=== PATIENT | female | born 1945 | race Caucasian/White ===

== ENCOUNTER 2018-03-20 18:34 | Inpatient (IN) | payer MEDICARE, MEDICAID ==
[~2018-03-20 18:34] MED LIST: ISOVUE-370 76%-LOCM 1 ML ONE
[2018-03-20] MEDS ORDERED: hydrALAZINE 20 MG/ML VIAL ONE (19:24)
[2018-03-20 19:49] LABS: #Basophils 0.1 thou/uL (0.0-0.2); #Eosinphils 1.7 thou/uL (0.0-0.7); #Lymphocytes 2.1 thou/uL (1.20-3.40); #Monocytes 0.8 thou/uL (0.11-0.59); #Neutrophils 5.9 thou/uL (1.40-6.50); %Basophils 0.6 % (0.0-1.0); %Eosinophils 15.9 % (0.0-10.0); %Monocytes 7.3 % (0.0-10.0); %Neutrophils 56.2 % (42.0-75.0); Hemoglobin 11.3 g/dL (12.0-16.0); Mean Corpuscular Hemoglobin 28.3 pg (27.0-31.0); Mean Corpuscular Volume 88.5 fL (78.0-98.0); Mean Platelet Volume 7.5 fL (7.4-10.4); Platelet Count 210 thou/uL (130-400); RBC Distribution Width 12.5 % (11.5-14.5); Red Blood Cell (RBC) Count 3.98 mill/uL (4.20-5.40); White Blood Cell (WBC) Count 10.4 thou/uL (4.8-10.8)
[2018-03-20 19:54] LABS: Platelet Count 210 thou/uL (130-400)
[2018-03-20 19:56] LABS: Fibrinogen 541 mg/dL (253-463)
[2018-03-20] MEDS ORDERED: Ondansetron HCl/PF 4 MG/2 ML Vial ONE (19:56)
[2018-03-20 19:57] LABS: PTT 29.4 SEC (22.9-36.1); Prothrombin Time 13.3 SEC (12.0-14.7)
[2018-03-20 19:58] LABS: D-Dimer Test 2.62 *mcg/mL (0.27-0.43)
[2018-03-20 20:10] LABS: FSP-Qualitative ABNORMAL (Normal); FSP-Semiquantitative >=5 & <20 mcg/mL (Less than 5)
[2018-03-20 20:10] LABS: ALT (SGPT) Less than 7 U/L (8-55); AST (SGOT) 13 U/L (5-34); Albumin 3.7 g/dL (3.4-4.8); Alkaline Phosphatase 80 U/L (40-150); Anion Gap 16 mmol/L (10-20); BUN (Urea Nitrogen) 22 mg/dL (9.8-20.1); Bilirubin, Total 0.3 mg/dL (0.2-1.2); CK (CPK) 126 U/L (29-168); Calc. Creatinine Clearance 0 mL/min (70-130); Calcium 8.7 mg/dL (7.8-10.44); Carbon Dioxide 22 mmol/L (23-31); Chloride 110 mmol/L (98-107); Estimated GFR-MDRD 48; Globulin 2.4 g/dL (2.4-3.5); Glucose 61 mg/dL (83-110); Lipase 26 U/L (8-78); Potassium 3.6 mmol/L (3.5-5.1); Protein, Total 6.1 g/dL (6.0-8.3); Sodium 144 mmol/L (136-145)
[2018-03-20 20:14] LABS: CKMB 0.9 ng/mL (0-6.6); Troponin I Less than 0.010 ng/mL (< 0.028)
[2018-03-20] MEDS ORDERED: Dexamethasone 4 mg/ml Vial ONE (21:12)
[2018-03-20] MEDS ORDERED: Promethazine HCl 25 MG/ML VIAL ONE (21:17)
[2018-03-20] MEDS ORDERED: Promethazine HCl 25 MG in Sodium Chloride 0.9% 100 ML IVPB SCH (21:45)
--- NOTE | 2018-03-20 22:27 | CT ---
CT ANGIOGRAM THORAX WITH IV CONTRAST AND 3D RECONSTRUCTIONS: 03/20/18 HISTORY: Elevated D-dimer. COMPARISON: None available. FINDINGS: No filling defects are seen in the pulmonary arteries to suggest a pulmonary embolus. Vascular calcifications are seen in the coronary arteries and involving the thoracic and visualized u pper abdominal aorta. The thoracic aorta is normal in caliber without evidence of an aortic dissectio n. There are scattered areas of irregular atherosclerotic plaque within the descending thoracic aorta . There is no evidence of lymphadenopathy. There is suggestion of a low density nodule in the left lobe of the thyroid gland although there is a rtifact secondary to dense contrast in the SVC limiting adequate evaluation. This suggested nodular m easures approximately 1.2 cm. There is no evidence of lymphadenopathy. Small hiatal hernia is present. There is approximately 5 mm pleural based nodular density in the right middle lobe adjacent to the mi nor fissure. There is a nodular area of ground glass attenuation seen within the left lower lobe (image 71, series 3). This could be related to focal inflammatory focus. However, given that this is a ground glass no dular density, followup CT scan examination in four months is recommended. Upper abdomen demonstrates prominent vascular calcifications in visualized arterial vessels. Degenerative changes are seen in the spine. IMPRESSION: 1. Ground glass nodular density left lower lobe. This could be related to small focal inflammato ry or infectious focus, but followup CT thorax is recommended in four months. 2. Small subcentimeter pleural based nodular density in the right middle lobe which may be relat ed to focal area of nodular pleural thickening. 3. Prominent atherosclerotic vascular calcifications in the coronary arteries as well as the tho racic aorta and involving the proximal left subclavian artery. 4. No CT evidence of a pulmonary embolus. 5. Small hiatal hernia. 6. Hypodense nodule left lobe of the thyroid gland. Nonemergent thyroid ultrasound is recommende d. POS: [facility]
[2018-03-21] MEDS ORDERED: Dextrose 5% in Water 1,000 ML IV PRN (00:09)
[2018-03-21] MEDS ORDERED: Dextrose 50% Abboject 50 ML SYRINGE SLOW IVP PRN (00:09)
[2018-03-21] MEDS ORDERED: Acetaminophen 325 MG TAB PO PRN (00:10)
[2018-03-21] MEDS ORDERED: Ondansetron HCl/PF 4 MG/2 ML Vial IVP PRN (00:10)
[2018-03-21] MEDS ORDERED: Vancomycin HCl 1 GM in Premix Bag 1 BAG IVPB SCH (00:15)
[2018-03-21] MEDS ORDERED: VANCOMYCIN IVPB PRN (00:31)
[2018-03-21] MEDS ORDERED: hydrALAZINE 20 MG/ML VIAL SLOW IVP PRN (01:18)
[2018-03-21] MEDS: Labetalol HCl 100 MG/20 ML VIAL SLOW IVP PRN ×2 (01:56→16:27)
[2018-03-21] MEDS ORDERED: Sodium Chloride 0.9% 10 ML ONE (01:58)
[2018-03-21 06:11] LABS: #Lymphocytes 0.7 thou/uL (1.20-3.40); #Monocytes 0.2 thou/uL (0.11-0.59); #Neutrophils 8.3 thou/uL (1.40-6.50); %Basophils 0.1 % (0.0-1.0); %Eosinophils 0.4 % (0.0-10.0); %Lymphocytes 7.8 % (21.0-51.0); %Monocytes 1.7 % (0.0-10.0); Hemoglobin 11.6 g/dL (12.0-16.0); Mean Corpuscular HGB CONC 30.8 g/dL (32.0-36.0); Mean Corpuscular Hemoglobin 27.4 pg (27.0-31.0); Mean Corpuscular Volume 88.9 fL (78.0-98.0); Mean Platelet Volume 7.7 fL (7.4-10.4); Platelet Count 215 thou/uL (130-400); RBC Distribution Width 12.6 % (11.5-14.5); Red Blood Cell (RBC) Count 4.22 mill/uL (4.20-5.40); White Blood Cell (WBC) Count 9.3 thou/uL (4.8-10.8)
[2018-03-21 06:31] LABS: Anion Gap 17 mmol/L (10-20); BUN (Urea Nitrogen) 23 mg/dL (9.8-20.1); Calc. Creatinine Clearance 40 mL/min (70-130); Carbon Dioxide 19 mmol/L (23-31); Chloride 108 mmol/L (98-107); Estimated GFR-MDRD 37; Glucose 292 mg/dL (83-110); Potassium 4.2 mmol/L (3.5-5.1); Sodium 140 mmol/L (136-145)
--- NOTE | 2018-03-21 09:18 | HP ---
CODE STATUS: FULL CODE. TIME OF EVALUATION: 10:40 p.m. CHIEF COMPLAINT: Rash and itching with blisters. HISTORY OF PRESENT ILLNESS: This is a 72-year-old female patient with past medical history of lópez ry artery disease, diabetes type 2, hyperlipidemia, high cholesterol, hypertension, came to the [facility] after having the rash and has a distribution that is universal, including all of her body, worsen in the hands, she reported that rash started like with itching, and she believed that she started sc ratching herself and it got over infected. The patient has multiple blisters in the hands area, with some dark petechia in the fingers. There is no involvement of mucosa, symptoms are severe. No manfred r triggers. No alleviating factors. REVIEW OF SYSTEMS: Constitutional: No fever, no chills or generalized weakness. Respiratory: No c ough, no sputum production, no shortness of breath. Cardiovascular: No chest pain, palpitations, sh ortness of breath. Gastrointestinal: No nausea, no vomiting, diarrhea or abdominal pain. [employer]ARD [employer]: No dizziness, headache, or fever, lightheaded. Genitourinary: No burning on urination. Extremities: No leg swelling. Skin: The patient has recently disseminated rash, associated with multiple blister s mostly on the hands, with some dark ecchymosis that she reports has been itching. All other system s were negative except for the one mentioned above. PAST MEDICAL HISTORY: The patient has a history of type 2 diabetes, hyperlipidemia, hypertension. PAST SURGICAL HISTORY: The patient has previous stents x5, right knee surgery, right arm surgery, bi lateral posterior feet surgery. 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 PSYCHIATRIC HISTORY: No previous psychiatric history. SOCIAL HISTORY: No alcohol use, no drug use. No smoking history. The patient lives at [facility]. FAMILY HISTORY: Reviewed and noncontributory to current presentation. DRUG ALLERGIES: MORPHINE and TRAMADOL. MEDICATIONS: Aspirin, amlodipine, Zoloft, Lipitor, Reglan, triamcinolone, Prilosec, Levemir, Colace and Remeron. PHYSICAL EXAMINATION: VITAL SIGNS: On presentation, temperature 98.3, blood pressure 204/75 with heart rate of 59, respira tory rate 18, temperature 98.4. GENERAL APPEARANCE: Patient is alert, oriented, not in acute distress. EYES: Normal conjuctivae. Moist oral mucosa. Anicteric. NECK: No JVD. RESPIRATORY: Bilateral air entry. No rales, no wheezing. Symmetric expansion. CARDIOVASCULAR: Normal rate, regular rhythm, no murmurs, no gallop, no edema. ABDOMEN: Soft, normal bowel sounds. MUSCULOSKELETAL: Baseline range of motion and strength. No tenderness. SKIN: Patient has universally distributed rash, associated with ecchymotic lesions and also blisters . Blisters are located mostly on the hands. NEUROLOGIC: Baseline sensorium. No evidence of any new focal weakness. Baseline speech. Cranial n erves seem to be intact. PSYCHIATRIC: Good mood. No anxiety. Oriented. Optimal judgment. LABORATORY DATA: Reviewed. White count 10.4, hemoglobin 11.3, platelet count 210. Coagulation: PT 13.3, INR 1, PTT 39. Fibrinogen is 541 and D-dimer 2.2. Chemistry: Sodium 144, potassium 3.6, chl oride 110, carbon dioxide 32, anion gap 16, BUN 22, creatinine 1.12, previous admission creatinine wa s 1.3, GFR of 48, glucose 61, calcium 9.7, total bilirubin 0.3, AST 13, ALT less than 7, alkaline jake sphatase 80. CK 136. Lipase is normal. EKG sinus bradycardia, rate of 58, NE 200, no evidence of any acute ischemic events. Chest CT was do ne to rule out PE. Patient has no PE calcification, ground glass opacity, possible infection versus mass was reported. ASSESSMENT AND PLAN: The patient will be placed in the hospital with following medical problems. 1. Universally distributed rash, associated with ecchymotic lesions, also with blisters mostly in bi lateral hands, clear etiology, there is not any specific medication that had been found that could be related with Maldonado-John syndrome or similar drug-related reactions, even possibility of neurolo gical disorder has been present , and other etiology could be infectious and also the patient ma y have so over infected lesions and we will have consulted Dr. Mclain to help us with this case. We w ill follow recommendations. There is no oral mucosal involvement. Lesions are not painful. Culture s to be followed. Some small ecchymotic lesions in fingers reminds lesions that are seen on endocard itis, also this could be more rare diagnosis. Patient already covered with antibiotics. 2. Possible fevers, might need evaluation by [facility] to assist us with this case. 3. Hypertensive urgency, will reconcile home medications. Adjust treatment as needed. 4. Uncontrolled diabetes. The patient presented with hypoglycemia, reconcile home medications. We will adjust treatment as needed. 5. Hyperlipidemia, reconcile home meds, adjust treatment as needed. 6. Deep venous thrombosis prophylaxis.
[2018-03-21] MEDS: CEFAZOLIN 1 GM in Sodium Chloride 0.9% 100 ML IVPB SCH ×2 (09:48→14:49)
[2018-03-21] MEDS: Enoxaparin Sodium 40 MG/0.4 ML SYRINGE SC SCH (09:52)
--- NOTE | 2018-03-21 14:02 | PDOC.PN ---
- Subjective Encounter Start Date: 03/21/18 Encounter Start Time: 09:30 Subjective: c/o itching at multiple sites over hands/forearm and thigs -: no trouble breathing -: is from [facility], no other patients have similar issue - Objective Resuscitation Status: Resuscitation Status FULL:Full Resuscitation MAR Reviewed: Yes Vital Signs & Weight: Vital Signs (12 hours) Temp Pulse Resp BP Pulse Ox 03/21/18 12:50 99.1 F 86 18 173/78 H 93 L 03/21/18 09:50 99.3 F 88 20 178/79 H 93 L 03/21/18 03:38 98.1 F 87 20 133/63 93 L Weight Admit Weight 153 lb 12.8 oz Weight 153 lb 12.8 oz I&O: 03/20/18 03/21/18 03/22/18 06:59 06:59 06:59 Intake Total 250 Balance 250 Result Diagrams: 03/21/18 05:38 03/21/18 05:38 Additional Labs: Accuchecks 03/21/18 03/21/18 10:34 05:50 POC Glucose 175 H 278 H Phys Exam - Physical Examination HEENT: PERRLA, sclera anicteric Neck: no JVD, supple Respiratory: no wheezing, no rales Cardiovascular: RRR, no significant murmur Gastrointestinal: soft, no distention, positive bowel sounds Musculoskeletal: pulses present Neurological: non-focal, moves all 4 limbs Psychiatric: normal affect, A&O x 3 -: multiple excoriations, blistering over hands, forearm, thighs Dx/Plan (1) Vasculitis Code(s): I77.6 - ARTERITIS, UNSPECIFIED Status: Suspected (2) CAD (coronary artery disease) Code(s): I25.10 - ATHSCL HEART DISEASE OF [place] CORONARY ARTERY W/O ANG PCTRS Status: Chronic Qualifiers: Coronary Disease-Associated Artery/Lesion type: [place] artery [place] vs. transplanted heart: [place] heart Associated angina: without angina Qualified Code(s): I25.10 - Atherosclerotic heart disease of [place] coronary artery without angina pectoris (3) DM type 2 (diabetes mellitus, type 2) Status: Chronic Qualifiers: Diabetes mellitus fpc insulin use: with fpc use Diabetes mellitus complication status: with unspecified complications Qualified Code(s) : E11.8 - Type 2 diabetes mellitus with unspecified complications; Z79.4 - [facility] (current) use of insulin (4) Dyslipidemia Code(s): E78.5 - HYPERLIPIDEMIA, UNSPECIFIED Status: Chronic (5) HTN (hypertension) Code(s): I10 - ESSENTIAL (PRIMARY) HYPERTENSION Status: Chronic Qualifiers: Hypertension type: essential hypertension Qualified Code(s): I10 - Essential (primary) hypertension - Plan d/w , likely vasculitis -: is on steroids, ancef and vanc -: gentle iv hydration, hco3 is 19, creatinine is 1.3 -: oob to chair as tolerated -: ?skin biopsy * . Review of Systems - Medications/Allergies Allergies/Adverse Reactions: Allergies Allergy/AdvReac Type Severity Reaction Status Date / Time morphine Allergy Verified 03/21/18 00:55 tramadol Allergy Verified 03/21/18 00:55 Medications: Current Medications Acetaminophen (Tylenol) 650 mg PO Q4H PRN PRN Reason: Headache/Fever or Pain Dextrose/Water (Dextrose 50%) 25 gm SLOW IVP PRN PRN PRN Reason: Hypoglycemia Enoxaparin Sodium (Lovenox) 40 mg SC 0900 [facility] Last Admin: 03/21/18 09:52 Dose: 40 mg Glucagon (Glucagon) 1 mg IM PRN PRN PRN Reason: Hypoglycemia Dextrose/Water (D5w) 1,000 mls @ 0 mls/hr IV .Q0M PRN; As Directed PRN Reason: Hypoglycemia Cefazolin Sodium 1 gm/ Sodium (Chloride) 100 mls @ 200 mls/hr IVPB Q8HR [facility] Last Admin: 03/21/18 09:48 Dose: Not Given Vancomycin HCl 1 gm/ Device 200 mls @ 200 mls/hr IVPB 0100 JERRY Insulin Human Regular (Humulin R) 0 units SC .MILD SLIDING SCALE PRN PRN Reason: Mild Correctional Scale Labetalol HCl (Normodyne) 10 mg SLOW IVP Q4H PRN PRN Reason: SBP Greater Than 180 Last Admin: 03/21/18 01:56 Dose: 10 mg Methylprednisolone Sodium Succinate (Solu-Medrol) 40 mg IVP Q6HR [facility] Last Admin: 03/21/18 12:50 Dose: 40 mg Miscellaneous Medication (Pharmacy To Dose) 1 each IVPB PRN PRN PRN Reason: SSSI Ondansetron HCl (Zofran) 4 mg IVP Q6H PRN PRN Reason: Nausea/Vomiting Last Admin: 03/21/18 02:03 Dose: 4 mg Sodium Chloride (Flush - Normal Saline) 10 ml IVF Q12HR JERRY Last Admin: 03/21/18 09:53 Dose: 10 ml Sodium Chloride (Flush - Normal Saline) 10 ml IVF PRN PRN PRN Reason: Saline Flush
[2018-03-21 16:30] LABS: HBSAg Index 0.16 S/CO (0-0.99); Hep B Surf Ag Non-Reactive S/CO (NonReactive); Hep C IgG Ab Non-Reactive (NonReactive); Hep C Index 0.15 S/CO (0-0.79)
[2018-03-21] MEDS ORDERED: Amlodipine 10 MG TAB PO SCH (18:00)
[2018-03-21] MEDS ORDERED: Metoprolol Tartrate 50 MG TAB PO SCH (18:00)
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
[2018-03-21] MEDS ORDERED: Insulin Glargine 20 UNITS in Pre-Filled Syringe 1 EACH SC SCH (22:45)
[2018-03-21] MEDS: Insulin Regular 300 UNITS/3 ML VIAL SC PRN (23:03)
[2018-03-22] MEDS ORDERED: Vancomycin HCl 1 GM in Premix Bag 1 BAG IVPB SCH (01:00)
[2018-03-22] MEDS: Insulin Regular 300 UNITS/3 ML VIAL SC PRN ×3 (06:24→17:44)
[2018-03-22] MEDS: Insulin Glargine 20 UNITS in Pre-Filled Syringe 1 EACH SC SCH ×2 (09:01→20:38)
[2018-03-22] MEDS: Enoxaparin Sodium 40 MG/0.4 ML SYRINGE SC SCH (09:02)
[2018-03-22] MEDS: Labetalol HCl 100 MG/20 ML VIAL SLOW IVP PRN (09:04)
--- NOTE | 2018-03-22 12:20 | PDOC.PN ---
- Subjective Encounter Start Date: 03/22/18 Encounter Start Time: 09:15 Subjective: no new lesions or blisters -: no sob or abd pain - Objective Resuscitation Status: Resuscitation Status FULL:Full Resuscitation MAR Reviewed: Yes Vital Signs & Weight: Vital Signs (12 hours) Temp Pulse Resp BP BP Pulse Ox 03/22/18 09:04 73 198/88 H 03/22/18 08:57 98.5 F 73 16 198/88 H 98 03/22/18 03:41 97.9 F 72 14 148/72 H 92 L Weight Admit Weight 153 lb 12.8 oz Weight 151 lb 9.6 oz I&O: 03/21/18 03/22/18 03/23/18 06:59 06:59 06:59 Intake Total 250 382 Balance 250 382 Result Diagrams: 03/21/18 05:38 03/21/18 05:38 Additional Labs: Accuchecks 03/22/18 03/21/18 03/21/18 10:39 23:04 16:38 POC Glucose 393 H 508 H 252 H Phys Exam - Physical Examination HEENT: PERRLA, sclera anicteric Neck: no JVD, supple Respiratory: no wheezing, no rales Cardiovascular: RRR, no significant murmur Gastrointestinal: soft, no distention, positive bowel sounds Musculoskeletal: pulses present, edema present Neurological: non-focal, moves all 4 limbs Psychiatric: normal affect, A&O x 3 -: has blistering and excoriated areas over b/l hands. ?petechiae over shins Dx/Plan (1) Vasculitis Code(s): I77.6 - ARTERITIS, UNSPECIFIED Status: Suspected (2) CAD (coronary artery disease) Code(s): I25.10 - ATHSCL HEART DISEASE OF [place] CORONARY ARTERY W/O ANG PCTRS Status: Chronic Qualifiers: Coronary Disease-Associated Artery/Lesion type: [place] artery [place] vs. transplanted heart: [place] heart Associated angina: without angina Qualified Code(s): I25.10 - Atherosclerotic heart disease of [place] coronary artery without angina pectoris (3) DM type 2 (diabetes mellitus, type 2) Status: Chronic Qualifiers: Diabetes mellitus o[place] insulin use: with oysterman use Diabetes mellitus complication status: with unspecified complications Qualified Code(s) : E11.8 - Type 2 diabetes mellitus with unspecified complications; Z79.4 - oyst[place] (current) use of insulin (4) Dyslipidemia Code(s): E78.5 - HYPERLIPIDEMIA, UNSPECIFIED Status: Chronic (5) HTN (hypertension) Code(s): I10 - ESSENTIAL (PRIMARY) HYPERTENSION Status: Chronic Qualifiers: Hypertension type: essential hypertension Qualified Code(s): I10 - Essential (primary) hypertension - Plan on solumedrol for vasculitis -: skin biopsy/hand surgery consultation pending -: vasculitis labs have been ordered by -: tx to med floor -: home meds to be restarted for htn, lantus bid for dm with coverage. * . diabetes will be labile due to steroids and will escalate dosing of insulins based on response and taper of steroids eventually. Review of Systems - Medications/Allergies Allergies/Adverse Reactions: Allergies Allergy/AdvReac Type Severity Reaction Status Date / Time morphine Allergy Verified 03/21/18 00:55 tramadol Allergy Verified 03/21/18 00:55 Medications: Current Medications Acetaminophen (Tylenol) 650 mg PO Q4H PRN PRN Reason: Headache/Fever or Pain Amlodipine Besylate (Norvasc) 5 mg PO DAILY [facility] Aspirin (Ecotrin) 81 mg PO DAILY [facility] Atorvastatin Calcium (Lipitor) 40 mg PO HS [facility] Dextrose/Water (Dextrose 50%) 25 gm SLOW IVP PRN PRN PRN Reason: Hypoglycemia Docusate Sodium (Colace) 100 mg PO DAILY [facility] Enoxaparin Sodium (Lovenox) 40 mg SC 0900 [facility] Last Admin: 03/22/18 09:02 Dose: 40 mg Glucagon (Glucagon) 1 mg IM PRN PRN PRN Reason: Hypoglycemia Dextrose/Water (D5w) 1,000 mls @ 0 mls/hr IV .Q0M PRN; As Directed PRN Reason: Hypoglycemia Insulin Glargine 20 units/ (Miscellaneous Medication) 0.2 mls @ 0 mls/hr SC BID [facility] Last Admin: 03/22/18 09:01 Dose: 0.2 mls Insulin Human Regular (Humulin R) 0 units SC .MILD SLIDING SCALE PRN PRN Reason: Mild Correctional Scale Last Admin: 03/22/18 10:49 Dose: 6 unit Insulin Human Regular (Humulin R) 0 units SC .BEDTIME SLIDING SC PRN; Protocol PRN Reason: BEDTIME SLIDING SCALE Last Admin: 03/21/18 23:03 Dose: 5 unit Labetalol HCl (Normodyne) 10 mg SLOW IVP Q4H PRN PRN Reason: SBP Greater Than 180 Last Admin: 03/22/18 09:04 Dose: 10 mg Losartan Potassium (Cozaar) 100 mg PO DAILY [facility] Melatonin (Melatonin) 3 mg PO HS [facility] Methylprednisolone Sodium Succinate (Solu-Medrol) 40 mg IVP Q6HR [facility] Last Admin: 03/22/18 05:17 Dose: 40 mg Metoclopramide HCl (Reglan) 5 mg PO TID [facility] Metoprolol Tartrate (Lopressor) 50 mg PO DAILY [facility] Mirtazapine (Remeron) 7.5 mg PO HS [facility] Miscellaneous Medication (Pharmacy To Dose) 1 each IVPB PRN PRN PRN Reason: SSSI Non-Formulary Medication (Omeprazole [Omeprazole]) 20 mg PO DAILY [facility] Ondansetron HCl (Zofran) 4 mg IVP Q6H PRN PRN Reason: Nausea/Vomiting Last Admin: 03/21/18 02:03 Dose: 4 mg Sertraline HCl (Zoloft) 200 mg PO HS [facility] Sodium Chloride (Flush - Normal Saline) 10 ml IVF Q12HR [facility] Last Admin: 03/22/18 09:03 Dose: 10 ml Sodium Chloride (Flush - Normal Saline) 10 ml IVF PRN PRN PRN Reason: Saline Flush Last Admin: 03/21/18 23:06 Dose: 10 ml
[2018-03-22] MEDS ORDERED: Amlodipine 5 MG TAB PO SCH (14:00)
[2018-03-22] MEDS ORDERED: Metoprolol Tartrate 50 MG TAB PO SCH (14:00)
[2018-03-22] MEDS ORDERED: Losartan 25 MG TAB PO SCH (14:00)
[2018-03-22] MEDS: Metoclopramide HCl 10 MG TAB PO SCH ×2 (14:21→20:38)
[2018-03-22] MEDS: Atorvastatin Calcium 40 MG TAB PO SCH (20:37)
[2018-03-22] MEDS: Melatonin 3 MG TAB PO SCH (20:37)
[2018-03-22] MEDS: Mirtazapine 15 MG TAB PO SCH (20:37)
[2018-03-23] MEDS: Insulin Regular 300 UNITS/3 ML VIAL SC PRN ×4 (00:44→17:27)
[2018-03-23] MEDS ORDERED: Metoprolol Tartrate 50 MG TAB PO SCH (09:00)
[2018-03-23] MEDS ORDERED: Amlodipine 5 MG TAB PO SCH (09:00)
[2018-03-23] MEDS: Docusate 100 MG CAP PO SCH (09:27)
[2018-03-23] MEDS: Enoxaparin Sodium 40 MG/0.4 ML SYRINGE SC SCH (09:27)
[2018-03-23] MEDS: Aspirin 81 mg Enteric Coated Tablet PO SCH (09:27)
[2018-03-23] MEDS: Losartan 25 MG TAB PO SCH (09:28)
[2018-03-23] MEDS: Insulin Glargine 40 UNITS in Pre-Filled Syringe 1 EACH SC SCH ×2 (09:28→20:07)
[2018-03-23] MEDS: Metoclopramide HCl 10 MG TAB PO SCH ×3 (09:29→20:07)
--- NOTE | 2018-03-23 11:00 | PDOC.PN ---
- Subjective Encounter Start Date: 03/23/18 Encounter Start Time: 10:20 Subjective: awake, itching is better -: is moving all fingers, overall feels better today - Objective Resuscitation Status: Resuscitation Status FULL:Full Resuscitation MAR Reviewed: Yes Vital Signs & Weight: Vital Signs (12 hours) Temp Pulse Resp BP BP Pulse Ox 03/23/18 09:27 63 175/79 H 03/23/18 07:42 98.5 F 63 14 175/79 H 03/23/18 04:30 98.4 F 60 14 154/71 H 95 03/23/18 00:32 98.6 F 64 16 162/70 H 92 L Weight Admit Weight 153 lb 12.8 oz Weight 151 lb 9.6 oz I&O: 03/22/18 03/23/18 03/24/18 06:59 06:59 06:59 Intake Total 382 1200 Balance 382 1200 Result Diagrams: 03/21/18 05:38 03/21/18 05:38 Additional Labs: Accuchecks 03/23/18 03/22/18 03/22/18 04:39 20:06 16:58 POC Glucose 328 H 430 H 351 H Phys Exam - Physical Examination HEENT: PERRLA, moist MMs Neck: no JVD, supple Respiratory: no wheezing, no rales Cardiovascular: RRR, no significant murmur Gastrointestinal: soft, no distention, positive bowel sounds Musculoskeletal: pulses present Neurological: non-focal, moves all 4 limbs Psychiatric: normal affect, A&O x 3 -: has blistering and excoriations over both hands, petechiae over shins Dx/Plan (1) Vasculitis Code(s): I77.6 - ARTERITIS, UNSPECIFIED Status: Suspected (2) CAD (coronary artery disease) Code(s): I25.10 - ATHSCL HEART DISEASE OF [place] CORONARY ARTERY W/O ANG PCTRS Status: Chronic Qualifiers: Coronary Disease-Associated Artery/Lesion type: [place] artery [place] vs. transplanted heart: [place] heart Associated angina: without angina Qualified Code(s): I25.10 - Atherosclerotic heart disease of [place] coronary artery without angina pectoris (3) DM type 2 (diabetes mellitus, type 2) Status: Chronic Qualifiers: Diabetes mellitus terminal block assembler insulin use: with mcfp use Diabetes mellitus complication status: with unspecified complications Qualified Code(s) : E11.8 - Type 2 diabetes mellitus with unspecified complications; Z79.4 - equipment operator intermodal yard (current) use of insulin (4) Dyslipidemia Code(s): E78.5 - HYPERLIPIDEMIA, UNSPECIFIED Status: Chronic (5) HTN (hypertension) Code(s): I10 - ESSENTIAL (PRIMARY) HYPERTENSION Status: Chronic Qualifiers: Hypertension type: essential hypertension Qualified Code(s): I10 - Essential (primary) hypertension - Plan responding well to steroids -: d/w , hand surgery, will see her + biopsy -: off antibiotics from yesterday -: increase lantus to compensate for steroid induced hyperglycemia -: mobilize as tolerated/oob to chair * . continue asp, norvasc, lopressor, cozaar and lipitor. Review of Systems - Medications/Allergies Allergies/Adverse Reactions: Allergies Allergy/AdvReac Type Severity Reaction Status Date / Time morphine Allergy Verified 03/21/18 00:55 tramadol Allergy Verified 03/21/18 00:55 Medications: Current Medications Acetaminophen (Tylenol) 650 mg PO Q4H PRN PRN Reason: Headache/Fever or Pain Amlodipine Besylate (Norvasc) 5 mg PO DAILY [facility] Last Admin: 03/23/18 09:27 Dose: 5 mg Aspirin (Ecotrin) 81 mg PO DAILY [facility] Last Admin: 03/23/18 09:27 Dose: 81 mg Atorvastatin Calcium (Lipitor) 40 mg PO HS [facility] Last Admin: 03/22/18 20:37 Dose: 40 mg Dextrose/Water (Dextrose 50%) 25 gm SLOW IVP PRN PRN PRN Reason: Hypoglycemia Docusate Sodium (Colace) 100 mg PO DAILY [facility] Last Admin: 03/23/18 09:27 Dose: 100 mg Enoxaparin Sodium (Lovenox) 40 mg SC 0900 [facility] Last Admin: 03/23/18 09:27 Dose: 40 mg Glucagon (Glucagon) 1 mg IM PRN PRN PRN Reason: Hypoglycemia Dextrose/Water (D5w) 1,000 mls @ 0 mls/hr IV .Q0M PRN; As Directed PRN Reason: Hypoglycemia Insulin Glargine 40 units/ (Miscellaneous Medication) 0.4 mls @ 0 mls/hr SC BID [facility] Last Admin: 03/23/18 09:28 Dose: 0.4 mls Insulin Human Regular (Humulin R) 0 units SC .MILD SLIDING SCALE PRN PRN Reason: Mild Correctional Scale Last Admin: 03/23/18 05:46 Dose: 5 unit Insulin Human Regular (Humulin R) 0 units SC .BEDTIME SLIDING SC PRN; Protocol PRN Reason: BEDTIME SLIDING SCALE Last Admin: 03/23/18 00:44 Dose: 5 unit Labetalol HCl (Normodyne) 10 mg SLOW IVP Q4H PRN PRN Reason: SBP Greater Than 180 Last Admin: 03/22/18 09:04 Dose: 10 mg Losartan Potassium (Cozaar) 100 mg PO DAILY [facility] Last Admin: 03/23/18 09:28 Dose: 100 mg Melatonin (Melatonin) 3 mg PO HS [facility] Last Admin: 03/22/18 20:37 Dose: 3 mg Methylprednisolone Sodium Succinate (Solu-Medrol) 40 mg IVP Q6HR [facility] Last Admin: 03/23/18 05:46 Dose: 40 mg Metoclopramide HCl (Reglan) 5 mg PO TID [facility] Last Admin: 03/23/18 09:29 Dose: 5 mg Metoprolol Tartrate (Lopressor) 50 mg PO DAILY [facility] Last Admin: 03/23/18 09:29 Dose: 50 mg Mirtazapine (Remeron) 7.5 mg PO HS [facility] Last Admin: 03/22/18 20:37 Dose: 7.5 mg Ondansetron HCl (Zofran) 4 mg IVP Q6H PRN PRN Reason: Nausea/Vomiting Last Admin: 03/21/18 02:03 Dose: 4 mg Pantoprazole Sodium (Protonix) 40 mg PO DAILY [facility] Last Admin: 03/23/18 09:29 Dose: 40 mg Sertraline HCl (Zoloft) 200 mg PO HS [facility] Last Admin: 03/22/18 20:38 Dose: 200 mg Sodium Chloride (Flush - Normal Saline) 10 ml IVF Q12HR [facility] Last Admin: 03/23/18 09:30 Dose: 10 ml Sodium Chloride (Flush - Normal Saline) 10 ml IVF PRN PRN PRN Reason: Saline Flush Last Admin: 03/21/18 23:06 Dose: 10 ml
[2018-03-23] MEDS: Labetalol HCl 100 MG/20 ML VIAL SLOW IVP PRN ×2 (12:31→17:18)
[2018-03-23] MEDS ORDERED: Silver Sulfadiazine 1% Cream 50 GM JAR TOP SCH (14:45)
--- NOTE | 2018-03-23 20:06 | PRG ---
DATE OF SERVICE: 03/23/2018 SUBJECTIVE: About the same. No headaches, no visual symptoms, sore throat, odynophagia or dysphagia. The lesions in the upper extremities and lower extremities appear to be drying up. OBJECTIVE: VITAL SIGNS: T-max 98.5, blood pressure 180/70, pulse 66, respirations 16, O2 sat 95%. SKIN: Hemorrhagic blisters with petechial lesions are drying up. I do not see any new ones. Most of them are distributed in the distal aspect of upper and lower extremities. HEENT: Ocular movements conjugate. She is awake, appears in no distress. LUNGS: Clear. CARDIOVASCULAR: S1, S2, regular rate. ABDOMEN: Soft and not distended. LABORATORY DATA: White cell count 9.3, hemoglobin 11, platelets 215. Creatinine 1.39, sodium 140, albumin 3.7. Blood cultures negative. ASSESSMENT AND DISCUSSION: Type 2 diabetes, coronary artery disease, new onset of skin eruption with bullous transformation, petechial purpuric changes upper and lower extremities, more prominent in the distal aspect. Again, differential diagnosis includes cryoglobulinemia or other type of hypersensitivity, vasculitis or leukocytoclastic vasculitis. Serologies are pending for hepatitis C and cryoglobulin titer. Biopsies pending. MTDD
[2018-03-23] MEDS: Atorvastatin Calcium 40 MG TAB PO SCH (20:07)
[2018-03-23] MEDS: Mirtazapine 15 MG TAB PO SCH (20:07)
[2018-03-23] MEDS: Metoprolol Tartrate 50 MG TAB PO SCH (20:08)
[2018-03-23] MEDS: Melatonin 3 MG TAB PO SCH (20:11)
[2018-03-23] MEDS: HumaLOG 300 UNITS/3 ML VIAL SC PRN (20:12)
[2018-03-24] MEDS: Metoprolol Tartrate 50 MG TAB PO SCH ×2 (05:47→20:14)
[2018-03-24] MEDS: Amlodipine 10 MG TAB PO SCH (07:51)
[2018-03-24] MEDS: Aspirin 81 mg Enteric Coated Tablet PO SCH (07:51)
[2018-03-24] MEDS: Docusate 100 MG CAP PO SCH (07:52)
[2018-03-24] MEDS: Enoxaparin Sodium 40 MG/0.4 ML SYRINGE SC SCH (07:52)
[2018-03-24] MEDS: Insulin Glargine 40 UNITS in Pre-Filled Syringe 1 EACH SC SCH (07:52)
[2018-03-24] MEDS: Metoclopramide HCl 10 MG TAB PO SCH ×3 (07:53→20:14)
[2018-03-24] MEDS: Losartan 25 MG TAB PO SCH (07:53)
[2018-03-24] MEDS: Silver Sulfadiazine 1% Cream 50 GM JAR TOP SCH (09:11)
[2018-03-24] MEDS ORDERED: PROPOFOL 200 MG/20 ML VIAL ONE (10:42)
--- NOTE | 2018-03-24 12:17 | PDOC.PN ---
- Subjective Encounter Start Date: 03/24/18 Encounter Start Time: 08:25 Subjective: feels better, no itching, no new lesions or blisters -: old ones are drying out - Objective Resuscitation Status: Resuscitation Status FULL:Full Resuscitation MAR Reviewed: Yes Vital Signs & Weight: Vital Signs (12 hours) Temp Pulse Resp BP BP Pulse Ox 03/24/18 11:00 98.5 F 65 16 194/76 H 96 03/24/18 08:00 97.4 F L 60 16 96 03/24/18 07:51 60 190/84 H 03/24/18 07:48 97.4 F L 60 16 190/84 H 96 Weight Admit Weight 153 lb 12.8 oz Weight 151 lb 9.6 oz I&O: 03/23/18 03/24/18 03/25/18 06:59 06:59 06:59 Intake Total 1200 1390 Balance 1200 1390 Result Diagrams: 03/21/18 05:38 03/21/18 05:38 Additional Labs: Accuchecks 03/24/18 03/23/18 03/23/18 05:14 20:08 16:44 POC Glucose 294 H 460 H 453 H 03/23/18 03/22/18 00:24 06:01 POC Glucose 412 H 405 H Phys Exam - Physical Examination HEENT: PERRLA, moist MMs Neck: no JVD, supple Respiratory: no wheezing, no rales Cardiovascular: RRR, no significant murmur Gastrointestinal: soft, non-tender, positive bowel sounds Musculoskeletal: pulses present Neurological: non-focal, moves all 4 limbs Psychiatric: normal affect, A&O x 3 -: excoriations and blistering of b/l hand, petechiae over shins Dx/Plan (1) Vasculitis Code(s): I77.6 - ARTERITIS, UNSPECIFIED Status: Suspected (2) CAD (coronary artery disease) Code(s): I25.10 - ATHSCL HEART DISEASE OF [place] CORONARY ARTERY W/O ANG PCTRS Status: Chronic Qualifiers: Coronary Disease-Associated Artery/Lesion type: [place] artery [place] vs. 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 engine ii pipe fitter use Diabetes mellitus complication status: with unspecified complications Qualified Code(s) : E11.8 - Type 2 diabetes mellitus with unspecified complications; Z79.4 - nursing home (current) use of insulin (4) Dyslipidemia Code(s): E78.5 - HYPERLIPIDEMIA, UNSPECIFIED Status: Chronic (5) HTN (hypertension) Code(s): I10 - ESSENTIAL (PRIMARY) HYPERTENSION Status: Chronic Qualifiers: Hypertension type: essential hypertension Qualified Code(s): I10 - Essential (primary) hypertension - Plan is going for debridement and skin biopsy in OR by -: vasculitis labs are pending -: on solumedrol -: dm is labile due to steroids, adjust lantus accordingly -: to mobilize as tolerated/oob to chair * . Review of Systems - Medications/Allergies Allergies/Adverse Reactions: Allergies Allergy/AdvReac Type Severity Reaction Status Date / Time morphine Allergy Verified 03/21/18 00:55 tramadol Allergy Verified 03/21/18 00:55 Medications: Current Medications Acetaminophen (Tylenol) 650 mg PO Q4H PRN PRN Reason: Headache/Fever or Pain Amlodipine Besylate (Norvasc) 10 mg PO DAILY [facility] Last Admin: 03/24/18 07:51 Dose: 10 mg Aspirin (Ecotrin) 81 mg PO DAILY [facility] Last Admin: 03/24/18 07:51 Dose: Not Given Atorvastatin Calcium (Lipitor) 40 mg PO HS [facility] Last Admin: 03/23/18 20:07 Dose: 40 mg Dextrose/Water (Dextrose 50%) 25 gm SLOW IVP PRN PRN PRN Reason: Hypoglycemia Docusate Sodium (Colace) 100 mg PO DAILY [facility] Last Admin: 03/24/18 07:52 Dose: 100 mg Enoxaparin Sodium (Lovenox) 40 mg SC 0900 [facility] Last Admin: 03/24/18 07:52 Dose: Not Given Glucagon (Glucagon) 1 mg IM PRN PRN PRN Reason: Hypoglycemia Dextrose/Water (D5w) 1,000 mls @ 0 mls/hr IV .Q0M PRN; As Directed PRN Reason: Hypoglycemia Insulin Glargine 40 units/ (Miscellaneous Medication) 0.4 mls @ 0 mls/hr SC BID [facility] Last Admin: 03/24/18 07:52 Dose: 0.4 mls Insulin Human Lispro (Humalog) 0 units SC .AGGRESSIVE SLIDING PRN PRN Reason: Aggressive Correctional Scale Insulin Human Lispro (Humalog) 0 units SC .BEDTIME SLIDING SC PRN PRN Reason: Bedtime Correctional Scale Last Admin: 03/23/18 20:12 Dose: 5 unit Labetalol HCl (Normodyne) 10 mg SLOW IVP Q4H PRN PRN Reason: SBP Greater Than 180 Last Admin: 03/23/18 17:18 Dose: 10 mg Losartan Potassium (Cozaar) 100 mg PO DAILY [facility] Last Admin: 03/24/18 07:53 Dose: 100 mg Melatonin (Melatonin) 3 mg PO [facility] Last Admin: 03/23/18 20:11 Dose: 3 mg Methylprednisolone Sodium Succinate (Solu-Medrol) 40 mg IVP Q6HR [facility] Last Admin: 03/24/18 05:48 Dose: 40 mg Metoclopramide HCl (Reglan) 5 mg PO TID [facility] Last Admin: 03/24/18 07:53 Dose: 5 mg Metoprolol Tartrate (Lopressor) 50 mg PO BID [facility] Last Admin: 03/24/18 05:47 Dose: 50 mg Mirtazapine (Remeron) 7.5 mg PO [facility] Last Admin: 03/23/18 20:07 Dose: 7.5 mg Ondansetron HCl (Zofran) 4 mg IVP Q6H PRN PRN Reason: Nausea/Vomiting Last Admin: 03/21/18 02:03 Dose: 4 mg Pantoprazole Sodium (Protonix) 40 mg PO DAILY [facility] Last Admin: 03/24/18 07:54 Dose: 40 mg Sertraline HCl (Zoloft) 200 mg PO [facility] Last Admin: 03/23/18 20:06 Dose: 200 mg Silver Sulfadiazine (Silvadene) 0 gm TOP QAM [facility] Last Admin: 03/24/18 09:11 Dose: Not Given Sodium Chloride (Flush - Normal Saline) 10 ml IVF Q12HR [facility] Last Admin: 03/24/18 07:54 Dose: 10 ml Sodium Chloride (Flush - Normal Saline) 10 ml IVF PRN PRN PRN Reason: Saline Flush Last Admin: 03/21/18 23:06 Dose: 10 ml
[2018-03-24] MEDS: HumaLOG 300 UNITS/3 ML VIAL SC PRN ×2 (12:26→20:35)
[2018-03-24] MEDS: Labetalol HCl 100 MG/20 ML VIAL SLOW IVP PRN ×2 (12:28→18:19)
[2018-03-24 14:01] VITALS: BMI 25.2
[2018-03-24] MEDS ORDERED: Lidocaine 1% (PF) 30 ML VIAL ONE (15:20)
[2018-03-24] MEDS ORDERED: Bupivacaine PF 0.5% 30 ML VIAL ONE (15:20)
[2018-03-24] MEDS ORDERED: Thrombin 5000 UNITS/5 ML VIAL ONE (15:20)
[2018-03-24] MEDS ORDERED: Bacitracin Zinc Ointment 30 gm TUBE ONE (15:20)
[2018-03-24] MEDS ORDERED: Sodium Chloride 0.9% 0 ML ONE (15:20)
[2018-03-24] MEDS ORDERED: Ondansetron HCl/PF 4 MG/2 ML Vial IVP PRN (17:29)
[2018-03-24] MEDS ORDERED: Promethazine HCl 25 MG/ML VIAL SLOW IVP PRN (17:29)
[2018-03-24] MEDS ORDERED: Promethazine HCl 25 MG/ML VIAL IM PRN (17:29)
[2018-03-24] MEDS ORDERED: Ondansetron ODT 4 MG TAB PO PRN (17:42)
[2018-03-24] MEDS ORDERED: INSULIN ASPART SC SCH (17:45)
[2018-03-24] MEDS: Atorvastatin Calcium 40 MG TAB PO SCH (20:13)
[2018-03-24] MEDS: Mirtazapine 15 MG TAB PO SCH (20:13)
[2018-03-24] MEDS: Melatonin 3 MG TAB PO SCH (20:14)
[2018-03-24] MEDS: Artificial Tear Sol 15 ML BOT EA EYE SCH (20:27)
[2018-03-24] MEDS: Insulin Glargine 20 UNITS in Pre-Filled Syringe SC SCH (20:33)
[2018-03-24] MEDS ORDERED: Non-Formulary Item 1 EACH (Insulin Detemir 100 Units/Ml [Levemir] 20 UNIT) SQ SCH (21:00)
[2018-03-25] MEDS: HumaLOG 300 UNITS/3 ML VIAL SC PRN ×4 (05:30→20:02)
[2018-03-25] MEDS ORDERED: Non-Formulary Item 1 EACH (Insulin Detemir 100 Units/Ml [Levemir] 25 UNIT) SQ SCH (08:00)
[2018-03-25] MEDS: Amlodipine 10 MG TAB PO SCH (09:22)
[2018-03-25] MEDS: Insulin Glargine 25 UNITS in Pre-Filled Syringe SC SCH (09:22)
[2018-03-25] MEDS: Aspirin 81 mg Enteric Coated Tablet PO SCH (09:23)
[2018-03-25] MEDS: Artificial Tear Sol 15 ML BOT EA EYE SCH ×3 (09:23→20:00)
[2018-03-25] MEDS: Losartan 25 MG TAB PO SCH (09:24)
[2018-03-25] MEDS: Enoxaparin Sodium 40 MG/0.4 ML SYRINGE SC SCH (09:24)
[2018-03-25] MEDS: Docusate 100 MG CAP PO SCH (09:24)
[2018-03-25] MEDS: Metoclopramide HCl 10 MG TAB PO SCH ×3 (09:24→20:01)
[2018-03-25] MEDS: Metoprolol Tartrate 50 MG TAB PO SCH ×2 (09:25→20:01)
--- NOTE | 2018-03-25 09:55 | OP ---
DATE OF SURGERY: 03/24/2018 PREOPERATIVE DIAGNOSES: Multiple bullae with petechial edges and multiple petechiae in multiple digi ts and the palm of both hands. POSTOPERATIVE DIAGNOSES: Bullae without gross infection, sub bullous hematomas seen at the left midd le finger and the right long finger with multiple digit bullae. PROCEDURES PERFORMED: 1. Debridement of bullae using primarily prepping and draping brush, as well as Adson's with excisio nal technique. No gross infection or hematoma seen underneath. No visible skin changes otherwise. 2. Right upper extremity ring finger excisional biopsy of skin; and left long finger or middle finge r, excisional biopsy of skin in dorsal long finger left. Both biopsies were approximately 1 cm long and 3 mm wide. INDICATION: The patient was in the hospital with some type of infection, etiology undetermined. Con sulted for possible biopsy by Infectious Disease with hopes that the specimen wound send us down a mo re definitive pathway. ANESTHESIA: General with conscious sedation augmented by 10 mL of 0.5% Marcaine block in each of the digits (left middle finger MP joint level and right ring finger MP joint level). DESCRIPTION OF PROCEDURE: After successful anesthesia was brought to appropriate level, prepping and draping was accomplished, timeout was done. She was given the injection of Marcaine 10 mL as descri bed above. I first approached the left side, waited approximately 3-4 minutes until she had had [facility] to inspect, see some type of . The patient then procedure on the contralater al side, had Band-Aids placed on the bullae that were unroofed with either scrubbing or intentional, Bacitracin, Adaptic, 4 x 4s, and finger tube gauze applied to the area. There was bleeding, especial ly with the biopsy on each side, and it was held on with a small [place] and a wrap around the wrist. All this was covered with Coban. The patient left the operating room without evidence of anesthetic or operative complication.
[2018-03-25 15:35] LABS: Cytoplasmic (C-ANCA) Negative titer (Neg:<1:20); Perinuclear (P-ANCA) Negative titer (Neg:<1:20)
[2018-03-25] MEDS ORDERED: Polyethylene Glycol 3350 17 GM Packet PO SCH (17:30)
[2018-03-25] MEDS: Silver Sulfadiazine 1% Cream 50 GM JAR TOP SCH (18:34)
--- NOTE | 2018-03-25 18:47 | PDOC.PN ---
- Subjective Encounter Start Date: 03/25/18 Encounter Start Time: 15:00 Doing well post debridement of the bullous lesions of the fingers. - Objective Resuscitation Status: Resuscitation Status FULL:Full Resuscitation Vital Signs & Weight: Vital Signs (12 hours) Temp Pulse Resp BP BP Pulse Ox 03/25/18 16:40 98.6 F 69 18 137/70 93 L 03/25/18 12:12 62 97 03/25/18 11:20 98.1 F 67 20 169/71 H 94 L 03/25/18 09:22 67 186/84 H 03/25/18 08:00 97.7 F 67 18 94 L 03/25/18 07:32 97.7 F 67 18 186/84 H 94 L Weight Admit Weight 153 lb 12.8 oz Weight 151 lb 9.6 oz I&O: 03/24/18 03/25/18 03/26/18 06:59 06:59 06:59 Intake Total 3700 826 9433 Balance 4405 904 8721 Result Diagrams: 03/21/18 05:38 03/21/18 05:38 Additional Labs: Accuchecks 03/25/18 03/25/18 03/25/18 16:45 11:25 05:24 POC Glucose 204 H 198 H 221 H 03/24/18 03/24/18 03/24/18 20:37 18:25 15:12 POC Glucose 227 H 104 208 H Phys Exam - Physical Examination Constitutional: NAD Neck: no JVD, supple Respiratory: no wheezing, no rales, no rhonchi, clear to auscultation bilateral Cardiovascular: RRR, no significant murmur, no rub Gastrointestinal: soft, non-tender, no distention Fingers are wrapped. Psychiatric: normal affect Deviation from normal: Area of small scabbed lesions on the right chest. 2-6 mm. Dx/Plan (1) Vasculitis Code(s): I77.6 - ARTERITIS, UNSPECIFIED Status: Suspected Comment: Suspected vasculitis with petechia on the fingers and chest. Bullous lesions developed on the fingers. Debrided and biopsies sent for confirmation. On steroids. (2) CAD (coronary artery disease) Code(s): I25.10 - ATHSCL HEART DISEASE OF [place] CORONARY ARTERY W/O ANG PCTRS Status: Chronic Qualifiers: Coronary Disease-Associated Artery/Lesion type: [place] artery [place] vs. transplanted heart: [place] heart Associated angina: without angina Qualified Code(s): I25.10 - Atherosclerotic heart disease of [place] coronary artery without angina pectoris Comment: Stable. (3) DM type 2 (diabetes mellitus, type 2) Status: Chronic Qualifiers: Diabetes mellitus keno terminal operator insulin use: with correction use Diabetes mellitus complication status: with unspecified complications Qualified Code(s) : E11.8 - Type 2 diabetes mellitus with unspecified complications; Z79.4 - adjunct faculty for medical terminology (current) use of insulin Comment: Mild hyperglycemia in the setting of the prednisone. Continue accuchecks, ISS. (4) Dyslipidemia Code(s): E78.5 - HYPERLIPIDEMIA, UNSPECIFIED Status: Chronic Comment: Stable. Continue Lipitor. (5) HTN (hypertension) Code(s): I10 - ESSENTIAL (PRIMARY) HYPERTENSION Status: Chronic Qualifiers: Hypertension type: essential hypertension Qualified Code(s): I10 - Essential (primary) hypertension Comment: Stable. Raine Robertson Cozaar. - Plan * Awaiting biopsies. Continue wound care.
--- NOTE | 2018-03-25 19:39 | PRG ---
DATE OF SERVICE: 03/25/2018 SUBJECTIVE: Feeling well. She had a biopsy done by Dr. Ortega. No chest pain, no abdominal pain or diarrhea. PHYSICAL EXAMINATION: VITAL SIGNS: Normal. O2 sats a little bit decreased but that is chronic. GENERAL: Awake, alert, oriented, in no distress. Right hands are covered by dressing. LUNGS: Clear. HEART: S1, S2, regular rate. ABDOMEN: Soft, not distended. LABORATORY DATA: White cell count 9.3, hemoglobin 11.6. ANCA serology negative, hepatitis C antibod y negative. Cryoglobulin is pending and the biopsy of the skin is pending. IMPRESSION AND PLAN: She is on corticosteroids I believe, she is on prednisone. I will transition he r to oral prednisone 40 mg in the morning and then taper that, wait for the pathology results to plan further treatment.
[2018-03-25] MEDS: Atorvastatin Calcium 40 MG TAB PO SCH (20:00)
[2018-03-25] MEDS: Insulin Glargine 20 UNITS in Pre-Filled Syringe SC SCH (20:01)
[2018-03-25] MEDS: Melatonin 3 MG TAB PO SCH (20:01)
[2018-03-25] MEDS: Mirtazapine 15 MG TAB PO SCH (20:02)
[2018-03-26] MEDS ORDERED: predniSONE 20 MG TAB PO SCH (08:00)
[2018-03-26] MEDS: Docusate 100 MG CAP PO SCH (08:28)
[2018-03-26] MEDS: Aspirin 81 mg Enteric Coated Tablet PO SCH (08:28)
[2018-03-26] MEDS: Metoclopramide HCl 10 MG TAB PO SCH ×2 (08:28→14:41)
[2018-03-26] MEDS: Losartan 25 MG TAB PO SCH (08:29)
[2018-03-26] MEDS: Amlodipine 10 MG TAB PO SCH (08:29)
[2018-03-26] MEDS: Metoprolol Tartrate 50 MG TAB PO SCH (08:29)
[2018-03-26] MEDS: Enoxaparin Sodium 40 MG/0.4 ML SYRINGE SC SCH (08:30)
[2018-03-26] MEDS: Artificial Tear Sol 15 ML BOT EA EYE SCH ×2 (08:30→14:41)
[2018-03-26] MEDS: Silver Sulfadiazine 1% Cream 50 GM JAR TOP SCH (08:31)
[2018-03-26] MEDS: Insulin Glargine 25 UNITS in Pre-Filled Syringe SC SCH (10:16)
[2018-03-26] MEDS: HumaLOG 300 UNITS/3 ML VIAL SC PRN ×2 (12:10→16:48)
[2018-03-26 12:40] LABS: ANA Symphony (Qualitative) Negative (Negative); CCP IgG Antibody 0.7 EliAU/mL (<7 Negative); EliA RAS New Method **** NEW METHOD ****; Rheumatoid Factor IgM Antibody 0.5 IU/mL (<3.5 Negative); dsDNA IgG Antibody Less than 0.5 IU/mL (<10 Negative)
[2018-03-26 13:20] LABS: Lyme IgG/IgM AB <0.91 ISR (0.00-0.90)
[2018-03-26] MEDS ORDERED: Bisacodyl 10 MG SUPP PR SCH (13:30)
[2018-03-26 16:59] VITALS: BP 144/79; TEMP 98.7
--- NOTE | 2018-03-27 12:21 | EKG ---
Test Reason : Blood Pressure : / mmHG Vent. Rate : 058 BPM Atrial Rate : 058 BPM P-R Int : 200 ms QRS Dur : 082 ms QT Int : 460 ms P-R-T Axes : 072 -33 106 degrees QTc Int : 451 ms Sinus bradycardia Left axis deviation T wave abnormality, consider lateral ischemia Abnormal ECG Confirmed by PANTERA KWOK, BRYSON ([id number]), acquisition editor FAWAD GUO ([id number]) on 03/27/2018 12:21:15 PM Referred By: Confirmed By:BRYSON MOTT MD
== END 2018-03-26 17:58 | DRG 547 ==
LOC: ERS 18:34 → 2NO 20:21 → T4-A 03-22 14:52
PROVIDERS: ADMIT Hospitalist; ATTEND Hospitalist
PROC: 0HBGXZZ Excision of Left Hand Skin, External Approach (ICD-10-PCS; principal; 2018-03-24)
PROC: 0HBFXZZ Excision of Right Hand Skin, External Approach (ICD-10-PCS; 2018-03-24)
DX: I77.6 Arteritis, unspecified (principal); R23.8 Other skin changes; I25.10 Atherosclerotic heart disease of native coronary artery without angina pectoris; E11.9 Type 2 diabetes mellitus without complications; E78.5 Hyperlipidemia, unspecified; E78.00 Pure hypercholesterolemia, unspecified; I10 Essential (primary) hypertension; I16.0 Hypertensive urgency; S60.032A Contusion of left middle finger without damage to nail, initial encounter
CPT/HCPCS: 36415; 36416; 71275; 80048; 82553; 82595; 83520; 83605; 83690; 83880; 84484; 85025; 85049; 85300; 85362; 85379; 85384; 85610; 85652; 85730; 86038; 86200; 86225; 86256; 86618; 86803; 87040; 87340; 88305; 93005; 94760; 96361; 96365; 96368; 96375; A4216; G8996-GN-CK; G8997-GN-CK; J0360; J0690; J1100; J1650; J1815; J1956; J2001; J2405; J2550; J2704; J2920; J3370; J3490; J7050; J7506; S0020

== ENCOUNTER 2018-10-29 22:19 | Inpatient (IN) | payer MEDICARE, MEDICAID ==
[2018-10-29 22:56] LABS: #Basophils 0.1 thou/uL (0.0-0.2); #Eosinphils 0.6 thou/uL (0.0-0.7); #Lymphocytes 2.6 thou/uL (1.20-3.40); #Monocytes 0.9 thou/uL (0.11-0.59); #Neutrophils 4.7 thou/uL (1.40-6.50); %Basophils 1.6 % (0.0-1.0); %Eosinophils 6.9 % (0.0-10.0); %Lymphocytes 28.6 % (21.0-51.0); %Monocytes 10.3 % (0.0-10.0); %Neutrophils 52.7 % (42.0-75.0); Hemoglobin 13.1 g/dL (12.0-16.0); Mean Corpuscular HGB CONC 32.3 g/dL (32.0-36.0); Mean Corpuscular Volume 92.8 fL (78.0-98.0); Mean Platelet Volume 7.7 fL (7.4-10.4); Platelet Count 250 thou/uL (130-400); RBC Distribution Width 11.7 % (11.5-14.5); Red Blood Cell (RBC) Count 4.38 mill/uL (4.20-5.40); White Blood Cell (WBC) Count 8.9 thou/uL (4.8-10.8)
--- NOTE | 2018-10-29 23:08 | CT ---
CT HEAD WITHOUT CONTRAST: 10/29/18 Multiple axial tomograms obtained through the head without IV enhancement. INDICATIONS: Mental status change. Comparison made to exam of 07/14/18. There is mild ventriculomegaly which is stable from the prior study. 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 No acute mass, cortical infarct, or hemorrhage seen. IMPRESSION: Chronic changes which appear stable from 07/14/18. POS: [facility]
[2018-10-29 23:27] LABS: ALT (SGPT) 7 U/L (8-55); AST (SGOT) 12 U/L (5-34); Albumin 3.9 g/dL (3.4-4.8); Alkaline Phosphatase 63 U/L (40-150); Anion Gap 15 mmol/L (10-20); BUN (Urea Nitrogen) 21 mg/dL (9.8-20.1); Bilirubin, Total 0.2 mg/dL (0.2-1.2); Calc. Creatinine Clearance 0 mL/min (70-130); Calcium 9.8 mg/dL (7.8-10.44); Carbon Dioxide 24 mmol/L (23-31); Chloride 104 mmol/L (98-107); Estimated GFR-MDRD 34; Globulin 2.9 g/dL (2.4-3.5); Glucose 95 mg/dL (83-110); Potassium 3.8 mmol/L (3.5-5.1); Protein, Total 6.8 g/dL (6.0-8.3); Sodium 139 mmol/L (136-145)
[2018-10-29 23:28] LABS: Bilirubin Small (Negative); Blood, Urine Negative (Negative); Clarity CLOUDY (Clear); Glucose, Urine (Dipstick) Negative (Negative); Leukocyte Negative (Negative); Nitrite Negative (Negative); Protein, Urine (Dipstick) 100 mg/dL (Neg-Trace); Specific Gravity, Urine 1.019 (1.002-1.036); Urobilinogen 0.2 mg/dL (0.2-1.0); pH, Urine 5.5 (5.0-9.0)
[2018-10-29 23:29] LABS: Bacteria/HPF None Seen HPF (None Seen); Hyaline Casts/LPF 4-6 HYALINE CAST LPF (0-3 Hyaline); Pathc Cast-AUWi Flag 0.72 (0-2.49); RBC/HPF 0-3 HPF (0-3); Squamous Epithelial 0-3 HPF (0-3); WBC/HPF 0-3 HPF (0-3)
--- NOTE | 2018-10-29 23:55 | RAD ---
PORTABLE CHEST: 10/29/18 HISTORY: Mental status change. The lungs appear clear. Vascular markings normal. Heart size is normal. IMPRESSION: No acute finding. POS: [facility]
[2018-10-30] MEDS ORDERED: Piperacillin/Tazobactam 4.5 GM VIAL ONE (02:02)
[2018-10-30] MEDS ORDERED: Aspirin 300 MG Suppository ONE (03:07)
[2018-10-30] MEDS ORDERED: Sodium Chloride 0.9% 1,000 ML IV SCH (04:04)
[2018-10-30] MEDS ORDERED: Ondansetron ODT 4 MG TAB SL PRN (04:04)
[2018-10-30] MEDS ORDERED: Acetaminophen 325 MG TAB PO PRN ×2 (04:04→10:35)
[2018-10-30] MEDS ORDERED: Ondansetron PF 4 MG/2 ML Vial IVP PRN (04:04)
[2018-10-30 04:10] VITALS: BMI 26.6
[2018-10-30] MEDS ORDERED: Acetaminophen 650 MG Suppository PR PRN (10:35)
[2018-10-30] MEDS ORDERED: hydrALAZINE 20 MG/ML VIAL SLOW IVP PRN (10:35)
[2018-10-30] MEDS ORDERED: Senokot S 8.6-50 MG TAB PO PRN (10:35)
[2018-10-30] MEDS ORDERED: Dextrose 5% in Water 1,000 ML IV PRN (10:42)
[2018-10-30] MEDS ORDERED: Dextrose 50% Abboject 50 ML SYRINGE SLOW IVP PRN (10:42)
[2018-10-30] MEDS ORDERED: Lorazepam 2 MG/ML VIAL SLOW IVP SCH (11:30)
--- NOTE | 2018-10-30 14:29 | HP ---
PRIMARY CARE PROVIDER: Beverley Dunn DO CHIEF COMPLAINT: Altered mental status. HISTORY OF PRESENT ILLNESS: Ms. Carney is a pleasant 73-year-old lady, who was seen at [facility] on October 30, 2018. She was sent here from [facility]. The patient's baseline is reportedly alert and oriented x2. She was reportedly not speaking or following commands. She was therefore sent to the emergency room. Currently, the patient is sleepy, but arousable. She is able to tell me that she is at [facility]. She is also able to tell me that she usually lives at [place]. She does not know the month or year. She denies any chest pain or shortness of breath. She denies any fevers or chills. She denies any nausea or vomiting. She denies any abdominal pain. She also tells me that she is in the hospital because she was unable to speak. She does not know, if it has happened in the past. REVIEW OF SYSTEMS: All other systems reviewed and found to be negative. PAST MEDICAL HISTORY: Diabetes mellitus type 2, dyslipidemia, hypertension, coronary artery disease, torn rotator cuff, chronic kidney disease. PAST SURGICAL HISTORY: Coronary stents, right knee surgery, right arm surgery, bilateral feet surgery, bilateral cataract surgery, cervical fusion. PSYCHIATRIC HISTORY: Depression. SOCIAL HISTORY: The patient denies tobacco use, alcohol use, or recreational drug use. She lives at [facility]. FAMILY HISTORY: The patient denies any family history of coronary artery disease. ALLERGIES: MORPHINE AND TRAMADOL. CURRENT MEDICATIONS: 1. Amlodipine 5 mg daily. 2. Aspirin 81 mg daily. 3. Lipitor 40 mg at bedtime. 4. Colace 100 mg daily. 5. Levemir insulin 25 units in the morning and 20 units at bedtime. 6. Losartan 100 mg daily. 7. Melatonin 3 mg at bedtime. 8. Reglan 5 mg three times a day. 9. Metoprolol tartrate 50 mg daily. 10. Remeron 7.5 mg at bedtime. 11. Omeprazole 20 mg daily. 12. Tamiflu 75 mg daily. 13. Zoloft 200 mg at bedtime. CODE STATUS: I discussed her code status. She wishes to be full code. PHYSICAL EXAMINATION: GENERAL: On examination, Ms. Carney is sleepy, but arousable, not in acute distress. VITAL SIGNS: Blood pressure is 176/81, pulse is 73, respiratory rate 16, and oxygen saturation 96% on 2 L of oxygen. Temperature is 99.1 degree Fahrenheit. EYES: No scleral icterus, no conjunctival pallor. ENT: Moist mucosal membranes. No oropharyngeal erythema or exudates. NECK: Supple, nontender, trachea is midline. RESPIRATORY: Accessory muscles of breathing are not active. Chest wall movements are symmetric bilaterally. Lungs are clear to auscultation without wheeze, rhonchi, or crepitations. CARDIOVASCULAR: S1 and S2 are heard, regular. Peripheral pulses palpable. No carotid bruit. No pericardial rub. ABDOMEN: Soft, nontender, bowel sounds heard, no hepatomegaly, no splenomegaly. NEUROLOGIC: Cranial nerves 2 through 12 are intact. Power is 3/5 in both upper extremities and 2/5 in both lower extremities. Deep tendon reflexes are 2 +. MUSCULOSKELETAL: Power in the 4 extremities as described above. SKIN: No rashes or subcutaneous nodules. LYMPHATIC: No cervical lymphadenopathy. PSYCHIATRIC: Normal mood, normal affect. The patient is oriented to person and place, not to time. LABORATORY DATA: Ms. Carney is labs and investigations were reviewed. I reviewed her electrocardiogram, which shows sinus bradycardia, no ST changes to suggest an acute coronary syndrome. I also reviewed her chest x-ray, which does not show any pulmonary infiltrates. Noncontrast CT scan of the brain does not show any acute change. She has an unremarkable CBC. Normal sodium, normal potassium, elevated creatinine of 1.51, last known creatinine 1.44 on July 14, 2018. Unremarkable liver profile, normal troponin-I and normal ammonia level. Urinalysis is positive for protein, small amount of bilirubin and hyaline casts. ASSESSMENT AND PLAN: Ms. Carney is a pleasant 73-year-old lady, who was seen at [facility] on October 30, 2018. Her problem list includes: 1. Acute metabolic encephalopathy: Ms. Carney is presenting with acute metabolic encephalopathy. She will be admitted to the hospital for further workup. We will also check MRI of brain to rule out acute stroke. We will continue her aspirin and statin. 2. Aphasia: The patient had an episode of aphasia. We will await MRI report to look for any evidence of stroke. 3. Diabetes mellitus type 2: We will continue home medications and start her on Accu-Cheks and insulin sliding scale. 4. Hypertension: We will monitor vital signs and titrate antihypertensives as needed. 5. Chronic kidney disease: This appears to be stable. 6. Depression: This appears to be stable. 7. Coronary artery disease: Stable. Many thanks for allowing me to participate in your patient's care. Please feel free to contact me with any questions or concerns. LEVEL OF RISK: High. LEVEL OF COMPLEXITY: High. Job ID: [id number] [facility] CENTERMakeda
--- NOTE | 2018-10-30 14:42 | MRI ---
BRAIN MRI WITHOUT CONTRAST: Date: 10/30/18 INDICATION: Stroke with right-sided weakness. FINDINGS: There is no acute territorial infarction, mass effect, or midline shift. Ventricular system is enlarg ed. There are scattered punctate foci of susceptibility within the brain parenchyma. There is mild to moderate chronic ischemic disease of the periventricular white matter, as well as pontine gliosis. N ative intraocular lenses are absent. Skull base flow-voids are patent. There is mild mucosal thickeni ng of the paranasal sinuses and there is mild left mastoid fluid. IMPRESSION: 1. No acute territorial infarction or mass effect. 2. Ventriculomegaly. 3. A few scattered punctate foci of susceptibility of the brain parenchyma. This could be on the bas is of amyloid angiopathy, given patient's age. POS: [facility]
[2018-10-30] MEDS: Metoclopramide HCl 10 MG TAB PO SCH ×2 (16:26→22:02)
--- NOTE | 2018-10-30 16:39 | ULT ---
BILATERAL CAROTID DUPLEX ULTRASOUND WITH SPECTRAL ANALYSIS AND COLOR FLOW EVALUATION: Date: 10-30-18 History: CVA. FINDINGS: Grayscale, color flow, doppler evaluation and spectral analysis of the bilateral carotid arteries is performed with 2D imaging. There are prominent essentric calcified atherosclerotic plaque seen within the common carotid arteries bilaterally with calcified atherosclerotic plaque seen in the region of the carotid bulbs bilaterally. There is less than 50% maximal stenosis in the bilateral internal carotid arteries according to peak systolic velocities in the ICA/CCA ratios. Peak systolic velocity in the right ICA is 97 cm/sec with an ICA/CCA ratio of 1.46. Peak systolic velocity in the left ICA is 72.3 cm/sec, with an ICA/CCA rati o of 1.06. Antegrade flow is demonstrated in the vertebral arteries bilaterally. IMPRESSION: 1. Prominent calcified atherosclerotic plaques within the common carotid arteries bilaterally, greate r on the right, which also extends into the region of the carotid bulbs. 2. No hemodynamically significant stenosis in the bilateral internal carotid arteries based on peak s ystolic velocities and the ICA/CCA ratios. POS: [facility]
[2018-10-30] MEDS ORDERED: Non-Formulary Item 1 EACH (Insulin Detemir 100 Units/Ml [Levemir] 20 UNIT) SQ SCH (21:00)
[2018-10-30] MEDS: Melatonin 3 MG TAB PO SCH (22:02)
[2018-10-30] MEDS: Atorvastatin Calcium 40 MG TAB PO SCH (22:02)
[2018-10-30] MEDS: Insulin Glargine 20 UNITS in Pre-Filled Syringe 1 EACH SC SCH (23:26)
--- NOTE | 2018-10-31 00:58 | CON ---
DATE OF CONSULTATION: 10/30/2018 CONSULTING PHYSICIAN: Hospitalist Service. IMPRESSION: 1. Transient ischemic attack with transient expressive aphasia and right-sided weakness. 2. Coronary artery disease. 3. Hypertension. 4. Hyperlipidemia. PLAN: 1. Review echo and if her ejection fraction is below 35%, consider anticoagulation. 2. Continue aspirin and a statin as you have undertaken otherwise. 3. The patient be discharged back to snf. HISTORY OF PRESENT ILLNESS: Ms. Carney is a 73-year-old white female, who is currently a snf resident. She reports that she suddenly lost the ability to speak. In association with this, she noted some right arm heaviness, which she cannot say for what duration of time secondary to her degree of dementia. She was transferred here for care. She has had a MRI of the brain, which did not reveal any acute changes, but a moderate amount of microvascular disease bilaterally. Carotid ultrasound showed some minimal buildup with less than 50% stenosis present. She has not had any recurrent problems. She has been started on aspirin and Lipitor here in the hospital. She is without any complaints of headache, nausea, vomiting, dizziness. She reports that she is unable to ambulate and is essentially wheelchair-bound. PAST MEDICAL HISTORY: Hypertension, diabetes, coronary artery disease, hyperlipidemia, depression, chronic renal insufficiency, and diabetic gastroparesis. FAMILY HISTORY: Noncontributory. SOCIAL HISTORY: No ongoing tobacco or alcohol use. MEDICATIONS: Medication list was reviewed. REVIEW OF SYSTEMS: A 10-system review of systems otherwise negative. PHYSICAL EXAMINATION: VITAL SIGNS: Stable, and she has been a bit hypertensive with systolics around 190 over high 80s. HEENT: Pupils are equal. Conjunctivae clear. Oropharynx clear. NECK: Supple. EXTREMITIES: No cyanosis. NEUROLOGIC: She was alert and cooperative. Her speech was fluent and clear. She could name and repeat without any difficulty. Cranial nerve exam did not show any facial asymmetry. Eye movements were intact. She could not move both upper extremities against gravity. She is not able to move her legs effectively to walk. Sensation was intact to light touch. LABORATORY DATA: EKG showed a sinus bradycardia. SUMMARY: Elderly lady with transient ischemic event. She was taking baby aspirin prior to admission. I would continue full-dose aspirin and statin. Her workup was otherwise complete other than her echocardiogram. Job ID: [id number]
[2018-10-31 05:30] LABS: #Basophils 0.1 thou/uL (0.0-0.2); #Eosinphils 0.5 thou/uL (0.0-0.7); #Lymphocytes 1.5 thou/uL (1.20-3.40); #Monocytes 0.7 thou/uL (0.11-0.59); #Neutrophils 4.8 thou/uL (1.40-6.50); %Basophils 1.4 % (0.0-1.0); %Eosinophils 7.2 % (0.0-10.0); %Lymphocytes 19.6 % (21.0-51.0); %Monocytes 9.2 % (0.0-10.0); %Neutrophils 62.7 % (42.0-75.0); Hemoglobin 11.8 g/dL (12.0-16.0); Mean Corpuscular HGB CONC 32.4 g/dL (32.0-36.0); Mean Corpuscular Hemoglobin 30.3 pg (27.0-31.0); Mean Corpuscular Volume 93.3 fL (78.0-98.0); Mean Platelet Volume 7.4 fL (7.4-10.4); Platelet Count 217 thou/uL (130-400); RBC Distribution Width 11.7 % (11.5-14.5); Red Blood Cell (RBC) Count 3.89 mill/uL (4.20-5.40); White Blood Cell (WBC) Count 7.6 thou/uL (4.8-10.8)
[2018-10-31 05:58] LABS: Anion Gap 14 mmol/L (10-20); BUN (Urea Nitrogen) 20 mg/dL (9.8-20.1); Calc. Creatinine Clearance 45 mL/min (70-130); Calcium 9.1 mg/dL (7.8-10.44); Carbon Dioxide 22 mmol/L (23-31); Cardiac Risk 7.9 (Less than 4.5); Chloride 108 mmol/L (98-107); Cholesterol 315 mg/dl (< 200 Desired); Estimated GFR-MDRD 43; Glucose 95 mg/dL (83-110); HDL Cholesterol 40 mg/dL (>60 Neg Risk); LDL Cholesterol, Calculated 238 mg/dL; Sodium 140 mmol/L (136-145); Triglycerides 187 mg/dL (Less than 150)
[2018-10-31] MEDS: Enoxaparin Sodium 30 MG/0.3 ML SYRINGE SC SCH (08:48)
[2018-10-31] MEDS ORDERED: Aspirin 81 mg Enteric Coated Tablet PO SCH (09:00)
[2018-10-31] MEDS: Metoclopramide HCl 10 MG TAB PO SCH ×3 (10:39→20:16)
[2018-10-31] MEDS: Metoprolol Tartrate 50 MG TAB PO SCH (10:40)
[2018-10-31] MEDS: Amlodipine 5 MG TAB PO SCH (10:40)
[2018-10-31] MEDS: Aspirin 325 mg Enteric Coated Tablet PO SCH (10:41)
[2018-10-31] MEDS: Docusate 100 MG CAP PO SCH (10:44)
[2018-10-31] MEDS: Oseltamivir 75 MG CAP PO SCH (10:44)
--- NOTE | 2018-10-31 14:38 | PDOC.PN ---
- Subjective Encounter Start Date: 10/31/18 Encounter Start Time: 07:20 Pt seen for followup re: acute metabolic encephalopathy. Says she feels better. - Objective Resuscitation Status - Order Detail: 10/30/18 10:35 Resuscitation Status Routine Resuscitation Status: FULL: Full Resuscitation Discussed with: patient YELENA Reviewed: Yes Vital Signs & Weight: Vital Signs (12 hours) Temp Pulse Pulse Pulse Resp BP BP 10/31/18 11:26 97.8 F 89 18 10/31/18 10:40 76 196/89 H 10/31/18 09:03 74 76 196/89 H 10/31/18 08:32 10/31/18 07:44 76 10/31/18 07:32 98.1 F 91 18 10/31/18 04:00 98.1 F 72 18 BP BP Pulse Ox 10/31/18 11:26 183/99 H 96 10/31/18 10:40 10/31/18 09:03 219/86 H 10/31/18 08:32 98 10/31/18 07:44 179/80 H 10/31/18 07:32 200/102 H 98 10/31/18 04:00 149/71 H 95 Weight Weight 155 lb I&O: 10/30/18 10/31/18 11/01/18 06:59 06:59 06:59 Intake Total 200 694 Output Total 300 Balance 200 394 Result Diagrams: 10/31/18 05:14 10/31/18 05:14 Additional Labs: Accuchecks 10/31/18 10/31/18 10/30/18 10:46 05:13 19:14 POC Glucose 162 H 97 121 H 10/30/18 16:56 POC Glucose 120 H EKG Reviewed by me: Yes (Tele: NSR) Phys Exam - Physical Examination Constitutional: NAD HEENT: moist MMs, sclera anicteric, oral pharynx no lesions, 2+ tonsils Neck: no nodes, no JVD, supple Respiratory: clear to auscultation bilateral Cardiovascular: RRR, no rub S1, S2 Gastrointestinal: soft, non-tender, no distention, positive bowel sounds Neurological: moves all 4 limbs Psychiatric: normal affect Deviation from normal: Oriented to person and place only, not to time Dx/Plan (1) Acute metabolic encephalopathy Code(s): G93.41 - METABOLIC ENCEPHALOPATHY Status: Acute Comment: Improving , CVA ruled out. (2) CAD (coronary artery disease) Code(s): I25.10 - ATHSCL HEART DISEASE OF [place] CORONARY ARTERY W/O ANG PCTRS Status: Chronic Qualifiers: Coronary Disease-Associated Artery/Lesion type: enterprise artery [place] vs. transplanted heart: enterprise heart Associated angina: without angina Qualified Code(s): I25.10 - Atherosclerotic heart disease of [place] coronary artery without angina pectoris Comment: Stable. (3) DM type 2 (diabetes mellitus, type 2) Status: Chronic Qualifiers: Diabetes mellitus assisted insulin use: with assisted use Diabetes mellitus complication status: with unspecified complications Qualified Code(s) : E11.8 - Type 2 diabetes mellitus with unspecified complications; Z79.4 - rn long term care (current) use of insulin Comment: controlled (4) Dyslipidemia Code(s): E78.5 - HYPERLIPIDEMIA, UNSPECIFIED Status: Chronic Comment: Continue Lipitor. (5) HTN (hypertension) Code(s): I10 - ESSENTIAL (PRIMARY) HYPERTENSION Status: Chronic Qualifiers: Hypertension type: essential hypertension Qualified Code(s): I10 - Essential (primary) hypertension Comment: continue PRN IV hydralazine - Plan * . Review of Systems - Review of Systems Constitutional: negative: fever, chills, sweats, weakness, malaise Respiratory: negative: Cough, Shortness of Breath, SOB with Excertion, Pleuritic Pain, Wheezing Cardiovascular: negative: chest pain, palpitations, orthopnea, paroxysmal nocturnal dyspnea, edema, light headedness Gastrointestinal: negative: Nausea, Vomiting, Abdominal Pain, Diarrhea, Constipation, Melena, Hematochezia Genitourinary: negative: Dysuria, Frequency, Incontinence, Hematuria, Retention , Other - Medications/Allergies Allergies/Adverse Reactions: Allergies Allergy/AdvReac Type Severity Reaction Status Date / Time morphine Allergy Verified 10/30/18 05:04 tramadol Allergy Verified 10/30/18 05:04 Medications: Current Medications Acetaminophen (Tylenol) 650 mg PO Q4H PRN PRN Reason: Headache/Fever/Mild Pain (1-3) Acetaminophen (Tylenol) 650 mg MN Q4H PRN PRN Reason: Headache/Fever/Mild Pain (1-3) Amlodipine Besylate (Norvasc) 5 mg PO DAILY [facility] Last Admin: 10/31/18 10:40 Dose: 5 mg Aspirin (Ecotrin) 325 mg PO DAILY [facility] Last Admin: 10/31/18 10:41 Dose: 325 mg Atorvastatin Calcium (Lipitor) 40 mg PO HS [facility] Last Admin: 10/30/18 22:02 Dose: Not Given Dextrose/Water (Dextrose 50%) 25 gm SLOW IVP PRN PRN PRN Reason: Hypoglycemia Docusate Sodium (Colace) 100 mg PO DAILY [facility] Last Admin: 10/31/18 10:44 Dose: Not Given Enoxaparin Sodium (Lovenox) 30 mg SC 0900 [facility] Last Admin: 10/31/18 08:48 Dose: 30 mg Glucagon (Glucagon) 1 mg IM PRN PRN PRN Reason: Hypoglycemia Hydralazine HCl (Apresoline) 10 mg SLOW IVP Q4H PRN PRN Reason: BP > 220/110 Dextrose/Water (D5w) 1,000 mls @ 0 mls/hr IV .Q0M PRN PRN Reason: Hypoglycemia Insulin Glargine 20 units/ (Miscellaneous Medication) 0.2 mls @ 0 mls/hr SC [facility] Last Admin: 10/30/18 23:26 Dose: Not Given Insulin Human Lispro (Humalog) 0 units SC .MILD SLIDING SCALE PRN PRN Reason: Mild Correctional Scale Melatonin (Melatonin) 3 mg PO [facility] Last Admin: 10/30/18 22:02 Dose: Not Given Metoclopramide HCl (Reglan) 5 mg PO TID [facility] Last Admin: 10/31/18 10:39 Dose: 5 mg Metoprolol Tartrate (Lopressor) 50 mg PO DAILY [facility] Last Admin: 10/31/18 10:40 Dose: 50 mg Oseltamivir Phosphate (Tamiflu) 75 mg PO DAILY [facility] Last Admin: 10/31/18 10:44 Dose: Not Given Pantoprazole Sodium (Protonix) 40 mg PO DAILY [facility] Last Admin: 10/31/18 10:45 Dose: Not Given Senna/Docusate Sodium (Senokot S) 2 tab PO BID PRN PRN Reason: Constipation Sertraline HCl (Zoloft) 200 mg PO [facility] Last Admin: 10/30/18 22:02 Dose: Not Given Sodium Chloride (Flush - Normal Saline) 10 ml IVF PRN PRN PRN Reason: Saline Flush
[2018-10-31] MEDS ORDERED: hydrALAZINE 20 MG/ML VIAL SLOW IVP PRN (14:40)
--- NOTE | 2018-10-31 15:35 | RAD ---
MODIFIED BARIUM SWALLOW: HISTORY: Dysphagia, oropharyngeal phase. Feeding difficulties. EXPOSURE: 1.8 minutes 5.74 mGy TECHNIQUE: In the presence of the speech pathologist, the patient was administered thin liquid, nectar thick liq uid, honey thick liquid, pudding, and mechanical soft consistencies. FINDINGS: There is evidence of premature spillage into the vallecula and piriform sinuses with many of the afor ementioned consistencies. There is evidence of penetration aspiration. Please refer to the speech p athologist's report for feeding recommendation. IMPRESSION: Please refer to the speech pathologist's report for feeding recommendations. POS: [facility]
[2018-10-31] MEDS: HumaLOG 300 UNITS/3 ML VIAL SC PRN ×2 (17:54→20:16)
[2018-10-31] MEDS: Melatonin 3 MG TAB PO SCH (20:15)
[2018-10-31] MEDS: Insulin Glargine 20 UNITS in Pre-Filled Syringe 1 EACH SC SCH (20:15)
[2018-10-31] MEDS: Atorvastatin Calcium 40 MG TAB PO SCH (20:16)
[2018-11-01 05:38] LABS: #Basophils 0.1 thou/uL (0.0-0.2); #Eosinphils 0.5 thou/uL (0.0-0.7); #Lymphocytes 1.7 thou/uL (1.20-3.40); #Monocytes 0.7 thou/uL (0.11-0.59); #Neutrophils 4.2 thou/uL (1.40-6.50); %Basophils 1.8 % (0.0-1.0); %Eosinophils 6.5 % (0.0-10.0); %Lymphocytes 23.3 % (21.0-51.0); %Monocytes 10.2 % (0.0-10.0); %Neutrophils 58.2 % (42.0-75.0); Mean Corpuscular HGB CONC 33.2 g/dL (32.0-36.0); Mean Corpuscular Hemoglobin 30.8 pg (27.0-31.0); Mean Corpuscular Volume 92.7 fL (78.0-98.0); Mean Platelet Volume 7.5 fL (7.4-10.4); Platelet Count 228 thou/uL (130-400); RBC Distribution Width 11.5 % (11.5-14.5); Red Blood Cell (RBC) Count 3.91 mill/uL (4.20-5.40); White Blood Cell (WBC) Count 7.2 thou/uL (4.8-10.8)
[2018-11-01 05:56] LABS: Anion Gap 11 mmol/L (10-20); BUN (Urea Nitrogen) 21 mg/dL (9.8-20.1); Calc. Creatinine Clearance 42 mL/min (70-130); Calcium 9.4 mg/dL (7.8-10.44); Carbon Dioxide 27 mmol/L (23-31); Chloride 107 mmol/L (98-107); Estimated GFR-MDRD 40; Glucose 121 mg/dL (83-110); Sodium 141 mmol/L (136-145)
[2018-11-01] MEDS: Metoclopramide HCl 10 MG TAB PO SCH ×3 (08:25→20:51)
[2018-11-01] MEDS: Aspirin 325 mg Enteric Coated Tablet PO SCH (08:26)
[2018-11-01] MEDS: Amlodipine 5 MG TAB PO SCH (08:26)
[2018-11-01] MEDS: Docusate 100 MG CAP PO SCH (08:26)
[2018-11-01] MEDS: Oseltamivir 75 MG CAP PO SCH (08:26)
[2018-11-01] MEDS: Metoprolol Tartrate 50 MG TAB PO SCH (08:26)
[2018-11-01] MEDS: Enoxaparin Sodium 30 MG/0.3 ML SYRINGE SC SCH (08:27)
[2018-11-01] MEDS ORDERED: ISOVUE-370 76%-LOCM 1 ML ONE (10:43)
[2018-11-01] MEDS: HumaLOG 300 UNITS/3 ML VIAL SC PRN ×3 (11:31→21:57)
[2018-11-01 12:22] LABS: INR-International Normal Ratio 1.1; PTT 37.4 SEC (22.9-36.1); Prothrombin Time 14.1 SEC (12.0-14.7)
[2018-11-01] MEDS ORDERED: hydrALAZINE 20 MG/ML VIAL SLOW IVP PRN (12:25)
[2018-11-01] MEDS ORDERED: Labetalol HCl 100 MG/20 ML VIAL SLOW IVP PRN (12:25)
--- NOTE | 2018-11-01 12:28 | CT ---
NONCONTRAST CT HEAD: Date: 11/01/18 HISTORY: Code Green, stroke. Left facial droop, which the patient developed this morning at 0937 hours. COMPARISON: 10/29/18. FINDINGS: Again noted is a low density area in the left basal ganglia related to remote lacunar infarction. Chr onic small vessel ischemic changes and cerebral volume loss are again seen. There is no evidence of a n acute cortical infarction, hemorrhage, mass effect, or midline shift. The ventricular system is mil dly prominent and slightly more prominent than the degree of sulcal atrophy, likely related to greate r central cerebral atrophy. This is stable from prior exam. No other interval change. IMPRESSION: 1. No acute intracranial abnormalities demonstrated. 2. Stable chronic changes. Above findings discussed with Dr. Bess on 11/01/18 at 1206 hours. CODE CR. POS: [facility]
[2018-11-01 12:29] LABS: CKMB 1.1 ng/mL (0-6.6); Troponin I Less than 0.010 ng/mL (< 0.028)
--- NOTE | 2018-11-01 12:35 | CT ---
CT ARTERIOGRAM NECK WITH IV CONTRAST AND 3D MIP IMAGING CT ARTERIOGRAM HEAD WITH IV CONTRAST AND 3D MIP IMAGING CT BRAIN WITH IV CONTRAST CT THORACIC SPINE NONCONTRAST: Date: 11/01/18 HISTORY: CVA. Left facial droop. Altered mental status. FINDINGS: A 1.4 cm cystic nodule is noted at the inferior pole of the left thyroid lobe. Lung apices are clear. There is reversal of the normal lordotic curvature of the cervical spine. Anterior fixation at the C 5-6-7 levels without perihardware lucency. Degenerative changes. Disc space narrowing and minimal deg enerative spondylolisthesis at the cervicothoracic junction. No acute fracture or dislocation are phillip arent. Normal origin of the great vessels at the aortic arch. Arterial calcification. Severe stenosis within the proximal left subclavian artery, estimated at 80%. Good flow into each carotid and vertebral sys tem. Scattered plaque along the right carotid artery. At the bifurcation, short segment focus of approxima tely 80% stenosis. On the left, scattered calcification with approximately 60% stenosis at the origin of the internal ca rotid artery. Intracranially, there is prominent calcification in the carotid siphons. [place] of [place] is intact. Good flow into each cerebral and cerebellar system. No abnormal areas of intracranial contrast enhancement are apparent. IMPRESSION: 1. Prominent atherosclerosis. Areas of significant stenosis with calcification involving the proxima l portions of each internal carotid artery, right greater than left. 2. High grade stenosis at the proximal left subclavian artery. 3. Postoperative and degenerative changes of the cervical spine. POS: [facility]
[2018-11-01] MEDS ORDERED: cloNIDine 0.1mg/24 Hour PATCH TD SCH (13:00)
--- NOTE | 2018-11-01 13:56 | PDOC.PN ---
- Subjective Encounter Start Date: 11/01/18 Encounter Start Time: 13:54 Pt seen fro followup re: hypertensive urgency. Had an episode of L facial droop and aphasia. Stroke code was called. Able to speak now. - Objective Resuscitation Status - Order Detail: 10/30/18 10:35 Resuscitation Status Routine Resuscitation Status: FULL: Full Resuscitation Discussed with: patient Vital Signs & Weight: Vital Signs (12 hours) Temp Temp Pulse Pulse Pulse Pulse Pulse 11/01/18 11:52 98.6 F 66 11/01/18 11:37 98.8 F 64 66 69 66 11/01/18 08:26 67 11/01/18 08:00 98.9 F 67 11/01/18 03:41 98.1 F 64 Pulse Pulse Resp Resp Resp Resp Resp 11/01/18 11:52 20 11/01/18 11:37 67 65 22 H 22 H 22 H 20 11/01/18 08:26 11/01/18 08:00 20 11/01/18 03:41 18 Resp Resp BP BP BP BP BP 11/01/18 11:52 11/01/18 11:37 18 18 202/87 H 201/72 H 213/80 H 216/79 H 11/01/18 08:26 223/94 H 11/01/18 08:00 11/01/18 03:41 BP BP BP Pulse Ox Pulse Ox Pulse Ox Pulse Ox 11/01/18 11:52 201/72 H 92 L 11/01/18 11:37 218/100 H 196/72 H 94 L 94 L 96 11/01/18 08:26 11/01/18 08:00 202/116 H 94 L 11/01/18 03:41 155/70 H 96 Pulse Ox Pulse Ox Pulse Ox 11/01/18 11:52 11/01/18 11:37 95 98 98 11/01/18 08:26 11/01/18 08:00 11/01/18 03:41 Weight Weight 155 lb I&O: 10/31/18 11/01/18 11/02/18 06:59 06:59 06:59 Intake Total 694 330 150 Output Total 300 475 Balance 394 -145 150 Result Diagrams: 11/01/18 05:11 11/01/18 05:11 Additional Labs: Accuchecks 11/01/18 11/01/18 11/01/18 11:39 11:02 05:33 POC Glucose 292 H 273 H 110 10/31/18 10/31/18 20:15 16:45 POC Glucose 197 H 224 H Phys Exam - Physical Examination Constitutional: NAD HEENT: moist MMs Neck: supple Respiratory: clear to auscultation bilateral Cardiovascular: RRR Gastrointestinal: soft Neurological: non-focal, moves all 4 limbs Psychiatric: normal affect Dx/Plan (1) Hypertensive urgency Code(s): I16.0 - HYPERTENSIVE URGENCY Status: Acute Comment: BP high today, start PRN IV hydralazine, PRN IV labetalol (2) Carotid stenosis Code(s): I65.29 - OCCLUSION AND STENOSIS OF UNSPECIFIED CAROTID ARTERY Status : Acute Comment: consult CV surgery (3) Acute metabolic encephalopathy Code(s): G93.41 - METABOLIC ENCEPHALOPATHY Status: Acute Comment: Improving (4) CAD (coronary artery disease) Code(s): I25.10 - ATHSCL HEART DISEASE OF [place] CORONARY ARTERY W/O ANG PCTRS Status: Chronic Qualifiers: Coronary Disease-Associated Artery/Lesion type: [place] artery [place] vs. transplanted heart: [place] heart Associated angina: without angina Qualified Code(s): I25.10 - Atherosclerotic heart disease of [place] coronary artery without angina pectoris Comment: Stable. (5) DM type 2 (diabetes mellitus, type 2) Status: Chronic Qualifiers: Diabetes mellitus fci insulin use: with fci use Diabetes mellitus complication status: with unspecified complications Qualified Code(s) : E11.8 - Type 2 diabetes mellitus with unspecified complications; Z79.4 - bed bug exterminator (current) use of insulin Comment: controlled (6) Dyslipidemia Code(s): E78.5 - HYPERLIPIDEMIA, UNSPECIFIED Status: Chronic Comment: on Lipitor. - Plan * . Review of Systems - Review of Systems Respiratory: negative: Cough, Shortness of Breath, SOB with Excertion, Pleuritic Pain, Wheezing Cardiovascular: negative: chest pain, palpitations, orthopnea, paroxysmal nocturnal dyspnea, edema, light headedness Neurological: Change in Speech - Medications/Allergies Allergies/Adverse Reactions: Allergies Allergy/AdvReac Type Severity Reaction Status Date / Time morphine Allergy Verified 10/30/18 05:04 tramadol Allergy Verified 10/30/18 05:04 Medications: Current Medications Acetaminophen (Tylenol) 650 mg PO Q4H PRN PRN Reason: Headache/Fever/Mild Pain (1-3) Acetaminophen (Tylenol) 650 mg [place] Q4H PRN PRN Reason: Headache/Fever/Mild Pain (1-3) Amlodipine Besylate (Norvasc) 5 mg PO DAILY [facility] Last Admin: 11/01/18 08:26 Dose: 5 mg Aspirin (Ecotrin) 325 mg PO DAILY [facility] Last Admin: 11/01/18 08:26 Dose: 325 mg Atorvastatin Calcium (Lipitor) 40 mg PO [facility] Last Admin: 10/31/18 20:16 Dose: 40 mg Clonidine (Glhwrirx-Akg-0 Patch) 0.1 mg TD Q7D@1300 [facility] Last Admin: 11/01/18 12:57 Dose: 0.1 mg Dextrose/Water (Dextrose 50%) 25 gm SLOW IVP PRN PRN PRN Reason: Hypoglycemia Docusate Sodium (Colace) 100 mg PO DAILY [facility] Last Admin: 11/01/18 08:26 Dose: 100 mg Enoxaparin Sodium (Lovenox) 30 mg SC 0900 [facility] Last Admin: 11/01/18 08:27 Dose: 30 mg Glucagon (Glucagon) 1 mg IM PRN PRN PRN Reason: Hypoglycemia Hydralazine HCl (Apresoline) 10 mg SLOW IVP Q4H PRN PRN Reason: BP > 220/110 Hydralazine HCl (Apresoline) 10 mg SLOW IVP Q6H PRN PRN Reason: SBP Greater Than 170 Dextrose/Water (D5w) 1,000 mls @ 0 mls/hr IV .Q0M PRN PRN Reason: Hypoglycemia Insulin Glargine 20 units/ (Miscellaneous Medication) 0.2 mls @ 0 mls/hr SC [facility] Last Admin: 10/31/18 20:15 Dose: 0.2 mls Insulin Human Lispro (Humalog) 0 units SC .MILD SLIDING SCALE PRN PRN Reason: Mild Correctional Scale Last Admin: 11/01/18 11:31 Dose: 4 unit Labetalol HCl (Normodyne) 10 mg SLOW IVP Q4H PRN PRN Reason: SBP Greater Than 180 Melatonin (Melatonin) 3 mg PO [facility] Last Admin: 10/31/18 20:15 Dose: 3 mg Metoclopramide HCl (Reglan) 5 mg PO TID [facility] Last Admin: 11/01/18 08:25 Dose: 5 mg Metoprolol Tartrate (Lopressor) 50 mg PO DAILY [facility] Last Admin: 11/01/18 08:26 Dose: 50 mg Oseltamivir Phosphate (Tamiflu) 75 mg PO DAILY [facility] Last Admin: 11/01/18 08:26 Dose: 75 mg Pantoprazole Sodium (Protonix) 40 mg PO DAILY [facility] Last Admin: 11/01/18 08:26 Dose: 40 mg Senna/Docusate Sodium (Senokot S) 2 tab PO BID PRN PRN Reason: Constipation Sertraline HCl (Zoloft) 200 mg PO HS [facility] Last Admin: 10/31/18 20:16 Dose: 200 mg Sodium Chloride (Flush - Normal Saline) 10 ml IVF PRN PRN PRN Reason: Saline Flush Last Admin: 10/31/18 20:16 Dose: 10 ml
[2018-11-01] MEDS: Atorvastatin Calcium 40 MG TAB PO SCH (20:50)
[2018-11-01] MEDS: Melatonin 3 MG TAB PO SCH (20:51)
[2018-11-01] MEDS: Insulin Glargine 20 UNITS in Pre-Filled Syringe 1 EACH SC SCH (21:56)
--- NOTE | 2018-11-01 23:09 | CON ---
DATE OF CONSULTATION: 11/01/2018 REASON FOR CONSULTATION: Evaluate the patient with left facial droop and aphasia. HISTORY OF PRESENT ILLNESS: Ms. Carney is a 73-year-old woman who lives in a long-term in [place]. She was brought to the hospital not speaking or following commands. She underwent workup which included a carotid ultrasound, which shows no significant stenosis. She had echocardiogram shows an ejection fraction of 55% to 60% with only mild mitral regurgitation. There are no other valvular abnormalities or areas of concern for embolic effect. CT angiogram of the neck and brain was obtained that shows heavy calcification throughout the carotid system intracranially. At the level of the carotid bifurcation bilaterally, there is calcification. By my read, there is no significant stenosis in any of these areas. The calcification does not appear high risk for embolization. The patient had an another episode today of aphasia. She is currently able to speak, but obviously is hunting for words as we talk. Initially, the patient was on 81 mg aspirin. This has been elevated to 325 aspirin. PAST MEDICAL HISTORY: 1. Coronary artery disease, status post stenting by Dr. Aly. 2. Diabetes mellitus. 3. Dyslipidemia. 4. Hypertension. 5. Chronic renal insufficiency. 6. Obesity. PAST SURGICAL HISTORY: 1. Coronary artery stents. 2. Right rotator cuff surgery. 3. Right knee surgery. 4. Bilateral foot surgery. 5. Bilateral cataract surgery. 6. Cervical fusion. SOCIAL HISTORY: She does not use tobacco, alcohol, or other drugs. She lives in [facility]. ALLERGIES: MORPHINE AND TRAMADOL. CURRENT MEDICATIONS: 1. Amlodipine 5 mg daily. 2. Aspirin 81 mg daily-this has been increased to 325 since hospital admission. 3. Lipitor 40 mg at bedtime. 4. Colace 100 mg daily. 5. Levemir 25 units q.a.m. and 20 units q.p.m. 6. Losartan 100 mg daily. 7. Melatonin 3 mg at bedtime. 8. Reglan 5 mg t.i.d. 9. Metoprolol 50 mg daily. 10. Remeron 7.5 mg at bedtime. 11. Omeprazole 20 mg daily. 12. Zoloft 200 mg at bedtime. REVIEW OF SYSTEMS: Review of systems is not performed due to the difficulty in discussing the patient's responses. PHYSICAL EXAMINATION: VITAL SIGNS: Height 5 feet 4 inches, weight is 155 pounds, BSA is 1.76, temperature is 98.6, pulse is 92, blood pressure is 201/72. HEENT: Sclerae nonicteric. Pupils are equal and round bilaterally. NECK: Supple. I cannot auscultate a bruit in either carotid systems. CHEST: Clear bilaterally. HEART: Rhythm is regular. ABDOMEN: Soft and nontender. EXTREMITIES: No edema. ASSESSMENT AND PLAN: Aphasia with no intracerebral changes on CT scan of the brain. She on CT angiogram of the neck and brain does have calcification within her carotid systems bilaterally. Her anti-platelet agent has been up from an 81 mg aspirin to 325 mg aspirin. I see no indication for surgical intervention at this time. Blood pressure control also may be contributing to her symptomatology at this point in time. Job ID: [id number]
[2018-11-02 05:43] LABS: #Basophils 0.1 thou/uL (0.0-0.2); #Eosinphils 0.5 thou/uL (0.0-0.7); #Lymphocytes 1.7 thou/uL (1.20-3.40); #Monocytes 0.7 thou/uL (0.11-0.59); %Basophils 1.2 % (0.0-1.0); %Eosinophils 7.3 % (0.0-10.0); %Lymphocytes 23.7 % (21.0-51.0); %Monocytes 10.5 % (0.0-10.0); %Neutrophils 57.4 % (42.0-75.0); Hemoglobin 12.1 g/dL (12.0-16.0); Mean Corpuscular HGB CONC 32.5 g/dL (32.0-36.0); Mean Corpuscular Volume 92.3 fL (78.0-98.0); Mean Platelet Volume 7.8 fL (7.4-10.4); Platelet Count 223 thou/uL (130-400); RBC Distribution Width 11.7 % (11.5-14.5); Red Blood Cell (RBC) Count 4.03 mill/uL (4.20-5.40)
[2018-11-02 06:03] LABS: Anion Gap 13 mmol/L (10-20); BUN (Urea Nitrogen) 19 mg/dL (9.8-20.1); Calc. Creatinine Clearance 42 mL/min (70-130); Calcium 9.2 mg/dL (7.8-10.44); Carbon Dioxide 26 mmol/L (23-31); Chloride 106 mmol/L (98-107); Estimated GFR-MDRD 40; Glucose 92 mg/dL (83-110); Potassium 3.9 mmol/L (3.5-5.1); Sodium 141 mmol/L (136-145)
[2018-11-02] MEDS ORDERED: cloNIDine 0.1mg/24 Hour PATCH TD SCH (09:00)
[2018-11-02] MEDS: Enoxaparin Sodium 30 MG/0.3 ML SYRINGE SC SCH (09:32)
[2018-11-02] MEDS: Docusate 100 MG CAP PO SCH (09:32)
[2018-11-02] MEDS: Aspirin 325 mg Enteric Coated Tablet PO SCH (09:32)
[2018-11-02] MEDS: Amlodipine 5 MG TAB PO SCH (09:33)
[2018-11-02] MEDS: Metoclopramide HCl 10 MG TAB PO SCH ×3 (09:33→22:54)
[2018-11-02] MEDS: Metoprolol Tartrate 50 MG TAB PO SCH (09:34)
[2018-11-02] MEDS: Oseltamivir 75 MG CAP PO SCH (09:34)
[2018-11-02] MEDS: HumaLOG 300 UNITS/3 ML VIAL SC PRN ×2 (11:30→18:30)
--- NOTE | 2018-11-02 12:13 | PDOC.PN ---
- Subjective Encounter Start Date: 11/02/18 Encounter Start Time: 07:20 Pt seen for followup re: hypertensive urgency. Says she feels okay, no complaints. - Objective Resuscitation Status - Order Detail: 10/30/18 10:35 Resuscitation Status Routine Resuscitation Status: FULL: Full Resuscitation Discussed with: patient Vital Signs & Weight: Vital Signs (12 hours) Temp Pulse Pulse Pulse Resp BP BP 11/02/18 11:55 98.1 F 69 20 11/02/18 10:15 77 73 190/46 H 11/02/18 09:33 68 145/80 H 11/02/18 08:00 98.2 F 70 20 11/02/18 04:00 98.1 F 64 16 BP BP Pulse Ox 11/02/18 11:55 185/88 H 94 L 11/02/18 10:15 145/76 H 11/02/18 09:33 11/02/18 08:00 145/80 H 96 11/02/18 04:00 141/62 H 96 Weight Weight 155 lb I&O: 11/01/18 11/02/18 11/03/18 06:59 06:59 06:59 Intake Total 330 450 Output Total 475 925 Balance -145 -475 Result Diagrams: 11/02/18 04:23 11/02/18 04:23 Additional Labs: Accuchecks 11/02/18 11/02/18 11/01/18 10:39 06:06 21:52 POC Glucose 216 H 114 H 289 H 11/01/18 16:39 POC Glucose 209 H Phys Exam - Physical Examination Constitutional: NAD HEENT: moist MMs Neck: supple Respiratory: clear to auscultation bilateral Cardiovascular: RRR Gastrointestinal: soft Musculoskeletal: no edema Neurological: moves all 4 limbs Psychiatric: normal affect Deviation from normal: Ox2 Dx/Plan (1) Hypertensive urgency Code(s): I16.0 - HYPERTENSIVE URGENCY Status: Acute Comment: Improved (2) Carotid stenosis Code(s): I65.29 - OCCLUSION AND STENOSIS OF UNSPECIFIED CAROTID ARTERY Status : Acute Comment: appreciate CV surgery input (3) Acute metabolic encephalopathy Code(s): G93.41 - METABOLIC ENCEPHALOPATHY Status: Acute Comment: Improved (4) CAD (coronary artery disease) Code(s): I25.10 - ATHSCL HEART DISEASE OF [place] CORONARY ARTERY W/O ANG PCTRS Status: Chronic Qualifiers: Coronary Disease-Associated Artery/Lesion type: [place] artery [place] vs. transplanted heart: [place] heart Associated angina: without angina Qualified Code(s): I25.10 - Atherosclerotic heart disease of [place] coronary artery without angina pectoris Comment: Stable. (5) DM type 2 (diabetes mellitus, type 2) Status: Chronic Qualifiers: Diabetes mellitus [employer] insulin use: with [employer] use Diabetes mellitus complication status: with unspecified complications Qualified Code(s) : E11.8 - Type 2 diabetes mellitus with unspecified complications; Z79.4 - group home (current) use of insulin Comment: controlled (6) Dyslipidemia Code(s): E78.5 - HYPERLIPIDEMIA, UNSPECIFIED Status: Chronic Comment: continue Lipitor. - Plan * . Review of Systems - Review of Systems Cardiovascular: negative: chest pain, palpitations, orthopnea, paroxysmal nocturnal dyspnea, edema, light headedness Neurological: negative: Weakness, Numbness, Incoordination, Change in Speech, Confusion, Seizures - Medications/Allergies Allergies/Adverse Reactions: Allergies Allergy/AdvReac Type Severity Reaction Status Date / Time morphine Allergy Verified 10/30/18 05:04 tramadol Allergy Verified 10/30/18 05:04 Medications: Current Medications Acetaminophen (Tylenol) 650 mg PO Q4H PRN PRN Reason: Headache/Fever/Mild Pain (1-3) Acetaminophen (Tylenol) 650 mg [place] Q4H PRN PRN Reason: Headache/Fever/Mild Pain (1-3) Amlodipine Besylate (Norvasc) 5 mg PO DAILY [facility] Last Admin: 11/02/18 09:33 Dose: 5 mg Aspirin (Ecotrin) 325 mg PO DAILY [facility] Last Admin: 11/02/18 09:32 Dose: 325 mg Atorvastatin Calcium (Lipitor) 40 mg PO HS [facility] Last Admin: 11/01/18 20:50 Dose: 40 mg Clonidine (Mibddlxg-Gah-3 Patch) 0.1 mg TD Q7D@1300 [facility] Last Admin: 11/01/18 12:57 Dose: 0.1 mg Dextrose/Water (Dextrose 50%) 25 gm SLOW IVP PRN PRN PRN Reason: Hypoglycemia Docusate Sodium (Colace) 100 mg PO DAILY [facility] Last Admin: 11/02/18 09:32 Dose: 100 mg Enoxaparin Sodium (Lovenox) 30 mg SC 0900 [facility] Last Admin: 11/02/18 09:32 Dose: 30 mg Glucagon (Glucagon) 1 mg IM PRN PRN PRN Reason: Hypoglycemia Hydralazine HCl (Apresoline) 10 mg SLOW IVP Q4H PRN PRN Reason: BP > 220/110 Hydralazine HCl (Apresoline) 10 mg SLOW IVP Q6H PRN PRN Reason: SBP Greater Than 170 Last Admin: 11/01/18 16:10 Dose: 10 mg Dextrose/Water (D5w) 1,000 mls @ 0 mls/hr IV .Q0M PRN PRN Reason: Hypoglycemia Insulin Glargine 20 units/ (Miscellaneous Medication) 0.2 mls @ 0 mls/hr SC [facility] Last Admin: 11/01/18 21:56 Dose: 0.2 mls Insulin Human Lispro (Humalog) 0 units SC .MILD SLIDING SCALE PRN PRN Reason: Mild Correctional Scale Last Admin: 11/02/18 11:30 Dose: 3 unit Labetalol HCl (Normodyne) 10 mg SLOW IVP Q4H PRN PRN Reason: SBP Greater Than 180 Melatonin (Melatonin) 3 mg PO [facility] Last Admin: 11/01/18 20:51 Dose: 3 mg Metoclopramide HCl (Reglan) 5 mg PO TID [facility] Last Admin: 11/02/18 09:33 Dose: 5 mg Metoprolol Tartrate (Lopressor) 50 mg PO DAILY [facility] Last Admin: 11/02/18 09:34 Dose: 50 mg Oseltamivir Phosphate (Tamiflu) 75 mg PO DAILY [facility] Last Admin: 11/02/18 09:34 Dose: 75 mg Pantoprazole Sodium (Protonix) 40 mg PO DAILY [facility] Last Admin: 11/02/18 09:34 Dose: 40 mg Senna/Docusate Sodium (Senokot S) 2 tab PO BID PRN PRN Reason: Constipation Sertraline HCl (Zoloft) 200 mg PO [facility] Last Admin: 11/01/18 20:50 Dose: 200 mg Sodium Chloride (Flush - Normal Saline) 10 ml IVF PRN PRN PRN Reason: Saline Flush Last Admin: 10/31/18 20:16 Dose: 10 ml
[2018-11-02] MEDS: Atorvastatin Calcium 40 MG TAB PO SCH (22:54)
[2018-11-02] MEDS: Melatonin 3 MG TAB PO SCH (22:54)
[2018-11-02] MEDS: Insulin Glargine 20 UNITS in Pre-Filled Syringe 1 EACH SC SCH (22:54)
[2018-11-03] MEDS: Aspirin 325 mg Enteric Coated Tablet PO SCH (08:45)
[2018-11-03] MEDS: Amlodipine 5 MG TAB PO SCH (08:45)
[2018-11-03] MEDS: Metoclopramide HCl 10 MG TAB PO SCH (08:45)
[2018-11-03] MEDS: Docusate 100 MG CAP PO SCH (08:45)
[2018-11-03] MEDS: Enoxaparin Sodium 30 MG/0.3 ML SYRINGE SC SCH (08:46)
[2018-11-03] MEDS: Metoprolol Tartrate 50 MG TAB PO SCH (08:46)
[2018-11-03] MEDS: Oseltamivir 75 MG CAP PO SCH (08:47)
[2018-11-03 12:49] VITALS: BP 158/66
[2018-11-03 12:53] VITALS: TEMP 97.7
--- NOTE | 2018-11-04 02:14 | DIS ---
DATE OF ADMISSION: 10/30/2018 DATE OF DISCHARGE: 11/03/2018 PRIMARY CARE PROVIDER: Beverley Dunn, DO DISCHARGE DIAGNOSES: 1. Acute metabolic encephalopathy. 2. Aphasia. 3. Carotid stenosis. 4. Mild depression, stable. 5. Hypertensive urgency. CONDITION OF PATIENT ON THE DAY OF DISCHARGE: Stable. I assessed Ms. Carney on the day of discharge. She is awake, alert, and oriented x3. She denies any chest pain or shortness of breath. Vital signs are stable. S1 and S2 are heard, regular. Lungs are clear to auscultation bilaterally. CONSULTATIONS DURING THIS HOSPITALIZATION: 1. Neurology, Dr. Guido. 2. Cardiovascular Surgery, Dr. Toy Grey. DISCHARGE MEDICATIONS: Aspirin dose was increased to 325 mg daily. Otherwise, no change was made to her pre-admission home medications as dictated on my history and physical note dated October 30, 2018. HOSPITAL COURSE: Ms. Carney is a pleasant 73-year-old lady, who was admitted to [facility] on October 30, 2018, for acute metabolic encephalopathy and aphasia. Please refer to my history and physical note dated October 30, 2018, for further details. She was seen by Neurology Service. MRI of the brain did not show any acute territorial infarction or mass effect. She had ventriculomegaly. She had diffuse scattered punctate foci of susceptibility of the brain parenchyma, could be on the basis of amyloid angiopathy, given patient's age. She also had carotid Dopplers, which did not show any hemodynamically significant stenosis in bilateral internal carotid arteries. She had prominent calcified atherosclerotic plaques within the common carotid arteries bilaterally, greater on the right, which also extended into the region of carotid bulbs. On November 01, stroke alert was called because of another episode of aphasia. CT scan of the brain did not show any acute intracranial abnormality. She also had CT angiogram of [place] and neck, which showed prominent atherosclerosis, areas of significant stenosis with calcification involving the proximal portions of each internal carotid artery, right greater than left. She also had high-grade stenosis at the proximal left subclavian artery. She was seen by CV Surgery, who did not see any indication for surgical intervention. She also had episodes of hypertensive urgency with aphasia, which resolved. Many thanks for allowing me to participate in your patient's care. Please feel free to contact me with any questions or concerns. During this hospitalization, she had triglycerides of 187, cholesterol 315, LDL cholesterol 238, and HDL cholesterol 40. DISCHARGE DESTINATION: [facility], from where patient was admitted to this hospital. TIME SPENT: Total amount of time spent coordinating this discharge: 33 minutes. Job ID: [id number]
== END 2018-11-03 13:56 | disposition home or self-care (01) | DRG 67 ==
LOC: ERS 22:19 → OBSVTOIN 10-30 03:30 → 2SE 10-30 03:30
PROVIDERS: ADMIT Hospitalist; ATTEND Hospitalist
DX: I65.23 Occlusion and stenosis of bilateral carotid arteries (principal); G93.41 Metabolic encephalopathy; R47.01 Aphasia; I16.0 Hypertensive urgency; I25.10 Atherosclerotic heart disease of native coronary artery without angina pectoris; E78.5 Hyperlipidemia, unspecified; R29.810 Facial weakness; Z79.4 Long term (current) use of insulin; F32.9 Major depressive disorder, single episode, unspecified; G93.89 Other specified disorders of brain; I70.8 Atherosclerosis of other arteries; I34.0 Nonrheumatic mitral (valve) insufficiency; I12.9 Hypertensive chronic kidney disease with stage 1 through stage 4 chronic kidney disease, or unspecified chronic kidney disease; E11.22 Type 2 diabetes mellitus with diabetic chronic kidney disease; N18.9 Chronic kidney disease, unspecified; Z95.5 Presence of coronary angioplasty implant and graft; E66.9 Obesity, unspecified; F03.90 Unspecified dementia, unspecified severity, without behavioral disturbance, psychotic disturbance, mood disturbance, and anxiety
CPT/HCPCS: 36415; 36416; 51701; 70450; 70496; 70498; 70551; 71045; 74230; 80048; 80053; 80061; 81003; 81015; 82140; 82550; 82553; 84484; 85025; 85610; 85730; 87804; 93005; 93010; 93306; 93880; A4353; J0360; J1650; J1825; J2060; J2543; J8597; Q9966

== ENCOUNTER 2018-11-26 20:12 | Inpatient (IN) | payer MEDICARE, MEDICAID ==
[2018-11-26] MEDS ORDERED: Ondansetron PF 4 MG/2 ML Vial ONE (21:53)
[2018-11-26 22:42] LABS: Anion Gap 21 mmol/L (10-20); BUN (Urea Nitrogen) 26 mg/dL (9.8-20.1); Calc. Creatinine Clearance 0 mL/min (70-130); Calcium 9.3 mg/dL (7.8-10.44); Carbon Dioxide 19 mmol/L (23-31); Chloride 108 mmol/L (98-107); Estimated GFR-MDRD 28; Glucose 284 mg/dL (83-110); Potassium 3.6 mmol/L (3.5-5.1); Sodium 144 mmol/L (136-145)
[2018-11-26] MEDS ORDERED: Ondansetron ODT 4 MG TAB PO PRN (22:56)
[2018-11-26] MEDS ORDERED: Ondansetron PF 4 MG/2 ML Vial IVP PRN (22:56)
[2018-11-26] MEDS ORDERED: Acetaminophen 325 MG TAB PO PRN (22:56)
[2018-11-26] MEDS ORDERED: Dextrose 5% in Water 1,000 ML IV PRN (23:06)
[2018-11-26] MEDS ORDERED: Dextrose 50% Abboject 50 ML SYRINGE SLOW IVP PRN (23:06)
[2018-11-27 00:15] VITALS: BMI 25.2
[2018-11-27] MEDS: HumaLOG 300 UNITS/3 ML VIAL SC PRN ×3 (04:45→18:18)
--- NOTE | 2018-11-27 05:29 | HP ---
PRIMARY CARE DOCTOR: Dr. Beverley Dunn. CODE STATUS: Unable to verify. As of now, will be full code. TIME OF EVALUATION: 10.30 p.m. CHIEF COMPLAINT: Change in mental status. HISTORY OF PRESENT ILLNESS: It was gathered from the ER staff since patient is unable to give history. The patient is a 73-year-old female patient with past medical history of diabetes. She is a correction patient, also with history of coronary artery disease, hypertension, CKD, diabetes, gastroparesis, constipation, hyperlipidemia, was brought to the hospital after having change in mental status with nausea and vomiting for the past 2 days, uncontrolled diabetes, tachycardia, anion gap 24 with CO2 of 19, leukocytosis, lactic acidosis that was mild. The patient was initially suspected to be in initial stage of DKA, was given IV fluids, also given insulin, the patient has been recovering. The symptoms have been severe given new changes in mental status. REVIEW OF SYSTEMS: Unable to obtain as the patient is not cooperating to interview. PAST MEDICAL HISTORY: Reported in the HPI. PAST SURGICAL HISTORY: The patient has right knee surgeries cervical fusion, right arm surgery, bilateral feet surgery, vaginal tumor removal, cataract surgery, cervical fusion, rotator cuff repair, bilateral tubal ligation. PSYCHIATRIC HISTORY: Depression. SOCIAL HISTORY: No drugs, no smoking. Lives in a correction. FAMILY HISTORY: unable to obtain KNOWN ALLERGIES: To morphine and tramadol. REPORTED MEDICATIONS: Metoprolol, Zoloft, Reglan, aspirin, amlodipine, losartan , and melatonin. PHYSICAL EXAMINATION: VITAL SIGNS: On presentation, blood pressure was 163/71, respiratory rate was 18, temperature 98.4 with heart rate of 99. GENERAL APPEARANCE: The patient is alert, disoriented, not in acute distress. HEENT: Eyes, normal conjunctivae. Moist oral mucosa. Anicteric. No JVD. RESPIRATORY: Bilateral air entry. No rales. No wheezes. Symmetric expansion. CARDIOVASCULAR: Normal rate. Regular rhythm. No murmurs. No gallop. No edema. ABDOMEN: Soft. Normal bowel sounds. MUSCULOSKELETAL: Seems to be at baseline strength. No tenderness. SKIN: Warm, intact. No pallor. No rash. Peripheral pulses are present. Capillary refill seems to be intact. NEUROLOGIC: No evidence of any new focal weakness. Unable to fully explore as the patient is not cooperative. PSYCH: Unable to explore. IMAGING STUDIES: Chest x-ray was reviewed. The patient has unremarkable AP of chest. LABORATORY DATA: Labs were reviewed. The patient has a chemistry, sodium 144, potassium 3.6, chloride 108, carbon dioxide 19, anion gap 21, BUN 26, creatinine 1.77. When compared with the previous visits, the patient also has high creatinine this time, it is more than 0.3 from previous presentation. Glucose 284. GFR 28 , calcium 9.3. Beta-natriuretic peptide 377. When compared with previous chemistry prior to transfer, the values are about the same. ASSESSMENT AND PLAN: The patient will be placed in the hospital with following medical problems: 1. Uncontrolled diabetes, presenting with blood sugar in the 400s; after initial treatment, came down to 284. The patient presented with initial stage of high anion gap metabolic acidosis, initially felt to be related to diabetic ketoacidosis, however, bicarbonate is only 19. The patient has also acute on chronic renal failure that might be the source for the high anion gap metabolic acidosis. We will continue with the sliding scale, hydration, we will monitor, if the patient deteriorates, we may start diabetic ketoacidosis protocol. 2. Acute encephalopathy, unclear baseline for mentation. This could be secondary to underlying urinary tract infection. We will treat the underlying condition. 3. Urinary tract infection. As per prior to transfer records, UA was positive. The patient is on antibiotics, follow cultures, treat accordingly. 4. Deep venous thrombosis prophylaxis. Job ID: [id number] [facility]
[2018-11-27 06:17] LABS: #Lymphocytes 0.8 thou/uL (1.20-3.40); #Monocytes 0.9 thou/uL (0.11-0.59); #Neutrophils 13.6 thou/uL (1.40-6.50); %Eosinophils 0.1 % (0.0-10.0); %Lymphocytes 4.9 % (21.0-51.0); %Monocytes 5.6 % (0.0-10.0); %Neutrophils 89.4 % (42.0-75.0); Hemoglobin 12.9 g/dL (12.0-16.0); Mean Corpuscular HGB CONC 32.9 g/dL (32.0-36.0); Mean Corpuscular Hemoglobin 29.6 pg (27.0-31.0); Platelet Count 246 thou/uL (130-400); RBC Distribution Width 12.1 % (11.5-14.5); Red Blood Cell (RBC) Count 4.36 mill/uL (4.20-5.40); White Blood Cell (WBC) Count 15.3 thou/uL (4.8-10.8)
[2018-11-27 06:38] LABS: Anion Gap 20 mmol/L (10-20); BUN (Urea Nitrogen) 25 mg/dL (9.8-20.1); Calc. Creatinine Clearance 34 mL/min (70-130); Calcium 9.5 mg/dL (7.8-10.44); Carbon Dioxide 21 mmol/L (23-31); Chloride 109 mmol/L (98-107); Estimated GFR-MDRD 32; Glucose 248 mg/dL (83-110); Potassium 3.5 mmol/L (3.5-5.1); Sodium 146 mmol/L (136-145)
[2018-11-27] MEDS ORDERED: Prevnar 13-Val Conj/PF 0.5 ML SYRINGE IM ONE (09:00)
[2018-11-27] MEDS: Enoxaparin Sodium 30 MG/0.3 ML SYRINGE SC SCH (09:46)
[2018-11-27] MEDS: hydrALAZINE 20 MG/ML VIAL SLOW IVP PRN (10:28)
[2018-11-27] MEDS ORDERED: cefTRIAXone\\ROCEPHIN 1 GM in Sodium Chloride 0.9% 100 ML IVPB SCH (15:00)
[2018-11-27] MEDS: Metoclopramide HCl 10 MG TAB PO SCH ×2 (15:10→20:21)
--- NOTE | 2018-11-27 16:25 | PDOC.PN ---
- Subjective Encounter Start Date: 11/27/18 Encounter Start Time: 09:00 Pt seen for followup re:acute metabolic encephalopathy. Opens eyes to voice but not answering questions, unable to complete ROS. - Objective Resuscitation Status - Order Detail: 11/26/18 22:56 Resuscitation Status Routine Resuscitation Status: FULL: Full Resuscitation MAR Reviewed: Yes Vital Signs & Weight: Vital Signs (12 hours) Temp Pulse Resp BP BP Pulse Ox 11/27/18 14:00 102 H 11/27/18 12:17 97.6 F 114 H 16 159/86 H 97 11/27/18 10:28 105 H 183/99 H 11/27/18 09:54 96 11/27/18 07:48 99.1 F 105 H 16 188/92 H 96 11/27/18 04:48 98.5 F 99 20 179/86 H 97 Weight Weight 155 lb 15.985 oz I&O: 11/26/18 11/27/18 11/28/18 06:59 06:59 06:59 Output Total 400 Balance -400 Result Diagrams: 11/27/18 05:48 11/27/18 05:48 Additional Labs: Accuchecks 11/27/18 11/27/18 11/26/18 11:33 04:46 23:58 POC Glucose 251 H 239 H 255 H 11/26/18 21:36 POC Glucose 258 H Labs reviewed by me Phys Exam - Physical Examination Constitutional: NAD HEENT: moist MMs Neck: supple Respiratory: clear to auscultation bilateral Cardiovascular: RRR Gastrointestinal: soft Neurological: moves all 4 limbs Deviation from normal: Unable to assess Dx/Plan (1) Acute metabolic encephalopathy Code(s): G93.41 - METABOLIC ENCEPHALOPATHY Status: Acute Comment: Etiology unclear at this time. UTI was suspected, but urinalysis is not consistent with UTI. Continue antibiotics as below for now, await cultures. (2) DM type 2 (diabetes mellitus, type 2) Status: Chronic Qualifiers: Diabetes mellitus termination clerk insulin use: with usp use Diabetes mellitus complication status: with unspecified complications Qualified Code(s) : E11.8 - Type 2 diabetes mellitus with unspecified complications; Z79.4 - moth exterminator (current) use of insulin Comment: Blood sugars still high. Continue accuchecks, insulin sliding scale. (3) Dyslipidemia Code(s): E78.5 - HYPERLIPIDEMIA, UNSPECIFIED Status: Chronic Comment: continue Lipitor. (4) HTN (hypertension) Code(s): I10 - ESSENTIAL (PRIMARY) HYPERTENSION Status: Chronic Qualifiers: Hypertension type: essential hypertension Qualified Code(s): I10 - Essential (primary) hypertension Comment: Resume home meds, monitor vital signs and titrate antihypertensives as needed - Plan * . Review of Systems - Medications/Allergies Allergies/Adverse Reactions: Allergies Allergy/AdvReac Type Severity Reaction Status Date / Time morphine Allergy Verified 10/30/18 05:04 tramadol Allergy Verified 10/30/18 05:04 Medications: Current Medications Acetaminophen (Tylenol) 650 mg PO Q4H PRN PRN Reason: Headache/Fever/Mild Pain (1-3) Amlodipine Besylate (Norvasc) 5 mg PO DAILY [facility] Aspirin (Ecotrin) 325 mg PO DAILY [facility] Atorvastatin Calcium (Lipitor) 40 mg PO HS [facility] Dextrose/Water (Dextrose 50%) 25 gm SLOW IVP PRN PRN PRN Reason: Hypoglycemia Docusate Sodium (Colace) 100 mg PO DAILY [facility] Enoxaparin Sodium (Lovenox) 30 mg SC 0900 [facility] Last Admin: 11/27/18 09:46 Dose: 30 mg Glucagon (Glucagon) 1 mg IM PRN PRN PRN Reason: Hypoglycemia Hydralazine HCl (Apresoline) 10 mg SLOW IVP Q6H PRN PRN Reason: SBP Greater Than 170 Last Admin: 11/27/18 10:28 Dose: 10 mg Ceftriaxone Sodium 1 gm/ (Sodium Chloride) 100 mls @ 200 mls/hr IVPB Q24HR [facility] Last Admin: 11/27/18 15:10 Dose: 100 mls Dextrose/Water (D5w) 1,000 mls @ 0 mls/hr IV .Q0M PRN PRN Reason: Hypoglycemia Insulin Glargine 20 units/ (Miscellaneous Medication) 0.2 mls @ 0 mls/hr SC HS [facility] Insulin Glargine 25 units/ (Miscellaneous Medication) 0.25 mls @ 0 mls/hr SC QAM-WM [facility] Insulin Human Lispro (Humalog) 0 units SC .MILD SLIDING SCALE PRN PRN Reason: Mild Correctional Scale Last Admin: 11/27/18 13:47 Dose: 4 unit Losartan Potassium (Cozaar) 100 mg PO DAILY [facility] Melatonin (Melatonin) 3 mg PO HS [facility] Metoclopramide HCl (Reglan) 5 mg PO TID [facility] Last Admin: 11/27/18 15:10 Dose: 5 mg Metoprolol Tartrate (Lopressor) 50 mg PO DAILY [facility] Mirtazapine (Remeron) 7.5 mg PO HS [facility] Ondansetron HCl (Zofran Odt) 4 mg PO Q6H PRN PRN Reason: Nausea/Vomiting Ondansetron HCl (Zofran) 4 mg IVP Q6H PRN PRN Reason: Nausea/Vomiting Oseltamivir Phosphate (Tamiflu) 75 mg PO DAILY [facility] Pantoprazole Sodium (Protonix) 40 mg PO DAILY [facility] Sertraline HCl (Zoloft) 200 mg PO HS [facility]
[2018-11-27] MEDS ORDERED: Piperacillin/Tazobactam 4.5 GM in Sodium Chloride 0.9% 100 ML IVPB SCH (16:30)
[2018-11-27] MEDS: Vancomycin HCl 1 GM in Premix Bag 1 BAG IVPB SCH (17:16)
[2018-11-27] MEDS: Piperacillin/Tazobactam 2.25 GM in Sodium Chloride 0.9% 100 ML IVPB SCH ×2 (17:16→23:45)
[2018-11-27] MEDS ORDERED: Metoprolol Tartrate 50 MG TAB PO SCH (18:00)
[2018-11-27] MEDS: Melatonin 3 MG TAB PO SCH (20:20)
[2018-11-27] MEDS: Atorvastatin Calcium 40 MG TAB PO SCH (20:21)
[2018-11-27] MEDS: Insulin Glargine 20 UNITS in Pre-Filled Syringe 1 EACH SC SCH (20:21)
[2018-11-27] MEDS: Mirtazapine 15 MG TAB PO SCH (20:21)
[2018-11-27] MEDS ORDERED: Non-Formulary Item 1 EACH (Insulin Detemir 100 Units/Ml [Levemir] 20 UNIT) SQ SCH (21:00)
[2018-11-28] MEDS: HumaLOG 300 UNITS/3 ML VIAL SC PRN ×3 (05:17→18:27)
[2018-11-28] MEDS: Piperacillin/Tazobactam 2.25 GM in Sodium Chloride 0.9% 100 ML IVPB SCH ×4 (05:18→23:42)
[2018-11-28] MEDS ORDERED: Non-Formulary Item 1 EACH (Insulin Detemir 100 Units/Ml [Levemir] 25 UNIT) SQ SCH (08:00)
[2018-11-28] MEDS: Enoxaparin Sodium 30 MG/0.3 ML SYRINGE SC SCH (08:29)
[2018-11-28] MEDS: Oseltamivir 75 MG CAP PO SCH (08:30)
[2018-11-28] MEDS: Aspirin 325 mg Enteric Coated Tablet PO SCH (08:30)
[2018-11-28] MEDS: Docusate 100 MG CAP PO SCH (08:30)
[2018-11-28] MEDS: Metoclopramide HCl 10 MG TAB PO SCH ×3 (08:30→20:26)
[2018-11-28] MEDS: Amlodipine 5 MG TAB PO SCH (08:30)
[2018-11-28] MEDS: Losartan 25 MG TAB PO SCH (08:30)
[2018-11-28] MEDS: Metoprolol Tartrate 50 MG TAB PO SCH (08:31)
[2018-11-28] MEDS: Insulin Glargine 25 UNITS in Pre-Filled Syringe 1 EACH SC SCH (10:31)
[2018-11-28] MEDS: Vancomycin HCl 1 GM in Premix Bag 1 BAG IVPB SCH (14:58)
--- NOTE | 2018-11-28 18:25 | PDOC.PN ---
- Subjective Encounter Start Date: 11/28/18 Encounter Start Time: 09:20 Pt seen for followup re; acute metabolic encephalopathy. Pt sleepy but arousable, not answering questions, could not complete ROS. - Objective Resuscitation Status - Order Detail: 11/26/18 22:56 Resuscitation Status Routine Resuscitation Status: FULL: Full Resuscitation MAR Reviewed: Yes Vital Signs & Weight: Vital Signs (12 hours) Temp Pulse Resp BP Pulse Ox 11/28/18 17:35 98.8 F 67 18 177/76 H 95 11/28/18 08:30 73 11/28/18 08:00 94 L 11/28/18 07:42 99.8 F H 73 16 135/74 94 L Weight Weight 155 lb 15.985 oz I&O: 11/27/18 11/28/18 11/29/18 06:59 06:59 06:59 Intake Total 640 400 Output Total 400 575 600 Balance -400 65 -200 Result Diagrams: 11/29/18 05:40 11/29/18 05:40 Additional Labs: Accuchecks 11/28/18 11/28/18 11/27/18 11:16 04:25 23:50 POC Glucose 273 H 313 H 329 H 11/27/18 20:14 POC Glucose 413 H Phys Exam - Physical Examination Constitutional: NAD HEENT: moist MMs Neck: supple Respiratory: clear to auscultation bilateral Cardiovascular: RRR Gastrointestinal: soft Neurological: moves all 4 limbs Psychiatric: normal affect Dx/Plan (1) Acute metabolic encephalopathy Code(s): G93.41 - METABOLIC ENCEPHALOPATHY Status: Acute Comment: Etiology still unclear. Continue antibiotics, await cultures (2) DM type 2 (diabetes mellitus, type 2) Status: Chronic Qualifiers: Diabetes mellitus termite technician insulin use: with termite technician use Diabetes mellitus complication status: with unspecified complications Qualified Code(s) : E11.8 - Type 2 diabetes mellitus with unspecified complications; Z79.4 - USP (current) use of insulin Comment: Blood sugars still high, switch to moderate sliding scale (3) Dyslipidemia Code(s): E78.5 - HYPERLIPIDEMIA, UNSPECIFIED Status: Chronic Comment: on Lipitor. (4) HTN (hypertension) Code(s): I10 - ESSENTIAL (PRIMARY) HYPERTENSION Status: Chronic Qualifiers: Hypertension type: essential hypertension Qualified Code(s): I10 - Essential (primary) hypertension Comment: titrate antihypertensives as needed - Plan * . Review of Systems - Medications/Allergies Allergies/Adverse Reactions: Allergies Allergy/AdvReac Type Severity Reaction Status Date / Time morphine Allergy Verified 10/30/18 05:04 tramadol Allergy Verified 10/30/18 05:04 Medications: Current Medications Acetaminophen (Tylenol) 650 mg PO Q4H PRN PRN Reason: Headache/Fever/Mild Pain (1-3) Last Admin: 11/27/18 20:33 Dose: 650 mg Amlodipine Besylate (Norvasc) 5 mg PO DAILY [facility] Last Admin: 11/29/18 09:30 Dose: 5 mg Aspirin (Ecotrin) 325 mg PO DAILY [facility] [place] Last Admin: 11/29/18 09:30 Dose: 325 mg Atorvastatin Calcium (Lipitor) 40 mg PO [facility] Last Admin: 11/28/18 20:27 Dose: 40 mg Dextrose/Water (Dextrose 50%) 25 gm SLOW IVP PRN PRN PRN Reason: Hypoglycemia Docusate Sodium (Colace) 100 mg PO DAILY [facility] [place] Last Admin: 11/29/18 09:30 Dose: 100 mg Enoxaparin Sodium (Lovenox) 30 mg SC 0900 [facility] [place] Last Admin: 11/29/18 09:34 Dose: 30 mg Glucagon (Glucagon) 1 mg IM PRN PRN PRN Reason: Hypoglycemia Hydralazine HCl (Apresoline) 10 mg SLOW IVP Q6H PRN PRN Reason: SBP Greater Than 170 Last Admin: 11/27/18 10:28 Dose: 10 mg Dextrose/Water (D5w) 1,000 mls @ 0 mls/hr IV .Q0M PRN PRN Reason: Hypoglycemia Insulin Glargine 20 units/ (Miscellaneous Medication) 0.2 mls @ 0 mls/hr SC HS [facility] [place] Last Admin: 11/28/18 20:27 Dose: 0.2 mls Insulin Glargine 25 units/ (Miscellaneous Medication) 0.25 mls @ 0 mls/hr SC QAM-WM [facility] [place] Last Admin: 11/28/18 10:31 Dose: 0.25 mls Vancomycin HCl 1 gm/ Device 200 mls @ 200 mls/hr IVPB 1700 [facility] [place] Last Admin: 11/28/18 14:58 Dose: 200 mls Piperacillin Sod/Tazobactam (Sod 2.25 gm/ Sodium Chloride) 100 mls @ 200 mls/ hr IVPB Q6HR [facility] [place] Last Admin: 11/29/18 05:27 Dose: 100 mls Potassium Chloride 40 meq/ (Sodium Chloride) 1,020 mls @ 70 mls/hr IV .[id number] [facility] Insulin Human Lispro (Humalog) 0 units SC .MODERATE SLIDING SC PRN PRN Reason: Moderate Correctional Scale Losartan Potassium (Cozaar) 100 mg PO DAILY [facility] [place] Last Admin: 11/29/18 09:29 Dose: 100 mg Melatonin (Melatonin) 3 mg PO HS [facility] [place] Last Admin: 11/28/18 20:27 Dose: 3 mg Metoclopramide HCl (Reglan) 5 mg PO TID [facility] [place] Last Admin: 11/29/18 09:32 Dose: 5 mg Metoprolol Tartrate (Lopressor) 50 mg PO DAILY [facility] [place] Last Admin: 11/29/18 09:30 Dose: 50 mg Mirtazapine (Remeron) 7.5 mg PO HS [facility] [place] Last Admin: 11/28/18 20:27 Dose: 7.5 mg Miscellaneous Medication (Pharmacy To Dose) 1 each IVPB PRN PRN PRN Reason: Pharmacy to dose Ondansetron HCl (Zofran Odt) 4 mg PO Q6H PRN PRN Reason: Nausea/Vomiting Ondansetron HCl (Zofran) 4 mg IVP Q6H PRN PRN Reason: Nausea/Vomiting Oseltamivir Phosphate (Tamiflu) 75 mg PO DAILY [facility] [place] Last Admin: 11/29/18 09:34 Dose: 75 mg Pantoprazole Sodium (Protonix) 40 mg PO DAILY [facility] [place] Last Admin: 11/29/18 09:30 Dose: 40 mg Potassium Chloride (K-Dur) 40 meq PO NOW [facility] Stop: 11/29/18 12:30 Sertraline HCl (Zoloft) 200 mg PO HS [facility] [place] Last Admin: 11/28/18 20:27 Dose: 200 mg
[2018-11-28] MEDS: Melatonin 3 MG TAB PO SCH (20:27)
[2018-11-28] MEDS: Atorvastatin Calcium 40 MG TAB PO SCH (20:27)
[2018-11-28] MEDS: Mirtazapine 15 MG TAB PO SCH (20:27)
[2018-11-28] MEDS: Insulin Glargine 20 UNITS in Pre-Filled Syringe 1 EACH SC SCH (20:27)
[2018-11-29] MEDS: Piperacillin/Tazobactam 2.25 GM in Sodium Chloride 0.9% 100 ML IVPB SCH ×4 (05:27→23:30)
[2018-11-29 06:50] LABS: #Basophils 0.1 thou/uL (0.0-0.2); #Lymphocytes 1.4 thou/uL (1.20-3.40); #Neutrophils 9.7 thou/uL (1.40-6.50); %Basophils 0.5 % (0.0-1.0); %Eosinophils 0.3 % (0.0-10.0); %Lymphocytes 11.2 % (21.0-51.0); %Monocytes 8.1 % (0.0-10.0); %Neutrophils 79.9 % (42.0-75.0); Hemoglobin 13.5 g/dL (12.0-16.0); Mean Corpuscular HGB CONC 32.3 g/dL (32.0-36.0); Mean Corpuscular Hemoglobin 29.7 pg (27.0-31.0); Mean Corpuscular Volume 91.7 fL (78.0-98.0); Mean Platelet Volume 8.3 fL (7.4-10.4); Platelet Count 228 thou/uL (130-400); RBC Distribution Width 12.4 % (11.5-14.5); Red Blood Cell (RBC) Count 4.54 mill/uL (4.20-5.40); White Blood Cell (WBC) Count 12.1 thou/uL (4.8-10.8)
[2018-11-29 06:56] LABS: Anion Gap 15 mmol/L (10-20); BUN (Urea Nitrogen) 29 mg/dL (9.8-20.1); Calc. Creatinine Clearance 35 mL/min (70-130); Calcium 9.1 mg/dL (7.8-10.44); Carbon Dioxide 24 mmol/L (23-31); Chloride 116 mmol/L (98-107); Estimated GFR-MDRD 32; Glucose 155 mg/dL (83-110); Sodium 152 mmol/L (136-145)
[2018-11-29] MEDS: Losartan 25 MG TAB PO SCH (09:29)
[2018-11-29] MEDS: Metoprolol Tartrate 50 MG TAB PO SCH (09:30)
[2018-11-29] MEDS: Docusate 100 MG CAP PO SCH (09:30)
[2018-11-29] MEDS: Aspirin 325 mg Enteric Coated Tablet PO SCH (09:30)
[2018-11-29] MEDS: Amlodipine 5 MG TAB PO SCH (09:30)
[2018-11-29] MEDS: Metoclopramide HCl 10 MG TAB PO SCH ×3 (09:32→22:57)
[2018-11-29] MEDS: Enoxaparin Sodium 30 MG/0.3 ML SYRINGE SC SCH (09:34)
[2018-11-29] MEDS: Oseltamivir 75 MG CAP PO SCH (09:34)
[2018-11-29] MEDS ORDERED: Potassium Chloride 20 MEQ TAB PO SCH (10:30)
[2018-11-29] MEDS: Potassium Chloride 40 MEQ in Sodium Chloride 0.45% 1,000 ML IV SCH (11:07)
--- NOTE | 2018-11-29 11:50 | PDOC.PN ---
- Subjective Encounter Start Date: 11/29/18 Encounter Start Time: 08:20 Pt seen for followup re: acute metabolic encephalopathy. Alert, answering some questions. Denies chest pain, shortness of breath, fevers or chills. - Objective Resuscitation Status - Order Detail: 11/26/18 22:56 Resuscitation Status Routine Resuscitation Status: FULL: Full Resuscitation MAR Reviewed: Yes Vital Signs & Weight: Vital Signs (12 hours) Temp Pulse Resp BP Pulse Ox 11/29/18 11:25 98.7 F 70 20 164/80 H 96 11/29/18 09:30 89 11/29/18 09:27 99.3 F 11/29/18 08:00 100.3 F H 89 20 181/82 H 95 Weight Weight 155 lb 15.985 oz I&O: 11/28/18 11/29/18 11/30/18 06:59 06:59 06:59 Intake Total 640 650 Output Total 575 850 Balance 65 -200 Result Diagrams: 11/29/18 05:40 11/29/18 05:40 Additional Labs: Accuchecks 11/29/18 11/29/18 11/28/18 11:25 05:28 23:43 POC Glucose 192 H 133 H 166 H 11/28/18 11/28/18 20:26 18:22 POC Glucose 209 H 239 H labs reviewed by me Phys Exam - Physical Examination Constitutional: NAD HEENT: moist MMs Neck: supple Respiratory: clear to auscultation bilateral Cardiovascular: RRR Gastrointestinal: soft Neurological: moves all 4 limbs Psychiatric: normal affect Dx/Plan (1) Acute metabolic encephalopathy Code(s): G93.41 - METABOLIC ENCEPHALOPATHY Status: Acute Comment: Improving (2) Hypokalemia Code(s): E87.6 - HYPOKALEMIA Status: Acute Comment: replace potassium (3) DM type 2 (diabetes mellitus, type 2) Status: Chronic Qualifiers: Diabetes mellitus mcc insulin use: with termite treater helper use Diabetes mellitus complication status: with unspecified complications Qualified Code(s) : E11.8 - Type 2 diabetes mellitus with unspecified complications; Z79.4 - local intermodal truck driver (current) use of insulin Comment: Improved control (4) Dyslipidemia Code(s): E78.5 - HYPERLIPIDEMIA, UNSPECIFIED Status: Chronic Comment: continue Lipitor. (5) HTN (hypertension) Code(s): I10 - ESSENTIAL (PRIMARY) HYPERTENSION Status: Chronic Qualifiers: Hypertension type: essential hypertension Qualified Code(s): I10 - Essential (primary) hypertension Comment: Increase amlodipine to 10 mg daily - Plan * . Review of Systems - Review of Systems Cardiovascular: negative: chest pain, palpitations, orthopnea, paroxysmal nocturnal dyspnea, edema, light headedness Gastrointestinal: negative: Nausea, Vomiting, Abdominal Pain, Diarrhea, Constipation, Melena, Hematochezia - Medications/Allergies Allergies/Adverse Reactions: Allergies Allergy/AdvReac Type Severity Reaction Status Date / Time morphine Allergy Verified 10/30/18 05:04 tramadol Allergy Verified 10/30/18 05:04 Medications: Current Medications Acetaminophen (Tylenol) 650 mg PO Q4H PRN PRN Reason: Headache/Fever/Mild Pain (1-3) Last Admin: 11/27/18 20:33 Dose: 650 mg Amlodipine Besylate (Norvasc) 5 mg PO DAILY [facility] Last Admin: 11/29/18 09:30 Dose: 5 mg Aspirin (Ecotrin) 325 mg PO DAILY [facility] Last Admin: 11/29/18 09:30 Dose: 325 mg Atorvastatin Calcium (Lipitor) 40 mg PO [facility] Last Admin: 11/28/18 20:27 Dose: 40 mg Dextrose/Water (Dextrose 50%) 25 gm SLOW IVP PRN PRN PRN Reason: Hypoglycemia Docusate Sodium (Colace) 100 mg PO DAILY [facility] Last Admin: 11/29/18 09:30 Dose: 100 mg Enoxaparin Sodium (Lovenox) 30 mg SC 0900 [facility] Last Admin: 11/29/18 09:34 Dose: 30 mg Glucagon (Glucagon) 1 mg IM PRN PRN PRN Reason: Hypoglycemia Hydralazine HCl (Apresoline) 10 mg SLOW IVP Q6H PRN PRN Reason: SBP Greater Than 170 Last Admin: 11/27/18 10:28 Dose: 10 mg Dextrose/Water (D5w) 1,000 mls @ 0 mls/hr IV .Q0M PRN PRN Reason: Hypoglycemia Insulin Glargine 20 units/ (Miscellaneous Medication) 0.2 mls @ 0 mls/hr SC [facility] Last Admin: 11/28/18 20:27 Dose: 0.2 mls Insulin Glargine 25 units/ (Miscellaneous Medication) 0.25 mls @ 0 mls/hr SC QAM-WM [facility] Last Admin: 11/28/18 10:31 Dose: 0.25 mls Vancomycin HCl 1 gm/ Device 200 mls @ 200 mls/hr IVPB 1700 [facility] Last Admin: 11/28/18 14:58 Dose: 200 mls Piperacillin Sod/Tazobactam (Sod 2.25 gm/ Sodium Chloride) 100 mls @ 200 mls/ hr IVPB Q6HR [facility] Last Admin: 11/29/18 11:07 Dose: 100 mls Potassium Chloride 40 meq/ (Sodium Chloride) 1,020 mls @ 70 mls/hr IV .[id number] [facility] Last Admin: 11/29/18 11:07 Dose: 1,020 mls Insulin Human Lispro (Humalog) 0 units SC .MODERATE SLIDING SC PRN PRN Reason: Moderate Correctional Scale Losartan Potassium (Cozaar) 100 mg PO DAILY [facility] Last Admin: 11/29/18 09:29 Dose: 100 mg Melatonin (Melatonin) 3 mg PO [facility] Last Admin: 11/28/18 20:27 Dose: 3 mg Metoclopramide HCl (Reglan) 5 mg PO TID [facility] Last Admin: 11/29/18 09:32 Dose: 5 mg Metoprolol Tartrate (Lopressor) 50 mg PO DAILY [facility] Last Admin: 11/29/18 09:30 Dose: 50 mg Mirtazapine (Remeron) 7.5 mg PO HS [facility] Last Admin: 11/28/18 20:27 Dose: 7.5 mg Miscellaneous Medication (Pharmacy To Dose) 1 each IVPB PRN PRN PRN Reason: Pharmacy to dose Ondansetron HCl (Zofran Odt) 4 mg PO Q6H PRN PRN Reason: Nausea/Vomiting Ondansetron HCl (Zofran) 4 mg IVP Q6H PRN PRN Reason: Nausea/Vomiting Oseltamivir Phosphate (Tamiflu) 75 mg PO DAILY [facility] Last Admin: 11/29/18 09:34 Dose: 75 mg Pantoprazole Sodium (Protonix) 40 mg PO DAILY [facility] Last Admin: 11/29/18 09:30 Dose: 40 mg Potassium Chloride (K-Dur) 40 meq PO NOW [facility] Stop: 11/29/18 12:30 Last Admin: 11/29/18 11:07 Dose: 40 meq Sertraline HCl (Zoloft) 200 mg PO HS [facility] Last Admin: 11/28/18 20:27 Dose: 200 mg
[2018-11-29] MEDS ORDERED: Amlodipine 5 MG TAB PO SCH (12:15)
[2018-11-29] MEDS: Insulin Glargine 25 UNITS in Pre-Filled Syringe 1 EACH SC SCH (12:56)
[2018-11-29 17:20] LABS: Vancomycin, Trough 15.4 ug/mL
[2018-11-29 17:23] LABS: ALT (SGPT) 16 U/L (8-55); AST (SGOT) 33 U/L (5-34); Albumin 3.4 g/dL (3.4-4.8); Alkaline Phosphatase 55 U/L (40-150); Bilirubin, Direct 0.2 mg/dL (0.1-0.3); Bilirubin, Total 0.4 mg/dL (0.2-1.2)
[2018-11-29] MEDS: HumaLOG 300 UNITS/3 ML VIAL SC PRN (17:49)
[2018-11-29] MEDS: Vancomycin HCl 1 GM in Premix Bag 1 BAG IVPB SCH (18:10)
[2018-11-29] MEDS: Insulin Glargine 20 UNITS in Pre-Filled Syringe 1 EACH SC SCH (22:56)
[2018-11-29] MEDS: Atorvastatin Calcium 40 MG TAB PO SCH (22:56)
[2018-11-29] MEDS: Mirtazapine 15 MG TAB PO SCH (22:57)
[2018-11-29] MEDS: Melatonin 3 MG TAB PO SCH (22:57)
[2018-11-30] MEDS: Potassium Chloride 40 MEQ in Sodium Chloride 0.45% 1,000 ML IV SCH ×2 (02:17→05:31)
[2018-11-30] MEDS: Piperacillin/Tazobactam 2.25 GM in Sodium Chloride 0.9% 100 ML IVPB SCH ×4 (05:31→23:28)
[2018-11-30 07:10] LABS: #Basophils 0.1 thou/uL (0.0-0.2); #Lymphocytes 1.8 thou/uL (1.20-3.40); #Monocytes 0.9 thou/uL (0.11-0.59); %Basophils 0.5 % (0.0-1.0); %Eosinophils 0.4 % (0.0-10.0); %Lymphocytes 16.5 % (21.0-51.0); %Monocytes 8.6 % (0.0-10.0); Hemoglobin 13.4 g/dL (12.0-16.0); Mean Corpuscular HGB CONC 32.4 g/dL (32.0-36.0); Mean Corpuscular Hemoglobin 29.7 pg (27.0-31.0); Mean Corpuscular Volume 91.7 fL (78.0-98.0); Mean Platelet Volume 8.6 fL (7.4-10.4); Platelet Count 201 thou/uL (130-400); RBC Distribution Width 12.4 % (11.5-14.5); White Blood Cell (WBC) Count 10.8 thou/uL (4.8-10.8)
[2018-11-30 07:28] LABS: Anion Gap 13 mmol/L (10-20); BUN (Urea Nitrogen) 25 mg/dL (9.8-20.1); Calc. Creatinine Clearance 39 mL/min (70-130); Calcium 8.8 mg/dL (7.8-10.44); Carbon Dioxide 22 mmol/L (23-31); Chloride 119 mmol/L (98-107); Estimated GFR-MDRD 36; Glucose 158 mg/dL (83-110); Potassium 3.9 mmol/L (3.5-5.1); Sodium 150 mmol/L (136-145)
[2018-11-30] MEDS: Metoclopramide HCl 10 MG TAB PO SCH ×3 (08:42→20:04)
[2018-11-30] MEDS: Amlodipine 10 MG TAB PO SCH (08:42)
[2018-11-30] MEDS: Losartan 25 MG TAB PO SCH (08:42)
[2018-11-30] MEDS: Metoprolol Tartrate 50 MG TAB PO SCH (08:42)
[2018-11-30] MEDS: Docusate 100 MG CAP PO SCH (08:43)
[2018-11-30] MEDS: Oseltamivir 75 MG CAP PO SCH (08:43)
[2018-11-30] MEDS: Aspirin 325 mg Enteric Coated Tablet PO SCH (08:43)
[2018-11-30] MEDS: Insulin Glargine 25 UNITS in Pre-Filled Syringe 1 EACH SC SCH (08:49)
[2018-11-30] MEDS: Enoxaparin Sodium 30 MG/0.3 ML SYRINGE SC SCH (08:49)
[2018-11-30] MEDS: Lactated Ringer's 1,000 ML IV SCH ×2 (12:32→21:27)
[2018-11-30] MEDS: HumaLOG 300 UNITS/3 ML VIAL SC PRN (12:32)
--- NOTE | 2018-11-30 13:28 | PDOC.PN ---
- Subjective Encounter Start Date: 11/30/18 Encounter Start Time: 09:20 Pt seen for followup re: acute metabolic encephalopathy. Awake, alert, answering questions. Denies any complaints. - Objective Resuscitation Status - Order Detail: 11/26/18 22:56 Resuscitation Status Routine Resuscitation Status: FULL: Full Resuscitation Vital Signs & Weight: Vital Signs (12 hours) Temp Pulse Resp BP Pulse Ox 11/30/18 12:00 98.1 F 66 16 149/82 H 96 11/30/18 08:00 97.3 F L 85 16 178/90 H 95 11/30/18 04:42 97.9 F 75 17 176/91 H 94 L Weight Weight 155 lb 15.985 oz I&O: 11/29/18 11/30/18 12/01/18 06:59 06:59 06:59 Intake Total 650 2561 Output Total 850 600 Balance -200 1961 Result Diagrams: 11/30/18 06:35 11/30/18 06:35 Additional Labs: Accuchecks 11/30/18 11/30/18 11/29/18 11:39 04:35 21:36 POC Glucose 231 H 152 H 206 H 11/29/18 11/29/18 20:31 17:34 POC Glucose 239 H 221 H Dx/Plan (1) Acute metabolic encephalopathy Code(s): G93.41 - METABOLIC ENCEPHALOPATHY Status: Acute Comment: Improving , likely from infection. Follow cultures (2) Hypernatremia Code(s): E87.0 - HYPEROSMOLALITY AND HYPERNATREMIA Status: Acute Comment: Pt also has hyperchloremia. Change IV fluids to Ringer lactate. (3) DM type 2 (diabetes mellitus, type 2) Status: Chronic Qualifiers: Diabetes mellitus senior care insulin use: with senior care use Diabetes mellitus complication status: with unspecified complications Qualified Code(s) : E11.8 - Type 2 diabetes mellitus with unspecified complications; Z79.4 - intermediate teacher (current) use of insulin Comment: Improved control (4) Dyslipidemia Code(s): E78.5 - HYPERLIPIDEMIA, UNSPECIFIED Status: Chronic Comment: continue Lipitor. (5) HTN (hypertension) Code(s): I10 - ESSENTIAL (PRIMARY) HYPERTENSION Status: Chronic Qualifiers: Hypertension type: essential hypertension Qualified Code(s): I10 - Essential (primary) hypertension Comment: Increase amlodipine to 10 mg daily (6) Hypokalemia Code(s): E87.6 - HYPOKALEMIA Status: Resolved - Plan * . Review of Systems - Review of Systems Cardiovascular: negative: chest pain, palpitations, orthopnea, paroxysmal nocturnal dyspnea, edema, light headedness Gastrointestinal: negative: Nausea, Vomiting, Abdominal Pain, Diarrhea, Constipation, Melena, Hematochezia - Medications/Allergies Allergies/Adverse Reactions: Allergies Allergy/AdvReac Type Severity Reaction Status Date / Time morphine Allergy Verified 10/30/18 05:04 tramadol Allergy Verified 10/30/18 05:04 Medications: Current Medications Acetaminophen (Tylenol) 650 mg PO Q4H PRN PRN Reason: Headache/Fever/Mild Pain (1-3) Last Admin: 11/27/18 20:33 Dose: 650 mg Amlodipine Besylate (Norvasc) 10 mg PO DAILY [facility] Last Admin: 11/30/18 08:42 Dose: 10 mg Aspirin (Ecotrin) 325 mg PO DAILY [facility] Last Admin: 11/30/18 08:43 Dose: 325 mg Atorvastatin Calcium (Lipitor) 40 mg PO [facility] Last Admin: 11/29/18 22:56 Dose: Not Given Dextrose/Water (Dextrose 50%) 25 gm SLOW IVP PRN PRN PRN Reason: Hypoglycemia Docusate Sodium (Colace) 100 mg PO DAILY [facility] Last Admin: 11/30/18 08:43 Dose: 100 mg Enoxaparin Sodium (Lovenox) 30 mg SC 0900 [facility] Last Admin: 11/30/18 08:49 Dose: 30 mg Glucagon (Glucagon) 1 mg IM PRN PRN PRN Reason: Hypoglycemia Hydralazine HCl (Apresoline) 10 mg SLOW IVP Q6H PRN PRN Reason: SBP Greater Than 170 Last Admin: 11/27/18 10:28 Dose: 10 mg Dextrose/Water (D5w) 1,000 mls @ 0 mls/hr IV .Q0M PRN PRN Reason: Hypoglycemia Insulin Glargine 20 units/ (Miscellaneous Medication) 0.2 mls @ 0 mls/hr SC [facility] Last Admin: 11/29/18 22:56 Dose: Not Given Insulin Glargine 25 units/ (Miscellaneous Medication) 0.25 mls @ 0 mls/hr SC [facility] Last Admin: 11/30/18 08:49 Dose: 0.25 mls Vancomycin HCl 1 gm/ Device 200 mls @ 200 mls/hr IVPB 1700 [facility] Last Admin: 11/29/18 18:10 Dose: 200 mls Piperacillin Sod/Tazobactam (Sod 2.25 gm/ Sodium Chloride) 100 mls @ 200 mls/ hr IVPB Q6HR [facility] Last Admin: 11/30/18 11:18 Dose: 100 mls Lactated Ringer's (Lactated Ringer's) 1,000 mls @ 75 mls/hr IV .[id number] [facility] Insulin Human Lispro (Humalog) 0 units SC .MODERATE SLIDING SC PRN PRN Reason: Moderate Correctional Scale Last Admin: 11/29/18 17:49 Dose: 4 unit Losartan Potassium (Cozaar) 100 mg PO DAILY [facility] Last Admin: 11/30/18 08:42 Dose: 100 mg Melatonin (Melatonin) 3 mg PO HS [facility] Last Admin: 11/29/18 22:57 Dose: Not Given Metoclopramide HCl (Reglan) 5 mg PO TID [facility] Last Admin: 11/30/18 08:42 Dose: 5 mg Metoprolol Tartrate (Lopressor) 50 mg PO DAILY [facility] Last Admin: 11/30/18 08:42 Dose: 50 mg Mirtazapine (Remeron) 7.5 mg PO HS [facility] Last Admin: 11/29/18 22:57 Dose: Not Given Miscellaneous Medication (Pharmacy To Dose) 1 each IVPB PRN PRN PRN Reason: Pharmacy to dose Ondansetron HCl (Zofran Odt) 4 mg PO Q6H PRN PRN Reason: Nausea/Vomiting Ondansetron HCl (Zofran) 4 mg IVP Q6H PRN PRN Reason: Nausea/Vomiting Oseltamivir Phosphate (Tamiflu) 75 mg PO DAILY [facility] Last Admin: 11/30/18 08:43 Dose: 75 mg Pantoprazole Sodium (Protonix) 40 mg PO DAILY [facility] Last Admin: 11/30/18 08:42 Dose: 40 mg Sertraline HCl (Zoloft) 200 mg PO HS [facility] Last Admin: 11/29/18 22:57 Dose: Not Given
[2018-11-30] MEDS: Vancomycin HCl 1 GM in Premix Bag 1 BAG IVPB SCH (16:02)
[2018-11-30] MEDS: Melatonin 3 MG TAB PO SCH (20:04)
[2018-11-30] MEDS: Mirtazapine 15 MG TAB PO SCH (20:05)
[2018-11-30] MEDS: Atorvastatin Calcium 40 MG TAB PO SCH (20:05)
[2018-11-30] MEDS: Insulin Glargine 20 UNITS in Pre-Filled Syringe 1 EACH SC SCH (20:06)
[2018-12-01] MEDS: Lactated Ringer's 1,000 ML IV SCH ×2 (02:48→16:54)
[2018-12-01] MEDS: Piperacillin/Tazobactam 2.25 GM in Sodium Chloride 0.9% 100 ML IVPB SCH ×3 (05:50→16:54)
[2018-12-01 06:17] LABS: #Eosinphils 0.3 thou/uL (0.0-0.7); #Lymphocytes 2.2 thou/uL (1.20-3.40); #Monocytes 0.9 thou/uL (0.11-0.59); #Neutrophils 8.4 thou/uL (1.40-6.50); %Basophils 0.3 % (0.0-1.0); %Eosinophils 2.7 % (0.0-10.0); %Lymphocytes 18.5 % (21.0-51.0); %Monocytes 7.8 % (0.0-10.0); %Neutrophils 70.7 % (42.0-75.0); Hemoglobin 13.6 g/dL (12.0-16.0); Mean Corpuscular HGB CONC 31.7 g/dL (32.0-36.0); Mean Corpuscular Hemoglobin 28.8 pg (27.0-31.0); Mean Corpuscular Volume 90.7 fL (78.0-98.0); Mean Platelet Volume 8.7 fL (7.4-10.4); Platelet Count 152 thou/uL (130-400); RBC Distribution Width 12.5 % (11.5-14.5); Red Blood Cell (RBC) Count 4.73 mill/uL (4.20-5.40); White Blood Cell (WBC) Count 11.9 thou/uL (4.8-10.8)
[2018-12-01 06:41] LABS: Anion Gap 16 mmol/L (10-20); BUN (Urea Nitrogen) 22 mg/dL (9.8-20.1); Calc. Creatinine Clearance 42 mL/min (70-130); Calcium 8.7 mg/dL (7.8-10.44); Carbon Dioxide 17 mmol/L (23-31); Chloride 119 mmol/L (98-107); Estimated GFR-MDRD 40; Glucose 107 mg/dL (83-110); Potassium 4.4 mmol/L (3.5-5.1); Sodium 148 mmol/L (136-145)
[2018-12-01] MEDS: Metoclopramide HCl 10 MG TAB PO SCH ×3 (08:14→20:54)
[2018-12-01] MEDS: Insulin Glargine 25 UNITS in Pre-Filled Syringe 1 EACH SC SCH (08:14)
[2018-12-01] MEDS: Aspirin 325 mg Enteric Coated Tablet PO SCH (08:14)
[2018-12-01] MEDS: Oseltamivir 75 MG CAP PO SCH (08:14)
[2018-12-01] MEDS: Amlodipine 10 MG TAB PO SCH (08:14)
[2018-12-01] MEDS: Losartan 25 MG TAB PO SCH (08:14)
[2018-12-01] MEDS: Metoprolol Tartrate 50 MG TAB PO SCH (08:14)
[2018-12-01] MEDS: Docusate 100 MG CAP PO SCH (08:15)
[2018-12-01] MEDS: Enoxaparin Sodium 30 MG/0.3 ML SYRINGE SC SCH (08:15)
--- NOTE | 2018-12-01 13:46 | PDOC.PN ---
- Subjective Encounter Start Date: 12/01/18 Encounter Start Time: 08:20 Pt seen for followup re: acute metabolic encephalopathy. Awake and alert, answering questions. - Objective Resuscitation Status - Order Detail: 11/26/18 22:56 Resuscitation Status Routine Resuscitation Status: FULL: Full Resuscitation MAR Reviewed: Yes Vital Signs & Weight: Vital Signs (12 hours) Temp Pulse Resp BP BP Pulse Ox 12/01/18 08:14 75 167/77 H 12/01/18 07:46 98.5 F 75 18 167/77 H 95 Weight Weight 155 lb 15.985 oz I&O: 11/30/18 12/01/18 12/02/18 06:59 06:59 06:59 Intake Total 2561 3000 240 Output Total 600 1250 Balance 1961 1750 240 Result Diagrams: 12/01/18 06:02 12/01/18 06:02 Additional Labs: Accuchecks 12/01/18 12/01/18 12/01/18 11:51 05:42 00:10 POC Glucose 137 H 102 168 H 11/30/18 11/30/18 20:02 17:13 POC Glucose 190 H 208 H Labs reviewed by me Phys Exam - Physical Examination Constitutional: NAD HEENT: moist MMs Neck: supple Respiratory: clear to auscultation bilateral Cardiovascular: RRR Gastrointestinal: soft Neurological: moves all 4 limbs Psychiatric: normal affect Deviation from normal: Oriented to person only, not to place or time Dx/Plan (1) Acute metabolic encephalopathy Code(s): G93.41 - METABOLIC ENCEPHALOPATHY Status: Acute Comment: Improving , likely from infection. Discontinue antibiotics and observe. (2) Hypernatremia Code(s): E87.0 - HYPEROSMOLALITY AND HYPERNATREMIA Status: Acute Comment: sodium improved to 148 (3) DM type 2 (diabetes mellitus, type 2) Status: Chronic Qualifiers: Diabetes mellitus assisted insulin use: with assisted use Diabetes mellitus complication status: with unspecified complications Qualified Code(s) : E11.8 - Type 2 diabetes mellitus with unspecified complications; Z79.4 - terminal supervisor (current) use of insulin Comment: Improved control (4) Dyslipidemia Code(s): E78.5 - HYPERLIPIDEMIA, UNSPECIFIED Status: Chronic Comment: on Lipitor. (5) HTN (hypertension) Code(s): I10 - ESSENTIAL (PRIMARY) HYPERTENSION Status: Chronic Qualifiers: Hypertension type: essential hypertension Qualified Code(s): I10 - Essential (primary) hypertension Comment: amlodipine increased yesterday (6) Hypokalemia Code(s): E87.6 - HYPOKALEMIA Status: Resolved - Plan * . Review of Systems - Review of Systems Respiratory: negative: Cough, Shortness of Breath, SOB with Excertion, Pleuritic Pain, Wheezing Cardiovascular: negative: chest pain, palpitations, orthopnea, paroxysmal nocturnal dyspnea, edema, light headedness - Medications/Allergies Allergies/Adverse Reactions: Allergies Allergy/AdvReac Type Severity Reaction Status Date / Time morphine Allergy Verified 10/30/18 05:04 tramadol Allergy Verified 10/30/18 05:04 Medications: Current Medications Acetaminophen (Tylenol) 650 mg PO Q4H PRN PRN Reason: Headache/Fever/Mild Pain (1-3) Last Admin: 11/27/18 20:33 Dose: 650 mg Amlodipine Besylate (Norvasc) 10 mg PO DAILY [facility] Last Admin: 12/01/18 08:14 Dose: 10 mg Aspirin (Ecotrin) 325 mg PO DAILY [facility] Last Admin: 12/01/18 08:14 Dose: 325 mg Atorvastatin Calcium (Lipitor) 40 mg PO [facility] Last Admin: 11/30/18 20:05 Dose: 40 mg Dextrose/Water (Dextrose 50%) 25 gm SLOW IVP PRN PRN PRN Reason: Hypoglycemia Docusate Sodium (Colace) 100 mg PO DAILY [facility] Last Admin: 12/01/18 08:15 Dose: 100 mg Enoxaparin Sodium (Lovenox) 30 mg SC 0900 [facility] Last Admin: 12/01/18 08:15 Dose: 30 mg Glucagon (Glucagon) 1 mg IM PRN PRN PRN Reason: Hypoglycemia Hydralazine HCl (Apresoline) 10 mg SLOW IVP Q6H PRN PRN Reason: SBP Greater Than 170 Last Admin: 11/27/18 10:28 Dose: 10 mg Dextrose/Water (D5w) 1,000 mls @ 0 mls/hr IV .Q0M PRN PRN Reason: Hypoglycemia Insulin Glargine 20 units/ (Miscellaneous Medication) 0.2 mls @ 0 mls/hr [facility] Last Admin: 11/30/18 20:06 Dose: 0.2 mls Insulin Glargine 25 units/ (Miscellaneous Medication) 0.25 mls @ 0 mls/hr SC QAM-WM [facility] Last Admin: 12/01/18 08:14 Dose: 0.25 mls Vancomycin HCl 1 gm/ Device 200 mls @ 200 mls/hr IVPB 1700 [facility] Last Admin: 11/30/18 16:02 Dose: 200 mls Piperacillin Sod/Tazobactam (Sod 2.25 gm/ Sodium Chloride) 100 mls @ 200 mls/ hr IVPB Q6HR [facility] Last Admin: 12/01/18 12:00 Dose: 100 mls Lactated Ringer's (Lactated Ringer's) 1,000 mls @ 75 mls/hr IV .[id number] [facility] Last Admin: 12/01/18 02:48 Dose: 1,000 mls Insulin Human Lispro (Humalog) 0 units SC .MODERATE SLIDING SC PRN PRN Reason: Moderate Correctional Scale Last Admin: 11/30/18 12:32 Dose: 4 unit Losartan Potassium (Cozaar) 100 mg PO DAILY [facility] Last Admin: 12/01/18 08:14 Dose: 100 mg Melatonin (Melatonin) 3 mg PO [facility] Last Admin: 11/30/18 20:04 Dose: 3 mg Metoclopramide HCl (Reglan) 5 mg PO TID [facility] Last Admin: 12/01/18 08:14 Dose: 5 mg Metoprolol Tartrate (Lopressor) 50 mg PO DAILY [facility] Last Admin: 12/01/18 08:14 Dose: 50 mg Mirtazapine (Remeron) 7.5 mg PO [facility] Last Admin: 11/30/18 20:05 Dose: 7.5 mg Miscellaneous Medication (Pharmacy To Dose) 1 each IVPB PRN PRN PRN Reason: Pharmacy to dose Ondansetron HCl (Zofran Odt) 4 mg PO Q6H PRN PRN Reason: Nausea/Vomiting Ondansetron HCl (Zofran) 4 mg IVP Q6H PRN PRN Reason: Nausea/Vomiting Oseltamivir Phosphate (Tamiflu) 75 mg PO DAILY [facility] Last Admin: 12/01/18 08:14 Dose: 75 mg Pantoprazole Sodium (Protonix) 40 mg PO DAILY [facility] Last Admin: 12/01/18 08:14 Dose: 40 mg Sertraline HCl (Zoloft) 200 mg PO [facility] Last Admin: 11/30/18 20:04 Dose: 200 mg
[2018-12-01] MEDS: Vancomycin HCl 1 GM in Premix Bag 1 BAG IVPB SCH (16:54)
[2018-12-01 17:01] LABS: Vancomycin, Trough 23.2 ug/mL
[2018-12-01] MEDS: Melatonin 3 MG TAB PO SCH (20:53)
[2018-12-01] MEDS: Atorvastatin Calcium 40 MG TAB PO SCH (20:54)
[2018-12-01] MEDS: Mirtazapine 15 MG TAB PO SCH (20:54)
[2018-12-01] MEDS: Insulin Glargine 20 UNITS in Pre-Filled Syringe 1 EACH SC SCH (20:55)
[2018-12-02] MEDS: hydrALAZINE 20 MG/ML VIAL SLOW IVP PRN (06:11)
[2018-12-02] MEDS: Losartan 25 MG TAB PO SCH (08:01)
[2018-12-02] MEDS: Docusate 100 MG CAP PO SCH (08:02)
[2018-12-02] MEDS: Aspirin 325 mg Enteric Coated Tablet PO SCH (08:02)
[2018-12-02] MEDS: Amlodipine 10 MG TAB PO SCH (08:02)
[2018-12-02] MEDS: Oseltamivir 75 MG CAP PO SCH (08:02)
[2018-12-02] MEDS: Metoprolol Tartrate 50 MG TAB PO SCH (08:02)
[2018-12-02] MEDS: Enoxaparin Sodium 30 MG/0.3 ML SYRINGE SC SCH (08:02)
[2018-12-02] MEDS: Metoclopramide HCl 10 MG TAB PO SCH ×3 (08:02→20:17)
[2018-12-02] MEDS: Insulin Glargine 25 UNITS in Pre-Filled Syringe 1 EACH SC SCH (08:03)
[2018-12-02 09:30] LABS: #Eosinphils 0.6 thou/uL (0.0-0.7); #Lymphocytes 2.5 thou/uL (1.20-3.40); #Monocytes 0.8 thou/uL (0.11-0.59); #Neutrophils 8.7 thou/uL (1.40-6.50); %Basophils 0.1 % (0.0-1.0); %Eosinophils 4.6 % (0.0-10.0); %Lymphocytes 19.6 % (21.0-51.0); %Monocytes 6.6 % (0.0-10.0); Hemoglobin 13.6 g/dL (12.0-16.0); Mean Corpuscular HGB CONC 32.3 g/dL (32.0-36.0); Mean Corpuscular Hemoglobin 28.7 pg (27.0-31.0); Mean Corpuscular Volume 88.9 fL (78.0-98.0); Mean Platelet Volume 8.6 fL (7.4-10.4); Platelet Count 197 thou/uL (130-400); RBC Distribution Width 12.3 % (11.5-14.5); Red Blood Cell (RBC) Count 4.74 mill/uL (4.20-5.40); White Blood Cell (WBC) Count 12.6 thou/uL (4.8-10.8)
[2018-12-02 09:49] LABS: Anion Gap 14 mmol/L (10-20); BUN (Urea Nitrogen) 16 mg/dL (9.8-20.1); Calc. Creatinine Clearance 50 mL/min (70-130); Carbon Dioxide 22 mmol/L (23-31); Chloride 113 mmol/L (98-107); Estimated GFR-MDRD 49; Glucose 100 mg/dL (83-110); Potassium 3.2 mmol/L (3.5-5.1); Sodium 146 mmol/L (136-145)
--- NOTE | 2018-12-02 11:45 | PQF ---
CLINICAL DOCUMENTATION IMPROVEMENT CLARIFICATION FORM: ICD-10 Updated PLEASE DO AN ADDENDUM TO THE PROGRESS NOTE WITH ANY DOCUMENTATION UPDATES OR ADDITIONS AND CARRY THROUGH TO DC SUMMARY. THANK YOU. DATE: 12/02/2018 ATTN: Dr. Bess Please exercise your independent, professional judgment in responding to the clarification form. Clinical indicators are provided on the bottom of this form for your review Please check appropriate box(es): [ ] Sepsis due to: [ ] Severe sepsis with acute organ dysfunction of: Acute encephalopathy, acute renal failure. [ ] Localized infection without sepsis [ ] Other diagnosis [ ] Unable to determine In addition, please specify: Present on Admission (POA): [ ] Yes [ ] No [ ] Unable to determine For continuity of documentation, please document condition throughout progress notes and discharge summary. Thank You. CLINICAL INDICATORS - SIGNS / SYMPTOMS / LABS H&P 11/26: Brought to hospital after having change in mental status with nausea and vomiting for past 2 days, uncontrolled diabetes, tachycardia, leukocytosis. BP 163/71 Resp 18 Temp. 98.4 HR 99 Pt has also acute on chronic renal failure that might be the source for the high anion gap metabolic acidosis Acute encephalopathy LAB 11/27: WBC 15.3 PN 12/01: Acute metabolic encephalopathy. Improving, likely from infection. Discontinue antibiotics and observe RISKS: H&P 11/26: 73 yo. residential pt, with hx of CAD, HTN, CKD, diabetes. TREATMENT: NOV 02-12/01: Vancomycin HCL 1 gm IV NOV 02-12/01: Zosyn 2.25 gm IV q6 hrs Order 11/30: Lactated Ringer's 1,000 ml IV 75 mls/hr Thank you, Paulina (This form is maintained as a part of the permanent medical record) 2014 [employer]. All Rights Reserved Paulina Robert RN, BSN [email or web address] Office: [phone] [facility]
--- NOTE | 2018-12-02 13:20 | PQF ---
CLINICAL DOCUMENTATION IMPROVEMENT CLARIFICATION FORM: ICD-10 Updated PLEASE DO AN ADDENDUM TO THE PROGRESS NOTE WITH ANY DOCUMENTATION UPDATES OR ADDITIONS AND CARRY THROUGH TO DC SUMMARY. THANK YOU. DATE: 12/02/2018 ATTN: Dr. Bess Please exercise your independent, professional judgment in responding to the clarification form. Clinical indicators are provided on the bottom of this form for your review Please check appropriate box(s): [ ] Acute Renal Failure (ARF) / Acute Kidney Injury (ALEXANDRA) [ ] Acute on Chronic Renal Failure please specify Stage of CKD (see below) [ ] Other diagnosis [ ] Unable to determine In addition, please specify: Present on Admission (POA): [ ] Yes [ ] No [ ] Unable to determine For continuity of documentation, please document condition throughout progress notes and discharge summary. Thank You. CLINICAL INDICATORS - SIGNS / SYMPTOMS / LABS 11/26 11/29 12/01 12/02 LABS: CREATININE 1.77 1.56 1.30 1.10 ESTIMATED GFR 28 32 40 49 H&P 11/26: creatinine 1.77 the pt also has high creatinine this time, it is more than 0.3 from previous presentation. GFR 28 The pt has also acute on chronic renal failure that might be the source for the high anion gap metabolic acidosis. RISKS: H&P 11/26: 73 [facility]. [facility] pt, with hx of CAD, HTN, CKD, diabetes. TREATMENT: Order 11/30: Lactated Ringer's 1,000 ml IV 75 mls/hr Order BMP: 11/26, 11/27. Serial BMP's 11/28 through 12/05 National [employer] Guidelines for CKD Staging Stage I Kidney damage with normal or increased GFR GFR > 90 Stage II Kidney damage with mildly decreased GFR GFR 60-89 Stage III Kidney damage with moderately decreased GFR GFR 30-59 Stage IV Kidney damage with severely decreased GFR GFR 16-29 Stage V Kidney failure GFR<15 ESRD End Stage Renal Disease On dialysis Acute Renal Failure/Acute Kidney Failure defined as Increases in SCr by (>) 0.3 mg/dl within 48 hours OR- Increases in SCr by (>) 1.5 times baseline, known or presumed to have occurred within the prior 7 days OR- Urine volume < 0.5 ml/kg/hour for 6 hours (KDIGO supplement 2012 for RIFLE/LONNY criteria) Thank you, Paulina (This form is maintained as a part of the permanent medical record) 2014 [employer]. All Rights Reserved Paulina Robert RN, BSN [email or web address] Office: [phone] [email or web address]
[2018-12-02] MEDS: Lactated Ringer's 1,000 ML IV SCH (15:21)
--- NOTE | 2018-12-02 17:14 | PDOC.PN ---
- Subjective Encounter Start Date: 12/02/18 Encounter Start Time: 09:20 Pt seen for followup re: acute metabolic encephalopathy. More alert today, answering questions. Denies chest pain or shortness of breath. - Objective Resuscitation Status - Order Detail: 11/26/18 22:56 Resuscitation Status Routine Resuscitation Status: FULL: Full Resuscitation MAR Reviewed: Yes Vital Signs & Weight: Vital Signs (12 hours) Temp Pulse Resp BP BP Pulse Ox 12/02/18 17:00 98.5 F 63 16 132/77 94 L 12/02/18 11:37 97.8 F 76 16 151/78 H 95 12/02/18 08:02 75 121/72 12/02/18 07:53 98.1 F 75 18 121/72 95 12/02/18 06:42 146/74 H 12/02/18 06:11 70 198/95 H Weight Admit Weight 155 lb 15.985 oz Weight 155 lb 15.985 oz I&O: 12/01/18 12/02/18 12/03/18 06:59 06:59 06:59 Intake Total 3000 2580 2140 Output Total 1250 550 Balance 1750 2030 2140 Result Diagrams: 12/02/18 09:20 12/02/18 09:20 Additional Labs: Accuchecks 12/02/18 12/02/18 12/02/18 11:39 07:11 05:44 POC Glucose 152 H 94 83 12/02/18 12/02/18 12/01/18 01:44 01:12 20:56 POC Glucose 147 H 50 L* 122 H 12/01/18 12/01/18 12/01/18 18:47 18:18 17:48 POC Glucose 83 65 L 55 L* labs reviewed Phys Exam - Physical Examination Constitutional: NAD HEENT: moist MMs Neck: supple Respiratory: clear to auscultation bilateral Cardiovascular: RRR Gastrointestinal: soft Neurological: moves all 4 limbs Psychiatric: normal affect Dx/Plan (1) Acute metabolic encephalopathy Code(s): G93.41 - METABOLIC ENCEPHALOPATHY Status: Acute Comment: Improving , likely from infection. Off of antibiotics (2) Hypernatremia Code(s): E87.0 - HYPEROSMOLALITY AND HYPERNATREMIA Status: Acute Comment: sodium improved to 146 (3) DM type 2 (diabetes mellitus, type 2) Status: Chronic Qualifiers: Diabetes mellitus care home insulin use: with care home use Diabetes mellitus complication status: with unspecified complications Qualified Code(s) : E11.8 - Type 2 diabetes mellitus with unspecified complications; Z79.4 - custodial (current) use of insulin Comment: Improved control (4) Dyslipidemia Code(s): E78.5 - HYPERLIPIDEMIA, UNSPECIFIED Status: Chronic Comment: continue Lipitor. (5) HTN (hypertension) Code(s): I10 - ESSENTIAL (PRIMARY) HYPERTENSION Status: Chronic Qualifiers: Hypertension type: essential hypertension Qualified Code(s): I10 - Essential (primary) hypertension Comment: amlodipine increased, blood pressure better (6) Hypokalemia Code(s): E87.6 - HYPOKALEMIA Status: Resolved (7) Severe sepsis Code(s): A41.9 - SEPSIS, UNSPECIFIED ORGANISM; R65.20 - SEVERE SEPSIS WITHOUT SEPTIC SHOCK Status: Resolved Comment: with acute metabolic encephalopathy and acute kidney injury, present on admission. (8) ALEXANDRA (acute kidney injury) Code(s): N17.9 - ACUTE KIDNEY FAILURE, UNSPECIFIED Status: Resolved Comment : present on admission - Plan * . No clear source of infection, all cultures negative. Sodium and chloride improving. Replace potassium. Likely back to IA 24-28 hours Review of Systems - Review of Systems Respiratory: negative: Cough, Shortness of Breath, SOB with Excertion, Pleuritic Pain, Wheezing Cardiovascular: negative: chest pain, palpitations, orthopnea, paroxysmal nocturnal dyspnea, edema, light headedness - Medications/Allergies Allergies/Adverse Reactions: Allergies Allergy/AdvReac Type Severity Reaction Status Date / Time morphine Allergy Verified 10/30/18 05:04 tramadol Allergy Verified 10/30/18 05:04 Medications: Current Medications Acetaminophen (Tylenol) 650 mg PO Q4H PRN PRN Reason: Headache/Fever/Mild Pain (1-3) Last Admin: 11/27/18 20:33 Dose: 650 mg Amlodipine Besylate (Norvasc) 10 mg PO DAILY [facility] Last Admin: 12/02/18 08:02 Dose: 10 mg Aspirin (Ecotrin) 325 mg PO DAILY [facility] Last Admin: 12/02/18 08:02 Dose: 325 mg Atorvastatin Calcium (Lipitor) 40 mg PO [facility] Last Admin: 12/01/18 20:54 Dose: 40 mg Dextrose/Water (Dextrose 50%) 25 gm SLOW IVP PRN PRN PRN Reason: Hypoglycemia Last Admin: 12/02/18 01:17 Dose: 25 gm Docusate Sodium (Colace) 100 mg PO DAILY [facility] Last Admin: 12/02/18 08:02 Dose: 100 mg Enoxaparin Sodium (Lovenox) 30 mg SC 0900 [facility] Last Admin: 12/02/18 08:02 Dose: 30 mg Glucagon (Glucagon) 1 mg IM PRN PRN PRN Reason: Hypoglycemia Hydralazine HCl (Apresoline) 10 mg SLOW IVP Q6H PRN PRN Reason: SBP Greater Than 170 Last Admin: 12/02/18 06:11 Dose: 10 mg Dextrose/Water (D5w) 1,000 mls @ 0 mls/hr IV .Q0M PRN PRN Reason: Hypoglycemia Insulin Glargine 20 units/ (Miscellaneous Medication) 0.2 mls @ 0 mls/hr SC [facility] Last Admin: 12/01/18 20:55 Dose: Not Given Insulin Glargine 25 units/ (Miscellaneous Medication) 0.25 mls @ 0 mls/hr SC QAM-WM [facility] Last Admin: 12/02/18 08:03 Dose: Not Given Lactated Ringer's (Lactated Ringer's) 1,000 mls @ 75 mls/hr IV .[id number] [facility] Last Admin: 12/02/18 15:21 Dose: 1,000 mls Insulin Human Lispro (Humalog) 0 units SC .MODERATE SLIDING SC PRN PRN Reason: Moderate Correctional Scale Last Admin: 11/30/18 12:32 Dose: 4 unit Losartan Potassium (Cozaar) 100 mg PO DAILY [facility] Last Admin: 12/02/18 08:01 Dose: 100 mg Melatonin (Melatonin) 3 mg PO [facility] Last Admin: 12/01/18 20:53 Dose: 3 mg Metoclopramide HCl (Reglan) 5 mg PO TID [facility] Last Admin: 12/02/18 15:20 Dose: 5 mg Metoprolol Tartrate (Lopressor) 50 mg PO DAILY [facility] Last Admin: 12/02/18 08:02 Dose: 50 mg Mirtazapine (Remeron) 7.5 mg PO [facility] Last Admin: 12/01/18 20:54 Dose: 7.5 mg Ondansetron HCl (Zofran Odt) 4 mg PO Q6H PRN PRN Reason: Nausea/Vomiting Ondansetron HCl (Zofran) 4 mg IVP Q6H PRN PRN Reason: Nausea/Vomiting Oseltamivir Phosphate (Tamiflu) 75 mg PO DAILY [facility] Last Admin: 12/02/18 08:02 Dose: 75 mg Pantoprazole Sodium (Protonix) 40 mg PO DAILY [facility] Last Admin: 12/02/18 08:02 Dose: 40 mg Potassium Chloride (K-Dur) 40 meq PO NOW [facility] Stop: 12/02/18 19:15 Sertraline HCl (Zoloft) 200 mg PO [facility] Last Admin: 12/01/18 20:54 Dose: 200 mg
[2018-12-02] MEDS ORDERED: Potassium Chloride 20 MEQ TAB PO SCH (17:15)
[2018-12-02] MEDS: Melatonin 3 MG TAB PO SCH (20:16)
[2018-12-02] MEDS: Atorvastatin Calcium 40 MG TAB PO SCH (20:16)
[2018-12-02] MEDS: Mirtazapine 15 MG TAB PO SCH (20:17)
[2018-12-02] MEDS: Insulin Glargine 20 UNITS in Pre-Filled Syringe 1 EACH SC SCH (21:12)
[2018-12-03] MEDS: Lactated Ringer's 1,000 ML IV SCH ×2 (05:24→08:29)
[2018-12-03 07:46] LABS: #Basophils 0.1 thou/uL (0.0-0.2); #Eosinphils 0.6 thou/uL (0.0-0.7); #Monocytes 0.8 thou/uL (0.11-0.59); #Neutrophils 5.8 thou/uL (1.40-6.50); %Basophils 0.6 % (0.0-1.0); %Eosinophils 6.4 % (0.0-10.0); %Lymphocytes 22.1 % (21.0-51.0); %Monocytes 8.1 % (0.0-10.0); %Neutrophils 62.8 % (42.0-75.0); Hemoglobin 12.6 g/dL (12.0-16.0); Mean Corpuscular HGB CONC 32.5 g/dL (32.0-36.0); Mean Corpuscular Hemoglobin 29.5 pg (27.0-31.0); Mean Corpuscular Volume 90.7 fL (78.0-98.0); Mean Platelet Volume 9.4 fL (7.4-10.4); Platelet Count 147 thou/uL (130-400); RBC Distribution Width 12.4 % (11.5-14.5); Red Blood Cell (RBC) Count 4.28 mill/uL (4.20-5.40); White Blood Cell (WBC) Count 9.2 thou/uL (4.8-10.8)
[2018-12-03 07:50] VITALS: TEMP 97.9
[2018-12-03 08:07] LABS: Anion Gap 13 mmol/L (10-20); BUN (Urea Nitrogen) 12 mg/dL (9.8-20.1); Calc. Creatinine Clearance 63 mL/min (70-130); Calcium 8.4 mg/dL (7.8-10.44); Carbon Dioxide 20 mmol/L (23-31); Chloride 114 mmol/L (98-107); Estimated GFR-MDRD 63; Glucose 110 mg/dL (83-110); Potassium 3.6 mmol/L (3.5-5.1); Sodium 143 mmol/L (136-145)
[2018-12-03] MEDS: Metoclopramide HCl 10 MG TAB PO SCH (08:31)
[2018-12-03] MEDS: Metoprolol Tartrate 50 MG TAB PO SCH (08:31)
[2018-12-03] MEDS: Oseltamivir 75 MG CAP PO SCH (08:32)
[2018-12-03] MEDS: Amlodipine 10 MG TAB PO SCH (08:32)
[2018-12-03] MEDS: Losartan 25 MG TAB PO SCH (08:32)
[2018-12-03] MEDS: Aspirin 325 mg Enteric Coated Tablet PO SCH (08:32)
[2018-12-03] MEDS: Docusate 100 MG CAP PO SCH (08:33)
[2018-12-03] MEDS: Enoxaparin Sodium 30 MG/0.3 ML SYRINGE SC SCH (08:44)
[2018-12-03 16:39] VITALS: BP 144/81
--- NOTE | 2018-12-04 06:13 | DIS ---
DATE OF ADMISSION: 11/26/2018 DATE OF DISCHARGE: 12/03/2018 PRIMARY CARE PHYSICIAN: Beverley Dunn DO, [facility]. PRINCIPAL DIAGNOSIS ON ADMISSION: Uncontrolled diabetes, concerning for interval development of ketoacidosis. DISCHARGE DIAGNOSES: 1. Metabolic encephalopathy, in the context of uncontrolled diabetes, metabolic derangement, and pretreated urinary infection, with negative culture results. 2. Coronary artery disease. 3. Essential hypertension, with dose titration of amlodipine during hospital stay. 4. Chronic kidney disease. 5. Diabetic autonomic neuropathy with history of gastroparesis. 6. Chronic constipation. 7. Dyslipidemia. 8. Hypernatremia, hypokalemia, and metabolic acidosis. HOSPITAL COURSE: Mrs. Carney is a 73-year-old female, residing at [facility]. Medical comorbidities are numerous, including coronary artery disease, hypertension, chronic kidney disease, type 2 diabetes with autonomic neuropathy and gastroparesis, on chronic Reglan therapy per admission records, chronic constipation, and dyslipidemia, presenting to the emergency department with encephalopathy in the context of nausea, vomiting, uncontrolled diabetes, tachycardia, and leukocytosis. Clinical concern at the time of admission was for the possible interval development of diabetic ketoacidosis. Her bicarbonate level, however, was 19. She was placed in the hospital, given judicious IV fluid hydration, treated for her nausea and vomiting. Placed on empiric antibiotic coverage with Zosyn in the context of suspected urinary infection. Blood cultures and urinary cultures ultimately were negative. Based on history of positive urinalysis at the referral center, I suspect her negative culture here is a result of pre-treatment with antibiotics. Nevertheless, she has received a course of antibiotics, is afebrile, and her white count has defervesced to normal by the time of hospital discharge. Additionally, she showed evidence of hypernatremia, treated with free water administration, sodium normal at the time of discharge. In reviewing her labs, elevated sodium level noted to 146 on 12/02/2018. Mrs. Carney at baseline is frail and elderly. It appears from review of her prison records that she had a Bennett catheter in place prior to admission. The patient, however, does not recall. I have requested on transfer orders discontinuation of Bennett catheter, 12/04/2018. This may need further review at her facility, as I am unsure of the timeline of initial placement at the nursing facility. On the day of discharge, Mrs. Carney is resting comfortably. She is afebrile. Her amlodipine has been titrated within the last 24 hours, thus no new titrations remain. Her blood pressure is ranging from 152 to 181 systolics and diastolics 80 to 90, heart rate of 77. Her lungs are overall clear. Her ability to cough in an effective way is limited based on her frail status. Heart is regular, abdomen is soft. Bennett catheter is currently in place. She appears stable for transition to monitored facility, for evaluation for physical/occupational therapy. At baseline, she describes transferring with assistance to wheelchair, but tells me that she has not been ambulatory in some time. ORDERS AT THE TIME OF TRANSFER: 1. Code status is full. Out of bed to chair at least three times daily and for all meals. Soft diet. The patient has dentures but does not like to wear them. ADA diet, 2000 kilocalorie, Glucerna b.i.d. The patient also expresses request for assistance with feeds. 2. Physical therapy/occupational therapy/speech therapy. 3. Bennett catheter upon transfer with discontinuation order for 12/04/2018. Wound Care evaluation/treatment. Short-acting insulin sliding scale per facility protocol. Please note, antibiotics completed during in-hospital stay. DISCHARGE MEDICATIONS: As follows; 1. Tylenol 650 mg p.o. q.4 hourly p.r.n. pain. 2. Amlodipine 10 mg p.o. once daily, represents dose titration relative to admission. 3. Aspirin 325 mg p.o. daily. 4. Atorvastatin 40 mg p.o. at bedtime. 5. Docusate 100 mg p.o. once daily. 6. Losartan 100 mg p.o. once daily. 7. Melatonin 3 mg p.o. at bedtime. 8. Reglan 5 mg p.o. t.i.d. - please note, I have changed this from a scheduled medication to an as-needed medication for nausea and vomiting. 9. Metoprolol tartrate 50 mg p.o. once daily. 10. Remeron 7.5 mg p.o. at bedtime. 11. Omeprazole 20 mg p.o. once daily. 12. Zofran ODT 4 mg p.o. q.6 hourly p.r.n. nausea, new. 13. She has completed her previous dosing for oseltamivir (Tamiflu). 14. Zoloft 200 mg p.o. at bedtime. 15. Levemir 25 units subcutaneously q.a.m., 20 units subcutaneously q.p.m. (same as previous dosing). TIME SPENT: Time spent on discharge planning, 50 minutes. Job ID: [id number]
== END 2018-12-03 16:50 | DRG 871 ==
LOC: ERS 20:12 → T4-A 21:00
PROVIDERS: ADMIT Emergency Medicine; ATTEND Emergency Medicine
DX: A41.9 Sepsis, unspecified organism (principal); G93.41 Metabolic encephalopathy; E87.0 Hyperosmolality and hypernatremia; N17.9 Acute kidney failure, unspecified; E11.22 Type 2 diabetes mellitus with diabetic chronic kidney disease; I25.10 Atherosclerotic heart disease of native coronary artery without angina pectoris; K59.00 Constipation, unspecified; Z98.1 Arthrodesis status; Z88.6 Allergy status to analgesic agent; Z79.899 Other long term (current) drug therapy; Z79.82 Long term (current) use of aspirin; Z79.4 Long term (current) use of insulin; E87.6 Hypokalemia; E78.00 Pure hypercholesterolemia, unspecified; N18.9 Chronic kidney disease, unspecified; R65.20 Severe sepsis without septic shock
CPT/HCPCS: 36415; 36416; 80048; 80076; 80202; 83880; 84443; 85025; 87086; 96374; J0360; J0696; J1610; J1650; J1825; J2405; J2543; J3370; J3480; J7050; J8597

== ENCOUNTER 2018-12-19 23:54 | Inpatient (IN) | payer MEDICARE, MEDICAID ==
[2018-12-20] MEDS ORDERED: Ondansetron PF 4 MG/2 ML Vial ONE (00:50)
[2018-12-20 01:38] LABS: #Lymphocytes 0.7 thou/uL (1.20-3.40); #Monocytes 0.4 thou/uL (0.11-0.59); #Neutrophils 10.1 thou/uL (1.40-6.50); %Basophils 0.1 % (0.0-1.0); %Eosinophils 0.1 % (0.0-10.0); %Lymphocytes 6.1 % (21.0-51.0); %Monocytes 3.8 % (0.0-10.0); %Neutrophils 89.8 % (42.0-75.0); Hemoglobin 12.5 g/dL (12.0-16.0); Mean Corpuscular HGB CONC 32.2 g/dL (32.0-36.0); Mean Corpuscular Hemoglobin 28.7 pg (27.0-31.0); Mean Corpuscular Volume 89.2 fL (78.0-98.0); Platelet Count 216 thou/uL (130-400); RBC Distribution Width 12.7 % (11.5-14.5); Red Blood Cell (RBC) Count 4.37 mill/uL (4.20-5.40); White Blood Cell (WBC) Count 11.2 thou/uL (4.8-10.8)
[2018-12-20 01:54] LABS: Anion Gap 24 mmol/L (10-20); BUN (Urea Nitrogen) 11 mg/dL (9.8-20.1); Calc. Creatinine Clearance 0 mL/min (70-130); Calcium 9.3 mg/dL (7.8-10.44); Carbon Dioxide 18 mmol/L (23-31); Chloride 102 mmol/L (98-107); Estimated GFR-MDRD 48; Glucose 200 mg/dL (83-110); Magnesium 1.6 mg/dL (1.6-2.6); Potassium 4.1 mmol/L (3.5-5.1); Sodium 140 mmol/L (136-145)
[2018-12-20 02:17] LABS: CKMB 4.7 ng/mL (0-6.6)
[2018-12-20] MEDS ORDERED: Ondansetron ODT 4 MG TAB SL PRN (04:10)
[2018-12-20] MEDS ORDERED: Sodium Chloride 0.9% 1,000 ML IV SCH (04:10)
[2018-12-20] MEDS ORDERED: Ondansetron PF 4 MG/2 ML Vial IVP PRN (04:10)
[2018-12-20] MEDS ORDERED: Dextrose 5% in Water 1,000 ML IV PRN ×2 (05:11→09:09)
[2018-12-20] MEDS ORDERED: Insulin Regular 300 UNITS/3 ML VIAL SC PRN ×3 (05:11→07:06)
[2018-12-20] MEDS ORDERED: Dextrose 50% Abboject 50 ML SYRINGE SLOW IVP PRN ×2 (05:11→09:09)
[2018-12-20] MEDS ORDERED: Sodium Chloride 0.9% 500 ML IV SCH (05:15)
[2018-12-20 06:10] LABS: Anion Gap 21 mmol/L (10-20); BUN (Urea Nitrogen) 10 mg/dL (9.8-20.1); Calc. Creatinine Clearance 48 mL/min (70-130); Calcium 8.8 mg/dL (7.8-10.44); Carbon Dioxide 17 mmol/L (23-31); Chloride 104 mmol/L (98-107); Estimated GFR-MDRD 49; Glucose 187 mg/dL (83-110); Magnesium 1.5 mg/dL (1.6-2.6); Phosphorus 2.9 mg/dL (2.3-4.7); Sodium 138 mmol/L (136-145)
[2018-12-20] MEDS ORDERED: Magnesium Sulfate 2 GM in Sodium Chloride 0.9% 100 ML IVPB SCH (08:00)
[2018-12-20] MEDS ORDERED: Magnesium 2 GM/50 ML 2 GM in Sodium Chloride 0.9% 100 ML IVPB SCH (08:00)
[2018-12-20] MEDS ORDERED: hydrALAZINE 20 MG/ML VIAL SLOW IVP PRN (08:43)
[2018-12-20] MEDS ORDERED: Insulin Glargine 10 UNITS in Pre-Filled Syringe 1 EACH SC SCH (09:00)
[2018-12-20] MEDS ORDERED: Acetaminophen 325 MG TAB PO PRN (09:09)
[2018-12-20] MEDS ORDERED: Ondansetron ODT 4 MG TAB PO PRN (09:09)
[2018-12-20] MEDS ORDERED: Metoclopramide HCl 10 MG TAB PO PRN (09:10)
[2018-12-20] MEDS: D5 1/2 NS w/20 mEq KCL 1,000 ML IV SCH ×3 (09:32→21:29)
[2018-12-20] MEDS ORDERED: Magnesium 2 GM/NS 0.9% 100 ML 2 GM in Premix Bag 1 BAG IVPB SCH (10:15)
[2018-12-20] MEDS ORDERED: Magnesium 2 GM/50 ML 2 GM in Premix Bag 1 BAG IVPB SCH (10:30)
[2018-12-20] MEDS: cefTRIAXone\\ROCEPHIN 2 GM in Sodium Chloride 0.9% 100 ML IVPB SCH (10:53)
[2018-12-20] MEDS: hydrALAZINE 20 MG/ML VIAL SLOW IVP PRN ×2 (11:01→16:54)
[2018-12-20] MEDS: Ondansetron PF 4 MG/2 ML Vial IVP PRN ×2 (11:49→21:58)
[2018-12-20] MEDS ORDERED: Heparin 1,000 UNITS/ML VIAL ONE (12:00)
--- NOTE | 2018-12-20 16:08 | HP ---
PRIMARY CARE PHYSICIAN: Dr. Beverley Dunn. CHIEF COMPLAINT: Feeling lousy. HISTORY OF PRESENT ILLNESS: Ms. Carney is a 73-year-old female, who resides at the [facility]. She is alert and oriented to person only and therefore, I am unable to get any significant history from her. She was sent over from the [facility] with reports of hematemesis. She was evaluated in the ER and is being admitted for possible upper GI bleed, dehydration, and pyelonephritis. She had a CT scan done in the emergency room, which showed some findings consistent with pyelonephritis, showing some bilateral renal hypodensities, which could be subacute areas of infarct or infection. She also had a urinalysis that was significant for too numerous to count wbc's as well as 4+ bacteria. She is being admitted for the evaluation of this. Otherwise, the patient is only able to tell me that she feels lousy. When asked if she is having any pain, she denies having any pain. She does admit to feeling nauseated, however, and feeling weak. REVIEW OF SYSTEMS: This is essentially unobtainable due to the patient's unreliable mental status. PAST MEDICAL HISTORY: The past medical history is taken from a previous history and physical by Dr. Church on 11/27/2018 and includes hypertension, diabetes mellitus, COPD, and chronic kidney disease. PAST SURGICAL HISTORY: She has had a right knee surgery, cervical fusion, right arm surgery, bilateral foot surgery, vaginal tumor removal, and rotator cuff repair. ALLERGIES: MORPHINE AND TRAMADOL. SOCIAL HISTORY: She is a nonsmoker and nondrinker. She resides at the [facility] and she is a full code. FAMILY HISTORY: Unobtainable. CURRENT MEDICATIONS: Include: 1. Zofran 4 mg q.6 hours as needed. 2. Reglan 5 mg t.i.d. 3. Aspirin 325 mg daily. 4. Norvasc 10 mg daily. 5. Zoloft 200 mg at bedtime. 6. Phenergan 12.5 mg q.6. 7. MiraLAX 17 g daily. 8. Remeron 7.5 mg at bedtime. 9. Metoprolol 50 mg daily. 10. Melatonin 3 mg at bedtime. 11. Antivert 25 mg q.i.d. 12. Milk of magnesia 30 mL daily. 13. Losartan 100 mg daily. 14. Levemir insulin 15 units at bedtime and 20 units in the morning. 15. Docusate 100 mg daily. 16. Vitamin D3 of 5000 units daily. 17. Lipitor 40 mg at bedtime. PHYSICAL EXAMINATION: GENERAL: She is oriented to person only. She is very weak and frail in appearance and she does appear chronically ill. VITAL SIGNS: Blood pressure was ranging from 151/66 to 182/83, heart rate 89, respiratory rate of 18, temperature is 99.0, and O2 saturation is 96% on room air. HEENT: Pupils are equal, round, and reactive. Extraocular muscles are intact. Sclerae are anicteric. Throat, there is no erythema. There are no exudates. NECK: No adenopathy. No bruits. LUNGS: Essentially clear to auscultation. There is no wheezing. No rales. No rhonchi. CARDIOVASCULAR: She has a normal S1 and S2. I did not appreciate an S3 or S4. No murmurs, clicks, or rubs. ABDOMEN: Soft, nontender, and nondistended. Positive for bowel sounds. No rebound or guarding. EXTREMITIES: She has muscle atrophy in her upper extremities in her hands and in her lower extremities. She has 1 to 2+ edema. NEUROLOGIC: She is able to move all of her extremities, but she is extremely weak. SKIN AND INTEGUMENT: There are no significant skin changes. No rash. LABORATORY DATA: Her beta hydroxybutyrate was elevated and in review of her records, it seems to be consistently elevated. Her sodium was 138, potassium 4.0, chloride is 104, CO2 of 17, BUN of 10, creatinine 1.09, glucose is 187, magnesium 1.5. Troponin is 0.15. White blood cell count 11.2, hemoglobin 12.5, hematocrit is 38.9, and platelet count was 216. ASSESSMENT: This is a pleasant 73-year-old female, who sent to the emergency room by the [facility] due to concerns for hematemesis and possible gastrointestinal bleed. She was also found to have a urinary tract infection with radiographic evidence concerning for pyelonephritis. 1. Possible gastrointestinal bleed. This is hard to verify. However, we will place her on IV Protonix and get stool for occult blood and we will trend her hemoglobin and hematocrit. Should we see any evidence of GI bleed, then GI will be consulted. 2. Urinary tract infection with pyelonephritis. We will place her on IV antibiotics. Urine cultures should have been obtained from the ER, but if not, we will try to get a urine culture. If it has not been obtained, then it will be of course low yield. 3. Elevated beta hydroxybutyrate and mild acidosis. It appears as if she has had an admission with very similar presentation. We will treat her blood glucose and aggressively as well as fluid resuscitation, but I suspect this is likely starvation ketosis. 4. Hypertension. We will go ahead and restart her antihypertensive medications as well as p.r.n. medicines. 5. The patient appears extremely frail. We will get a speech therapy consult to determine what will be her best diet. 6. She will be placed on deep venous thrombosis prophylaxis. Job ID: [id number]
[2018-12-20] MEDS: HumaLOG 300 UNITS/3 ML VIAL SC PRN (16:58)
[2018-12-20] MEDS ORDERED: INSULIN DETEMIR SQ SCH (21:00)
[2018-12-20] MEDS: Insulin Glargine 15 UNITS in Pre-Filled Syringe 1 EACH SC SCH (21:30)
[2018-12-20] MEDS: Atorvastatin Calcium 40 MG TAB PO SCH (21:31)
[2018-12-20] MEDS: Melatonin 3 MG TAB PO SCH (21:31)
[2018-12-20] MEDS: Mirtazapine 15 MG TAB PO SCH (21:31)
[2018-12-20] MEDS: Pantoprazole 40 MG VIAL IVP SCH (21:32)
[2018-12-21] MEDS: D5 1/2 NS w/20 mEq KCL 1,000 ML IV SCH ×3 (03:31→13:16)
[2018-12-21 05:21] LABS: #Basophils 0.1 thou/uL (0.0-0.2); #Eosinphils 0.3 thou/uL (0.0-0.7); #Lymphocytes 1.1 thou/uL (1.20-3.40); #Monocytes 0.7 thou/uL (0.11-0.59); %Basophils 1.3 % (0.0-1.0); %Eosinophils 4.4 % (0.0-10.0); %Lymphocytes 14.9 % (21.0-51.0); %Neutrophils 69.4 % (42.0-75.0); Hemoglobin 9.6 g/dL (12.0-16.0); Mean Corpuscular HGB CONC 32.6 g/dL (32.0-36.0); Mean Corpuscular Hemoglobin 29.7 pg (27.0-31.0); Mean Corpuscular Volume 91.2 fL (78.0-98.0); Mean Platelet Volume 7.9 fL (7.4-10.4); Platelet Count 161 thou/uL (130-400); RBC Distribution Width 12.7 % (11.5-14.5); Red Blood Cell (RBC) Count 3.24 mill/uL (4.20-5.40); White Blood Cell (WBC) Count 7.3 thou/uL (4.8-10.8)
[2018-12-21 05:36] LABS: Anion Gap 11 mmol/L (10-20); BUN (Urea Nitrogen) 7 mg/dL (9.8-20.1); Calc. Creatinine Clearance 45 mL/min (70-130); Carbon Dioxide 21 mmol/L (23-31); Chloride 108 mmol/L (98-107); Estimated GFR-MDRD 43; Glucose 230 mg/dL (83-110); Potassium 3.6 mmol/L (3.5-5.1); Sodium 136 mmol/L (136-145)
[2018-12-21] MEDS ORDERED: Non-Formulary Item 1 EACH (Insulin Detemir 100 Units/Ml [Levemir] 20 UNIT) SQ SCH (08:00)
[2018-12-21] MEDS ORDERED: Insulin Glargine 20 UNITS in Pre-Filled Syringe 1 EACH SC SCH (08:00)
[2018-12-21] MEDS: cefTRIAXone\\ROCEPHIN 2 GM in Sodium Chloride 0.9% 100 ML IVPB SCH (09:14)
[2018-12-21] MEDS: Enoxaparin Sodium 30 MG/0.3 ML SYRINGE SC SCH (09:16)
[2018-12-21] MEDS: Pantoprazole 40 MG VIAL IVP SCH ×2 (09:16→21:02)
[2018-12-21] MEDS: Saccharomyces boulardii 250 MG CAP PO SCH (09:17)
[2018-12-21] MEDS: Aspirin 325 mg Enteric Coated Tablet PO SCH (09:17)
[2018-12-21] MEDS: Metoprolol Tartrate 50 MG TAB PO SCH (09:17)
[2018-12-21] MEDS: Amlodipine 10 MG TAB PO SCH (09:17)
[2018-12-21] MEDS: HumaLOG 300 UNITS/3 ML VIAL SC PRN (13:17)
--- NOTE | 2018-12-21 15:56 | PDOC.PN ---
- Subjective Encounter Start Date: 12/21/18 Encounter Start Time: 10:00 Ms. Carney was seen today in follow-up of UTI. she says she feels better. She has not had any vomiting or hematemesis. - Objective Resuscitation Status - Order Detail: 12/20/18 09:05 Resuscitation Status Routine Resuscitation Status: FULL: Full Resuscitation MAR Reviewed: Yes Vital Signs & Weight: Vital Signs (12 hours) Temp Pulse Resp BP Pulse Ox 12/21/18 13:22 97.9 F 60 16 125/61 100 12/21/18 09:17 77 12/21/18 07:45 98.2 F 77 16 168/76 H 97 12/21/18 07:30 97 12/21/18 04:00 98.5 F 73 12 129/63 93 L Weight Admit Weight 148 lb 9.6 oz Weight 155 lb 9.001 oz I&O: 12/20/18 12/21/18 12/22/18 06:59 06:59 06:59 Intake Total 2890 Output Total 500 Balance 2390 Result Diagrams: 12/21/18 04:35 12/21/18 04:35 Additional Labs: Accuchecks 12/21/18 12/21/18 12/20/18 11:23 05:17 20:14 POC Glucose 240 H 261 H 192 H 12/20/18 16:29 POC Glucose 275 H Phys Exam - Physical Examination HEENT: PERRLA Respiratory: no wheezing, no rales, no rhonchi, clear to auscultation bilateral Cardiovascular: RRR, no significant murmur, no rub Gastrointestinal: soft, non-tender, no distention, positive bowel sounds Musculoskeletal: pulses present, edema present Dx/Plan (1) UTI (urinary tract infection) Status: Acute (2) CAD (coronary artery disease) Code(s): I25.10 - ATHSCL HEART DISEASE OF [place] CORONARY ARTERY W/O ANG PCTRS Status: Chronic Qualifiers: Comment: Stable. (3) DM type 2 (diabetes mellitus, type 2) Status: Chronic Qualifiers: Comment: Improved control (4) HTN (hypertension) Code(s): I10 - ESSENTIAL (PRIMARY) HYPERTENSION Status: Chronic Qualifiers: Comment: amlodipine increased, blood pressure better - Plan * ? GI bleed- still await occult blood specimens, will continue IV Protonix * UTI- urine culture was sent from [place]- await ID and sensitivities * HTN- blood pressure is stable * DM- blood glucose is slightly elevated-will monitor and adjust medications as needed.
[2018-12-21] MEDS: Melatonin 3 MG TAB PO SCH (20:56)
[2018-12-21] MEDS: Atorvastatin Calcium 40 MG TAB PO SCH (20:56)
[2018-12-21] MEDS: Mirtazapine 15 MG TAB PO SCH (20:56)
[2018-12-21] MEDS: Insulin Glargine 15 UNITS in Pre-Filled Syringe 1 EACH SC SCH (21:05)
[2018-12-22] MEDS: D5 1/2 NS w/20 mEq KCL 1,000 ML IV SCH ×3 (03:36→23:58)
[2018-12-22 05:54] LABS: #Basophils 0.1 thou/uL (0.0-0.2); #Eosinphils 0.7 thou/uL (0.0-0.7); #Lymphocytes 1.5 thou/uL (1.20-3.40); #Monocytes 0.6 thou/uL (0.11-0.59); #Neutrophils 3.7 thou/uL (1.40-6.50); %Basophils 1.3 % (0.0-1.0); %Eosinophils 10.8 % (0.0-10.0); %Lymphocytes 23.3 % (21.0-51.0); %Monocytes 8.3 % (0.0-10.0); %Neutrophils 56.3 % (42.0-75.0); Hemoglobin 9.7 g/dL (12.0-16.0); Mean Corpuscular HGB CONC 30.9 g/dL (32.0-36.0); Mean Corpuscular Hemoglobin 28.2 pg (27.0-31.0); Mean Corpuscular Volume 91.5 fL (78.0-98.0); Mean Platelet Volume 8.1 fL (7.4-10.4); Platelet Count 169 thou/uL (130-400); Red Blood Cell (RBC) Count 3.42 mill/uL (4.20-5.40); White Blood Cell (WBC) Count 6.5 thou/uL (4.8-10.8)
[2018-12-22] MEDS ORDERED: Meropenem 1 GM in Sodium Chloride 0.9% 100 ML IVPB SCH (08:00)
[2018-12-22] MEDS ORDERED: MEROPENEM 1 GM/50 ML 1 GM in Premix Bag 1 BAG IVPB SCH (08:00)
[2018-12-22] MEDS ORDERED: Insulin Glargine 20 UNITS in Pre-Filled Syringe 1 EACH SC SCH (09:00)
[2018-12-22] MEDS: cefTRIAXone\\ROCEPHIN 2 GM in Sodium Chloride 0.9% 100 ML IVPB SCH (09:26)
[2018-12-22] MEDS: Metoprolol Tartrate 50 MG TAB PO SCH (09:29)
[2018-12-22] MEDS: Saccharomyces boulardii 250 MG CAP PO SCH (09:29)
[2018-12-22] MEDS: Enoxaparin Sodium 30 MG/0.3 ML SYRINGE SC SCH (09:29)
[2018-12-22] MEDS: Aspirin 325 mg Enteric Coated Tablet PO SCH (09:29)
[2018-12-22] MEDS: Amlodipine 10 MG TAB PO SCH (09:33)
[2018-12-22] MEDS: Pantoprazole 40 MG VIAL IVP SCH (09:33)
--- NOTE | 2018-12-22 11:22 | PDOC.PN ---
- Subjective Encounter Start Date: 12/22/18 Encounter Start Time: 11:20 Ms. Carney was seen today in follow-up of UTI. She does not have any complaints today. - Objective Resuscitation Status - Order Detail: 12/20/18 09:05 Resuscitation Status Routine Resuscitation Status: FULL: Full Resuscitation MAR Reviewed: Yes Vital Signs & Weight: Vital Signs (12 hours) Temp Pulse Resp BP Pulse Ox 12/22/18 09:33 66 12/22/18 08:10 98.0 F 66 16 148/68 H 94 L 12/22/18 03:50 97.5 F L 71 20 144/64 H 97 12/21/18 23:30 98.2 F 62 12 124/59 L 99 Weight Admit Weight 148 lb 9.6 oz Weight 162 lb I&O: 12/21/18 12/22/18 12/23/18 06:59 06:59 06:59 Intake Total 2890 2160 Output Total 500 650 Balance 2390 1510 Result Diagrams: 12/22/18 05:07 12/21/18 04:35 Additional Labs: Accuchecks 12/22/18 12/21/18 12/21/18 05:41 20:24 18:51 POC Glucose 126 H 126 H 96 12/21/18 12/21/18 12/21/18 18:22 17:55 11:23 POC Glucose 59 L* 38 L* 240 H Phys Exam - Physical Examination HEENT: PERRLA Respiratory: no wheezing, no rales, no rhonchi, clear to auscultation bilateral Cardiovascular: RRR, no significant murmur, no rub Gastrointestinal: soft, non-tender, no distention, positive bowel sounds Musculoskeletal: pulses present, edema present + trace edema atrophy of lower extremities and mild contractures Dx/Plan (1) UTI (urinary tract infection) Status: Acute (2) CAD (coronary artery disease) Code(s): I25.10 - ATHSCL HEART DISEASE OF [place] CORONARY ARTERY W/O ANG PCTRS Status: Chronic Qualifiers: Comment: Stable. (3) DM type 2 (diabetes mellitus, type 2) Status: Chronic Qualifiers: Comment: Improved control (4) HTN (hypertension) Code(s): I10 - ESSENTIAL (PRIMARY) HYPERTENSION Status: Chronic Qualifiers: Comment: amlodipine increased, blood pressure better - Plan * UTI- Urine Culture which was sent from the [place] [facility] is growing Pseudomonas which is resistant to Quinolones. Will consult ID * Hypoglycemia- likely from poor oral intake- will Hold scheduled Lantus for now * ? Hematemesis- this has not been verified, and she has not had any since her admission here. Her H&H has been stable ( I believe the initial drop was due to dilution effect)- will decrease Protonix to daily and change to p.o. * HTN- blood pressure is stable. * Depression and failure to thrive- I note she is on a fairly high dose of Sertraline- will continue * Constipation- will give a fleets enema
[2018-12-22] MEDS ORDERED: Fleet Enema 133 ML BOT PR SCH (12:15)
[2018-12-22] MEDS: HumaLOG 300 UNITS/3 ML VIAL SC PRN ×2 (18:29→20:41)
[2018-12-22] MEDS: MEROPENEM 1 GM/50 ML 1 GM in Premix Bag 1 BAG IVPB SCH (19:17)
[2018-12-22] MEDS: Melatonin 3 MG TAB PO SCH (20:42)
[2018-12-22] MEDS: Mirtazapine 15 MG TAB PO SCH (20:42)
[2018-12-22] MEDS: Atorvastatin Calcium 40 MG TAB PO SCH (20:42)
--- NOTE | 2018-12-22 21:19 | CON ---
DATE OF CONSULTATION: 12/22/2018 REASON FOR CONSULTATION: Possible pyelonephritis. 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 At that time, she had a skin biopsy which showed evidence consistent with erythema multiforme. At this time, she presents with general malaise with episodes of vomiting and one hematemesis. No documented fever. She denies any dysuria or hematuria. No back pain. No diarrhea. In the [facility], she voids spontaneously. 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 PAST SURGICAL HISTORY: Right knee arthroscopy, cervical fusion, vaginal tumor removal, rotator cuff repair. ALLERGIES: MORPHINE AND TRAMADOL. 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 FAMILY HISTORY: Noncontributory. CURRENT MEDICATIONS: 1. Tylenol. 2. Norvasc. 3. Ecotrin. 4. Lipitor. 5. Ceftriaxone. 6. Enoxaparin. 7. Insulin. 8. Melatonin. 9. Meropenem. 10. Lopressor. 11. Zofran. 12. Florastor.. PHYSICAL EXAMINATION: VITAL SIGNS: T-max 98.2, blood pressure 150/60, pulse 61, respirations 16, and O2 sats 97%. SKIN: Stage I pressure area in the presacral region. A red papule noted, right upper thigh. HEENT: Ocular movements conjugate. Sclerae white. Pupils are equal. Oral cavity with no remaining teeth in place. She has a little bit of dysarthria. NECK: Supple. No jugular vein distention. LUNGS: Symmetric. Clear breath sounds. HEART: S1 and S2, regular rate. No S3 or S4. ABDOMEN: Soft. Not distended or tender. No ascites. No bladder distention. EXTREMITIES: No joint inflammatory activity. Pulses 1+ in dorsalis pedis. No edema. Moves extremities equally. Cognitive function appears to be intact. LABORATORY DATA: White cell count is down to 6.5, hemoglobin 9.7, platelets 169 with normal differential from admission when it was 89% neutrophils. Creatinine is 1.11 on admission and went up to 1.21. Sodium 136, potassium 3.6. Microbiology with P aeruginosa from urine culture and she has 2 Staphylococcus coagulase negative Staph isolates from venous samples, likely contaminant. She had an abdomen and pelvis CT with renal hypodensities with wedge-shaped decreased density posterior to mid right renal cortex. There is a little bit of heterogeneous enhancement. ASSESSMENT: Type 2 diabetes, prior cerebrovascular accident, cognitive impairment, general malaise, cough, vomiting, abnormal urinalysis. Findings in the CT scan of the abdomen suggestive of early pyelonephritis. DISCUSSION: The differential diagnosis includes transient bacteremia from the urinary tract, which was not detected on admission plus-minus early pyelonephritis associated with the bladder colonization with Pseudomonas aeruginosa. She does not have evidence of any devices at this time. No spine or other bone or joint involvement. No other intraabdominal inflammatory process. Specifically, no diarrhea. At this point, the patient will be continued on meropenem. Discontinue Rocephin and await on the final susceptibility results to see which drug will be chosen for outpatient management. She most likely has pyelonephritis associated with Pseudomonas aeruginosa, will need 2 weeks of IV therapy or oral therapy depending on susceptibility profiles. Job ID: [id number]
[2018-12-23] MEDS: MEROPENEM 1 GM/50 ML 1 GM in Premix Bag 1 BAG IVPB SCH ×3 (03:03→19:45)
[2018-12-23] MEDS: Aspirin 325 mg Enteric Coated Tablet PO SCH (09:42)
[2018-12-23] MEDS: Saccharomyces boulardii 250 MG CAP PO SCH (09:42)
[2018-12-23] MEDS: Enoxaparin Sodium 30 MG/0.3 ML SYRINGE SC SCH (09:43)
[2018-12-23] MEDS: Amlodipine 10 MG TAB PO SCH (09:43)
[2018-12-23] MEDS: Metoprolol Tartrate 50 MG TAB PO SCH (09:44)
[2018-12-23] MEDS: D5 1/2 NS w/20 mEq KCL 1,000 ML IV SCH ×2 (11:03→20:13)
[2018-12-23] MEDS: HumaLOG 300 UNITS/3 ML VIAL SC PRN ×2 (11:09→19:54)
--- NOTE | 2018-12-23 16:47 | PDOC.PN ---
- Subjective Encounter Start Date: 12/23/18 Encounter Start Time: 16:30 follow up complicated UTI. Patient with nausea much of the day per nurses. Not eating much at all. No diarrhea. No CP/SOB. When asked why she has a catheter now, she states it was because she was unable to urinate. No pain/SOB. - Objective Resuscitation Status - Order Detail: 12/20/18 09:05 Resuscitation Status Routine Resuscitation Status: FULL: Full Resuscitation Vital Signs & Weight: Vital Signs (12 hours) Temp Pulse Resp BP Pulse Ox 12/23/18 16:00 97.7 F 61 16 170/76 H 96 12/23/18 11:57 97.9 F 70 16 164/72 H 95 12/23/18 09:43 65 12/23/18 08:34 95 12/23/18 08:00 97.5 F L 66 16 163/74 H 94 L Weight Admit Weight 148 lb 9.6 oz Weight 165 lb 1.6 oz I&O: 12/22/18 12/23/18 12/24/18 06:59 06:59 06:59 Intake Total 2160 2850 1115 Output Total 650 2000 Balance 1348 171 7984 Result Diagrams: 12/22/18 05:07 12/21/18 04:35 Additional Labs: Accuchecks 12/23/18 12/23/18 12/23/18 16:19 10:29 05:41 POC Glucose 167 H 191 H 112 H 12/22/18 12/22/18 20:14 16:54 POC Glucose 252 H 205 H Phys Exam - Physical Examination Constitutional: NAD HEENT: PERRLA, oral pharynx no lesions Neck: supple, full ROM Respiratory: clear to auscultation bilateral Cardiovascular: RRR Gastrointestinal: soft, non-tender Musculoskeletal: no edema Neurological: non-focal, moves all 4 limbs Deviation from normal: Somewhat restricted affect Skin: no rash -: church in place Dx/Plan (1) Pseudomonas urinary tract infection Code(s): N39.0 - URINARY TRACT INFECTION, SITE NOT SPECIFIED; B96.5 - PSEUDOMONAS ([place]) CAUSING DISEASES CLASSD ELSWHR Status: Acute (2) CAD (coronary artery disease) Code(s): I25.10 - ATHSCL HEART DISEASE OF [place] CORONARY ARTERY W/O ANG PCTRS Status: Chronic Qualifiers: Comment: Stable. (3) DM type 2 (diabetes mellitus, type 2) Status: Chronic Qualifiers: Comment: Improved control (4) HTN (hypertension) Code(s): I10 - ESSENTIAL (PRIMARY) HYPERTENSION Status: Chronic Qualifiers: Comment: amlodipine increased, blood pressure better - Plan * ID - presently on meropenam, culture sensitivities returned. * Endo - poor oral intake and nausea. Try scheduled premeal zofran. Home lantus on hold. * Check AML (anemia looks generally lower than her baseline, no clinical bleeding) * HTN - cont current amlodipine * Overall prognosis poor/failure to thrive
[2018-12-23] MEDS: Atorvastatin Calcium 40 MG TAB PO SCH (19:46)
[2018-12-23] MEDS: Melatonin 3 MG TAB PO SCH (19:46)
[2018-12-23] MEDS: Mirtazapine 15 MG TAB PO SCH (19:47)
[2018-12-23] MEDS ORDERED: hydrALAZINE 20 MG/ML VIAL ONE (21:18)
[2018-12-24] MEDS: MEROPENEM 1 GM/50 ML 1 GM in Premix Bag 1 BAG IVPB SCH ×2 (03:07→20:16)
[2018-12-24 06:47] LABS: #Basophils 0.1 thou/uL (0.0-0.2); #Eosinphils 0.7 thou/uL (0.0-0.7); #Lymphocytes 1.4 thou/uL (1.20-3.40); #Monocytes 0.7 thou/uL (0.11-0.59); #Neutrophils 4.3 thou/uL (1.40-6.50); %Basophils 0.8 % (0.0-1.0); %Eosinophils 9.6 % (0.0-10.0); %Lymphocytes 19.5 % (21.0-51.0); %Monocytes 9.6 % (0.0-10.0); %Neutrophils 60.6 % (42.0-75.0); Hemoglobin 12.2 g/dL (12.0-16.0); Mean Corpuscular HGB CONC 31.5 g/dL (32.0-36.0); Mean Corpuscular Hemoglobin 28.7 pg (27.0-31.0); Mean Corpuscular Volume 91.1 fL (78.0-98.0); Mean Platelet Volume 8.1 fL (7.4-10.4); Platelet Count 202 thou/uL (130-400); RBC Distribution Width 12.9 % (11.5-14.5); Red Blood Cell (RBC) Count 4.26 mill/uL (4.20-5.40); White Blood Cell (WBC) Count 7.1 thou/uL (4.8-10.8)
[2018-12-24 07:12] LABS: Anion Gap 12 mmol/L (10-20); BUN (Urea Nitrogen) 4 mg/dL (9.8-20.1); Calc. Creatinine Clearance 58 mL/min (70-130); Calcium 8.4 mg/dL (7.8-10.44); Carbon Dioxide 20 mmol/L (23-31); Chloride 109 mmol/L (98-107); Estimated GFR-MDRD 54; Glucose 193 mg/dL (83-110); Potassium 4.9 mmol/L (3.5-5.1); Sodium 136 mmol/L (136-145)
[2018-12-24] MEDS: Ondansetron ODT 4 MG TAB PO SCH ×3 (09:30→20:16)
[2018-12-24] MEDS: Enoxaparin Sodium 30 MG/0.3 ML SYRINGE SC SCH (09:30)
[2018-12-24] MEDS: Aspirin 325 mg Enteric Coated Tablet PO SCH (09:31)
[2018-12-24] MEDS: Metoprolol Tartrate 50 MG TAB PO SCH (09:31)
[2018-12-24] MEDS: Amlodipine 10 MG TAB PO SCH (09:31)
[2018-12-24] MEDS: Saccharomyces boulardii 250 MG CAP PO SCH (09:31)
--- NOTE | 2018-12-24 12:14 | PQF ---
ABRAHAMSHANNAN KATE [id number] [facility]-285 [id number] CLINICAL DOCUMENTATION IMPROVEMENT CLARIFICATION FORM: ICD-10 Updated PLEASE DO AN ADDENDUM TO THE PROGRESS NOTE WITH ANY DOCUMENTATION UPDATES OR ADDITIONS AND CARRY THROUGH TO DC SUMMARY. THANK YOU. DATE: 12/24/2018 12/25/2018 ATTN: DR. Jenni WALKER/ DR.C EDWARDS Please exercise your independent, professional judgment in responding to the clarification form. Clinical indicators are provided on the bottom of this form for your review Please check appropriate box [ ] NSTEMI (PR type I) [ ] NSTEMI due to UTI (AMI Type II) [x] Demand Ischemia without PR [ ] Other diagnosis [ ] Unable to determine In addition, please specify: Present on Admission (POA): [ x ] Yes [ ] No [ ] Unable to determine CLINICAL INDICATORS - SIGNS / SYMPTOMS / LABS 12/20 ED PHYSICIAN DX: ELEVATED TROPONIN 12/20 TROPONIN I 0.118 0.150 RISK HX OF CAD HX OF HTN TREATMENTS: CONTINUOUS CARDIAC MONITORING ANTICOAGULANT - ENOXAPARIN SODIUM (12/21-PRESENT) THANK YOU! JAVIER (This form is maintained as a part of the permanent medical record) 2014 [employer] All Rights Reserved DEMARIO [email or web address] [phone] MTDD
--- NOTE | 2018-12-24 16:47 | PRG ---
DATE OF SERVICE: 12/24/2018 SUBJECTIVE: She is awake and does not have dyspnea or chest pain. No abdominal pain. She has an indwelling Bennett catheter. OBJECTIVE: VITAL SIGNS: T-max 98.2, blood pressure 170/75, pulse 65, respirations 16, and O2 saturation 96%. SKIN: Unchanged. She has a peripheral IV access and Bennett catheter. EYES: Conjugate eye movements. MUSCULOSKELETAL: Left hemiparesis. HEART: S1 and S2. Regular rate. LUNGS: Symmetric air entry with no crackles or wheezing. ABDOMEN: Soft and not distended. NEUROLOGIC: She is awake and oriented times self and place. A little bit of dysarthria. LABORATORY DATA: White cell count at 7.1, hemoglobin 12.2, and platelets 202,000. Creatinine 1.01 and GFR at 54. Microbiology with Pseudomonas aeruginosa in the urine. We got Staph hominis and epidermidis in blood cultures, likely contaminants. Pseudomonas is resistant to most antimicrobials except for amikacin, gentamicin, meropenem, and tobramycin. ASSESSMENT AND DISCUSSION: Type 2 diabetes, prior cerebrovascular accident, cognitive impairment, general malaise, cough, vomiting, abnormal urinalysis, and suggestive findings of early pyelonephritis on CT scan. The patient is to continue on meropenem for 2 weeks. Orders entered. PICC line orders entered as well. Job ID: [id number]
--- NOTE | 2018-12-24 18:22 | PDOC.PN ---
- Subjective Encounter Start Date: 12/24/18 Encounter Start Time: 14:30 No acute overnight events. IV access is an issue. Appetite is poor. After much encouragement she agreed to try some yogurt. She tells me her son Avery lives in [place]. Bennett discontinued, voiding spontaneously. - Objective Resuscitation Status - Order Detail: 12/20/18 09:05 Resuscitation Status Routine Resuscitation Status: FULL: Full Resuscitation Vital Signs & Weight: Vital Signs (12 hours) Temp Pulse Resp BP BP Pulse Ox 12/24/18 12:00 96.3 F L 65 16 178/75 H 12/24/18 09:31 72 12/24/18 08:00 96.3 F L 72 15 191/82 H 96 Weight Admit Weight 148 lb 9.6 oz Weight 165 lb 6.4 oz I&O: 12/23/18 12/24/18 12/25/18 06:59 06:59 06:59 Intake Total 2850 2465 Output Total 2000 910 Balance 850 1555 Result Diagrams: 12/24/18 06:29 12/24/18 06:29 Additional Labs: Accuchecks 12/24/18 12/24/18 12/24/18 17:13 10:42 05:35 POC Glucose 141 H 177 H 192 H 12/23/18 19:43 POC Glucose 200 H Phys Exam - Physical Examination Chronically ill appearing HEENT: PERRLA, oral pharynx no lesions Neck: supple, full ROM Respiratory: no wheezing Cardiovascular: RRR Gastrointestinal: soft, non-tender Musculoskeletal: no edema Neurological: non-focal Psychiatric: A&O x 3 Deviation from normal: affect restrictive Skin: no rash Dx/Plan (1) Pseudomonas urinary tract infection Code(s): N39.0 - URINARY TRACT INFECTION, SITE NOT SPECIFIED; B96.5 - PSEUDOMONAS ([place]) CAUSING DISEASES CLASSD ELSWHR Status: Acute (2) CAD (coronary artery disease) Code(s): I25.10 - ATHSCL HEART DISEASE OF [place] CORONARY ARTERY W/O ANG PCTRS Status: Chronic Qualifiers: Comment: Stable. (3) DM type 2 (diabetes mellitus, type 2) Status: Chronic Qualifiers: Comment: Improved control (4) HTN (hypertension) Code(s): I10 - ESSENTIAL (PRIMARY) HYPERTENSION Status: Chronic Qualifiers: Comment: amlodipine increased, blood pressure better - Plan * ID - Discussed with Dr. Mclain - PICC line, meropenam x 2 weeks * Endo - poor oral intake/appetite. Trying scheduled premeal zofran as had complained of nausea yesterday. Home lantus on hold. * HTN - add oral hydralazine 10 mg po bid * Lives at [facility], will need IV abx there for next two weeks. * Overall prognosis is poor/failure to thrive/depressed * * * Addendum: 18:30 PICC rescheduled for placement in 12/25 AM
[2018-12-24] MEDS: Melatonin 3 MG TAB PO SCH (21:13)
[2018-12-24] MEDS: hydrALAZINE 10 MG TAB PO SCH (21:14)
[2018-12-24] MEDS: Mirtazapine 15 MG TAB PO SCH (21:14)
[2018-12-24] MEDS: Atorvastatin Calcium 40 MG TAB PO SCH (21:14)
[2018-12-25] MEDS: D5 1/2 NS w/20 mEq KCL 1,000 ML IV SCH (00:24)
[2018-12-25] MEDS: MEROPENEM 1 GM/50 ML 1 GM in Premix Bag 1 BAG IVPB SCH ×3 (03:18→21:20)
[2018-12-25] MEDS: Ondansetron ODT 4 MG TAB PO SCH ×3 (08:00→17:04)
--- NOTE | 2018-12-25 08:19 | PDOC.PN ---
- Subjective Encounter Start Date: 12/25/18 Encounter Start Time: 08:17 Subjective: No new problem. Still weak with poor oral intake. - Objective Resuscitation Status - Order Detail: 12/20/18 09:05 Resuscitation Status Routine Resuscitation Status: FULL: Full Resuscitation Vital Signs & Weight: Vital Signs (12 hours) Temp Pulse Resp BP BP Pulse Ox 12/25/18 07:35 96.8 F L 61 16 152/66 H 95 12/25/18 04:01 97.5 F L 59 L 18 131/56 L 92 L 12/24/18 23:45 137/63 12/24/18 21:14 64 163/71 H Weight Admit Weight 148 lb 9.6 oz Weight 158 lb 1.6 oz I&O: 12/24/18 12/25/18 12/26/18 06:59 06:59 06:59 Intake Total 2465 240 Output Total 910 Balance 1555 240 Result Diagrams: 12/24/18 06:29 12/24/18 06:29 Additional Labs: Accuchecks 12/25/18 12/24/18 12/24/18 05:21 19:49 17:13 POC Glucose 125 H 166 H 141 H 12/24/18 10:42 POC Glucose 177 H Phys Exam - Physical Examination Constitutional: NAD obese HEENT: moist MMs Respiratory: no wheezing, no rhonchi fair air entry bilaterally Cardiovascular: RRR, no significant murmur Gastrointestinal: soft, non-tender, no distention, positive bowel sounds obese Musculoskeletal: pulses present Neurological: moves all 4 limbs awake, oriented to person and place at least. Slow mentation Dx/Plan (1) Pseudomonas urinary tract infection Code(s): N39.0 - URINARY TRACT INFECTION, SITE NOT SPECIFIED; B96.5 - PSEUDOMONAS ([place]) CAUSING DISEASES CLASSD ELSWHR Status: Acute (2) Acute pyelonephritis Code(s): N10 - ACUTE PYELONEPHRITIS Status: Acute (3) Metabolic acidosis Code(s): E87.2 - ACIDOSIS Status: Acute (4) Diabetic gastroparesis Code(s): E11.43 - TYPE 2 DIABETES W DIABETIC AUTONOMIC (POLY)NEUROPATHY; K31.84 - GASTROPARESIS Status: Acute Comment: Staph hominis and stap epidermidis. considered contaminats (5) Positive blood cultures Code(s): R78.81 - BACTEREMIA Status: Acute (6) Acute metabolic encephalopathy Code(s): G93.41 - METABOLIC ENCEPHALOPATHY Status: Acute Comment: Improving , likely from infection. Off of antibiotics (7) FTT (failure to thrive) in adult Status: Acute (8) HTN (hypertension) Code(s): I10 - ESSENTIAL (PRIMARY) HYPERTENSION Status: Chronic Qualifiers: Comment: amlodipine increased, blood pressure better (9) Dehydration Code(s): E86.0 - DEHYDRATION Status: Resolved (10) Hypokalemia Code(s): E87.6 - HYPOKALEMIA Status: Resolved (11) Hematemesis Code(s): K92.0 - HEMATEMESIS Status: Acute - Plan Awaiting PICC line placement. -: Start glucerna -: Continue other treatments. -: Monitor H/H. * .
[2018-12-25] MEDS: Amlodipine 10 MG TAB PO SCH (09:33)
[2018-12-25] MEDS: Saccharomyces boulardii 250 MG CAP PO SCH (09:33)
[2018-12-25] MEDS: Metoprolol Tartrate 50 MG TAB PO SCH (09:33)
[2018-12-25] MEDS: Aspirin 325 mg Enteric Coated Tablet PO SCH (09:34)
[2018-12-25] MEDS: Enoxaparin Sodium 30 MG/0.3 ML SYRINGE SC SCH (09:34)
[2018-12-25] MEDS: hydrALAZINE 10 MG TAB PO SCH ×2 (09:34→21:23)
--- NOTE | 2018-12-25 09:43 | PQF ---
SHANNAN ROSARIO OBIPENNY [id number] [facility]-[id number] CLINICAL DOCUMENTATION IMPROVEMENT CLARIFICATION FORM: ICD-10 Updated PLEASE DO AN ADDENDUM TO THE PROGRESS NOTE WITH ANY DOCUMENTATION UPDATES OR ADDITIONS AND CARRY THROUGH TO DC SUMMARY. THANK YOU. Date: 12/25/2018 ATTN: DR. Tico EDWARDS Please exercise your independent, professional judgment in responding to the clarification form. Clinical indicators are provided on the bottom of this form for your review. Please check appropriate box(s): [ ] Protein Calorie Malnutrition: [ ] Mild [ ] Moderate [ ] Severe [ ] Cachexia [ ] Other diagnosis [ X ] Unable to determine In addition, please specify: Present on Admission (POA): [ ] Yes [ ] No [ X ] Unable to determine CLINICAL INDICATORS - SIGNS / SYMPTOMS / LABS 12/20 NUTRITION ASSESSMENT : PT REPORTS A POOR APPETITE, SHE ADMITS TO NAUSEA. PROCESS DESCRIPTION WRITER NOTES PREVIOUS EVALUATION WITH DESIRE TO EAT WITH RISK OF ASPIRATION DURING PAST ADMITS. NUTRITIONAL DX: SUBOPTIMAL ORAL INTAKE- DYSPHAGIA, 5% WEIGHT LOSS IN THE LAST WEEK, CURRENT DIET NOT MEETING ESTIMATED NEEDS 12/24 PN (AARON) PLAN: OVERALL PROGNOSIS IS POOR/ FAILURE TO THRIVE/DEPRESSED 12/25 PN (OBI) DX/PLAN 7). FAILURE TO THRIVE RISK: ADVANCED AGE 73 LOSS OF APPETITE WEIGHT LOSS TREATMENTS: NUTRITION ASSESSMENT NUTRITIONAL SUPPLEMENTS TID Moderate Malnutrition (in acute illness) Energy Intake: <75% of estimated energy requirement for > 7 days Weight Loss: 1-2%/1 week; 5%/ 1 month; 7.5%/3 months Other: mild body fat loss; mild muscle mass loss; mild fluid accumulation; Severe Malnutrition (in acute illness) Energy Intake: < 50% of estimated energy requirement for > 5 days Weight Loss: >1-2%/1 week; >5%/1 month; >7.5%/3 months Other: moderate body fat loss; moderate muscle mass loss; moderate- severe fluid accumulation; measurably reduced screen printing paster strength Moderate Malnutrition (in chronic illness) Energy Intake: <75% of estimated energy requirement for >1 month Weight Loss: 5%/1 month; 7.5%/3 months; 10%/6 months; 20%/1 year Other: mild body fat loss; mild muscle mass loss; mild fluid accumulation Severe Malnutrition (in chronic illness) Energy Intake: <75% of estimated energy requirement for >1 month Weight Loss: >5%/1 month; >7.5%/3 months; >10%/6 months; >20%/1 year Other: severe body fat loss; severe muscle mass loss; severe fluid accumulation ; measurably reduced screen printing paster strength THANK YOU! JAVIER (This form is maintained as a part of the permanent medical record) 2014 [employer]. All Rights Reserved [email or web address] [phone] MTDD
--- NOTE | 2018-12-25 12:01 | SPC ---
Exam: Ultrasound guided left upper extremity PICC line placement HISTORY: Infection Exposure: 0.3 minutes; 148 6 mg/sq cm FINDINGS: Successful left upper extremity PICC line placement. Dual lumen 5 Wallisian catheter terminate s in the right atrium. 47 cm in length TECHNIQUE: Consent obtained to perform a ultrasound-guided left upper extremity PICC line placement. Left arm was prepped and draped in a sterile fashion. 1% lidocaine, buffered with sodium bicarbonate was used for local anesthesia. Under ultrasound guidance, micropuncture needle was used t o access the basilic vein. A 0.018 guidewire was advanced through the needle to the level of the superior vena cava. Under fluoroscopy, the wire was advanced into the inferior vena cava to document venous access. Wire was subsequently pulled back to the right atrium. Tract was dilated. A dual lumen 5 Wallisian catheter was advanced over the wire. Distal tip terminates in the right atrium. Both l umens flush and aspirate without difficulty. 47 cm trim length. IMPRESSION: Successful left upper extremity PICC line placement with ultrasound guidance.
[2018-12-25 13:03] VITALS: BMI 26.3
[2018-12-25] MEDS: Melatonin 3 MG TAB PO SCH (21:21)
[2018-12-25] MEDS: Mirtazapine 15 MG TAB PO SCH (21:21)
[2018-12-25] MEDS: Atorvastatin Calcium 40 MG TAB PO SCH (21:23)
[2018-12-26] MEDS: MEROPENEM 1 GM/50 ML 1 GM in Premix Bag 1 BAG IVPB SCH ×3 (05:37→21:33)
[2018-12-26] MEDS: Aspirin 325 mg Enteric Coated Tablet PO SCH (08:52)
[2018-12-26] MEDS: Amlodipine 10 MG TAB PO SCH (08:52)
[2018-12-26] MEDS: Enoxaparin Sodium 30 MG/0.3 ML SYRINGE SC SCH (08:53)
[2018-12-26] MEDS: Metoprolol Tartrate 50 MG TAB PO SCH (08:53)
[2018-12-26] MEDS: Saccharomyces boulardii 250 MG CAP PO SCH (08:53)
[2018-12-26] MEDS: hydrALAZINE 10 MG TAB PO SCH ×2 (08:53→21:32)
[2018-12-26] MEDS: Ondansetron ODT 4 MG TAB PO SCH ×3 (09:00→16:44)
--- NOTE | 2018-12-26 11:47 | PDOC.PN ---
- Subjective Encounter Start Date: 12/26/18 Encounter Start Time: 11:46 Subjective: No new problem. -: Denied nausea, vomiting or abdominal pain. -: Appetite and oral intake remained poor - Objective Resuscitation Status - Order Detail: 12/20/18 09:05 Resuscitation Status Routine Resuscitation Status: FULL: Full Resuscitation Vital Signs & Weight: Vital Signs (12 hours) Temp Pulse Resp BP BP Pulse Ox 12/26/18 08:52 70 12/26/18 08:51 97.9 F 70 16 136/80 94 L 12/26/18 04:00 97.9 F 59 L 16 126/61 93 L 12/26/18 00:00 16 Weight Admit Weight 148 lb 9.6 oz Weight 154 lb 12.8 oz I&O: 12/25/18 12/26/18 12/27/18 06:59 06:59 06:59 Intake Total 240 460 Output Total 250 Balance 240 210 Result Diagrams: 12/24/18 06:29 12/24/18 06:29 Additional Labs: Accuchecks 12/26/18 12/26/18 12/25/18 09:57 05:53 21:05 POC Glucose 122 H 105 127 H 12/25/18 17:04 POC Glucose 142 H Phys Exam - Physical Examination Constitutional: NAD HEENT: PERRLA, moist MMs Neck: no JVD, supple Respiratory: no wheezing, no rhonchi fair air entry bilaterally Cardiovascular: RRR Gastrointestinal: soft, non-tender, no distention, positive bowel sounds Musculoskeletal: no edema, pulses present Neurological: non-focal, moves all 4 limbs Slow but otherwise conversational and appropriate Psychiatric: A&O x 3 Dx/Plan (1) Pseudomonas urinary tract infection Code(s): N39.0 - URINARY TRACT INFECTION, SITE NOT SPECIFIED; B96.5 - PSEUDOMONAS (MALLEI) CAUSING DISEASES CLASSD ELSWHR Status: Acute (2) Acute pyelonephritis Code(s): N10 - ACUTE PYELONEPHRITIS Status: Acute (3) Metabolic acidosis Code(s): E87.2 - ACIDOSIS Status: Acute (4) Diabetic gastroparesis Code(s): E11.43 - TYPE 2 DIABETES W DIABETIC AUTONOMIC (POLY)NEUROPATHY; K31.84 - GASTROPARESIS Status: Acute Comment: Staph hominis and stap epidermidis. considered contaminats (5) Positive blood cultures Code(s): R78.81 - BACTEREMIA Status: Acute (6) Acute metabolic encephalopathy Code(s): G93.41 - METABOLIC ENCEPHALOPATHY Status: Acute Comment: Improving , likely from infection. Off of antibiotics (7) FTT (failure to thrive) in adult Status: Acute (8) HTN (hypertension) Code(s): I10 - ESSENTIAL (PRIMARY) HYPERTENSION Status: Chronic Qualifiers: Comment: amlodipine increased, blood pressure better (9) Dehydration Code(s): E86.0 - DEHYDRATION Status: Resolved (10) Hypokalemia Code(s): E87.6 - HYPOKALEMIA Status: Resolved (11) Hematemesis Code(s): K92.0 - HEMATEMESIS Status: Acute (12) Demand ischemia of myocardium Code(s): I24.8 - OTHER FORMS OF ACUTE ISCHEMIC HEART DISEASE Status: Acute (13) Physical deconditioning Code(s): R53.81 - OTHER MALAISE Status: Acute (14) DM type 2 (diabetes mellitus, type 2) Status: Chronic Qualifiers: Comment: Improved control - Plan Continue antibiotics. -: Continue oral supplementation as tolerated. Advised to increase intake -: Discussed code status: Patient want to be full code but no to tube feeding -: PT/OT. * .
[2018-12-26] MEDS: Melatonin 3 MG TAB PO SCH (21:32)
[2018-12-26] MEDS: Mirtazapine 15 MG TAB PO SCH (21:32)
[2018-12-26] MEDS: Atorvastatin Calcium 40 MG TAB PO SCH (21:32)
[2018-12-27] MEDS: MEROPENEM 1 GM/50 ML 1 GM in Premix Bag 1 BAG IVPB SCH ×3 (05:09→20:56)
[2018-12-27] MEDS: Amlodipine 10 MG TAB PO SCH (09:35)
[2018-12-27] MEDS: Aspirin 325 mg Enteric Coated Tablet PO SCH (09:35)
[2018-12-27] MEDS: Metoprolol Tartrate 50 MG TAB PO SCH (09:35)
[2018-12-27] MEDS: Ondansetron ODT 4 MG TAB PO SCH ×3 (09:35→16:30)
[2018-12-27] MEDS: Saccharomyces boulardii 250 MG CAP PO SCH (09:35)
[2018-12-27] MEDS: Enoxaparin Sodium 30 MG/0.3 ML SYRINGE SC SCH (09:35)
[2018-12-27] MEDS: hydrALAZINE 10 MG TAB PO SCH ×2 (09:35→20:52)
--- NOTE | 2018-12-27 10:21 | PDOC.PN ---
- Subjective Encounter Start Date: 12/27/18 Encounter Start Time: 09:10 -: old records requested/rev Patient seen and examined. No new complaints. No overnight events pt is baseline demented - Objective Resuscitation Status - Order Detail: 12/20/18 09:05 Resuscitation Status Routine Resuscitation Status: FULL: Full Resuscitation MAR Reviewed: Yes Vital Signs & Weight: Vital Signs (12 hours) Temp Pulse Resp BP Pulse Ox 12/27/18 07:58 97.6 F 64 13 194/88 H 98 12/27/18 04:00 98.1 F 62 16 127/60 96 12/27/18 00:00 18 Weight Admit Weight 148 lb 9.6 oz Weight 153 lb 4.8 oz I&O: 12/26/18 12/27/18 12/28/18 06:59 06:59 06:59 Intake Total 460 770 Output Total 250 1050 Balance 210 -280 Result Diagrams: 12/24/18 06:29 12/24/18 06:29 Additional Labs: Accuchecks 12/27/18 12/26/18 12/26/18 05:29 20:33 17:08 POC Glucose 120 H 139 H 134 H EKG Reviewed by me: Yes Phys Exam - Physical Examination Constitutional: NAD HEENT: PERRLA, moist MMs, sclera anicteric Neck: no JVD, supple Respiratory: no wheezing, no rales, no rhonchi Cardiovascular: RRR, no significant murmur, no rub Gastrointestinal: soft, non-tender, no distention, positive bowel sounds Musculoskeletal: no edema, pulses present Neurological: moves all 4 limbs Lymphatic: no nodes Psychiatric: normal affect Skin: no rash, normal turgor Dx/Plan (1) Acute pyelonephritis Code(s): N10 - ACUTE PYELONEPHRITIS Status: Acute (2) Metabolic acidosis Code(s): E87.2 - ACIDOSIS Status: Acute (3) Physical deconditioning Code(s): R53.81 - OTHER MALAISE Status: Acute (4) Pseudomonas urinary tract infection Code(s): N39.0 - URINARY TRACT INFECTION, SITE NOT SPECIFIED; B96.5 - PSEUDOMONAS (MALLEI) CAUSING DISEASES CLASSD ELSWHR Status: Acute (5) CAD (coronary artery disease) Code(s): I25.10 - ATHSCL HEART DISEASE OF [place] CORONARY ARTERY W/O ANG PCTRS Status: Chronic Qualifiers: Comment: (6) DM type 2 (diabetes mellitus, type 2) Status: Chronic Qualifiers: Comment: (7) Dyslipidemia Code(s): E78.5 - HYPERLIPIDEMIA, UNSPECIFIED Status: Chronic Comment: (8) HTN (hypertension) Code(s): I10 - ESSENTIAL (PRIMARY) HYPERTENSION Status: Chronic Qualifiers: Comment: - Plan cont current plan of care, continue antibiotics, social worker aide * continue meropenam * continue current medical treatment * symptomatic treatment. Review of Systems - Review of Systems Other: not reliable due to her level of cognitive status - Medications/Allergies Allergies/Adverse Reactions: Allergies Allergy/AdvReac Type Severity Reaction Status Date / Time morphine Allergy Verified 10/30/18 05:04 tramadol Allergy Verified 10/30/18 05:04 Medications: Current Medications Acetaminophen (Tylenol) 650 mg PO Q4H PRN PRN Reason: Headache/Fever/Mild Pain (1-3) Amlodipine Besylate (Norvasc) 10 mg PO DAILY [facility] Last Admin: 12/27/18 09:35 Dose: 10 mg Aspirin (Ecotrin) 325 mg PO DAILY [facility] Last Admin: 12/27/18 09:35 Dose: 325 mg Atorvastatin Calcium (Lipitor) 40 mg PO HS [facility] Last Admin: 12/26/18 21:32 Dose: 40 mg Dextrose/Water (Dextrose 50%) 25 gm SLOW IVP PRN PRN PRN Reason: Hypoglycemia Enoxaparin Sodium (Lovenox) 30 mg SC 0900 [facility] Last Admin: 12/27/18 09:35 Dose: 30 mg Glucagon (Glucagon) 1 mg IM PRN PRN PRN Reason: Hypoglycemia Hydralazine HCl (Apresoline) 10 mg SLOW IVP Q4H PRN PRN Reason: SBP > 180 and HR < 70 Last Admin: 12/20/18 16:54 Dose: 10 mg Hydralazine HCl (Apresoline) 10 mg PO BID [facility] Last Admin: 12/27/18 09:35 Dose: 10 mg Dextrose/Water (D5w) 1,000 mls @ 0 mls/hr IV .Q0M PRN PRN Reason: Hypoglycemia Meropenem 1 gm/ Device 50 mls @ 200 mls/hr IVPB Q8HR [facility] Last Admin: 12/27/18 05:09 Dose: 50 mls Insulin Human Lispro (Humalog) 0 units SC .MODERATE SLIDING SC PRN PRN Reason: Moderate Correctional Scale Last Admin: 12/23/18 11:09 Dose: 2 unit Insulin Human Lispro (Humalog) 0 units SC .BEDTIME SLIDING SC PRN PRN Reason: Bedtime Correctional Scale Last Admin: 12/23/18 19:54 Dose: 2 units Melatonin (Melatonin) 3 mg PO HS [facility] Last Admin: 12/26/18 21:32 Dose: 3 mg Metoclopramide HCl (Reglan) 5 mg PO TID PRN PRN Reason: nausea or vomiting Metoprolol Tartrate (Lopressor) 50 mg PO DAILY [facility] Last Admin: 12/27/18 09:35 Dose: 50 mg Mirtazapine (Remeron) 7.[address] [facility] Last Admin: 12/26/18 21:32 Dose: 7.5 mg Ondansetron HCl (Zofran Odt) 4 mg PO Q6H PRN PRN Reason: Nausea/Vomiting Ondansetron HCl (Zofran) 4 mg IVP Q6H PRN PRN Reason: Nausea/Vomiting Last Admin: 12/20/18 21:58 Dose: 4 mg Ondansetron HCl (Zofran Odt) 4 mg PO [facility] Last Admin: 12/27/18 09:35 Dose: 4 mg Pantoprazole Sodium (Protonix) 40 mg PO DAILY [facility] Last Admin: 12/27/18 09:35 Dose: 40 mg Saccharomyces Boulardii (Florastor) 250 mg PO DAILY [facility] Last Admin: 12/27/18 09:35 Dose: 250 mg Sertraline HCl (Zoloft) [address] [facility] Last Admin: 12/26/18 21:33 Dose: 200 mg Sodium Chloride (Flush - Normal Saline) 10 ml IVF Q12HR [facility] Last Admin: 12/27/18 09:35 Dose: 10 ml Sodium Chloride (Flush - Normal Saline) 10 ml IVF PRN PRN PRN Reason: Saline Flush Last Admin: 12/27/18 05:10 Dose: 10 ml
[2018-12-27] MEDS: HumaLOG 300 UNITS/3 ML VIAL SC PRN (11:53)
[2018-12-27] MEDS: Melatonin 3 MG TAB PO SCH (20:52)
[2018-12-27] MEDS: Mirtazapine 15 MG TAB PO SCH (20:55)
[2018-12-27] MEDS: Atorvastatin Calcium 40 MG TAB PO SCH (20:55)
[2018-12-28] MEDS: MEROPENEM 1 GM/50 ML 1 GM in Premix Bag 1 BAG IVPB SCH ×3 (05:40→21:44)
--- NOTE | 2018-12-28 08:09 | PDOC.PN ---
- Subjective Encounter Start Date: 12/28/18 Encounter Start Time: 08:07 Subjective: No new problem -: Oral intake remained poor. - Objective Resuscitation Status - Order Detail: 12/27/18 20:59 Resuscitation Status Routine Resuscitation Status: DNAR: NO Resuscitation Discussed with: Dr Goldstein/RN confirmed with Patient Vital Signs & Weight: Vital Signs (12 hours) Temp Pulse Resp BP BP Pulse Ox 12/28/18 07:14 97.6 F 67 12 172/76 H 97 12/28/18 03:54 98.2 F 63 18 168/74 H 95 12/27/18 20:52 62 140/60 Weight Admit Weight 148 lb 9.6 oz Weight 157 lb I&O: 12/27/18 12/28/18 12/29/18 06:59 06:59 06:59 Intake Total 770 480 Output Total 1050 950 Balance -280 -470 Result Diagrams: 12/24/18 06:29 12/24/18 06:29 Additional Labs: Accuchecks 12/28/18 12/27/18 12/27/18 05:29 20:14 16:54 POC Glucose 102 142 H 151 H 12/27/18 11:25 POC Glucose 200 H Phys Exam - Physical Examination Constitutional: NAD HEENT: moist MMs Neck: no JVD, supple Respiratory: no wheezing, no rales, no rhonchi, clear to auscultation bilateral Cardiovascular: RRR, no significant murmur Gastrointestinal: soft, non-tender, no distention, positive bowel sounds Musculoskeletal: no edema, pulses present Neurological: non-focal awake and conversational. Moves all limbs but weakly Dx/Plan (1) Pseudomonas urinary tract infection Code(s): N39.0 - URINARY TRACT INFECTION, SITE NOT SPECIFIED; B96.5 - PSEUDOMONAS (MALLEI) CAUSING DISEASES CLASSD ELSWHR Status: Acute (2) Acute pyelonephritis Code(s): N10 - ACUTE PYELONEPHRITIS Status: Acute (3) Metabolic acidosis Code(s): E87.2 - ACIDOSIS Status: Acute (4) Diabetic gastroparesis Code(s): E11.43 - TYPE 2 DIABETES W DIABETIC AUTONOMIC (POLY)NEUROPATHY; K31.84 - GASTROPARESIS Status: Deleted Comment: Staph hominis and stap epidermidis. considered contaminats (5) Positive blood cultures Code(s): R78.81 - BACTEREMIA Status: Deleted (6) Acute metabolic encephalopathy Code(s): G93.41 - METABOLIC ENCEPHALOPATHY Status: Deleted Comment: Improving, likely from infection. Off of antibiotics (7) FTT (failure to thrive) in adult Status: Deleted (8) HTN (hypertension) Code(s): I10 - ESSENTIAL (PRIMARY) HYPERTENSION Status: Chronic Qualifiers: Comment: (9) Dehydration Code(s): E86.0 - DEHYDRATION Status: Deleted (10) Hypokalemia Code(s): E87.6 - HYPOKALEMIA Status: Deleted (11) Hematemesis Code(s): K92.0 - HEMATEMESIS Status: Deleted (12) Demand ischemia of myocardium Code(s): I24.8 - OTHER FORMS OF ACUTE ISCHEMIC HEART DISEASE Status: Deleted (13) Physical deconditioning Code(s): R53.81 - OTHER MALAISE Status: Acute (14) DM type 2 (diabetes mellitus, type 2) Status: Chronic Qualifiers: Comment: - Plan Continue IV meropenem -: liberaloral intake. -: Continue insulin therapy. -: Palliative care following. Repeat CBC and BMP in the am. * .
[2018-12-28] MEDS: Ondansetron ODT 4 MG TAB PO SCH ×3 (08:59→16:16)
[2018-12-28] MEDS: Amlodipine 10 MG TAB PO SCH (08:59)
[2018-12-28] MEDS: Aspirin 325 mg Enteric Coated Tablet PO SCH (09:00)
[2018-12-28] MEDS: Enoxaparin Sodium 30 MG/0.3 ML SYRINGE SC SCH (09:00)
[2018-12-28] MEDS: Metoprolol Tartrate 50 MG TAB PO SCH (09:01)
[2018-12-28] MEDS: Saccharomyces boulardii 250 MG CAP PO SCH (09:01)
[2018-12-28] MEDS: hydrALAZINE 10 MG TAB PO SCH ×2 (09:02→21:44)
[2018-12-28] MEDS: hydrALAZINE 20 MG/ML VIAL SLOW IVP PRN (12:22)
[2018-12-28] MEDS: Melatonin 3 MG TAB PO SCH (21:43)
[2018-12-28] MEDS: Atorvastatin Calcium 40 MG TAB PO SCH (21:43)
[2018-12-28] MEDS: Mirtazapine 15 MG TAB PO SCH (21:44)
[2018-12-29] MEDS: MEROPENEM 1 GM/50 ML 1 GM in Premix Bag 1 BAG IVPB SCH ×2 (05:23→13:29)
[2018-12-29 07:01] LABS: #Basophils 0.1 thou/uL (0.0-0.2); #Eosinphils 0.6 thou/uL (0.0-0.7); #Monocytes 0.8 thou/uL (0.11-0.59); #Neutrophils 3.4 thou/uL (1.40-6.50); %Basophils 1.2 % (0.0-1.0); %Lymphocytes 29.5 % (21.0-51.0); %Monocytes 11.5 % (0.0-10.0); %Neutrophils 48.8 % (42.0-75.0); Hemoglobin 12.1 g/dL (12.0-16.0); Mean Corpuscular HGB CONC 31.7 g/dL (32.0-36.0); Mean Corpuscular Hemoglobin 29.1 pg (27.0-31.0); Mean Platelet Volume 8.2 fL (7.4-10.4); Platelet Count 257 thou/uL (130-400); Red Blood Cell (RBC) Count 4.16 mill/uL (4.20-5.40); White Blood Cell (WBC) Count 6.9 thou/uL (4.8-10.8)
[2018-12-29 07:21] LABS: Albumin 2.8 g/dL (3.4-4.8); Anion Gap 12 mmol/L (10-20); BUN (Urea Nitrogen) 10 mg/dL (9.8-20.1); BUN/Creatinine Ratio 8.85; Calc. Creatinine Clearance 49 mL/min (70-130); Calcium 8.8 mg/dL (7.8-10.44); Carbon Dioxide 25 mmol/L (23-31); Chloride 105 mmol/L (98-107); Estimated GFR-MDRD 47; Glucose 97 mg/dL (83-110); Magnesium 1.4 mg/dL (1.6-2.6); Phosphorus 2.4 mg/dL (2.3-4.7); Potassium 4.2 mmol/L (3.5-5.1); Sodium 138 mmol/L (136-145)
[2018-12-29 07:44] VITALS: BP 164/75; TEMP 98.4
[2018-12-29] MEDS: Ondansetron ODT 4 MG TAB PO SCH ×2 (07:47→11:43)
[2018-12-29] MEDS ORDERED: Magnesium Sulfate 4 GM in Sodium Chloride 0.9% 250 ML 250 ML IVPB SCH (08:15)
[2018-12-29] MEDS: Aspirin 325 mg Enteric Coated Tablet PO SCH (09:52)
[2018-12-29] MEDS: Enoxaparin Sodium 30 MG/0.3 ML SYRINGE SC SCH (09:52)
[2018-12-29] MEDS: Amlodipine 10 MG TAB PO SCH (09:52)
[2018-12-29] MEDS: hydrALAZINE 10 MG TAB PO SCH (09:53)
[2018-12-29] MEDS: Metoprolol Tartrate 50 MG TAB PO SCH (09:53)
[2018-12-29] MEDS: Saccharomyces boulardii 250 MG CAP PO SCH (09:53)
[2018-12-29] MEDS: HumaLOG 300 UNITS/3 ML VIAL SC PRN (12:03)
== END 2018-12-29 15:23 | DRG 689 ==
LOC: ERS 23:54 → 2NO 12-20 02:59
PROVIDERS: ADMIT Internal Medicine; ATTEND Internal Medicine
PROC: 02H633Z Insertion of Infusion Device into Right Atrium, Percutaneous Approach (ICD-10-PCS; principal; 2018-12-25)
PROC: B244ZZZ Ultrasonography of Right Heart (ICD-10-PCS; 2018-12-25)
DX: N10 Acute pyelonephritis (principal); G93.41 Metabolic encephalopathy; E87.2 Acidosis; I24.8 Other forms of acute ischemic heart disease; Z66 Do not resuscitate; B96.5 Pseudomonas (aeruginosa) (mallei) (pseudomallei) as the cause of diseases classified elsewhere; E11.65 Type 2 diabetes mellitus with hyperglycemia; E11.43 Type 2 diabetes mellitus with diabetic autonomic (poly)neuropathy; E11.22 Type 2 diabetes mellitus with diabetic chronic kidney disease; N18.9 Chronic kidney disease, unspecified; I25.10 Atherosclerotic heart disease of native coronary artery without angina pectoris; I12.9 Hypertensive chronic kidney disease with stage 1 through stage 4 chronic kidney disease, or unspecified chronic kidney disease; E78.00 Pure hypercholesterolemia, unspecified; J44.9 Chronic obstructive pulmonary disease, unspecified; E86.0 Dehydration; F32.9 Major depressive disorder, single episode, unspecified; K59.00 Constipation, unspecified; E87.6 Hypokalemia; E11.649 Type 2 diabetes mellitus with hypoglycemia without coma; Z88.5 Allergy status to narcotic agent; Z79.4 Long term (current) use of insulin; Z98.51 Tubal ligation status; Z79.82 Long term (current) use of aspirin; Z79.899 Other long term (current) drug therapy
CPT/HCPCS: 36415; 36416; 36569; 80048; 80069; 82010; 82274; 82553; 83735; 84100; 84484; 85025; 96374; C1751; C9113; J0360; J0696; J1610; J1644; J1650; J1825; J2185; J2405; J3475; J3490; J7050; J8597; Q0162

== ENCOUNTER 2019-04-13 01:48 | Inpatient (IN) | payer MEDICARE, MEDICAID ==
[2019-04-13] MEDS ORDERED: Pantoprazole 40 MG VIAL ONE (02:05)
[2019-04-13 02:28] LABS: #Basophils 0.1 thou/uL (0.0-0.2); #Eosinphils 0.1 thou/uL (0.0-0.7); #Lymphocytes 0.9 thou/uL (1.20-3.40); #Monocytes 0.3 thou/uL (0.11-0.59); %Basophils 0.8 % (0.0-1.0); %Eosinophils 1.1 % (0.0-10.0); %Lymphocytes 10.7 % (21.0-51.0); %Monocytes 3.6 % (0.0-10.0); %Neutrophils 83.9 % (42.0-75.0); Hemoglobin 12.4 g/dL (12.0-16.0); Mean Corpuscular HGB CONC 33.5 g/dL (32.0-36.0); Mean Corpuscular Hemoglobin 29.6 pg (27.0-31.0); Mean Corpuscular Volume 88.3 fL (78.0-98.0); Mean Platelet Volume 8.5 fL (7.4-10.4); Platelet Count 205 thou/uL (130-400); RBC Distribution Width 13.5 % (11.5-14.5); White Blood Cell (WBC) Count 8.3 thou/uL (4.8-10.8)
[2019-04-13 02:39] LABS: PTT 30.1 SEC (22.9-36.1); Prothrombin Time 13.3 SEC (12.0-14.7)
[2019-04-13 02:42] LABS: ALT (SGPT) Less than 7 U/L (8-55); AST (SGOT) 12 U/L (5-34); Alkaline Phosphatase 81 U/L (40-150); Anion Gap 16 mmol/L (10-20); BUN (Urea Nitrogen) 27 mg/dL (9.8-20.1); Bilirubin, Total 0.2 mg/dL (0.2-1.2); CK (CPK) 38 U/L (29-168); Calc. Creatinine Clearance 0 mL/min (70-130); Calcium 9.6 mg/dL (7.8-10.44); Carbon Dioxide 26 mmol/L (23-31); Chloride 104 mmol/L (98-107); Estimated GFR-MDRD 36; Glucose 280 mg/dL (83-110); Potassium 4.1 mmol/L (3.5-5.1); Sodium 142 mmol/L (136-145)
[2019-04-13 03:02] LABS: CKMB 1.4 ng/mL (0-6.6)
[2019-04-13] MEDS ORDERED: Sodium Chloride 0.9% 1,000 ML IV SCH (05:48)
[2019-04-13] MEDS ORDERED: Ondansetron ODT 4 MG TAB SL PRN (05:48)
[2019-04-13] MEDS ORDERED: Ondansetron PF 4 MG/2 ML Vial IVP PRN (05:48)
[2019-04-13] MEDS ORDERED: Acetaminophen 325 MG TAB PO PRN ×2 (05:48→15:09)
[2019-04-13 05:49] LABS: Troponin I 0.061 ng/mL (< 0.028)
[2019-04-13] MEDS ORDERED: Prevnar 13-Val Conj/PF 0.5 ML SYRINGE IM ONE (08:00)
--- NOTE | 2019-04-13 09:45 | RAD ---
CHEST ONE VIEW: ABDOMEN TWO VIEWS: HISTORY: Pain. FINDINGS: Chest: Normal cardiac silhouette. Pulmonary vessels and hilum are normal. Costophrenic angles are clear. No consolidation or mass. No pneumothorax or osseous abnormalities. Abdomen; Supine and left lateral decubitus view of the abdomen demonstrated a nonspecific bowel gas pattern. No suspicious densities in the abdomen. Dense calcification in the right hemipelvis, presu med to be due to uterine leiomyomas that have calcified. There is vascular calcification of the sple namrata artery. Additional calcifications of the left iliac arteries and bilateral femoral arteries is n oted. No evidence of pneumoperitoneum in the left lateral decubitus projection. IMPRESSION: 1. No acute cardiopulmonary process. 2. Nonspecific bowel gas pattern. POS: [facility]
[2019-04-13 10:04] LABS: Troponin I 0.049 ng/mL (< 0.028)
[2019-04-13] MEDS: Pantoprazole 80 MG in Sodium Chloride 0.9% 100 ML IVPB SCH ×2 (12:02→21:34)
[2019-04-13] MEDS ORDERED: Ondansetron ODT 4 MG TAB PO PRN (15:09)
[2019-04-13] MEDS ORDERED: Milk Of Magnesia 30 ML UDCUP PO PRN (15:09)
[2019-04-13] MEDS ORDERED: Metoclopramide HCl 10 MG TAB PO PRN (15:09)
[2019-04-13] MEDS ORDERED: Promethazine 25 MG TAB PO PRN (15:09)
[2019-04-13] MEDS ORDERED: Meclizine HCl 25 MG TAB PO PRN (15:09)
[2019-04-13] MEDS ORDERED: Polyethylene Glycol 3350 17 GM Packet PO PRN (15:09)
[2019-04-13] MEDS ORDERED: Non-Formulary Item 1 EACH (Insulin Aspart [Novolog] 100 UNIT) SQ PRN (15:09)
[2019-04-13] MEDS ORDERED: hydrALAZINE 20 MG/ML VIAL SLOW IVP PRN (15:12)
[2019-04-13] MEDS ORDERED: HYDROcodone/Acetaminophen 5/325 mg Tablet PO PRN (15:12)
[2019-04-13] MEDS ORDERED: Dextrose 5% in Water 1,000 ML IV PRN (15:17)
[2019-04-13] MEDS: Sodium Chloride 0.9% 1,000 ML IV SCH (16:05)
[2019-04-13 16:47] LABS: Hemoglobin 10.7 g/dL (12.0-16.0)
[2019-04-13] MEDS ORDERED: Non-Formulary Item 1 EACH (Insulin Detemir 100 Units/Ml [Levemir] 20 UNIT) SQ SCH (21:00)
[2019-04-13] MEDS: Atorvastatin Calcium 40 MG TAB PO SCH (22:33)
[2019-04-13] MEDS: Melatonin 3 MG TAB PO SCH (22:33)
[2019-04-13] MEDS: Mirtazapine 15 MG TAB PO SCH (22:34)
[2019-04-13] MEDS: Insulin Glargine 20 UNITS in Pre-Filled Syringe 1 EACH SC SCH (23:09)
--- NOTE | 2019-04-14 03:58 | CON ---
DATE OF CONSULTATION: 04/13/2019 CHIEF COMPLAINT: Nausea and vomiting. HISTORY OF PRESENT ILLNESS: Ms. Carney is a 73-year-old woman who has a history of chronic nausea and vomiting associated with prior diagnosis of diabetic gastroparesis. This episode of nausea and vomiting started about a week ago and she has been vomiting a couple of times a day with anything that she eats. Starting few days ago, she noticed coffee-ground appearing material with her emesis. Ultimately, she was transferred to the emergency room from the [facility] today for evaluation of suspected hematemesis. She has no abdominal pain. She does have chronic constipation. She had a bowel movement today, which was brown solid stool, but did require help digitally from the nursing staff to pass the stool. She has had no blood in the stool. She was last hospitalized here back in December with pyelonephritis. PAST MEDICAL HISTORY: Coronary artery disease, diabetes mellitus type 2, diabetic gastroparesis, COPD, hypertension, erythema multiforme. PAST SURGICAL HISTORY: Knee surgery, cervical fusion, vaginal tumor removal, rotator cuff repair. FAMILY HISTORY: Negative for GI malignancy. SOCIAL HISTORY: No alcohol, tobacco, or drugs. She lives in a fpc. ALLERGIES: MORPHINE, TRAMADOL. CURRENT INPATIENT MEDICATIONS: Include: 1. Amlodipine. 2. Atorvastatin. 3. Vitamin D. 4. Docusate. 5. Insulin. 6. Losartan. 7. Melatonin. 8. Metoclopramide 5 mg 3 times daily as needed. 9. Metoprolol. 10. Mirtazapine. 11. Pantoprazole IV drip. 12. MiraLAX 17 g daily. 13. Florastor. 14. Sertraline. REVIEW OF SYSTEMS: Negative x10 systems reviewed except as stated in the history of present illness. PHYSICAL EXAMINATION: VITAL SIGNS: Temperature 98.4, blood pressure 168/68, pulse 92. GENERAL: She is in no acute distress. She is awake, oriented x3. Her eyes have no scleral icterus. Oropharynx is clear without lesions. No cervical or supraclavicular lymphadenopathy. LUNGS: Clear to auscultation bilaterally. HEART: Regular rate and rhythm without murmur. ABDOMEN: Soft, nontender, and nondistended. Bowel sounds are present. EXTREMITIES: No lower extremity edema. LABORATORY DATA: White blood cell count 8.3, hemoglobin on presentation earlier this morning was 12.4, hemoglobin this afternoon was 10.7, platelets 205. INR 1.0, creatinine 1.42, bilirubin 0.2, AST 12, ALT 7, alkaline phosphatase 81, albumin 4.0. IMPRESSION: 1. Hematemesis with coffee-grounds emesis. I suspect this is secondary to Elsy-Reyes tear. She has been vomiting a couple times a day over the last week. 2. Anemia of acute blood loss. Her hemoglobin did decrease from 12.4 to 10.7, however, this could be due to rehydration. Her hemoglobin was 12 back in December as well though. 3. Acute renal insufficiency. 4. Possible history of diabetic gastroparesis. RECOMMENDATIONS: 1. Proton pump inhibitor. 2. We will follow through with upper endoscopy tomorrow due to the persistent nausea and vomiting over the last week. This has been associated with hematemesis reported, drop in her hemoglobin. Job ID: [id number]
[2019-04-14 04:39] LABS: #Basophils 0.1 thou/uL (0.0-0.2); #Eosinphils 0.4 thou/uL (0.0-0.7); #Lymphocytes 2.1 thou/uL (1.20-3.40); #Monocytes 0.6 thou/uL (0.11-0.59); #Neutrophils 4.8 thou/uL (1.40-6.50); %Basophils 1.4 % (0.0-1.0); %Eosinophils 4.6 % (0.0-10.0); %Lymphocytes 26.1 % (21.0-51.0); %Monocytes 7.9 % (0.0-10.0); %Neutrophils 59.9 % (42.0-75.0); Hemoglobin 9.9 g/dL (12.0-16.0); Mean Corpuscular HGB CONC 33.1 g/dL (32.0-36.0); Mean Corpuscular Hemoglobin 29.6 pg (27.0-31.0); Mean Corpuscular Volume 89.6 fL (78.0-98.0); Mean Platelet Volume 8.5 fL (7.4-10.4); Platelet Count 175 thou/uL (130-400); RBC Distribution Width 13.4 % (11.5-14.5); Red Blood Cell (RBC) Count 3.34 mill/uL (4.20-5.40); White Blood Cell (WBC) Count 7.9 thou/uL (4.8-10.8)
[2019-04-14 05:00] LABS: Anion Gap 11 mmol/L (10-20); BUN (Urea Nitrogen) 18 mg/dL (9.8-20.1); Calc. Creatinine Clearance 45 mL/min (70-130); Calcium 8.7 mg/dL (7.8-10.44); Carbon Dioxide 23 mmol/L (23-31); Chloride 111 mmol/L (98-107); Estimated GFR-MDRD 49; Glucose 89 mg/dL (83-110); Potassium 3.8 mmol/L (3.5-5.1); Sodium 141 mmol/L (136-145)
[2019-04-14] MEDS: Sodium Chloride 0.9% 1,000 ML IV SCH (05:50)
[2019-04-14] MEDS ORDERED: Non-Formulary Item 1 EACH (Insulin Detemir 100 Units/Ml [Levemir] 25 UNIT) SQ SCH (08:00)
[2019-04-14] MEDS: Pantoprazole 80 MG in Sodium Chloride 0.9% 100 ML IVPB SCH (08:35)
--- NOTE | 2019-04-14 09:39 | HP ---
HISTORY OF PRESENT ILLNESS: Ms. Carney is a very pleasant 73-year-old white female, who presents with hematemesis. The patient is with past medical history of gastroesophageal reflux disease and has had several episodes of GI bleeding in the past. The patient is also with past medical history of diabetes, coronary artery disease, hypertension, chronic kidney disease, diabetic gastroparesis, chronic constipation, hyperlipidemia, depression, and osteoarthritis. The patient is a chronic resident of a nursing facility in [place] and was transferred for higher level of care. I find the patient in the intermediate medical care floor. She is resting in bed comfortably. The patient is breathing well on room air without distress. The patient tells me that she [facility] when she started noticing a dark bloody reddish color to her vomit. The patient states that she has had bad cramping and constipation recently, though this is chronic for her. The patient admitted to the hospital for further evaluation and treatment. Gastroenterology consultation requested for further recommendation. PAST MEDICAL HISTORY: 1. History of gastrointestinal bleeding. 2. GERD. 3. Insulin-dependent diabetes mellitus. 4. Hypertension. 5. Hyperlipidemia. 6. Depression. 7. COPD. 8. Coronary artery disease. 9. Diabetic gastroparesis. SOCIAL HISTORY: The patient is a retired ICU nurse. She chronically lives in a penit[facility]iary facility. She denies alcohol, tobacco, or illicit drugs. REVIEW OF SYSTEMS: A 10-point review of systems was conducted and otherwise negative aside from that which was mentioned in history of present illness. HOME MEDICATIONS: 1. Insulin detemir 20 units at bedtime. 2. Insulin detemir 25 units q.a.m. 3. Insulin sliding scale with meals and at bedtime. 4. Phenergan. 5. Artificial Tears. 6. MiraLAX. 7. Zofran. 8. Reglan. 9. Meclizine. 10. Milk of magnesia. 11. Lipitor. 12. Tylenol Extra Strength. 13. Sertraline. 14. Saccharomyces boulardii. 15. Mirtazapine. 16. Metoprolol. 17. Melatonin. 18. Losartan. 19. Docusate. 20. Vitamin D3. 21. Aspirin. 22. Amlodipine. ALLERGIES: MORPHINE, TRAMADOL. PHYSICAL EXAMINATION: VITAL SIGNS: Temperature 98.6, O2 saturations 94% on room air, blood pressure 166/78, pulse 84. GENERAL: The patient is in no apparent distress, resting comfortably in bed. HEENT: Oral mucosa is moist and without obvious lesions or exudates. NECK: Symmetrical and supple. CARDIOVASCULAR: Regular rate and rhythm. No appreciated murmurs, no rubs, no gallops. LUNGS: Clear to auscultation bilaterally. No wheezing, rales, or rhonchi. ABDOMEN: There is mild tenderness in the epigastric area, however, there is no guarding, rebound, or rigidity. BACK: There is mild tenderness to palpation in the lumbar spine. EXTREMITIES: No edema in lower extremities or upper extremities bilaterally. NEUROLOGIC: The patient is alert to self, she knows she is in the hospital, she knows the situation, however, she does not know the year. The patient is fast to answer most questions and answers correctly. LABORATORY DATA: WBC 8.3, RBC 4.2, hemoglobin 12.4, hematocrit 37.0, MCV 88.3, platelets 205,000. INR 1.0, PT 13.3, PTT 30.1. Sodium 142, potassium 4.1, chloride 104, carbon dioxide 26, anion gap 16, blood urea nitrogen 27, creatinine 1.42, estimated GFR 36, glucose 280, calcium 9.6, total bilirubin 0.2, AST 12, ALT less than 7, alkaline phosphatase 81, creatine kinase 38, CK-MB 1.4, troponin 0.049, BNP 224, serum total protein 7.0, albumin 4. ASSESSMENT: 1. Uncontrolled nausea and vomiting to the point where she developed hematemesis. The patient describes this as dark blood, concern for upper gastrointestinal bleed. 2. Normocytic anemia secondary to acute blood loss. 3. Diabetic gastroparesis. 4. Insulin-dependent diabetes. 5. Hypertension. 6. Hyperlipidemia. 7. Coronary artery disease with history of 5 stents in the past. 8. Chronic obstructive pulmonary disease. 9. Osteoarthritis. 10. History of spinal fusions. 11. Depression. 12. Gastroesophageal reflux disease. 13. Chronic constipation. PLAN: 1. Admit to [facility]. 2. Gastroenterology consultation, PPI drip, hold anticoagulation/ antiplatelet therapy recommendations appreciated. 3. The patient may require endoscopy for definitive diagnosis/treatment of upper GI bleeding versus lower GI bleeding. 4. We will transfuse packed red blood cells for hemoglobin less than 7.0. 5. No chemical or oral anticoagulation as the patient has concerns for acute GI bleeding. 6. Continue insulin scheduled long-acting with sliding scale. 7. Hypoglycemia protocol 8. Continue other home medications as able. Job ID: [id number] CHETAN
[2019-04-14] MEDS: Insulin Glargine 25 UNITS in Pre-Filled Syringe 1 EACH SC SCH (10:09)
[2019-04-14] MEDS: Dextrose 50% Abboject 50 ML SYRINGE SLOW IVP PRN (10:15)
[2019-04-14] MEDS: Amlodipine 10 MG TAB PO SCH (11:08)
[2019-04-14] MEDS: Losartan 25 MG TAB PO SCH (11:09)
[2019-04-14] MEDS: Saccharomyces boulardii 250 MG CAP PO SCH (11:09)
[2019-04-14] MEDS: Docusate 100 MG CAP PO SCH (11:09)
[2019-04-14] MEDS: Metoprolol Tartrate 50 MG TAB PO SCH (11:09)
[2019-04-14] MEDS ORDERED: HumaLOG 300 UNITS/3 ML VIAL SC PRN (12:35)
[2019-04-14 12:51] VITALS: BMI 23.1
[2019-04-14] MEDS: hydrALAZINE 20 MG/ML VIAL SLOW IVP PRN ×2 (14:08→20:31)
[2019-04-14] MEDS ORDERED: Sodium Chloride 0.9% 1,000 ML IV SCH (14:47)
--- NOTE | 2019-04-14 14:50 | PDOC.HOSPP ---
- Subjective Subjective: Seen and examined. NPO for endoscopy. Patient feels hungry/ thirsty. Had liquids yesterday though there was some coughing, patient states she normally has thickened liquids to avoid aspiration of fluids. Dietitian consultation and speech therapy consultation for diet/ consistency recommendations. No abdominal pain. Patient alert and oriented to self, location, and situation. - Objective Vital Signs & Weight: Vital Signs (12 hours) Temp Pulse 04/14/19 14:08 62 04/14/19 10:40 98.0 F 04/14/19 08:26 62 04/14/19 07:09 97.6 F 04/14/19 03:23 97.5 F L Weight Admit Weight 140 lb 8 oz Weight 143 lb 4.8 oz Most Recent Monitor Data NIBP 182/83 NIBP BP-Mean 116 SpO2 95 I&O: 04/13/19 04/14/19 04/15/19 06:59 06:59 06:59 Intake Total 2470 680 Balance 2470 680 Result Diagrams: 04/14/19 04:23 04/14/19 04:23 Additional Labs: Accuchecks 04/14/19 04/13/19 04/13/19 05:13 23:09 20:25 POC Glucose 71 161 H 180 H 04/13/19 16:08 POC Glucose 120 H ROS - Medication Medications: Active Medications Generic Name Dose Route Start Last Admin Trade Name Freq PRN Reason Stop Dose Admin Amlodipine Besylate 10 mg 04/14/19 09:00 04/14/19 11:08 Norvasc PO Not Given DAILY JERRY Atorvastatin Calcium 40 mg 04/13/19 21:00 04/13/19 22:33 Lipitor PO 40 mg HS JERRY Administration Cholecalciferol 5,000 units 04/14/19 09:00 04/14/19 11:09 Vitamin D3 PO Not Given DAILY JERRY Dextrose/Water 25 gm 04/13/19 15:17 04/14/19 10:15 Dextrose 50% SLOW IVP 25 gm PRN PRN Administration Hypoglycemia Docusate Sodium 100 mg 04/14/19 09:00 04/14/19 11:09 Colace PO Not Given DAILY JERRY Hydralazine HCl 10 mg 04/14/19 10:59 04/14/19 14:08 Apresoline SLOW IVP 10 mg Q4H PRN Administration For SBP >160 Pantoprazole Sodium 80 mg/ 100 mls @ 10 mls/hr 04/13/19 02:15 04/14/19 08:35 Sodium Chloride IVPB 100 mls INF JERRY Administration Insulin Glargine 20 units/ 0.2 mls @ 0 mls/hr 04/13/19 21:00 04/13/19 23:09 Miscellaneous Medication SC 0.2 mls HS JERRY Administration As Directed Insulin Glargine 25 units/ 0.25 mls @ 0 mls/hr 04/14/19 08:00 04/14/19 10:09 Miscellaneous Medication SC Not Given QAM-WM JERRY As Directed Losartan Potassium 100 mg 04/14/19 09:00 04/14/19 11:09 Cozaar PO Not Given DAILY JERRY Melatonin 3 mg 04/13/19 21:00 04/13/19 22:33 Melatonin PO 3 mg HS JERRY Administration Metoprolol Tartrate 50 mg 04/14/19 09:00 04/14/19 11:09 Lopressor PO Not Given DAILY JERRY Mirtazapine 7.5 mg 04/13/19 21:00 04/13/19 22:34 Remeron PO 7.5 mg HS JERRY Administration Saccharomyces Boulardii 250 mg 04/14/19 09:00 04/14/19 11:09 Florastor PO Not Given DAILY JERRY Sertraline HCl 200 mg 04/13/19 21:00 04/13/19 22:35 Zoloft PO 200 mg HS JERRY Administration - Exam NAD, awake alert Eye: PERRL Eye - other findings: EOMI ENT: no oropharyngeal lesions, dry oral mucosa Neck: supple, symmetric Heart: RRR, no murmur, no rubs Respiratory: CTAB, no wheezes, no rales, no ronchi, normal chest expansion Gastrointestinal: soft, non-tender, non-distended, no palpable masses, no hepatomegaly Extremities: no edema Skin: normal turgor, no rashes Neurological: CN's grossly intact, no weakness, no focal deficits, no new deficit Musculoskeletal: no muscle wasting Psychiatric: normal affect, A&O x 3 Hosp A/P (1) Acute GI bleeding Code(s): K92.2 - GASTROINTESTINAL HEMORRHAGE, UNSPECIFIED Status: Acute (2) Physical deconditioning Code(s): R53.81 - OTHER MALAISE Status: Acute (3) CAD (coronary artery disease) Code(s): I25.10 - ATHSCL HEART DISEASE OF [place] CORONARY ARTERY W/O ANG PCTRS Status: Chronic Qualifiers: (4) DM type 2 (diabetes mellitus, type 2) Status: Chronic (5) Dyslipidemia Code(s): E78.5 - HYPERLIPIDEMIA, UNSPECIFIED Status: Chronic (6) HTN (hypertension) Code(s): I10 - ESSENTIAL (PRIMARY) HYPERTENSION Status: Chronic Qualifiers: - Plan Plan: GI consultation, recommendation appreciated May require endoscopy for definitive diagnosis/ treatment of UGIB Speech therapy consult for swallow evaluation Dietitian consultation Blood sugar control with long and short acting insulin - While patient is eating BP control Resume home meds as able DVT PPX - SCDs with concern for GI bleeding GI PPX - on protonix drip
[2019-04-14] MEDS: Atorvastatin Calcium 40 MG TAB PO SCH (20:30)
[2019-04-14] MEDS: Mirtazapine 15 MG TAB PO SCH (20:30)
[2019-04-14] MEDS: Insulin Glargine 20 UNITS in Pre-Filled Syringe 1 EACH SC SCH (20:30)
[2019-04-14] MEDS: Melatonin 3 MG TAB PO SCH (20:31)
[2019-04-14] MEDS: Pantoprazole 40 MG VIAL IVP SCH (20:32)
--- NOTE | 2019-04-14 23:37 | OP ---
DATE OF PROCEDURE: 04/14/2019 PROCEDURE PERFORMED: Esophagogastroduodenoscopy with biopsy. PREOPERATIVE DIAGNOSES: Hematemesis and anemia of acute blood loss. DESCRIPTION OF PROCEDURE: Informed consent was obtained from the patient. She was sedated with total intravenous anesthesia. The bite block was placed and the endoscope was advanced easily to the second portion of the duodenum and retroflexion was performed in the stomach. The esophagus had grade C erosive esophagitis of the distal 5 cm of the esophagus. Biopsies were obtained from the site. A 3-cm hiatal hernia was present. The stomach was unremarkable overall including retroflex views otherwise. The pylorus and first portion of the duodenum were normal. There was a 4-mm ulcer in the second portion of the duodenum. Biopsies were obtained from the stomach to rule out Helicobacter pylori. IMPRESSION: 1. Grade C erosive esophagitis of the distal 5 cm of the esophagus. 2. A 3-cm hiatal hernia. 3. Otherwise unremarkable stomach. Gastric biopsies were taken to rule out Helicobacter pylori. 4. A 4-mm ulcer in the second portion of the duodenum. RECOMMENDATIONS: 1. Await histopathology. 2. Proton pump inhibitor twice daily. 3. Advance to a low-fiber diabetic diet. Job ID: [id number]
[2019-04-15] MEDS: Dextrose 50% Abboject 50 ML SYRINGE SLOW IVP PRN (00:33)
[2019-04-15 05:53] LABS: #Basophils 0.1 thou/uL (0.0-0.2); #Eosinphils 0.6 thou/uL (0.0-0.7); #Lymphocytes 1.8 thou/uL (1.20-3.40); #Monocytes 0.7 thou/uL (0.11-0.59); #Neutrophils 4.4 thou/uL (1.40-6.50); %Eosinophils 7.8 % (0.0-10.0); %Lymphocytes 24.2 % (21.0-51.0); %Monocytes 8.6 % (0.0-10.0); %Neutrophils 58.3 % (42.0-75.0); Hemoglobin 10.9 g/dL (12.0-16.0); Mean Corpuscular Hemoglobin 28.9 pg (27.0-31.0); Mean Corpuscular Volume 87.6 fL (78.0-98.0); Mean Platelet Volume 8.5 fL (7.4-10.4); Platelet Count 187 thou/uL (130-400); RBC Distribution Width 13.2 % (11.5-14.5); Red Blood Cell (RBC) Count 3.76 mill/uL (4.20-5.40); White Blood Cell (WBC) Count 7.5 thou/uL (4.8-10.8)
[2019-04-15 06:32] LABS: Carbon Dioxide 20 mmol/L (23-31); Glucose 70 mg/dL (83-110)
[2019-04-15 06:35] LABS: Calcium 8.6 mg/dL (7.8-10.44); Chloride 108 mmol/L (98-107); Potassium 3.7 mmol/L (3.5-5.1); Sodium 139 mmol/L (136-145)
[2019-04-15 06:37] LABS: Anion Gap 13 mmol/L (10-20)
[2019-04-15 06:39] LABS: Calc. Creatinine Clearance 46 mL/min (70-130); Estimated GFR-MDRD 49
[2019-04-15 06:40] LABS: BUN (Urea Nitrogen) 12 mg/dL (9.8-20.1)
[2019-04-15] MEDS: Amlodipine 10 MG TAB PO SCH (10:12)
[2019-04-15] MEDS: Losartan 25 MG TAB PO SCH (10:12)
[2019-04-15] MEDS: Metoprolol Tartrate 50 MG TAB PO SCH (10:12)
[2019-04-15] MEDS: Saccharomyces boulardii 250 MG CAP PO SCH (10:12)
[2019-04-15] MEDS: Docusate 100 MG CAP PO SCH (10:12)
[2019-04-15] MEDS: Pantoprazole 40 MG VIAL IVP SCH ×2 (10:13→20:06)
--- NOTE | 2019-04-15 13:57 | PDOC.HOSPP ---
- Subjective Subjective: Seen and examined. No further vomiting or GI bleeding. Patient needs to work with speech therapy and dietitian to get diet that she can tolerate safely. Clinically improving, likely back to SNF where she is a chronic resident in the next 24-48 hours. - Objective Vital Signs & Weight: Vital Signs (12 hours) Temp Pulse Pulse Ox 04/15/19 11:16 98.1 F 04/15/19 10:12 65 04/15/19 08:00 97 04/15/19 07:44 97.7 F 04/15/19 07:10 96 04/15/19 03:00 97.9 F Weight Admit Weight 140 lb 8 oz Weight 143 lb 4.8 oz Most Recent Monitor Data Heart Rate from ECG 82 NIBP 166/64 NIBP BP-Mean 98 Respiration from ECG 16 SpO2 96 I&O: 04/14/19 04/15/19 04/16/19 06:59 06:59 06:59 Intake Total 2470 810 Balance 2470 810 Result Diagrams: 04/15/19 05:35 04/15/19 05:35 Additional Labs: Accuchecks 04/15/19 04/15/19 04/15/19 10:31 05:42 00:30 POC Glucose 128 H 75 65 L 04/14/19 04/14/19 04/14/19 20:17 16:06 11:29 POC Glucose 81 76 118 H ROS - Medication Medications: Active Medications Generic Name Dose Route Start Last Admin Trade Name Freq PRN Reason Stop Dose Admin Amlodipine Besylate 10 mg 04/14/19 09:00 04/15/19 10:12 Norvasc PO 10 mg DAILY JERRY Administration Atorvastatin Calcium 40 mg 04/13/19 21:00 04/14/19 20:30 Lipitor PO 40 mg HS JERRY Administration Cholecalciferol 5,000 units 04/14/19 09:00 04/15/19 10:12 Vitamin D3 PO 5,000 units DAILY JERRY Administration Dextrose/Water 25 gm 04/13/19 15:17 04/15/19 00:33 Dextrose 50% SLOW IVP 25 gm PRN PRN Administration Hypoglycemia Docusate Sodium 100 mg 04/14/19 09:00 04/15/19 10:12 Colace PO 100 mg DAILY JERRY Administration Hydralazine HCl 10 mg 04/14/19 10:59 04/14/19 20:31 Apresoline SLOW IVP 10 mg Q4H PRN Administration For SBP >160 Insulin Glargine 20 units/ 0.2 mls @ 0 mls/hr 04/13/19 21:00 04/14/19 20:30 Miscellaneous Medication SC Not Given HS JERRY As Directed Insulin Glargine 25 units/ 0.25 mls @ 0 mls/hr 04/14/19 08:00 04/14/19 10:09 Miscellaneous Medication SC Not Given QAM-WM JERRY As Directed Losartan Potassium 100 mg 04/14/19 09:00 04/15/19 10:12 Cozaar PO 100 mg DAILY JERRY Administration Melatonin 3 mg 04/13/19 21:00 04/14/19 20:31 Melatonin PO 3 mg HS JERRY Administration Metoprolol Tartrate 50 mg 04/14/19 09:00 04/15/19 10:12 Lopressor PO 50 mg DAILY JERRY Administration Mirtazapine 7.5 mg 04/13/19 21:00 04/14/19 20:30 Remeron PO 7.5 mg HS JERRY Administration Ondansetron HCl 4 mg 04/13/19 15:09 04/14/19 20:31 Zofran Odt PO 4 mg Q6H PRN Administration Nausea/Vomiting Pantoprazole Sodium 40 mg 04/14/19 21:00 04/15/19 10:13 Protonix IVP 40 mg Q12HR JERRY Administration Saccharomyces Boulardii 250 mg 04/14/19 09:00 04/15/19 10:12 Florastor PO 250 mg DAILY JERRY Administration Sertraline HCl 200 mg 04/13/19 21:00 04/14/19 20:31 Zoloft PO 200 mg HS JERRY Administration - Exam NAD, awake alert Eye: PERRL, anicteric sclera ENT: no oropharyngeal lesions, moist mucosa Neck: supple, symmetric Heart: RRR, no murmur, no gallops, no rubs Respiratory: CTAB, no wheezes, no rales, no ronchi, no tachypnea Gastrointestinal: soft, non-tender, non-distended, normal bowel sounds, no guarding, no rigidity Extremities: no edema Neurological: CN's grossly intact, no weakness, no focal deficits Musculoskeletal: generalized weakness Psychiatric: A&O x 3 Hosp A/P (1) Acute GI bleeding Code(s): K92.2 - GASTROINTESTINAL HEMORRHAGE, UNSPECIFIED Status: Acute (2) Physical deconditioning Code(s): R53.81 - OTHER [place]AISE Status: Acute (3) CAD (coronary artery disease) Code(s): I25.10 - ATHSCL HEART DISEASE OF [place] CORONARY ARTERY W/O ANG PCTRS Status: Chronic Qualifiers: (4) DM type 2 (diabetes mellitus, type 2) Status: Chronic (5) Dyslipidemia Code(s): E78.5 - HYPERLIPIDEMIA, UNSPECIFIED Status: Chronic (6) HTN (hypertension) Code(s): I10 - ESSENTIAL (PRIMARY) HYPERTENSION Status: Chronic Qualifiers: - Plan Plan: GI consultation, recommendation appreciated S/p EGD, see full report for details PPI oral Stop PPI drip Speech therapy consult for swallow evaluation Dietitian consultation Blood sugar control with long and short acting insulin - While patient is eating BP control Resume home meds as able DVT PPX - SCDs with concern for GI bleeding GI PPX - on protonix Likely back to SNF where she is a chronic resident in the next 24 - 48 hours if continues to clinically improve
[2019-04-15] MEDS: Insulin Glargine 25 UNITS in Pre-Filled Syringe 1 EACH SC SCH (14:07)
--- NOTE | 2019-04-15 16:43 | PRG ---
DATE OF SERVICE: 04/15/2019 SUBJECTIVE: Ms. Carney is tolerating her oral diet, that has been wary about advancing to the solid foods. She does have a low-fiber consistent carbohydrate diet ordered. OBJECTIVE: VITAL SIGNS: She is afebrile. Blood pressure 174/81 and pulse 62. ABDOMEN: Soft and nontender. Bowel sounds are present. IMPRESSION: 1. Severe erosive esophagitis. 2. Hiatal hernia. 3. Hematemesis, resolved. This is likely secondary to the erosive esophagitis. 4. Diabetic gastroparesis. RECOMMENDATIONS: 1. Low-fiber diet. 2. Proton pump inhibitor twice daily. 3. Anticipate discharge back to the [facility] tomorrow. 4. I will sign off. Please call if GI can be of assistance. Job ID: [id number]
[2019-04-15] MEDS: Atorvastatin Calcium 40 MG TAB PO SCH (20:05)
[2019-04-15] MEDS: Melatonin 3 MG TAB PO SCH (20:06)
[2019-04-15] MEDS: Mirtazapine 15 MG TAB PO SCH (20:06)
[2019-04-15] MEDS: Insulin Glargine 20 UNITS in Pre-Filled Syringe 1 EACH SC SCH (20:06)
[2019-04-16 04:49] LABS: #Basophils 0.1 thou/uL (0.0-0.2); #Eosinphils 0.6 thou/uL (0.0-0.7); #Lymphocytes 1.9 thou/uL (1.20-3.40); #Monocytes 0.6 thou/uL (0.11-0.59); #Neutrophils 3.3 thou/uL (1.40-6.50); %Basophils 1.3 % (0.0-1.0); %Eosinophils 9.4 % (0.0-10.0); %Monocytes 8.5 % (0.0-10.0); %Neutrophils 51.8 % (42.0-75.0); Hemoglobin 10.7 g/dL (12.0-16.0); Mean Corpuscular HGB CONC 32.9 g/dL (32.0-36.0); Mean Corpuscular Volume 88.2 fL (78.0-98.0); Mean Platelet Volume 8.4 fL (7.4-10.4); Platelet Count 198 thou/uL (130-400); RBC Distribution Width 13.2 % (11.5-14.5); Red Blood Cell (RBC) Count 3.69 mill/uL (4.20-5.40); White Blood Cell (WBC) Count 6.4 thou/uL (4.8-10.8)
[2019-04-16 05:13] LABS: Anion Gap 10 mmol/L (10-20); BUN (Urea Nitrogen) 11 mg/dL (9.8-20.1); Calc. Creatinine Clearance 42 mL/min (70-130); Calcium 8.6 mg/dL (7.8-10.44); Carbon Dioxide 25 mmol/L (23-31); Chloride 106 mmol/L (98-107); Estimated GFR-MDRD 43; Glucose 133 mg/dL (83-110); Potassium 3.9 mmol/L (3.5-5.1); Sodium 137 mmol/L (136-145)
[2019-04-16] MEDS: Losartan 25 MG TAB PO SCH (10:18)
[2019-04-16] MEDS: Docusate 100 MG CAP PO SCH (10:19)
[2019-04-16] MEDS: Saccharomyces boulardii 250 MG CAP PO SCH (10:19)
[2019-04-16] MEDS: Amlodipine 10 MG TAB PO SCH (10:19)
[2019-04-16] MEDS: Metoprolol Tartrate 50 MG TAB PO SCH (10:20)
[2019-04-16] MEDS: Pantoprazole 40 MG VIAL IVP SCH (10:20)
[2019-04-16] MEDS: Insulin Glargine 25 UNITS in Pre-Filled Syringe 1 EACH SC SCH (10:21)
[2019-04-16 15:14] VITALS: TEMP 97.8
[2019-04-16] MEDS: hydrALAZINE 20 MG/ML VIAL SLOW IVP PRN (17:33)
[2019-04-16 17:48] VITALS: BP 153/72
--- NOTE | 2019-04-17 14:52 | DIS ---
DATE OF ADMISSION: 04/15/2019 DATE OF DISCHARGE: 04/16/2019 DIAGNOSES AT THE TIME OF DISCHARGE: 1. Severe erosive esophagitis, status post esophagogastroduodenoscopy. 2. Hiatal hernia. 3. Hematemesis secondary to #1, resolved. 4. Diabetic gastroparesis. 5. Diabetes mellitus, type 2. 6. Physical deconditioning. 7. Coronary artery disease, chronic, stable. 8. Dyslipidemia. 9. Hypertension. TOBACCO WEIGHER: Dr. Toy Garvin, Gastroenterology Service. HOSPITAL COURSE: The patient was a 73-year-old female, long term resident from [facility], who presented to our emergency room with hematemesis. She had a past medical history of diabetes mellitus, coronary artery disease, hypertension, chronic kidney disease, diabetic gastroparesis, chronic constipation, hyperlipidemia, depression, and osteoarthritis. She had some abdominal cramping and constipation. She was evaluated in the emergency room and was found to have white count of 8.3, hemoglobin of 12.4, hematocrit 37.0, MCV 88.3, platelet count 205. Sodium 142, potassium 4.1, chloride 104, CO2 of 26, BUN 27, creatinine 1.42, glucose 280, normal liver function tests, troponin-I 0.049, and BNP of 224. The patient was admitted to the hospital for further evaluation for her nausea and vomiting and hematemesis which she developed. She was seen by senior architectural designer, who recommended EGD. She was started on IV Protonix at the time of admission. EGD was performed and was found to have severe esophagitis, grade C of the distal 5 cm of esophagus, and 3-cm hiatal hernia. Also, there was a 4-mm ulcer in the 2nd portion of the duodenum. The gastric biopsies were taken to rule out Helicobacter pylori. The patient was switched to IV Protonix and she did well. She was evaluated by speech therapist and dietitian, they recommended pureed diet. She is doing well. She is ready to go back to the long term. She is released by the GI Service. She will stay on dietitian/Speech Therapy recommended diet, which is pureed. ACTIVITIES: As tolerated. MEDICATIONS: At the time of discharge; 1. Protonix 40 mg twice a day. She will continue her regular medications at the long term, which are; 1. Acetaminophen 650 mg q.4 hours p.r.n. as needed. 2. Amlodipine 10 mg once a day. 3. Atorvastatin 40 mg at bedtime. 4. Vitamin D3, 5000 units once a day. 5. Docusate, which is Colace 100 mg daily. 6. Losartan 100 mg once a day. 7. Magnesium hydroxide as needed in form of milk of magnesia. 8. Meclizine as needed 25 mg four times a day. 9. Melatonin 3 mg at bedtime. 10. Metoclopramide 20 mg three times a day. 11. Metoprolol 50 mg once a day. 12. Mirtazapine 7.5 mg at bedtime. 13. Zofran as needed. 14. MiraLAX 17 g once a day. 15. Florastor 250 mg once a day. 16. Zoloft 200 mg at bedtime. 17. Aspirin 325 mg will be changed to 81 mg. 18. Insulin aspart sliding scale along with Levemir 25 units every morning and 20 units at bedtime. 19. She also will use Artificial Tears. FOLLOWUP: She will have followup with her primary care physician in [address] Garvin, the appointment will be established later. Job ID: [id number]
--- NOTE | 2019-04-18 10:09 | EKG ---
Test Reason : GI BLEED Blood Pressure : / mmHG Vent. Rate : 080 BPM Atrial Rate : 080 BPM P-R Int : 154 ms QRS Dur : 076 ms QT Int : 396 ms P-R-T Axes : 025 -33 126 degrees QTc Int : 456 ms Normal sinus rhythm Left axis deviation Minimal voltage criteria for LVH, may be normal variant Abnormal ECG Confirmed by PANTERA KWOK, BRYSON ([id number]), editorial director FAWAD GUO ([id number]) on 04/18/2019 10:08:49 AM Referred By: Confirmed By:BRYSON MOTT MD
== END 2019-04-16 18:00 | DRG 381 ==
LOC: ERS 01:48 → ERHOLD 03:24 → IMCU/EMU 05:47 → OBSVTOIN 04-15 09:40
PROVIDERS: ADMIT Internal Medicine; ATTEND Internal Medicine
PROC: 0DB98ZX Excision of Duodenum, Via Natural or Artificial Opening Endoscopic, Diagnostic (ICD-10-PCS; principal; 2019-04-14)
PROC: 0DB68ZX Excision of Stomach, Via Natural or Artificial Opening Endoscopic, Diagnostic (ICD-10-PCS; 2019-04-14)
PROC: 0DB38ZX Excision of Lower Esophagus, Via Natural or Artificial Opening Endoscopic, Diagnostic (ICD-10-PCS; 2019-04-14)
DX: K22.11 Ulcer of esophagus with bleeding (principal); D62 Acute posthemorrhagic anemia; K44.9 Diaphragmatic hernia without obstruction or gangrene; E11.43 Type 2 diabetes mellitus with diabetic autonomic (poly)neuropathy; K31.84 Gastroparesis; E11.22 Type 2 diabetes mellitus with diabetic chronic kidney disease; J44.9 Chronic obstructive pulmonary disease, unspecified; I12.9 Hypertensive chronic kidney disease with stage 1 through stage 4 chronic kidney disease, or unspecified chronic kidney disease; N18.9 Chronic kidney disease, unspecified; F32.9 Major depressive disorder, single episode, unspecified; I25.10 Atherosclerotic heart disease of native coronary artery without angina pectoris; E78.5 Hyperlipidemia, unspecified; R53.81 Other malaise; K59.00 Constipation, unspecified; M19.90 Unspecified osteoarthritis, unspecified site; K21.9 Gastro-esophageal reflux disease without esophagitis; K59.09 Other constipation; Z79.4 Long term (current) use of insulin; Z98.1 Arthrodesis status; Z95.5 Presence of coronary angioplasty implant and graft
CPT/HCPCS: 36415; 36416; 74022; 80048; 80053; 82550; 82553; 83880; 84484; 85025; 85610; 85730; 86850; 86900; 86901; 88305; 88312; 88313; 93005; 94760; 96361; 96365; 96366; 96376; C9113; J0360; J1815; J3490; Q0162

== ENCOUNTER 2019-08-08 02:28 | Inpatient (IN) | payer MEDICARE, MEDICAID ==
[2019-08-08] MEDS ORDERED: cefTRIAXone\\ROCEPHIN 1 GM VIAL ONE (02:51)
[2019-08-08] MEDS ORDERED: Sodium Chloride 0.9% 100 ML ONE (02:52)
[2019-08-08 05:37] LABS: Troponin I 5.149 ng/mL (< 0.028)
[2019-08-08] MEDS ORDERED: Dextrose 50% Abboject 50 ML SYRINGE SLOW IVP PRN (05:43)
[2019-08-08] MEDS ORDERED: Dextrose 5% in Water 1,000 ML IV PRN (05:43)
[2019-08-08] MEDS ORDERED: Enoxaparin Sodium 60 MG/0.6 ML SYRINGE SC SCH (05:45)
[2019-08-08] MEDS ORDERED: Aspirin 325 mg Enteric Coated Tablet PO SCH (05:45)
[2019-08-08 07:14] LABS: Troponin I 6.559 ng/mL (< 0.028)
[2019-08-08] MEDS ORDERED: Metoclopramide HCl 10 MG TAB PO PRN (07:32)
[2019-08-08] MEDS ORDERED: Promethazine 25 MG TAB PO PRN (07:32)
[2019-08-08] MEDS ORDERED: Ondansetron ODT 4 MG TAB PO PRN (07:32)
[2019-08-08] MEDS ORDERED: Polyethylene Glycol 3350 17 GM Packet PO PRN (07:32)
[2019-08-08] MEDS ORDERED: Acetaminophen 325 MG TAB PO PRN (07:32)
[2019-08-08] MEDS ORDERED: Milk Of Magnesia 30 ML UDCUP PO PRN (07:32)
[2019-08-08] MEDS ORDERED: Meclizine HCl 25 MG TAB PO PRN (07:32)
[2019-08-08] MEDS ORDERED: HYDROcodone/Acetaminophen 5/325 mg Tablet PO PRN (07:41)
[2019-08-08] MEDS ORDERED: Labetalol HCl 100 MG/20 ML VIAL SLOW IVP PRN (07:45)
[2019-08-08] MEDS ORDERED: Benzonatate 100 MG CAP PO PRN (07:45)
[2019-08-08] MEDS ORDERED: diphenhydrAMINE 25 MG CAP PO PRN (07:45)
[2019-08-08] MEDS ORDERED: Docusate 100 MG CAP PO PRN (07:45)
[2019-08-08] MEDS ORDERED: Non-Formulary Item 1 EACH (Insulin Detemir 100 Units/Ml [Levemir] 25 UNIT) SQ SCH (08:00)
[2019-08-08] MEDS ORDERED: Metoprolol Tartrate 50 MG TAB ONE (08:45)
[2019-08-08] MEDS ORDERED: cefTRIAXone\\ROCEPHIN 2 GM VIAL ONE (08:45)
[2019-08-08] MEDS ORDERED: Aspirin 325 MG TAB ONE (08:45)
[2019-08-08] MEDS ORDERED: Enoxaparin Sodium 60 MG/0.6 ML SYRINGE ONE (08:47)
[2019-08-08] MEDS ORDERED: Ondansetron PF 4 MG/2 ML Vial ONE (09:10)
[2019-08-08 09:17] LABS: #Lymphocytes 0.7 thou/uL (1.20-3.40); #Monocytes 0.4 thou/uL (0.11-0.59); #Neutrophils 10.5 thou/uL (1.40-6.50); %Basophils 0.4 % (0.0-1.0); %Lymphocytes 6.3 % (21.0-51.0); %Monocytes 3.6 % (0.0-10.0); %Neutrophils 89.7 % (42.0-75.0); Hemoglobin 9.8 g/dL (12.0-16.0); Mean Corpuscular HGB CONC 33.1 g/dL (32.0-36.0); Mean Corpuscular Volume 87.4 fL (78.0-98.0); Mean Platelet Volume 9.7 fL (7.4-10.4); Platelet Count 199 thou/uL (130-400); RBC Distribution Width 12.4 % (11.5-14.5); Red Blood Cell (RBC) Count 3.38 mill/uL (4.20-5.40); White Blood Cell (WBC) Count 11.7 thou/uL (4.8-10.8)
[2019-08-08] MEDS: Aspirin 81 mg Enteric Coated Tablet PO SCH (09:17)
[2019-08-08] MEDS: Aspirin 325 mg Enteric Coated Tablet PO SCH (09:17)
[2019-08-08] MEDS: cefTRIAXone\\ROCEPHIN 2 GM in Sodium Chloride 0.9% 100 ML IVPB SCH (09:18)
[2019-08-08] MEDS: Pantoprazole 40 MG GRANULES PACKET PO SCH ×2 (09:18→20:22)
[2019-08-08 09:28] LABS: Anion Gap 18 mmol/L (10-20); BUN (Urea Nitrogen) 45 mg/dL (9.8-20.1); Calc. Creatinine Clearance 0 mL/min (70-130); Carbon Dioxide 21 mmol/L (23-31); Chloride 104 mmol/L (98-107); Estimated GFR-MDRD 25; Glucose 428 mg/dL (83-110); Potassium 5.1 mmol/L (3.5-5.1); Sodium 138 mmol/L (136-145)
[2019-08-08] MEDS: Ondansetron PF 4 MG/2 ML Vial IVP PRN (09:30)
[2019-08-08] MEDS: Saccharomyces boulardii 250 MG CAP PO SCH (09:33)
[2019-08-08] MEDS: Losartan 25 MG TAB PO SCH (09:33)
[2019-08-08] MEDS: Amlodipine 10 MG TAB PO SCH (09:35)
[2019-08-08] MEDS: Insulin Glargine 25 UNITS in Pre-Filled Syringe 1 EACH SC SCH (09:43)
[2019-08-08] MEDS: Artificial Tear Sol 15 ML BOT EA EYE SCH ×3 (09:44→20:21)
[2019-08-08 12:58] LABS: Troponin I 34.323 ng/mL (< 0.028)
--- NOTE | 2019-08-08 13:39 | PDOC.HHP ---
Hospitalist HPI - History of Present Illness Shortness of breath History of Present Illness: 74-year-old female with extensive past medical history including insulin- dependent diabetes mellitus, coronary artery disease for stent placement in the past, hypertension, diabetic gastroparesis, chronic constipation, hyperlipidemia , depression, osteoarthritis, GERD, gastrointestinal bleeding and debility who is a [facility] for worsening shortness of breath. Patient with multiple acute problems most significantly she was diagnosed with sepsis on admission with urinary tract infection. Patient also found have significantly elevated troponin at 6.5 this a.m. Patient denies any chest pain, palpitations, though she doesn't course shortness of breath. Patient also found have an elevated BNP though she does not specifically recall being told that she has congestive heart failure in the past. I find the patient in the emergency department she is resting comfortably embed in no apparent distress. Patient is breathing well without oxygen at this time. Again patient denies any chest pain, palpitations, lightheadedness, dizziness, syncope or other symptoms. Patient does endorse urinary tract infection symptoms of increase frequency urgency and dysuria. Cardiology has been consulted for further recommendations. Hospitalist ROS - Review of Systems All other systems reviewed; all pertinent +/- noted in HPI/Subj - Medication Medications: Active Medications Generic Name Dose Route Start Last Admin Trade Name Freq PRN Reason Stop Dose Admin Amlodipine Besylate 10 mg 08/08/19 09:00 08/08/19 09:35 Norvasc PO 10 mg DAILY JERRY Administration Artificial Tears 1 drop 08/08/19 09:00 08/08/19 09:44 Liquitears 15ml Bottle EA EYE Not Given TID JERRY Aspirin 81 mg 08/08/19 09:00 08/08/19 09:17 Ecotrin PO Not Given DAILY JERRY Aspirin 325 mg 08/08/19 09:00 08/08/19 09:17 Ecotrin PO 325 mg DAILY JERRY Administration Cholecalciferol 5,000 units 08/08/19 09:00 08/08/19 09:43 Vitamin D3 PO Not Given DAILY JERRY Ceftriaxone Sodium 2 gm/ 100 mls @ 5 mls/hr 08/08/19 09:00 08/08/19 09:18 Sodium Chloride IVPB 100 mls Q24HR JERRY Administration Insulin Glargine 25 units/ 0.25 mls @ 0 mls/hr 08/08/19 09:00 08/08/19 09:43 Miscellaneous Medication SC 0.25 mls QAM JERRY Administration Losartan Potassium 100 mg 08/08/19 09:00 08/08/19 09:33 Cozaar PO 100 mg DAILY JERRY Administration Metoprolol Succinate 50 mg 08/08/19 09:00 08/08/19 09:33 Toprol Xl PO 50 mg DAILY JERRY Administration Ondansetron HCl 4 mg 08/08/19 07:41 08/08/19 09:30 Zofran IVP 4 mg Q6H PRN Administration Nausea/Vomiting Pantoprazole Sodium 40 mg 08/08/19 09:00 08/08/19 09:18 Protonix PO 40 mg BID JERRY Administration Saccharomyces Boulardii 250 mg 08/08/19 09:00 08/08/19 09:33 Florastor PO 250 mg DAILY JERRY Administration Hospitalist History - Past Medical History Source: patient Cardiac: reports: CAD, HTN, [place], Hyperlipidemia Pulmonary: reports: CVA/TIA/stroke, heart attack, high cholesterol, hypertension. denies: congestive heart failure, COPD JOURNALISM INTERN: reports: Dementia Gastrointestinal: reports: GERD, GI bleed, Peptic ulcer disease Psych: reports: Depression Musculoskeletal: reports: Osteoarthritis Renal/: reports: UTI Endocrine: reports: Diabetes - Past Surgical History Past Surgical History: reports: Other (Stents in the past - she does not know how long ago but states it has "been many years") - Social History Alcohol: reports: None Drugs: reports: none Living Situation: [facility] Domestic Violence: Negative Activity level: wheelchair bound - Exam General Appearance: NAD, awake alert Eye: PERRL, anicteric sclera ENT: normocephalic atraumatic, moist mucosa Neck: supple, symmetric, no lymphadenopathy Heart: no murmur, no gallops, no rubs Respiratory: CTAB, no wheezes, no ronchi, normal chest expansion, rales Gastrointestinal: soft, non-tender, non-distended, no palpable masses, no guarding, no rigidity Extremities: no edema Skin: no lesions, no rashes Neurological: cranial nerve grossly intact, no focal deficits Musculoskeletal: generalized weakness, diffuse muscle atrophy Psychiatric: normal behavior, oriented to person, oriented to place, flat affect Hospitalist Results - Labs Result Diagrams: 08/08/19 08:41 08/08/19 08:41 Lab results: WBC 11.7 thou/uL (4.8-10.8) H 08/08/19 08:41 Hgb 9.8 g/dL (12.0-16.0) L 08/08/19 08:41 Hct 29.6 % (36.0-47.0) L 08/08/19 08:41 MCV 87.4 fL (78.0-98.0) 08/08/19 08:41 Plt Count 199 thou/uL (130-400) 08/08/19 08:41 Neutrophils % 89.7 % (42.0-75.0) H 08/08/19 08:41 Sodium 138 mmol/L (136-145) 08/08/19 08:41 Potassium 5.1 mmol/L (3.5-5.1) 08/08/19 08:41 Chloride 104 mmol/L (98-107) 08/08/19 08:41 Carbon Dioxide 21 mmol/L (23-31) L 08/08/19 08:41 BUN 45 mg/dL (9.8-20.1) H 08/08/19 08:41 Creatinine 1.96 mg/dL (0.6-1.1) H 08/08/19 08:41 Glucose 428 mg/dL (83-110) H 08/08/19 08:41 Calcium 9.0 mg/dL (7.8-10.44) 08/08/19 08:41 Troponin I 34.323 ng/mL (< 0.028) H* 08/08/19 12:21 - Radiology Interpretation Chest x-ray Status: image reviewed by wi Hospitalist H&P A/P - Problem (1) NSTEMI (non-ST elevated myocardial infarction) Code(s): I21.4 - NON-ST ELEVATION (NSTEMI) MYOCARDIAL INFARCTION Status: Acute (2) UTI (urinary tract infection) Status: Acute (3) Sepsis Code(s): A41.9 - SEPSIS, UNSPECIFIED ORGANISM Status: Acute (4) Metabolic acidosis Code(s): E87.2 - ACIDOSIS Status: Acute (5) Physical deconditioning Code(s): R53.81 - OTHER MALAISE Status: Acute (6) CAD (coronary artery disease) Code(s): I25.10 - ATHSCL HEART DISEASE OF [place] CORONARY ARTERY W/O ANG PCTRS Status: Chronic Qualifiers: (7) DM type 2 (diabetes mellitus, type 2) Status: Chronic (8) Dyslipidemia Code(s): E78.5 - HYPERLIPIDEMIA, UNSPECIFIED Status: Chronic (9) HTN (hypertension) Code(s): I10 - ESSENTIAL (PRIMARY) HYPERTENSION Status: Chronic Qualifiers: (10) ALEXANDRA (acute kidney injury) Code(s): N17.9 - ACUTE KIDNEY FAILURE, UNSPECIFIED Status: Acute - Plan Plan: Plan: admit to medical unit with telemetry cardiology consultation, recommendations appreciated full dose Lovenox for NSTEMI oxygen, nitrates, aspirin allergy to morphine denies chest pain echocardiogram to quantify ejection fraction and evaluate for structural abnormalities of the heart elevated BNP with shortness of breath subjectively, though she is saturating well on room air long and short acting insulin for glucose control IV antibiotics for urinary tract infection IV fluids, and gentle for acute kidney injury with a baseline creatinine of 1.2 , she is 1.79 on admission blood pressure control next line blood sugar control continue other home medications as able G.I. prophylaxis DVT prophylaxis on full dose Lovenox
[2019-08-08] MEDS: Insulin Regular 300 UNITS/3 ML VIAL SC PRN (13:42)
[2019-08-08] MEDS ORDERED: Furosemide 20 MG/2 ML VIAL SLOW IVP SCH (20:00)
[2019-08-08] MEDS: Melatonin 3 MG TAB PO SCH (20:21)
[2019-08-08] MEDS: Enoxaparin Sodium 60 MG/0.6 ML SYRINGE SC SCH (20:21)
[2019-08-08] MEDS: Mirtazapine 15 MG TAB PO SCH (20:21)
[2019-08-08] MEDS: Atorvastatin Calcium 40 MG TAB PO SCH (20:22)
[2019-08-08] MEDS: Insulin Glargine 20 UNITS in Pre-Filled Syringe 1 EACH SC SCH (20:35)
[2019-08-08] MEDS ORDERED: Lorazepam 2 MG/ML VIAL SLOW IVP SCH (21:00)
[2019-08-08] MEDS ORDERED: Non-Formulary Item 1 EACH (Insulin Detemir 100 Units/Ml [Levemir] 20 UNIT) SQ SCH (21:00)
[2019-08-09 04:36] LABS: #Basophils 0.1 thou/uL (0.0-0.2); #Lymphocytes 0.9 thou/uL (1.20-3.40); #Monocytes 1.4 thou/uL (0.11-0.59); #Neutrophils 12.3 thou/uL (1.40-6.50); %Basophils 0.7 % (0.0-1.0); %Eosinophils 0.1 % (0.0-10.0); %Lymphocytes 6.4 % (21.0-51.0); %Monocytes 9.4 % (0.0-10.0); %Neutrophils 83.5 % (42.0-75.0); Mean Corpuscular HGB CONC 33.2 g/dL (32.0-36.0); Mean Corpuscular Volume 87.3 fL (78.0-98.0); Mean Platelet Volume 9.8 fL (7.4-10.4); Platelet Count 194 thou/uL (130-400); RBC Distribution Width 12.7 % (11.5-14.5); Red Blood Cell (RBC) Count 3.46 mill/uL (4.20-5.40); White Blood Cell (WBC) Count 14.7 thou/uL (4.8-10.8)
[2019-08-09] MEDS: Losartan 25 MG TAB PO SCH (09:29)
[2019-08-09] MEDS: Pantoprazole 40 MG GRANULES PACKET PO SCH ×2 (09:29→22:11)
[2019-08-09] MEDS: Saccharomyces boulardii 250 MG CAP PO SCH (09:30)
[2019-08-09] MEDS: Amlodipine 10 MG TAB PO SCH (09:30)
[2019-08-09] MEDS: Enoxaparin Sodium 60 MG/0.6 ML SYRINGE SC SCH (09:31)
[2019-08-09] MEDS: Aspirin 325 mg Enteric Coated Tablet PO SCH (09:31)
[2019-08-09] MEDS: Aspirin 81 mg Enteric Coated Tablet PO SCH (09:32)
[2019-08-09] MEDS: Artificial Tear Sol 15 ML BOT EA EYE SCH ×3 (09:32→22:11)
[2019-08-09] MEDS: Furosemide 20 MG/2 ML VIAL SLOW IVP SCH (09:33)
[2019-08-09] MEDS: cefTRIAXone\\ROCEPHIN 2 GM in Sodium Chloride 0.9% 100 ML IVPB SCH (09:47)
[2019-08-09] MEDS: Insulin Glargine 25 UNITS in Pre-Filled Syringe 1 EACH SC SCH (10:03)
[2019-08-09 11:19] LABS: Troponin I 80.374 ng/mL (< 0.028)
--- NOTE | 2019-08-09 11:55 | PDOC.HOSPP ---
- Subjective Encounter Date: 08/09/19 Encounter Time: 08:40 Subjective: Expresses no complaint.. - Objective Vital Signs & Weight: Vital Signs (12 hours) Temp Pulse Resp BP BP Pulse Ox 08/09/19 09:30 93 117/66 08/09/19 08:00 100.1 F H 93 20 117/66 93 L 08/09/19 04:21 99.2 F 97 20 132/68 92 L 08/09/19 00:50 99.5 F 91 118/59 L Weight Weight 151 lb I&O: 08/08/19 08/09/19 08/10/19 06:59 06:59 06:59 Intake Total 240 Output Total 200 300 Balance 40 -300 Result Diagrams: 08/09/19 03:40 08/08/19 08:41 Additional Labs: Accuchecks 08/09/19 08/08/19 08/08/19 05:58 20:36 17:34 POC Glucose 140 H 83 138 H 08/08/19 12:02 POC Glucose 362 H Hospitalist ROS - Medication Medications: Active Medications Generic Name Dose Route Start Last Admin Trade Name Kim PRN Reason Stop Dose Admin Amlodipine Besylate 10 mg 08/08/19 09:00 08/09/19 09:30 Norvasc PO 10 mg DAILY JERRY Administration Artificial Tears 1 drop 08/08/19 09:00 08/09/19 09:32 Liquitears 15ml Bottle EA EYE 1 drp TID JERRY Administration Aspirin 81 mg 08/08/19 09:00 08/09/19 09:32 Ecotrin PO Not Given DAILY JERRY Aspirin 325 mg 08/08/19 09:00 08/09/19 09:31 Ecotrin PO 325 mg DAILY JERRY Administration Atorvastatin Calcium 40 mg 08/08/19 21:00 08/08/19 20:22 Lipitor PO 40 mg HS JERRY Administration Cholecalciferol 5,000 units 08/08/19 09:00 08/09/19 09:29 Vitamin D3 PO 5,000 units DAILY JERRY Administration Furosemide 20 mg 08/09/19 09:00 08/09/19 09:33 Lasix SLOW IVP 20 mg DAILY JERRY Administration Ceftriaxone Sodium 2 gm/ 100 mls @ 5 mls/hr 08/08/19 09:00 08/09/19 09:47 Sodium Chloride IVPB 100 mls Q24HR JERRY Administration Insulin Glargine 20 units/ 0.2 mls @ 0 mls/hr 08/08/19 21:00 08/08/19 20:35 Miscellaneous Medication SC Not Given HS JERRY Insulin Glargine 25 units/ 0.25 mls @ 0 mls/hr 08/08/19 09:00 08/09/19 10:03 Miscellaneous Medication SC 0.25 mls QAM JERRY Administration Insulin Human Regular 0 units 08/08/19 05:43 08/08/19 13:42 Humulin R SC 10 unit .MODERATE SLIDING SC PRN Administration Moderate Correctional Scale Losartan Potassium 100 mg 08/08/19 09:00 08/09/19 09:29 Cozaar PO 100 mg DAILY JERRY Administration Melatonin 3 mg 08/08/19 21:00 08/08/19 20:21 Melatonin PO 3 mg HS JERRY Administration Metoprolol Succinate 50 mg 08/08/19 09:00 08/09/19 09:31 Toprol Xl PO 50 mg DAILY JERRY Administration Mirtazapine 7.5 mg 08/08/19 21:00 08/08/19 20:21 Remeron PO 7.5 mg HS JERRY Administration Ondansetron HCl 4 mg 08/08/19 07:41 08/08/19 09:30 Zofran IVP 4 mg Q6H PRN Administration Nausea/Vomiting Pantoprazole Sodium 40 mg 08/08/19 09:00 08/09/19 09:29 Protonix PO 40 mg BID JERRY Administration Saccharomyces Boulardii 250 mg 08/08/19 09:00 08/09/19 09:30 Florastor PO 250 mg DAILY JERRY Administration Sertraline HCl 200 mg 08/08/19 21:00 08/08/19 20:21 Zoloft PO 200 mg HS JERRY Administration - Exam Neck: no JVD Heart: RRR Respiratory: CTAB Gastrointestinal: soft Extremities: no edema Musculoskeletal: generalized weakness Hosp A/P (1) Diabetes Code(s): E11.9 - TYPE 2 DIABETES MELLITUS WITHOUT COMPLICATIONS Status: Acute (2) HTN (hypertension) Code(s): I10 - ESSENTIAL (PRIMARY) HYPERTENSION Status: Acute (3) ALEXANDRA (acute kidney injury) Code(s): N17.9 - ACUTE KIDNEY FAILURE, UNSPECIFIED Status: Acute (4) NSTEMI (non-ST elevated myocardial infarction) Code(s): I21.4 - NON-ST ELEVATION (NSTEMI) MYOCARDIAL INFARCTION Status: Acute (5) Sepsis Code(s): A41.9 - SEPSIS, UNSPECIFIED ORGANISM Status: Acute (6) UTI (urinary tract infection) Status: Acute (7) Metabolic acidosis Code(s): E87.2 - ACIDOSIS Status: Acute - Plan f/u urine C7S. Cardiology consulted for elevated troponin. f/u cbc & diff BMP. Continue antibiotics..
[2019-08-09 12:39] LABS: #Basophils 0.1 thou/uL (0.0-0.2); #Lymphocytes 1.2 thou/uL (1.20-3.40); #Monocytes 1.4 thou/uL (0.11-0.59); #Neutrophils 10.1 thou/uL (1.40-6.50); %Basophils 0.6 % (0.0-1.0); %Eosinophils 0.1 % (0.0-10.0); %Lymphocytes 9.6 % (21.0-51.0); %Monocytes 10.9 % (0.0-10.0); %Neutrophils 78.8 % (42.0-75.0); Hemoglobin 9.1 g/dL (12.0-16.0); Mean Corpuscular HGB CONC 32.9 g/dL (32.0-36.0); Mean Corpuscular Hemoglobin 28.7 pg (27.0-31.0); Mean Corpuscular Volume 87.1 fL (78.0-98.0); Mean Platelet Volume 9.7 fL (7.4-10.4); Platelet Count 179 thou/uL (130-400); RBC Distribution Width 12.8 % (11.5-14.5); Red Blood Cell (RBC) Count 3.18 mill/uL (4.20-5.40); White Blood Cell (WBC) Count 12.8 thou/uL (4.8-10.8)
[2019-08-09 13:01] LABS: Anion Gap 15 mmol/L (10-20); BUN (Urea Nitrogen) 51 mg/dL (9.8-20.1); Calc. Creatinine Clearance 24 mL/min (70-130); Carbon Dioxide 22 mmol/L (23-31); Chloride 106 mmol/L (98-107); Estimated GFR-MDRD 22; Glucose 189 mg/dL (83-110); Potassium 4.5 mmol/L (3.5-5.1); Sodium 138 mmol/L (136-145)
--- NOTE | 2019-08-09 13:37 | CON ---
DATE OF CONSULTATION: 08/08/2019 REASON FOR CONSULTATION: Non-ST elevation myocardial infarction. HISTORY OF PRESENT ILLNESS: Ms. Carney is an unfortunate 74-year-old woman with multiple medical problems as well as will be outlined below with a non-ST elevation myocardial infarction. Rommel was sent from the [place] [facility] for evaluation of difficulty breathing. Chest x-ray showed congestive heart failure. The patient is also thought to potentially have infection. She has been started on antibiotics. She did not have chest pain that she can recall. The patient did receive Lasix and is feeling better now. The patient states that she has had coronary artery disease. She has had Dr. Aly, has done a cardiac catheterization on her many years ago. She thinks in "[place]". The patient states to her recollection, she has not seen any operations general agent any time recently. PAST MEDICAL HISTORY: 1. Other past History, she has had recurrent infections as outlined in the chart. She was here in May with pyelonephritis and Pseudomonas urinary tract infection, metabolic encephalopathy. 2. History of hypertension. 3. History of erosive esophagitis. 4. History of gastroparesis. 5. Diabetes mellitus. 6. Physical deconditioning. 7. Dyslipidemia. 8. Hypertension. The patient has been admitted multiple times. Please see the chart for the full details. Also, had metabolic encephalopathy in October. The patient has been admitted for previous time this year. SOCIAL HISTORY: The patient lives in a [place] [facility]. She says in [place], she does not know which one. She says she does have a son. No alcohol or tobacco abuse. MEDICATIONS: Please see nurse's notes. ALLERGIES: TO MORPHINE AND TRAMADOL. PHYSICAL EXAMINATION: GENERAL: This is a very pleasant, elderly woman. She does not know what year it is. She does know her name. She knows she is in the hospital. VITAL SIGNS: Blood pressure 130/70 and pulse in the 90s now. HEENT: Eyes, sclerae are nonicteric. Mouth, mucous membranes moist. NECK: Supple. No lymphadenopathy. LUNGS: Clear anteriorly and laterally. CARDIAC: Normal S1 and normal S2. There is no murmur, rub, or gallop. ABDOMEN: Soft and nontender. EXTREMITIES: Warm and dry. There is no clubbing or cyanosis. She has no edema. PERTINENT LABORATORY DATA: Hemoglobin is 9.8 and hematocrit 29.6. Troponin went to 34.3. Creatinine is 1.96 and estimated GFR is 25. EKG revealed initially sinus tachycardia with some T-wave inversion laterally. On the cardiovascular tech, there was some ST depression on the monitor lead. There was no ST elevation. Her mental status, the patient as mentioned in the note, she did know her name. She did not know what year it was. She knows she was in the hospital, but she did not know the name of the hospital. She knew she lived in [place], but did not know the name of the institution. She is not sure how long she has been there. ASSESSMENT: 1. Non-ST elevation myocardial infarction. 2. Some degree of dementia. 3. History of recurrent urinary infections. 4. Possible infection prompting this admission. PLAN: Discussed the situation with the patient, she said she did not want to have invasive type testing, wished to be treated with medicines. Therefore, we will do the following. 1. Continue full-dose Lovenox. 2. Aspirin. 3. Echocardiogram. 4. Antibiotics. 5. Statin therapy. 6. Losartan. 7. Metoprolol. Further care dictated by hospital course. As mentioned, the patient indicated she did not wish to have invasive type of therapy. Job ID: [id number]
--- NOTE | 2019-08-09 15:24 | PRG ---
DATE OF SERVICE: 08/09/2019 SUBJECTIVE: Ms. Carney is much less responsive today. She will not answer any questions. When asked if she has shortness of breath or chest pain, she just looks at the interviewer, but does not answer or respond. She does not indicate she is in distress. OBJECTIVE: VITAL SIGNS: Her blood pressure 104/55; pulse 80, it is regular; temperature 100.1. LUNGS: Clear. CARDIAC: Normal S1. Normal S2. ABDOMEN: Soft and nontender. EXTREMITIES: No clubbing or cyanosis. There is no edema. LABORATORY DATA: Echocardiogram done and interpreted last night shows ejection fraction severely depressed. Ejection fraction 20% to 25%. Akinesis of mid and distal septum, apex, mid and distal anterior wall, and posterior wall. Troponin level peak was 144.5 and this morning is 80.3. EKG does not show any ST changes today. In fact, the ST segments are better. ASSESSMENT: 1. Status post [id number] myocardial infarction, but it looks like a large distribution. 2. Mental status is much worse. I did speak to the patient's son, who indicates that she does have some degree of dementia. 3. Renal failure. Creatinine at 2.19. Worsening renal function. PLAN: 1. Continue Lovenox, but reduce dose in view of renal failure. 2. Discuss code status. I looked at the previous notes, and the patient had been do not resuscitate on previous visits. The patient indicates to me last night she did not wish to have aggressive interventional cardiac procedures as best she could understand at that time. Discussed with the patient's son. He indicates that did appear to be her desire; therefore, she would be made do not resuscitate per her wishes. 3. Reduce losartan. 4. Prognosis is guarded to poor in this patient. As mentioned, she has severely depressed left ventricular function and stage 4 renal failure as well as being decreased mental status. Job ID: [id number]
[2019-08-09] MEDS: Mirtazapine 15 MG TAB PO SCH (22:10)
[2019-08-09] MEDS: Melatonin 3 MG TAB PO SCH (22:11)
[2019-08-09] MEDS: Insulin Glargine 20 UNITS in Pre-Filled Syringe 1 EACH SC SCH (22:11)
[2019-08-09] MEDS: Atorvastatin Calcium 40 MG TAB PO SCH (22:11)
[2019-08-10 05:28] LABS: Anion Gap 17 mmol/L (10-20); BUN (Urea Nitrogen) 56 mg/dL (9.8-20.1); Calc. Creatinine Clearance 23 mL/min (70-130); Calcium 9.2 mg/dL (7.8-10.44); Carbon Dioxide 21 mmol/L (23-31); Chloride 106 mmol/L (98-107); Estimated GFR-MDRD 21; Glucose 72 mg/dL (83-110); Potassium 4.2 mmol/L (3.5-5.1); Sodium 140 mmol/L (136-145)
[2019-08-10] MEDS: Amlodipine 10 MG TAB PO SCH (09:19)
[2019-08-10] MEDS: Insulin Glargine 25 UNITS in Pre-Filled Syringe 1 EACH SC SCH (09:20)
[2019-08-10] MEDS: Pantoprazole 40 MG GRANULES PACKET PO SCH ×2 (09:20→20:59)
[2019-08-10] MEDS: Losartan 25 MG TAB PO SCH (09:20)
[2019-08-10] MEDS: Aspirin 81 mg Enteric Coated Tablet PO SCH (09:20)
[2019-08-10] MEDS: Aspirin 325 mg Enteric Coated Tablet PO SCH (09:20)
[2019-08-10] MEDS: Enoxaparin Sodium 80 MG/0.8 ML SYRINGE SC SCH (09:21)
[2019-08-10] MEDS: Saccharomyces boulardii 250 MG CAP PO SCH (09:21)
[2019-08-10] MEDS: Furosemide 20 MG/2 ML VIAL SLOW IVP SCH (09:22)
[2019-08-10] MEDS: cefTRIAXone\\ROCEPHIN 2 GM in Sodium Chloride 0.9% 100 ML IVPB SCH (09:23)
[2019-08-10] MEDS: Artificial Tear Sol 15 ML BOT EA EYE SCH ×3 (09:41→20:57)
--- NOTE | 2019-08-10 10:27 | PRG ---
DATE OF SERVICE: 08/10/2019 SUBJECTIVE: Ms. Carney is breathing comfortably. She was sleeping when I went into the room. She awakens up to verbal stimuli. The patient cannot tell me the date or where she is. OBJECTIVE: GENERAL: She is oriented apparently x1. VITAL SIGNS: Her blood pressure is 125/59, pulse 79. LUNGS: Clear. CARDIAC: Normal S1, normal S2. ABDOMEN: Soft and nontender. ASSESSMENT: 1. Status post [id number] myocardial infarction. 2. Renal failure, stage 4. 3. Congestive heart failure, acute systolic, stable. PLAN: 1. We will reduce losartan dose. 2. Code status, do not resuscitate. 3. Other medicines unchanged. Job ID: [id number]
--- NOTE | 2019-08-10 13:10 | PDOC.HOSPP ---
- Subjective Encounter Date: 08/10/19 Encounter Time: 10:00 Subjective: The patient has no complaints, no chest pain, no shortness of breath. She is not eating. Per speech mental status worst than yesterday. Patient does not want to go home. She is not interested in tube feeds - Objective Vital Signs & Weight: Vital Signs (12 hours) Temp Pulse Resp BP Pulse Ox 08/10/19 11:38 98 F 75 17 119/58 L 95 08/10/19 08:00 98.6 F 79 20 125/59 L 92 L 08/10/19 03:29 99.4 F 75 14 120/59 L 90 L Weight Weight 150 lb 4.8 oz I&O: 08/09/19 08/10/19 08/11/19 06:59 06:59 06:59 Intake Total 240 390 Output Total 200 750 Balance 40 -360 Result Diagrams: 08/09/19 12:24 08/10/19 03:46 Additional Labs: Accuchecks 08/10/19 08/10/19 08/09/19 11:05 05:51 21:03 POC Glucose 135 H 77 132 H 08/09/19 08/09/19 17:07 10:54 POC Glucose 190 H 256 H Hospitalist ROS - Review of Systems Respiratory: denies: cough Cardiovascular: denies: chest pain, palpitations - Medication Medications: Active Medications Generic Name Dose Route Start Last Admin Trade Name Kim PRN Reason Stop Dose Admin Amlodipine Besylate 10 mg 08/08/19 09:00 08/10/19 09:19 Norvasc PO Not Given DAILY JERRY Artificial Tears 1 drop 08/08/19 09:00 08/10/19 09:41 Liquitears 15ml Bottle EA EYE 1 drp TID JERRY Administration Aspirin 81 mg 08/08/19 09:00 08/10/19 09:20 Ecotrin PO Not Given DAILY JERRY Atorvastatin Calcium 40 mg 08/08/19 21:00 08/09/19 22:11 Lipitor PO 40 mg HS JERRY Administration Cholecalciferol 5,000 units 08/08/19 09:00 08/10/19 09:20 Vitamin D3 PO Not Given DAILY JERRY Enoxaparin Sodium 70 mg 08/10/19 09:00 08/10/19 09:21 Lovenox SC 70 mg DAILY JERRY Administration Furosemide 20 mg 08/09/19 09:00 08/10/19 09:22 Lasix SLOW IVP 20 mg DAILY JERRY Administration Ceftriaxone Sodium 2 gm/ 100 mls @ 5 mls/hr 08/08/19 09:00 08/10/19 09:23 Sodium Chloride IVPB 100 mls Q24HR JERRY Administration Insulin Glargine 20 units/ 0.2 mls @ 0 mls/hr 08/08/19 21:00 08/09/19 22:11 Miscellaneous Medication SC Not Given HS JERRY Insulin Glargine 25 units/ 0.25 mls @ 0 mls/hr 08/08/19 09:00 08/10/19 09:20 Miscellaneous Medication SC Not Given QAM JERRY Insulin Human Regular 0 units 08/08/19 05:43 08/08/19 13:42 Humulin R SC 10 unit .MODERATE SLIDING SC PRN Administration Moderate Correctional Scale Melatonin 3 mg 08/08/19 21:00 08/09/19 22:11 Melatonin PO 3 mg HS JERRY Administration Metoprolol Succinate 50 mg 08/08/19 09:00 08/10/19 09:20 Toprol Xl PO Not Given DAILY JERRY Mirtazapine 7.5 mg 08/08/19 21:00 08/09/19 22:10 Remeron PO 7.5 mg HS JERRY Administration Ondansetron HCl 4 mg 08/08/19 07:41 08/08/19 09:30 Zofran IVP 4 mg Q6H PRN Administration Nausea/Vomiting Pantoprazole Sodium 40 mg 08/08/19 09:00 08/10/19 09:20 Protonix PO Not Given BID JERRY Saccharomyces Boulardii 250 mg 08/08/19 09:00 08/10/19 09:21 Florastor PO Not Given DAILY JERRY Sertraline HCl 200 mg 08/08/19 21:00 08/09/19 22:10 Zoloft PO 200 mg HS JERRY Administration - Exam General Appearance: ill appearing Eye: PERRL, anicteric sclera ENT: normocephalic atraumatic, no oropharyngeal lesions, dry oral mucosa Neck: supple, symmetric, no JVD Heart: RRR, no murmur, no gallops, no rubs Respiratory: CTAB, no wheezes, no rales, no ronchi Gastrointestinal: soft, non-tender, non-distended, no palpable masses Extremities: no cyanosis, no clubbing, no edema Skin: normal turgor, no lesions Hosp A/P - Plan This is 74 year old with NSTEMI, refused invasive procedure NSTEMI - refused cardiac cath. Troponin peaked at 144. ECHO shows EF 20-25%, akinetic mid and distal, hypokinesis apex/anterio wall and posterior wall - on metoprolol, decrease losartan - aspirin 325, atorvastatin 40 mg - likely poor prognosis, palliative consult ALEXANDRA - creatinine up to 2.29 - patient did not get losartan this morning, dose reduced to 50 tomorrow by cardiology Malnutrition - patient has no appetite and doesn't want to eat. Refusing tube feeds - palliative care consult Leukocytosis - WBC 12.8, likely from NSTEMI - no fevers, check UA and chest X ray - on IV ceftriaxone Hypertension - amlodipine Code status: DNR/DNI
[2019-08-10 14:04] LABS: Bilirubin Negative (Negative); Blood, Urine 1+ (Negative); Clarity Clear (Clear); Glucose, Urine (Dipstick) Normal (Negative); Leukocyte 500 Leu/uL (Negative); Nitrite Negative (Negative); Protein, Urine (Dipstick) 50 mg/dL (Neg-Trace); Squamous Epithelial 0-3 HPF (0-3); Urobilinogen Normal mg/dL (Less than 2)
--- NOTE | 2019-08-10 14:09 | RAD ---
Chest AP view INDICATION: Leukocytosis COMPARISON: Prior exam dated August 07, 2019 FINDINGS: Lungs:New left-sided pleural parenchymal opacity. Stable chronic lung changes. Cardiac silhouette:Stable moderate cardiomegaly Pulmonary vasculature:Stable mild pulmonary vascular congestion Pleural spaces:New small left pleural effusion Upper abdomen:No abnormality seen. Osseous structures: No acute osseous abnormality. Stable postoperative change of the cervical spine a nd right shoulder. Additional findings:None. IMPRESSION: Cardiomegaly, pulmonary vascular congestion and new small left pleural effusion is suspic ious for possible CHF. There is left basilar airspace opacity which may reflect atelectasis; however, a component of pneumonia is not excluded.
[2019-08-10 14:19] LABS: Bacteria/HPF 1+ HPF (None Seen); Urine Culture Reflex Yes Yes
[2019-08-10] MEDS ORDERED: Metoprolol Tartrate 5 MG/5 ML VIAL IVP PRN (16:31)
[2019-08-10] MEDS ORDERED: Diltiazem HCl 125 MG, Admixture Fee 1 EACH in Sodium Chloride 0.9% 100 ML IVPB SCH (20:00)
[2019-08-10] MEDS: Atorvastatin Calcium 40 MG TAB PO SCH (20:57)
[2019-08-10] MEDS: Insulin Glargine 20 UNITS in Pre-Filled Syringe 1 EACH SC SCH (20:57)
[2019-08-10] MEDS: Melatonin 3 MG TAB PO SCH (20:58)
[2019-08-10] MEDS: Mirtazapine 15 MG TAB PO SCH (20:58)
[2019-08-11 04:34] LABS: Hemoglobin 9.3 g/dL (12.0-16.0); Mean Corpuscular HGB CONC 33.5 g/dL (32.0-36.0); Mean Corpuscular Hemoglobin 29.8 pg (27.0-31.0); Mean Platelet Volume 9.8 fL (7.4-10.4); Platelet Count 174 thou/uL (130-400); RBC Distribution Width 12.8 % (11.5-14.5); White Blood Cell (WBC) Count 9.8 thou/uL (4.8-10.8)
[2019-08-11 04:52] LABS: Anion Gap 15 mmol/L (10-20); BUN (Urea Nitrogen) 57 mg/dL (9.8-20.1); Calc. Creatinine Clearance 24 mL/min (70-130); Calcium 8.9 mg/dL (7.8-10.44); Carbon Dioxide 22 mmol/L (23-31); Chloride 107 mmol/L (98-107); Estimated GFR-MDRD 22; Glucose 123 mg/dL (83-110); Sodium 140 mmol/L (136-145)
[2019-08-11] MEDS: Aspirin 81 mg Enteric Coated Tablet PO SCH (08:43)
[2019-08-11] MEDS: Amlodipine 10 MG TAB PO SCH (08:43)
[2019-08-11] MEDS: Artificial Tear Sol 15 ML BOT EA EYE SCH ×3 (08:43→22:49)
[2019-08-11] MEDS: Losartan 25 MG TAB PO SCH (08:44)
[2019-08-11] MEDS: Insulin Glargine 25 UNITS in Pre-Filled Syringe 1 EACH SC SCH (08:44)
[2019-08-11] MEDS: Pantoprazole 40 MG GRANULES PACKET PO SCH ×2 (08:45→22:47)
[2019-08-11] MEDS: Saccharomyces boulardii 250 MG CAP PO SCH (08:45)
[2019-08-11] MEDS: Enoxaparin Sodium 80 MG/0.8 ML SYRINGE SC SCH (08:49)
[2019-08-11] MEDS: Furosemide 20 MG/2 ML VIAL SLOW IVP SCH (08:49)
[2019-08-11] MEDS: cefTRIAXone\\ROCEPHIN 2 GM in Sodium Chloride 0.9% 100 ML IVPB SCH (08:50)
--- NOTE | 2019-08-11 11:03 | PDOC.PALCO ---
Palliative Care Consult - Consult Details Requesting Physician: Dr Crump Reason for Consult: goals of care, complex decision-making - Pertinent HPI Patient is a resident of [facility] and presented to the [facility] emergency room for shortness of breath that onset Saturday with no relieving interventions, with vomiting after arrival to emergency department. After evaluation she was noted to have sepsis, uti, elevated troponin. Transferred to [facility] for higher level of care. 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, - Social History Smoking Status: Never smoker Smoking: no tobacco exposure Alcohol Use: none Drug Use History: none Living Situation: long term resident - Medications MAR Reviewed: Yes - Allergies Allergies/Adverse Reactions: Allergies Allergy/AdvReac Type Severity Reaction Status Date / Time morphine Allergy Verified 04/13/19 05:53 tramadol Allergy Verified 04/13/19 05:53 - ROS Non Response: due to mental status - Objective Vital Signs: Vital Signs - Most Recent Temp Pulse Resp BP Pulse Ox 96.4 F L 97 18 140/68 95 08/11/19 08:00 08/11/19 08:43 08/11/19 08:00 08/11/19 08:00 08/11/19 08:00 Palliative Performance Scale: 20 - Advance Directives Medical Power of Brazing Machine Feeder: Brother Jose Juan Angel - Physical Exam Constitutional: encephalitic, ill appearing HEENT: EOMI, moist MMs, sclera anicteric Respiratory: unlabored breathing Deviation from normal: Diminished to bases Cardiovascular: diminished peripheral pulses Gastrointestinal: non-tender, positive bowel sounds Genitourinary: church catheter (clear yellow urine) Musculoskeletal: no clubbing, diffuse muscle atrophy Neurology: facial droop (non verbal today, unable to follow request to surgical oncologist hands) Psychiatric: flat affect Deviation from normal: Makes eye contact, but is delayed, nonverbal at time of assessement - Problem List (1) Palliative care encounter Code(s): Z51.5 - ENCOUNTER FOR PALLIATIVE CARE Current Visit: Yes Status: Acute (2) Dysphagia Code(s): R13.10 - DYSPHAGIA, UNSPECIFIED Current Visit: Yes Status: Acute (3) NSTEMI (non-ST elevated myocardial infarction) Code(s): I21.4 - NON-ST ELEVATION (NSTEMI) MYOCARDIAL INFARCTION Current Visit : Yes Status: Acute (4) Sepsis Code(s): A41.9 - SEPSIS, UNSPECIFIED ORGANISM Current Visit: Yes Status: Acute (5) Physical deconditioning Code(s): R53.81 - OTHER MALAISE Current Visit: No Status: Acute - Plan/Recommendations Plan: Patient had communicated yesterday she did not want a PEG. Toady at assessement she is non verbal, unable to follow request to surgical oncologist or nod to answer questions. Spoke with patient brother TONYA and the family has decided to seek hospice care for Ms Carney. [facility] If in patient not available transition back to [facility] with hospice care. *Palliative Care will coordinate phone call for patient to hear her brother on the phone. He is in [place] and unable to travel here. Mr Angel to also call patient son. [60] minutes spent on this encounter with >50% of the time in counseling and coordination of care. Thank you for this very appropriate consult.
--- NOTE | 2019-08-11 12:08 | PDOC.HOSPP ---
- Subjective Encounter Date: 08/11/19 Encounter Time: 11:30 Subjective: The patient was somnolent and lethargic this morning and unable to follow commands. However one hour later per nurse she was alert and answering some questions. Brother is TONYA, wanted hospice eval and checking advance directives. Advance directives state if terminal condition, give medications for comfort only. Per brother, hospice will see patient tomorrow and fax forms for him to sign. The patient went into afib overnight, was placed on cardizem drip but now is back in sinus and heart rate dropped to 40, so it was discontinued. - Objective Vital Signs & Weight: Vital Signs (12 hours) Temp Pulse Resp BP Pulse Ox 08/11/19 11:15 97.4 F L 78 18 137/65 92 L 08/11/19 08:43 97 08/11/19 08:00 96.4 F L 97 18 140/68 95 08/11/19 03:35 98.4 F 82 12 155/75 H 94 L Weight Admit Weight 149 lb 9 oz Weight 147 lb 14.4 oz I&O: 08/10/19 08/11/19 08/12/19 06:59 06:59 06:59 Intake Total 390 0 Output Total 750 475 Balance -360 -475 Result Diagrams: 08/11/19 04:12 08/11/19 04:12 Additional Labs: Accuchecks 08/11/19 08/11/19 08/10/19 10:43 05:44 20:28 POC Glucose 99 111 H 118 H 08/10/19 17:02 POC Glucose 85 Hospitalist ROS - Review of Systems ROS unobtainable: due to mental status - Medication Medications: Active Medications Generic Name Dose Route Start Last Admin Trade Name Freq PRN Reason Stop Dose Admin Amlodipine Besylate 10 mg 08/08/19 09:00 08/11/19 08:43 Norvasc PO Not Given DAILY JERRY Artificial Tears 1 drop 08/08/19 09:00 08/11/19 08:43 Liquitears 15ml Bottle EA EYE 1 drp TID JERRY Administration Aspirin 81 mg 08/08/19 09:00 08/11/19 08:43 Ecotrin PO Not Given DAILY JERRY Atorvastatin Calcium 40 mg 08/08/19 21:00 08/10/19 20:57 Lipitor PO Not Given HS JERRY Cholecalciferol 5,000 units 08/08/19 09:00 08/11/19 08:44 Vitamin D3 PO Not Given DAILY [facility] Enoxaparin Sodium 70 mg 08/10/19 09:00 08/11/19 08:49 Lovenox SC 70 mg DAILY JERRY Administration Furosemide 20 mg 08/09/19 09:00 08/11/19 08:49 Lasix SLOW IVP 20 mg DAILY [facility] Administration Ceftriaxone Sodium 2 gm/ 100 mls @ 5 mls/hr 08/08/19 09:00 08/11/19 08:50 Sodium Chloride IVPB 100 mls Q24HR JERRY Administration Insulin Glargine 20 units/ 0.2 mls @ 0 mls/hr 08/08/19 21:00 08/10/19 20:57 Miscellaneous Medication SC Not Given HS [facility] Insulin Glargine 25 units/ 0.25 mls @ 0 mls/hr 08/08/19 09:00 08/11/19 08:44 Miscellaneous Medication SC Not Given QAM [facility] Diltiazem HCl 125 mg/ 125 mls @ 5 mls/hr 08/10/19 20:00 08/10/19 20:52 Miscellaneous Medication 1 IVPB 125 mls each/ Sodium Chloride INF JERRY Administration Protocol Insulin Human Regular 0 units 08/08/19 05:43 08/08/19 13:42 Humulin R SC 10 unit .MODERATE SLIDING SC PRN Administration Moderate Correctional Scale Losartan Potassium 50 mg 08/11/19 09:00 08/11/19 08:44 Cozaar PO Not Given DAILY [facility] Melatonin 3 mg 08/08/19 21:00 08/10/19 20:58 Melatonin PO Not Given HS [facility] Metoprolol Succinate 50 mg 08/08/19 09:00 08/11/19 08:45 Toprol Xl PO Not Given DAILY [facility] Metoprolol Tartrate 5 mg 08/10/19 16:31 08/10/19 16:47 Lopressor IVP 5 mg Q3H PRN Administration To Control Heart Rate Mirtazapine 7.5 mg 08/08/19 21:00 08/10/19 20:58 Remeron PO Not Given HS [facility] Ondansetron HCl 4 mg 08/08/19 07:41 08/08/19 09:30 Zofran IVP 4 mg Q6H PRN Administration Nausea/Vomiting Pantoprazole Sodium 40 mg 08/08/19 09:00 08/11/19 08:45 Protonix PO Not Given BID [facility] Saccharomyces Boulardii 250 mg 08/08/19 09:00 08/11/19 08:45 Florastor PO Not Given DAILY [facility] Sertraline HCl 200 mg 08/08/19 21:00 08/10/19 20:58 Zoloft PO Not Given HS JERRY - Exam General Appearance: ill appearing General - other findings: somnolent Eye: PERRL, anicteric sclera ENT: normocephalic atraumatic, no oropharyngeal lesions Neck: supple, symmetric, no JVD, no thyromegaly Heart: RRR, no murmur, no gallops, no rubs, diminshed peripheral pulses Respiratory: CTAB, no wheezes, no rales, no ronchi Gastrointestinal: soft, non-tender, non-distended, normal bowel sounds Extremities: no cyanosis, no clubbing, no edema Skin: normal turgor, no lesions, no rashes Neurological: cranial nerve grossly intact, normal sensation to touch, no focal deficits, no new deficit Musculoskeletal: normal tone, normal strength, no muscle wasting Psychiatric: somnolent, lethargic Hosp A/P - Plan This is 74 year old with NSTEMI, refused invasive procedure #NSTEMI #Somnolence #ALEXANDRA #Severe Malnutrition #Leukocytosis #Hypertension #Atrial fibrillation #Left pleural effusion - refused cardiac cath. Troponin peaked at 144. ECHO shows EF 20-25%, akinetic mid and distal, hypokinesis apex/anterio wall and posterior wall - on metoprolol, decreased losartan, creatinine improving/ - aspirin 325, atorvastatin 40 mg, patient unable to take po meds due to mental status - patient refused tube feeds and PEG - on lasix for pleural effusion. Will repeat chest Xray, may need to d/c since patient not taking adequate po - on IV ceftriaxone due to possible opacity on X ray, however unlikely infectious. Repeat chest Xray - on amlodipine for hypertension but unable to take po meds. -- poor prognosis, palliative consulted, placed hospice consult will see patient tomorrow - check fingersticks, give dextrose prn. Code status: DNR/DNI
--- NOTE | 2019-08-11 13:11 | PQF ---
SHANNAN ROSARIO, [facility] [id number] CLINICAL DOCUMENTATION IMPROVEMENT CLARIFICATION FORM: ICD-10 Updated PLEASE DO AN ADDENDUM TO THE PROGRESS NOTE WITH ANY DOCUMENTATION UPDATES OR ADDITIONS AND CARRY THROUGH TO DC SUMMARY. THANK YOU. DATE: 08/11/19 ATTN: Dr. Crump Please exercise your independent, professional judgment in responding to the clarification form. Clinical indicators are provided on the bottom of this form for your review Please check appropriate box(s) to clarify if the following diagnosis has been ruled in or ruled out: Sepsis due to UTI [ ] Ruled in diagnosis [ ] Continue to treat [ ] Resolved [X ] Ruled out diagnosis [ ] Cannot rule out diagnosis [ ] Other diagnosis [ ] Unable to determine In addition, please specify: Present on Admission (POA): [ ] Yes [ ] No [ ] Unable to determine For continuity of documentation, please document condition throughout progress notes and discharge summary. Thank You. CLINICAL INDICATORS - SIGNS / SYMPTOMS / LABS / RESULTS AND LOCATION IN MR 08/09 Vicki: :"Mental status is much worse" 08/10 Alisia: "Leukocytosis, likely from NSTEMI. " 08/08 WBC 11.7-08/09 wbc 14.7 HR 101, Temp 100.6 (rectal) per 08/08 VS ED 08/10 UA leuk est 500; wbc 11-20 per lab 08/10 CXR: There is left basilar airspace opacity which may reflect atelectasis: however, a component of pneumonia is not excluded. RISK FACTORS / RESULTS AND LOCATION IN MR 08/08 Kirk: "Sepsis, UTI" TREATMENTS / RESULTS AND LOCATION IN MR Rocephin 1gm 08/08 once then Rocephin 2gm 08/08-date per orders (This form is maintained as a part of the permanent medical record) 2014 [employer], [employer]. All Rights Reserved Ruby Varela RN, BSN, CCDS [email or web address]
--- NOTE | 2019-08-11 13:27 | PQF ---
SHANNAN ROSARIO JO, [facility] [id number] [id number] CLINICAL DOCUMENTATION IMPROVEMENT CLARIFICATION FORM: ICD-10 Updated PLEASE DO AN ADDENDUM TO THE PROGRESS NOTE WITH ANY DOCUMENTATION UPDATES OR ADDITIONS AND CARRY THROUGH TO DC SUMMARY. THANK YOU. DATE: 08/11/19 ATTN: Dr. Crump Please exercise your independent, professional judgment in responding to the clarification form. Clinical indicators are provided on the bottom of this form for your review Please check appropriate box(s): [ ] Encephalopathy: Type: [ X] Acute [ ] Subacute [ ] Chronic Etiology: [ ] Metabolic [X ] Unspecified [ ] in the setting of underlying dementia [ ] Other (please specify) [ ] Transient Alteration of Awareness [ ] Other diagnosis [ ] Unable to determine In addition, please specify: Present on Admission (POA): [ X] Yes [ ] No [ ] Unable to determine For continuity of documentation, please document condition throughout progress notes and discharge summary. Thank You. CLINICAL INDICATORS - SIGNS / SYMPTOMS / LABS / RESULTS AND LOCATION IN EMR 08/09 Aterno: "some degree of dementia. She does not know what year it is. She does know her name. She knows she is in the hospital." 08/09 Vicki: :"Mental status is much worse." Renal failure. Creatinine 2.19. Worsening renal function." Stage 4 renal failure" 08/08 BUN 45, CREAT 1.96 lab RISK FACTORS / RESULTS AND LOCATION IN EMR 08/08 Kirk: "Sepsis, UTI, ALEXANDRA" TREATMENTS / RESULTS AND LOCATION IN EMR IV antibiotics--> 08/08 Rocephin 1gm IV once then Rocephin 2gm IV daily 08/08- date per orders (This form is maintained as a part of the permanent medical record) 2014 [email or web address], [email or web address]. All Rights Reserved Ruby Varela RN, BSN, CCDS [email or web address]
--- NOTE | 2019-08-11 18:07 | PRG ---
DATE OF SERVICE: 08/11/2019 SUBJECTIVE: Ms. Carney is actually much more awake and alert today. She is back in normal heart rhythm. OBJECTIVE: VITAL SIGNS: Blood pressure 142/66 and pulse 86 and regular. LUNGS: Clear. CARDIAC: Normal S1 and normal S2. ABDOMEN: Soft and nontender. EXTREMITIES: No edema. ASSESSMENT: 1. Status post non-ST elevation infarction. 2. Mental status actually dramatically improved. 3. Renal failure, stage 4. PLAN: Continue supportive care. The patient has really improved dramatically today with terms of mental status. Job ID: [id number]
--- NOTE | 2019-08-11 20:44 | RAD ---
Portable frontal chest radiograph: 08/11/2019 COMPARISON: 08/10/2019 HISTORY: Pleural effusion FINDINGS: There is increased density in the left base obscuring the left hemidiaphragm which could si gnify left lower lobe consolidation/collapse and/or left pleural fluid, not significantly changed when compared to the prior exam. Right lung is unremarkable. Stable prominence of the cardiac silhoue tte. IMPRESSION: Stable appearance of the chest.
[2019-08-11] MEDS: Insulin Glargine 20 UNITS in Pre-Filled Syringe 1 EACH SC SCH (22:46)
[2019-08-11] MEDS: Atorvastatin Calcium 40 MG TAB PO SCH (22:46)
[2019-08-11] MEDS: Melatonin 3 MG TAB PO SCH (22:46)
[2019-08-11] MEDS: Mirtazapine 15 MG TAB PO SCH (22:49)
[2019-08-12 05:07] LABS: Hemoglobin 10.3 g/dL (12.0-16.0); Mean Corpuscular HGB CONC 31.9 g/dL (32.0-36.0); Mean Corpuscular Hemoglobin 28.6 pg (27.0-31.0); Mean Corpuscular Volume 89.5 fL (78.0-98.0); Mean Platelet Volume 8.9 fL (7.4-10.4); Platelet Count 231 thou/uL (130-400); RBC Distribution Width 12.9 % (11.5-14.5); Red Blood Cell (RBC) Count 3.61 mill/uL (4.20-5.40); White Blood Cell (WBC) Count 9.7 thou/uL (4.8-10.8)
[2019-08-12 05:28] LABS: ALT (SGPT) 22 U/L (8-55); AST (SGOT) 21 U/L (5-34); Albumin 3.6 g/dL (3.4-4.8); Alkaline Phosphatase 65 U/L (40-110); Anion Gap 18 mmol/L (10-20); BUN (Urea Nitrogen) 55 mg/dL (9.8-20.1); Bilirubin, Total 0.3 mg/dL (0.2-1.2); Calc. Creatinine Clearance 25 mL/min (70-130); Calcium 9.5 mg/dL (7.8-10.44); Carbon Dioxide 24 mmol/L (23-31); Chloride 107 mmol/L (98-107); Estimated GFR-MDRD 24; Globulin 3.2 g/dL (2.4-3.5); Glucose 79 mg/dL (83-110); Potassium 3.8 mmol/L (3.5-5.1); Protein, Total 6.8 g/dL (6.0-8.3); Sodium 145 mmol/L (136-145)
[2019-08-12] MEDS: Aspirin 81 mg Enteric Coated Tablet PO SCH (09:35)
[2019-08-12] MEDS: Amlodipine 10 MG TAB PO SCH (09:35)
[2019-08-12] MEDS: Enoxaparin Sodium 80 MG/0.8 ML SYRINGE SC SCH (09:36)
[2019-08-12] MEDS: Saccharomyces boulardii 250 MG CAP PO SCH (09:37)
[2019-08-12] MEDS: Losartan 25 MG TAB PO SCH (09:37)
[2019-08-12] MEDS: Pantoprazole 40 MG GRANULES PACKET PO SCH ×2 (09:37→21:36)
[2019-08-12] MEDS: Insulin Glargine 25 UNITS in Pre-Filled Syringe 1 EACH SC SCH (09:38)
[2019-08-12] MEDS: Artificial Tear Sol 15 ML BOT EA EYE SCH ×2 (09:39→14:59)
[2019-08-12] MEDS: cefTRIAXone\\ROCEPHIN 2 GM in Sodium Chloride 0.9% 100 ML IVPB SCH (09:43)
[2019-08-12] MEDS ORDERED: Clopidogrel Bisulfate 300 MG TAB PO SCH (10:15)
--- NOTE | 2019-08-12 10:29 | PRG ---
DATE OF SERVICE: 08/12/2019 SUBJECTIVE: Ms. Carney is doing much better. She is awake. She does not know what year it is, but she is oriented to being in a medical institution. She thinks she is in [place], but reorients to being at Health system. OBJECTIVE: VITAL SIGNS: Her blood pressure 137/65, pulse 84 and regular. LUNGS: Clear. CARDIAC: Normal S1, normal S2. ABDOMEN: Soft, nontender. ASSESSMENT: 1. Status post [id number] myocardial infarction. 2. Mental status has dramatically improved. Now, she is oriented to person, but also reorients easily. PLAN: 1. Discussed medical therapy versus interventional invasive therapy. She indicates that she wishes to be treated without invasive procedures, that is reasonable in view of her overall pattern. 2. We will go ahead and add Plavix. 3. Okay to go back to the assisted. Obviously, long-term prognosis is poor, but fortunately, the patient has improved clinically and is feeling better presently. Job ID: [id number]
[2019-08-12] MEDS: Insulin Regular 300 UNITS/3 ML VIAL SC PRN (12:57)
[2019-08-12] MEDS ORDERED: Amiodarone 200 MG TAB PO SCH (17:15)
[2019-08-12] MEDS ORDERED: Diltiazem 125 MG in Sodium Chloride 0.9% 100 ML IVPB SCH (17:15)
--- NOTE | 2019-08-12 17:56 | PDOC.HOSPP ---
- Subjective Encounter Date: 08/12/19 Encounter Time: 12:00 Subjective: The patient is doing well. She is able to eat but has a diminished appetite. Patient is much more alert today, not candidate for inpatient hospice. Patient went into afib with Heart rate in the 130's to 140s. Orders to start amiodarone and cardizem drip per cardiology and will stay until Saturday. Patient denies chest pain, shortness of breath or cough Speech evaluated, ordered diet with risk of aspiration - Objective Vital Signs & Weight: Vital Signs (12 hours) Temp Pulse Resp BP Pulse Ox 08/12/19 15:59 98.5 F 75 16 130/60 100 08/12/19 12:20 98.2 F 79 17 124/63 97 08/12/19 09:35 84 08/12/19 08:05 98.6 F 84 18 137/65 94 L Weight Admit Weight 149 lb 9 oz Weight 146 lb 8 oz I&O: 08/11/19 08/12/19 08/13/19 06:59 06:59 06:59 Intake Total 0 120 Output Total 475 1450 Balance -475 -1330 Result Diagrams: 08/12/19 04:49 08/12/19 04:49 Additional Labs: Accuchecks 08/12/19 08/12/19 08/12/19 17:03 10:49 05:51 POC Glucose 50 L* 154 H 91 08/11/19 20:38 POC Glucose 87 Hospitalist ROS - Review of Systems Constitutional: denies: fever, chills - Medication Medications: Active Medications Generic Name Dose Route Start Last Admin Trade Name Kim PRN Reason Stop Dose Admin Amlodipine Besylate 10 mg 08/08/19 09:00 08/12/19 09:35 Norvasc PO 10 mg DAILY JERRY Administration Artificial Tears 1 drop 08/08/19 09:00 08/12/19 14:59 Liquitears 15ml Bottle EA EYE 1 drp TID JERRY Administration Aspirin 81 mg 08/08/19 09:00 08/12/19 09:35 Ecotrin PO 81 mg DAILY JERRY Administration Atorvastatin Calcium 40 mg 08/08/19 21:00 08/11/19 22:46 Lipitor PO Not Given HS JERRY Cholecalciferol 5,000 units 08/08/19 09:00 08/12/19 09:36 Vitamin D3 PO 5,000 units DAILY JERRY Administration Ceftriaxone Sodium 2 gm/ 100 mls @ 200 mls/hr 08/08/19 09:00 08/12/19 09:43 Sodium Chloride IVPB 100 mls Q24HR JERRY Administration Insulin Glargine 20 units/ 0.2 mls @ 0 mls/hr 08/08/19 21:00 08/11/19 22:46 Miscellaneous Medication SC Not Given HS JERRY Insulin Glargine 25 units/ 0.25 mls @ 0 mls/hr 08/08/19 09:00 08/12/19 09:38 Miscellaneous Medication SC 0.25 mls QAM JERRY Administration Insulin Human Regular 0 units 08/08/19 05:43 08/12/19 12:57 Humulin R SC 2 unit .MODERATE SLIDING SC PRN Administration Moderate Correctional Scale Losartan Potassium 50 mg 08/11/19 09:00 08/12/19 09:37 Cozaar PO 50 mg DAILY JERRY Administration Melatonin 3 mg 08/08/19 21:00 08/11/19 22:46 Melatonin PO Not Given HS JERRY Metoprolol Succinate 50 mg 08/08/19 09:00 08/12/19 09:37 Toprol Xl PO 50 mg DAILY JERRY Administration Metoprolol Tartrate 5 mg 08/10/19 16:31 08/10/19 16:47 Lopressor IVP 5 mg Q3H PRN Administration To Control Heart Rate Mirtazapine 7.5 mg 08/08/19 21:00 08/11/19 22:49 Remeron PO 7.5 mg HS JERRY Administration Ondansetron HCl 4 mg 08/08/19 07:41 08/08/19 09:30 Zofran IVP 4 mg Q6H PRN Administration Nausea/Vomiting Pantoprazole Sodium 40 mg 08/08/19 09:00 08/12/19 09:37 Protonix PO 40 mg BID JERRY Administration Saccharomyces Boulardii 250 mg 08/08/19 09:00 08/12/19 09:37 Florastor PO 250 mg DAILY JERRY Administration Sertraline HCl 200 mg 08/08/19 21:00 08/11/19 22:47 Zoloft PO Not Given HS JERRY - Exam General Appearance: NAD, awake alert Eye: PERRL, anicteric sclera ENT: normocephalic atraumatic, no oropharyngeal lesions Neck: supple, symmetric, no JVD, no thyromegaly Heart: RRR, no murmur, no gallops, no rubs Respiratory: CTAB, no wheezes, no rales, no ronchi Gastrointestinal: soft, non-tender, non-distended, normal bowel sounds Extremities: no cyanosis, no clubbing, no edema Skin: normal turgor, no lesions, no rashes Neurological: cranial nerve grossly intact, normal sensation to touch, no focal deficits, no new deficit Musculoskeletal: normal tone, normal strength, no muscle wasting Psychiatric: normal affect, normal behavior, A&O x 3 Hosp A/P - Plan This is 74 year old with NSTEMI, refused invasive procedure. Currently in hospital for atrial fibrillation uncontrolled currently, decreased po intake #NSTEMI #Systolic heart failure - refused cardiac cath. Troponin peaked at 144. ECHO shows EF 20-25%, akinetic mid and distal, hypokinesis apex/anterio wall and posterior wall - on metoprolol, decreased losartan, creatinine improving to 2.04 - aspirin 325, atorvastatin 40 mg, will add plavix per cardiology - speech saw patient, started a diet with risks of aspiration #Atrial fibrillation - starting amiodarone and cardizem per cardiology since heart rate back in 130' s. Plan to keep until Saturday for possible cardioversion #Possible pneumonia - chest X ray shows opacity on the left side. Repeat chest X ray shows the same - had leukocytosis on admission, on IV ceftriaxone day 5. Continue for two more days. No azithromycin due to possible QT prolongation given patient may be started on amiodarone #Hypertension - amlodipine - hold lasix #ALEXANDRA - improving with decreased losartan dose - hold lasix for now #Severe Malnutrition - patient refused tube feeds and PEG, but is now resumed on a diet. Speech evaluated patient, diet with risks of aspiration Disposition: patient likely needs SNF on discharge Code status: DNR/DNI
[2019-08-12] MEDS ORDERED: Potassium Chloride 20 MEQ TAB PO SCH (18:15)
[2019-08-12] MEDS: Atorvastatin Calcium 40 MG TAB PO SCH (21:39)
[2019-08-12] MEDS: Amiodarone 200 MG TAB PO SCH (21:43)
[2019-08-12] MEDS: Melatonin 3 MG TAB PO SCH (21:45)
[2019-08-12] MEDS: Mirtazapine 15 MG TAB PO SCH (21:45)
[2019-08-12] MEDS: Insulin Glargine 20 UNITS in Pre-Filled Syringe 1 EACH SC SCH (21:51)
[2019-08-13] MEDS: Artificial Tear Sol 15 ML BOT EA EYE SCH ×4 (03:24→21:12)
[2019-08-13 05:16] LABS: Hemoglobin 9.4 g/dL (12.0-16.0); Mean Corpuscular Hemoglobin 29.8 pg (27.0-31.0); Mean Corpuscular Volume 90.5 fL (78.0-98.0); Mean Platelet Volume 9.2 fL (7.4-10.4); Platelet Count 234 thou/uL (130-400); RBC Distribution Width 12.8 % (11.5-14.5); Red Blood Cell (RBC) Count 3.15 mill/uL (4.20-5.40); White Blood Cell (WBC) Count 9.1 thou/uL (4.8-10.8)
[2019-08-13 05:26] LABS: ALT (SGPT) 14 U/L (8-55); AST (SGOT) 17 U/L (5-34); Albumin 3.1 g/dL (3.4-4.8); Alkaline Phosphatase 52 U/L (40-110); Anion Gap 14 mmol/L (10-20); BUN (Urea Nitrogen) 49 mg/dL (9.8-20.1); Bilirubin, Total 0.2 mg/dL (0.2-1.2); Calc. Creatinine Clearance 28 mL/min (70-130); Calcium 8.9 mg/dL (7.8-10.44); Carbon Dioxide 22 mmol/L (23-31); Chloride 110 mmol/L (98-107); Estimated GFR-MDRD 27; Globulin 2.8 g/dL (2.4-3.5); Glucose 72 mg/dL (83-110); Potassium 4.3 mmol/L (3.5-5.1); Protein, Total 5.9 g/dL (6.0-8.3); Sodium 142 mmol/L (136-145)
[2019-08-13] MEDS: Pantoprazole 40 MG GRANULES PACKET PO SCH ×2 (08:30→21:06)
[2019-08-13] MEDS: Enoxaparin Sodium 40 MG/0.4 ML SYRINGE SC SCH (08:30)
[2019-08-13] MEDS: Saccharomyces boulardii 250 MG CAP PO SCH (08:31)
[2019-08-13] MEDS: Clopidogrel Bisulfate 75 MG TAB PO SCH (08:31)
[2019-08-13] MEDS: Amiodarone 200 MG TAB PO SCH ×3 (08:31→21:06)
[2019-08-13] MEDS: cefTRIAXone\\ROCEPHIN 2 GM in Sodium Chloride 0.9% 100 ML IVPB SCH (08:31)
[2019-08-13] MEDS: Losartan 25 MG TAB PO SCH (08:32)
[2019-08-13] MEDS: Amlodipine 10 MG TAB PO SCH (08:32)
[2019-08-13] MEDS: Aspirin 81 mg Enteric Coated Tablet PO SCH (08:32)
--- NOTE | 2019-08-13 09:07 | PRG ---
DATE OF SERVICE: 08/13/2019 SUBJECTIVE: Ms. Carney is not doing as well today. She is sleepy. She does wake up. It is unclear whether she will be able to take oral medicines. She is not oriented today to where she is or what year or what season. Yesterday, she knew she was in the hospital, and she did have a more alert appearance. The patient did develop atrial fibrillation with a rapid rate yesterday. She is back in sinus rhythm now. OBJECTIVE: VITAL SIGNS: Blood pressure 128/65, pulse now in the 70 to 80, sinus. LUNGS: Clear. CARDIAC: Normal S1. Normal S2. ABDOMEN: Soft and nontender. EXTREMITIES: There is no edema. ASSESSMENT: 1. Status post [id number]-mnbroiryl infarction. 2. Dementia. 3. Hypertension. 4. Paroxysmal atrial fibrillation. PLAN: 1. Continue metoprolol. 2. Continue amiodarone loading. 3. Prognosis is guarded in this patient. Job ID: [id number]
[2019-08-13] MEDS: Insulin Glargine 25 UNITS in Pre-Filled Syringe 1 EACH SC SCH (09:46)
[2019-08-13 13:56] VITALS: BMI 21.9
--- NOTE | 2019-08-13 16:04 | PDOC.HOSPP ---
- Subjective Encounter Date: 08/13/19 Encounter Time: 16:03 Subjective: Patient denies chest pain or SOB. She has nausea, denies vomiting . Has church and wants it left in. HR controlled, cardizem drip stopped at midnigh t Patient asking for regular water not honey thick. She wants togo to intermediate soon. - Objective Vital Signs & Weight: Vital Signs (12 hours) Temp Pulse Pulse Pulse Resp BP BP 08/13/19 15:41 97.9 F 70 16 08/13/19 14:28 70 69 125/61 125/64 08/13/19 11:19 98.3 F 68 16 08/13/19 08:32 69 08/13/19 07:28 98 F 69 16 BP Pulse Ox 08/13/19 15:41 135/67 98 08/13/19 14:28 08/13/19 11:19 124/60 98 08/13/19 08:32 08/13/19 07:28 128/65 94 L Weight Admit Weight 149 lb 9 oz Weight 144 lb 8 oz I&O: 08/12/19 08/13/19 08/14/19 06:59 06:59 06:59 Intake Total 120 400 Output Total 1450 725 Balance -1330 -325 Result Diagrams: 08/13/19 04:38 08/13/19 04:38 Additional Labs: Accuchecks 08/13/19 08/12/19 08/12/19 10:53 20:31 18:52 POC Glucose 158 H 72 98 08/12/19 08/12/19 18:03 17:03 POC Glucose 81 50 L* Hospitalist ROS - Review of Systems Constitutional: denies: fever, chills - Medication Medications: Active Medications Generic Name Dose Route Start Last Admin Trade Name Freq PRN Reason Stop Dose Admin Amiodarone HCl 400 mg 08/12/19 21:00 08/13/19 08:31 Cordarone PO 400 mg TID JERRY Administration Amlodipine Besylate 10 mg 08/08/19 09:00 08/13/19 08:32 Norvasc PO 10 mg DAILY JERRY Administration Artificial Tears 1 drop 08/08/19 09:00 08/13/19 15:38 Liquitears 15ml Bottle EA EYE 1 drp TID JERRY Administration Aspirin 81 mg 08/08/19 09:00 08/13/19 08:32 Ecotrin PO 81 mg DAILY JERRY Administration Atorvastatin Calcium 40 mg 08/08/19 21:00 08/12/19 21:39 Lipitor PO 40 mg HS JERRY Administration Cholecalciferol 5,000 units 08/08/19 09:00 08/13/19 08:31 Vitamin D3 PO 5,000 units DAILY JERRY Administration Clopidogrel Bisulfate 75 mg 08/13/19 09:00 08/13/19 08:31 Plavix PO 75 mg DAILY JERRY Administration Enoxaparin Sodium 40 mg 08/13/19 09:00 08/13/19 08:30 Lovenox SC 40 mg DAILY JERRY Administration Ceftriaxone Sodium 2 gm/ 100 mls @ 200 mls/hr 08/08/19 09:00 08/13/19 08:31 Sodium Chloride IVPB 100 mls Q24HR JERRY Administration Insulin Glargine 20 units/ 0.2 mls @ 0 mls/hr 08/08/19 21:00 08/12/19 21:51 Miscellaneous Medication SC Not Given HS JERRY Insulin Glargine 25 units/ 0.25 mls @ 0 mls/hr 08/08/19 09:00 08/13/19 09:46 Miscellaneous Medication SC Not Given QAM [facility] Insulin Human Regular 0 units 08/08/19 05:43 08/12/19 12:57 Humulin R SC 2 unit .MODERATE SLIDING SC PRN Administration Moderate Correctional Scale Losartan Potassium 50 mg 08/11/19 09:00 08/13/19 08:32 Cozaar PO 50 mg DAILY JERRY Administration Melatonin 3 mg 08/08/19 21:00 08/12/19 21:45 Melatonin PO 3 mg HS JERRY Administration Metoprolol Succinate 50 mg 08/08/19 09:00 08/13/19 08:32 Toprol Xl PO 50 mg DAILY JERRY Administration Metoprolol Tartrate 5 mg 08/10/19 16:31 08/10/19 16:47 Lopressor IVP 5 mg Q3H PRN Administration To Control Heart Rate Mirtazapine 7.5 mg 08/08/19 21:00 08/12/19 21:45 Remeron PO 7.5 mg HS JERRY Administration Ondansetron HCl 4 mg 08/08/19 07:41 08/08/19 09:30 Zofran IVP 4 mg Q6H PRN Administration Nausea/Vomiting Pantoprazole Sodium 40 mg 08/08/19 09:00 08/13/19 08:30 Protonix PO 40 mg BID JERRY Administration Saccharomyces Boulardii 250 mg 08/08/19 09:00 08/13/19 08:31 Florastor PO 250 mg DAILY JERRY Administration Sertraline HCl 200 mg 08/08/19 21:00 08/12/19 21:42 Zoloft PO 200 mg HS JERRY Administration - Exam General Appearance: NAD, awake alert Eye: PERRL, anicteric sclera ENT: normocephalic atraumatic, no oropharyngeal lesions Neck: supple, symmetric, no JVD, no thyromegaly Heart: RRR, no murmur, no gallops, no rubs Respiratory: CTAB, no wheezes, no rales, no ronchi Gastrointestinal: soft, non-tender, non-distended, normal bowel sounds Extremities: no cyanosis, no clubbing, no edema Skin: normal turgor, no lesions, no rashes Neurological: cranial nerve grossly intact, normal sensation to touch, no focal deficits, no new deficit Musculoskeletal: normal tone, normal strength, no muscle wasting Psychiatric: normal affect, normal behavior, A&O x 3, oriented to person Hosp A/P - Plan This is 74 year old with NSTEMI, refused invasive procedure. Currently in hospital for atrial fibrillation uncontrolled currently, decreased po intake #NSTEMI #Systolic heart failure - refused cardiac cath. Troponin peaked at 144. ECHO shows EF 20-25%, akinetic mid and distal, hypokinesis apex/anterio wall and posterior wall - on metoprolol, decreased losartan, creatinine improving to 2.04 - aspirin 325, atorvastatin 40 mg, plavix per cardiology - speech saw patient, started a diet with risks of aspiration #Atrial fibrillation - continue amiodarone and cardizem per cardiology since heart rate back in 130' s. Plan to keep until Saturday for possible cardioversion #Possible pneumonia - chest X ray shows opacity on the left side. Repeat chest X ray shows the same - had leukocytosis on admission, on IV ceftriaxone day 6. Continue for 1 more day. No azithromycin due to possible QT prolongation given patient may be started on amiodarone #Hypertension - amlodipine - hold lasix #ALEXANDRA - improving to1.84 - hold lasix for now #Severe Malnutrition - patient refused tube feeds and PEG, but is now resumed on a diet. Speech evaluated patient, diet with risks of aspiration Disposition: patient likely needs SNF on discharge Code status: DNR/DNI
[2019-08-13] MEDS: Melatonin 3 MG TAB PO SCH (21:05)
[2019-08-13] MEDS: Mirtazapine 15 MG TAB PO SCH (21:05)
[2019-08-13] MEDS: Atorvastatin Calcium 40 MG TAB PO SCH (21:06)
[2019-08-13] MEDS: Insulin Glargine 20 UNITS in Pre-Filled Syringe 1 EACH SC SCH (21:06)
[2019-08-13] MEDS: Ondansetron PF 4 MG/2 ML Vial IVP PRN (21:23)
[2019-08-14 05:04] LABS: Hemoglobin 10.9 g/dL (12.0-16.0); Mean Corpuscular HGB CONC 32.3 g/dL (32.0-36.0); Mean Corpuscular Hemoglobin 28.9 pg (27.0-31.0); Mean Corpuscular Volume 89.5 fL (78.0-98.0); Platelet Count 260 thou/uL (130-400); Red Blood Cell (RBC) Count 3.78 mill/uL (4.20-5.40); White Blood Cell (WBC) Count 8.5 thou/uL (4.8-10.8)
[2019-08-14 05:35] LABS: Anion Gap 11 mmol/L (10-20); BUN (Urea Nitrogen) 47 mg/dL (9.8-20.1); Calc. Creatinine Clearance 25 mL/min (70-130); Calcium 9.1 mg/dL (7.8-10.44); Carbon Dioxide 29 mmol/L (23-31); Chloride 106 mmol/L (98-107); Estimated GFR-MDRD 24; Glucose 189 mg/dL (83-110); Potassium 4.4 mmol/L (3.5-5.1); Sodium 142 mmol/L (136-145)
[2019-08-14] MEDS: Losartan 25 MG TAB PO SCH (09:26)
[2019-08-14] MEDS: Aspirin 81 mg Enteric Coated Tablet PO SCH (09:26)
[2019-08-14] MEDS: Clopidogrel Bisulfate 75 MG TAB PO SCH (09:26)
[2019-08-14] MEDS: Amiodarone 200 MG TAB PO SCH ×2 (09:27→15:31)
[2019-08-14] MEDS: Saccharomyces boulardii 250 MG CAP PO SCH (09:27)
[2019-08-14] MEDS: Amlodipine 10 MG TAB PO SCH (09:27)
[2019-08-14] MEDS: Enoxaparin Sodium 40 MG/0.4 ML SYRINGE SC SCH (09:27)
[2019-08-14] MEDS: Pantoprazole 40 MG GRANULES PACKET PO SCH ×2 (09:27→20:28)
[2019-08-14] MEDS: cefTRIAXone\\ROCEPHIN 2 GM in Sodium Chloride 0.9% 100 ML IVPB SCH (09:37)
[2019-08-14] MEDS: Artificial Tear Sol 15 ML BOT EA EYE SCH ×3 (09:37→20:29)
--- NOTE | 2019-08-14 09:57 | PRG ---
DATE OF SERVICE: 08/14/2019 SUBJECTIVE: Ms. Carney is much more alert and awake today. She does not know the year. She thinks she is in [place]. She is oriented to person. OBJECTIVE: VITAL SIGNS: Her blood pressure 130/50, pulse 62 and it is sinus. LUNGS: Clear. CARDIAC: Normal S1 and normal S2. ABDOMEN: Soft and nontender. ASSESSMENT: 1. Status post vnw-KT-mjgltsxnw myocardial infarction. 2. Paroxysmal atrial fibrillation with a rapid rate. 3. Longstanding dementia. PLAN: 1. She is on amiodarone. 2. She is on Plavix. 3. Losartan. 4. Metoprolol. 5. Probably reduce the amiodarone dose tomorrow when she goes home. I would have her take this 200 mg once a day. Job ID: [id number]
[2019-08-14] MEDS: Insulin Glargine 25 UNITS in Pre-Filled Syringe 1 EACH SC SCH (10:56)
[2019-08-14] MEDS ORDERED: Insulin Glargine 7 UNITS in Pre-Filled Syringe 1 EACH SC SCH (11:15)
[2019-08-14] MEDS: Insulin Regular 300 UNITS/3 ML VIAL SC PRN (17:31)
--- NOTE | 2019-08-14 19:54 | PDOC.HOSPP ---
- Subjective Encounter Date: 08/14/19 Encounter Time: 19:52 Subjective: The patient denies chest pain or shortness of breath. She is asking for water. She denies abdominal pain but per nursing staff, she did not feel like eating. Lantus reduced to 7 units, sliding scale held Patient's heart rate controlled, likely stable for d/c tomorrow - Objective Vital Signs & Weight: Vital Signs (12 hours) Temp Pulse Pulse Resp BP BP BP 08/14/19 15:34 97.6 F 61 16 133/62 08/14/19 12:00 98.1 F 63 16 142/64 H 08/14/19 11:42 102 H 142/64 H 138/62 08/14/19 09:27 62 Pulse Ox Pulse Ox 08/14/19 15:34 93 L 08/14/19 12:00 95 08/14/19 11:42 89 L 08/14/19 09:27 Weight Admit Weight 149 lb 9 oz Weight 144 lb 8 oz I&O: 08/13/19 08/14/19 08/15/19 06:59 06:59 06:59 Intake Total 400 720 720 Output Total 725 450 450 Balance -325 270 270 Result Diagrams: 08/14/19 04:13 08/14/19 04:13 Additional Labs: Accuchecks 08/14/19 08/14/19 08/14/19 17:32 16:36 10:23 POC Glucose 220 H 229 H 194 H 08/14/19 08/13/19 08/13/19 05:41 20:59 04:59 POC Glucose 179 H 197 H 86 Hospitalist ROS - Medication Medications: Active Medications Generic Name Dose Route Start Last Admin Trade Name Kim PRN Reason Stop Dose Admin Amlodipine Besylate 10 mg 08/08/19 09:00 08/14/19 09:27 Norvasc PO 10 mg DAILY JERRY Administration Artificial Tears 1 drop 08/08/19 09:00 08/14/19 15:31 Liquitears 15ml Bottle EA EYE 1 drp TID JERRY Administration Aspirin 81 mg 08/08/19 09:00 08/14/19 09:26 Ecotrin PO 81 mg DAILY JERRY Administration Atorvastatin Calcium 40 mg 08/08/19 21:00 08/13/19 21:06 Lipitor PO 40 mg HS JERRY Administration Cholecalciferol 5,000 units 08/08/19 09:00 08/14/19 09:26 Vitamin D3 PO 5,000 units DAILY JERRY Administration Clopidogrel Bisulfate 75 mg 08/13/19 09:00 08/14/19 09:26 Plavix PO 75 mg DAILY JERRY Administration Ceftriaxone Sodium 2 gm/ 100 mls @ 200 mls/hr 08/08/19 09:00 08/14/19 09:37 Sodium Chloride IVPB 100 mls Q24HR JERRY Administration Insulin Glargine 20 units/ 0.2 mls @ 0 mls/hr 08/08/19 21:00 08/13/19 21:06 Miscellaneous Medication SC Not Given HS JERRY Insulin Human Regular 0 units 08/08/19 05:43 08/14/19 17:31 Humulin R SC 4 unit .MODERATE SLIDING SC PRN Administration Moderate Correctional Scale Melatonin 3 mg 08/08/19 21:00 08/13/19 21:05 Melatonin PO 3 mg HS JERRY Administration Metoprolol Succinate 50 mg 08/08/19 09:00 08/14/19 09:27 Toprol Xl PO 50 mg DAILY JERRY Administration Metoprolol Tartrate 5 mg 08/10/19 16:31 08/10/19 16:47 Lopressor IVP 5 mg Q3H PRN Administration To Control Heart Rate Mirtazapine 7.5 mg 08/08/19 21:00 08/13/19 21:05 Remeron PO 7.5 mg HS JERRY Administration Ondansetron HCl 4 mg 08/08/19 07:41 08/13/19 21:23 Zofran IVP 4 mg Q6H PRN Administration Nausea/Vomiting Pantoprazole Sodium 40 mg 08/08/19 09:00 08/14/19 09:27 Protonix PO 40 mg BID JERRY Administration Saccharomyces Boulardii 250 mg 08/08/19 09:00 08/14/19 09:27 Florastor PO 250 mg DAILY JERRY Administration Sertraline HCl 200 mg 08/08/19 21:00 08/13/19 21:06 Zoloft PO 200 mg HS JERRY Administration - Exam General Appearance: NAD, awake alert Eye: PERRL, anicteric sclera ENT: normocephalic atraumatic, no oropharyngeal lesions Neck: supple, symmetric, no JVD, no thyromegaly Heart: RRR, no murmur, no gallops, no rubs Respiratory: CTAB, no wheezes, no rales, no ronchi Gastrointestinal: soft, non-tender, non-distended, no palpable masses Extremities: no cyanosis, no clubbing, no edema Skin: no lesions, no rashes. negative: normal turgor Neurological: cranial nerve grossly intact, normal sensation to touch, no focal deficits, no new deficit Hosp A/P - Plan This is 74 year old with NSTEMI, refused invasive procedure. Currently in hospital for atrial fibrillation uncontrolled currently, decreased po intake #NSTEMI #Systolic heart failure - refused cardiac cath. Troponin peaked at 144. ECHO shows EF 20-25%, akinetic mid and distal, hypokinesis apex/anterio wall and posterior wall - on metoprolol, decreased losartan, creatinine improving to 1.99. Will reduce losartan to 25 mg - aspirin 325, atorvastatin 40 mg, plavix per cardiology #Atrial fibrillation - on amiodarone 200 mg tid, reduce to 200 mg tomorrow - likely d/c tomorrow per cardiology #Possible pneumonia - chest X ray shows opacity on the left side. Repeat chest X ray shows the same - had leukocytosis on admission, on IV ceftriaxone day 7, d/c today . No azithromycin due to possible QT prolongation given patient may be started on amiodarone #Hypertension - amlodipine - decrease losartan to 25 mg - hold lasix #ALEXANDRA - creatinine went up to 1.99, will reduce losartan to 25 mg duyen ytomorrow - hold lasix for now #Severe Malnutrition - improved, resumed diet with risk of aspiration Dis[facility] Code status: DNR/DNI
[2019-08-14] MEDS: Atorvastatin Calcium 40 MG TAB PO SCH (20:27)
[2019-08-14] MEDS: Mirtazapine 15 MG TAB PO SCH (20:28)
[2019-08-14] MEDS: Melatonin 3 MG TAB PO SCH (20:28)
[2019-08-14] MEDS: Insulin Glargine 20 UNITS in Pre-Filled Syringe 1 EACH SC SCH (20:30)
[2019-08-14] MEDS ORDERED: Amiodarone 200 MG TAB PO SCH (21:00)
[2019-08-15] MEDS: Enoxaparin Sodium 30 MG/0.3 ML SYRINGE SC SCH (09:49)
[2019-08-15] MEDS: Clopidogrel Bisulfate 75 MG TAB PO SCH (09:50)
[2019-08-15] MEDS: Pantoprazole 40 MG GRANULES PACKET PO SCH ×2 (09:50→21:50)
[2019-08-15] MEDS: Amlodipine 10 MG TAB PO SCH (09:50)
[2019-08-15] MEDS: Saccharomyces boulardii 250 MG CAP PO SCH (09:50)
[2019-08-15] MEDS: Insulin Glargine 7 UNITS in Pre-Filled Syringe 1 EACH SC SCH (09:50)
[2019-08-15] MEDS: Losartan 25 MG TAB PO SCH (09:50)
[2019-08-15] MEDS: Artificial Tear Sol 15 ML BOT EA EYE SCH ×3 (09:50→21:50)
[2019-08-15] MEDS: Amiodarone 200 MG TAB PO SCH (09:50)
[2019-08-15] MEDS: Aspirin 81 mg Enteric Coated Tablet PO SCH (09:51)
--- NOTE | 2019-08-15 13:24 | PDOC.HOSPP ---
- Subjective Encounter Date: 08/15/19 Encounter Time: 13:22 Subjective: Ms. Carney was seen today in follow-up of CHF exacerbation. She does not have any complaints. She is resting in bed. and appears comfortable. - Objective Vital Signs & Weight: Vital Signs (12 hours) Temp Pulse Resp BP Pulse Ox 08/15/19 11:15 97.7 F 61 22 H 137/64 93 L 08/15/19 08:00 97.2 F L 58 L 18 131/62 92 L 08/15/19 03:17 97.3 F L 56 L 18 130/61 92 L Weight Admit Weight 149 lb 9 oz Weight 146 lb 8 oz I&O: 08/14/19 08/15/19 08/16/19 06:59 06:59 06:59 Intake Total 720 840 Output Total 450 650 Balance 270 190 Result Diagrams: 08/14/19 04:13 08/14/19 04:13 Additional Labs: Accuchecks 08/15/19 08/15/19 08/14/19 10:30 05:49 20:31 POC Glucose 201 H 157 H 216 H 08/14/19 08/14/19 17:32 16:36 POC Glucose 220 H 229 H Hospitalist ROS - Medication Medications: Active Medications Generic Name Dose Route Start Last Admin Trade Name Freq PRN Reason Stop Dose Admin Amiodarone HCl 200 mg 08/15/19 09:00 08/15/19 09:50 Cordarone PO 200 mg DAILY JERRY Administration Amlodipine Besylate 10 mg 08/08/19 09:00 08/15/19 09:50 Norvasc PO 10 mg DAILY JERRY Administration Artificial Tears 1 drop 08/08/19 09:00 08/15/19 09:50 Liquitears 15ml Bottle EA EYE 1 drp TID JERRY Administration Aspirin 81 mg 08/08/19 09:00 08/15/19 09:51 Ecotrin PO 81 mg DAILY JERRY Administration Atorvastatin Calcium 40 mg 08/08/19 21:00 08/14/19 20:27 Lipitor PO 40 mg HS JERRY Administration Cholecalciferol 5,000 units 08/08/19 09:00 08/15/19 09:49 Vitamin D3 PO 5,000 units DAILY JERRY Administration Clopidogrel Bisulfate 75 mg 08/13/19 09:00 08/15/19 09:50 Plavix PO 75 mg DAILY JERRY Administration Enoxaparin Sodium 30 mg 08/15/19 09:00 08/15/19 09:49 Lovenox SC 30 mg DAILY JERRY Administration Insulin Glargine 20 units/ 0.2 mls @ 0 mls/hr 08/08/19 21:00 08/14/19 20:30 Miscellaneous Medication SC Not Given HS JERRY Insulin Glargine 7 units/ 0.07 mls @ 0 mls/hr 08/15/19 09:00 08/15/19 09:50 Miscellaneous Medication SC 0.07 mls QAM JERRY Administration Insulin Human Regular 0 units 08/08/19 05:43 08/14/19 17:31 Humulin R SC 4 unit .MODERATE SLIDING SC PRN Administration Moderate Correctional Scale Losartan Potassium 25 mg 08/15/19 09:00 08/15/19 09:50 Cozaar PO 25 mg DAILY JERRY Administration Melatonin 3 mg 08/08/19 21:00 08/14/19 20:28 Melatonin PO 3 mg HS JERRY Administration Metoprolol Tartrate 5 mg 08/10/19 16:31 08/10/19 16:47 Lopressor IVP 5 mg Q3H PRN Administration To Control Heart Rate Mirtazapine 7.5 mg 08/08/19 21:00 08/14/19 20:28 Remeron PO 7.5 mg HS JERRY Administration Ondansetron HCl 4 mg 08/08/19 07:41 08/13/19 21:23 Zofran IVP 4 mg Q6H PRN Administration Nausea/Vomiting Pantoprazole Sodium 40 mg 08/08/19 09:00 08/15/19 09:50 Protonix PO 40 mg BID JERRY Administration Saccharomyces Boulardii 250 mg 08/08/19 09:00 08/15/19 09:50 Florastor PO 250 mg DAILY JERRY Administration Sertraline HCl 200 mg 08/08/19 21:00 08/14/19 20:26 Zoloft PO 200 mg HS JERRY Administration - Exam General Appearance: NAD Heart: RRR, no murmur, no gallops, no rubs, normal peripheral pulses Respiratory: CTAB, no wheezes, no rales, no ronchi, normal chest expansion Gastrointestinal: soft, non-tender, non-distended, normal bowel sounds, no palpable masses, no hepatomegaly Extremities: 1+ LE edema Hosp A/P (1) Acute on chronic systolic heart failure, NYHA class 3 Code(s): I50.23 - ACUTE ON CHRONIC SYSTOLIC (CONGESTIVE) HEART FAILURE Status : Acute (2) NSTEMI (non-ST elevated myocardial infarction) Code(s): I21.4 - NON-ST ELEVATION (NSTEMI) MYOCARDIAL INFARCTION Status: Acute (3) Physical deconditioning Code(s): R53.81 - OTHER [place] Status: Acute (4) CAD (coronary artery disease) Code(s): I25.10 - ATHSCL HEART DISEASE OF [place] CORONARY ARTERY W/O ANG PCTRS Status: Chronic Qualifiers: (5) DM type 2 (diabetes mellitus, type 2) Status: Chronic (6) HTN (hypertension) Code(s): I10 - ESSENTIAL (PRIMARY) HYPERTENSION Status: Chronic Qualifiers: - Plan * Acute on chronic systolic heart failure- clinically compensated * AFIB- her heart rate has been a little low, Metoprolol has been discontinued, and the dose of Amiodarone, has been reduced * Stable for discharge back to the Nursing facility with Hospice.
--- NOTE | 2019-08-15 20:03 | DIS ---
DATE OF ADMISSION: 08/08/2019 DATE OF DISCHARGE: 08/15/2019 DISCHARGE DISPOSITION: Home with home hospice. DISCHARGE DIAGNOSES: 1. NSTEMI. 2. Atrial fibrillation. 3. Diabetes mellitus type 2. 4. Hypertension. 5. Coronary artery disease. 6. Acute on chronic systolic heart failure, [place] Heart Association Class 3. 7. Acute on chronic respiratory failure with hypoxemia. DISCHARGE MEDICATIONS: 1. Protonix 40 mg p.o. b.i.d. 2. Zofran 4 mg q.6 as needed. 3. Plavix 75 mg p.o. daily. 4. Amlodipine 10 mg daily. 5. Amiodarone 200 mg daily. 6. Fleet enema p.r.n. 7. Zoloft 100 mg p.o. daily. 8. Phenergan 12.5 mg q.6 as needed. 9. MiraLAX 17 g p.o. daily. 10. Nystatin cream 15 g b.i.d. 11. Remeron 7.5 mg at bedtime. 12. Melatonin 3 mg at bedtime. 13. Antivert 25 mg q.i.d. 14. Losartan 100 mg p.o. daily. 15. Levemir insulin 16 units in the a.m. and 10 units in the evening. 16. Hydrocortisone cream as needed. 17. Colace 100 mg daily. 18. Vitamin D3 5000 units daily. 19. Carboxymethylcellulose one tablet t.i.d. CODE STATUS: DNAR. ALLERGIES: TO MORPHINE AND TRAMADOL. HOSPITAL COURSE: Ms. Carney is a 74-year-old female, who was brought to the emergency room after she was found to be short of breath. She was evaluated in the ER and noted to have an elevated BNP and her troponin was high at 6.5. She was admitted for acute coronary syndrome and NSTEMI as well as heart failure, Cardiology was consulted. The patient discussed her treatment plan with the regional director of admissions and decided against any type of invasive testing or treatment. Therefore, she is being treated medically. She was placed on nitrates, aspirin, statin, and medication for blood pressure control. She also had an episode of atrial fibrillation, in which she was placed on amiodarone for. Metoprolol was discontinued and changed to carvedilol and she was started on amiodarone with regard to the atrial fibrillation. Once she was clinically stable, she was able to be discharged home with home hospice. Job ID: [id number]
[2019-08-15] MEDS: Atorvastatin Calcium 40 MG TAB PO SCH (21:50)
[2019-08-15] MEDS: Melatonin 3 MG TAB PO SCH (21:50)
[2019-08-15] MEDS: Mirtazapine 15 MG TAB PO SCH (21:50)
[2019-08-15] MEDS: Insulin Glargine 20 UNITS in Pre-Filled Syringe 1 EACH SC SCH (21:56)
[2019-08-16] MEDS: Amiodarone 200 MG TAB PO SCH (09:28)
[2019-08-16] MEDS: Clopidogrel Bisulfate 75 MG TAB PO SCH (09:28)
[2019-08-16] MEDS: Losartan 25 MG TAB PO SCH (09:29)
[2019-08-16] MEDS: Amlodipine 10 MG TAB PO SCH (09:29)
[2019-08-16] MEDS: Pantoprazole 40 MG GRANULES PACKET PO SCH (09:30)
[2019-08-16] MEDS: Aspirin 81 mg Enteric Coated Tablet PO SCH (09:30)
[2019-08-16] MEDS: Saccharomyces boulardii 250 MG CAP PO SCH (09:30)
[2019-08-16] MEDS: Insulin Glargine 7 UNITS in Pre-Filled Syringe 1 EACH SC SCH (09:31)
[2019-08-16] MEDS: Enoxaparin Sodium 30 MG/0.3 ML SYRINGE SC SCH (09:31)
[2019-08-16] MEDS: Artificial Tear Sol 15 ML BOT EA EYE SCH (09:31)
[2019-08-16 12:29] VITALS: BP 135/62; TEMP 97.6
== END 2019-08-16 13:30 | DRG 280 ==
LOC: ERS 02:28 → ERHOLD 04:26 → 2NO 11:38
PROVIDERS: ADMIT Internal Medicine; ATTEND Internal Medicine
DX: I13.0 Hypertensive heart and chronic kidney disease with heart failure and stage 1 through stage 4 chronic kidney disease, or unspecified chronic kidney disease (principal); I21.4 Non-ST elevation (NSTEMI) myocardial infarction; J96.21 Acute and chronic respiratory failure with hypoxia; I50.23 Acute on chronic systolic (congestive) heart failure; E43 Unspecified severe protein-calorie malnutrition; N39.0 Urinary tract infection, site not specified; E87.2 Acidosis; N17.9 Acute kidney failure, unspecified; N18.4 Chronic kidney disease, stage 4 (severe); Z66 Do not resuscitate; I25.10 Atherosclerotic heart disease of native coronary artery without angina pectoris; J44.9 Chronic obstructive pulmonary disease, unspecified; Z51.5 Encounter for palliative care; I48.0 Paroxysmal atrial fibrillation; F32.9 Major depressive disorder, single episode, unspecified; K21.9 Gastro-esophageal reflux disease without esophagitis; E11.22 Type 2 diabetes mellitus with diabetic chronic kidney disease; K59.09 Other constipation; M19.90 Unspecified osteoarthritis, unspecified site; E78.00 Pure hypercholesterolemia, unspecified; F03.90 Unspecified dementia, unspecified severity, without behavioral disturbance, psychotic disturbance, mood disturbance, and anxiety; Z88.6 Allergy status to analgesic agent; Z79.01 Long term (current) use of anticoagulants; Z88.8 Allergy status to other drugs, medicaments and biological substances; Z86.73 Personal history of transient ischemic attack (TIA), and cerebral infarction without residual deficits; Z95.5 Presence of coronary angioplasty implant and graft; Z98.1 Arthrodesis status; Z98.42 Cataract extraction status, left eye; Z98.41 Cataract extraction status, right eye; Z98.51 Tubal ligation status
CPT/HCPCS: 36415; 36416; 71045; 80048; 80053; 81001; 83735; 84484; 85025; 85027; 87086; 93005; 93010; 93306; 93798; 96365; J0696; J1650; J1815; J1940; J2405; J3490